=== PATIENT | male | born 1945 | race Caucasian/White ===

== ENCOUNTER 2017-08-21 11:23 | Inpatient (IN) | payer MEDICARE, OTHER ==
[~2017-08-21] VITALS: Ht 165.1 cm; Wt 61.4 kg
[~2017-08-21 11:23] MED LIST: DOPamine-D5W 1.6 MG/ML 250 ML ONE; ETOMIDATE 20 MG INJ ONE; NITROGLYCERIN 50 MG/D5W 250 ML BTL ONE; ROCURONIUM 50 MG INJ ONE
[2017-08-21] MEDS ORDERED: ASPIRIN 325 MG TAB PO STA (14:37)
[2017-08-21] MEDS ORDERED: SOD CHLORIDE 0.9% 1,000 ML IV STA (14:37)
--- NOTE | 2017-08-21 15:08 | RADRPT ---
PROCEDURE: XR Chest. CLINICAL INDICATION: Shortness of breath TECHNIQUE: Single portable view of the chest was obtained COMPARISON: No priors for comparison FINDINGS: The trachea is midline. The cardiac silhouette and pulmonary vascularity are within normal limits. T here are bilateral chronic lung changes. The lungs are clear. The costophrenic angles are sharp. IMPRESSION: 1. Bilateral chronic lung changes. No evidence of acute cardiopulmonary disease. RPTAT: AAPP Physician Remy Date Time Electronically viewed and signed by Physician Remy on 08/21/2017 15:08 JL/
[2017-08-21] MEDS ORDERED: SIMV20TA PO (15:29)
[2017-08-21] MEDS ORDERED: ATOR20TA38 PO (15:29)
[2017-08-21] MEDS ORDERED: LITH300T5 PO (15:30)
[2017-08-21] MEDS ORDERED: ALEN70TA30 PO (15:30)
[2017-08-21 15:38] LABS: BASOPHILS % 0.2 % (0.0-2.0); HEMATOCRIT 41.1 % (42.0-52.0); HEMOGLOBIN 14.3 g/dl (14.0-18.0); MEAN CORPUSCULAR HEMOGLOBIN 29.2 pg (29.0-33.0); MEAN CORPUSCULAR HGB CONC 34.8 g/dl (32.0-37.0); MEAN PLATELET VOLUME 9.7 fl (7.4-10.4); MONOCYTE # 1.4 10^3/ul (0.3-0.9); NEUTROPHIL # 9.9 10^3/ul (1.6-7.5); NEUTROPHILS % 68.5 % (39.0-77.0); PLATELET COUNT 319 10^3/UL (140-415); RED BLOOD COUNT 4.89 10^6/ul (4.70-6.10); RED CELL DISTRIBUTION WIDTH 12.5 % (11.5-14.5); WHITE BLOOD COUNT 14.5 10^3/ul (4.8-10.8)
[2017-08-21] MEDS ORDERED: SODIUM CHLORIDE 0.9% 1L BAG IV* STA (15:43)
[2017-08-21 15:57] LABS: CALCIUM 10.1 mg/dl (8.4-10.2); CREATININE 0.87 mg/dl (0.61-1.24); POTASSIUM 4.8 mmol/L (3.5-5.1)
[2017-08-21 16:11] LABS: TROPONIN-I 15.4 ng/ml (0.00-0.12)
[2017-08-21] MEDS ORDERED: HEPARIN 25000 UNITS/250 ML 250 ML IV STA (16:24)
[2017-08-21] MEDS ORDERED: HEPARIN 1000 UNITS/ML 10 ML INJ IV STA (16:24)
[2017-08-21] MEDS ORDERED: SOD CHLORIDE 0.45% 1,000 ML IV SCH (17:10)
[2017-08-21] MEDS ORDERED: DOCUSATE SODIUM 100 MG CAP PO PRN (17:30)
[2017-08-21] MEDS ORDERED: NACL 0.9% 3 ML SYG IV SCH (17:30)
[2017-08-21] MEDS ORDERED: ACETAMINOPHEN 325 MG TAB PO PRN ×2 (17:30)
[2017-08-21] MEDS ORDERED: MAGNESIUM HYDROXIDE 30ML CUP PO PRN (17:30)
[2017-08-21] MEDS ORDERED: HEPARIN 25000 UNITS/250 ML 250 ML IV SCH (17:30)
[2017-08-21] MEDS ORDERED: HYDROCODONE/APAP (5/325) TAB PO PRN (17:30)
[2017-08-21] MEDS ORDERED: ONDANSETRON 4 MG INJ IV PRN ×2 (17:30)
[2017-08-21] MEDS ORDERED: hydrALAzine 20 MG INJ IV PRN (17:30)
[2017-08-21] MEDS ORDERED: morphine 2 MG INJ IV PRN (17:30)
[2017-08-21] MEDS ORDERED: HEPARIN 1000 UNITS/ML 10 ML INJ IV PRN (17:30)
[2017-08-21] MEDS ORDERED: ALENDRONATE 70 MG TAB PO SCH (17:30)
[2017-08-21] MEDS ORDERED: ALBUTEROL/IPRATROPIUM (NEB) 3 ML AMP HHN PRN (17:30)
[2017-08-21] MEDS ORDERED: NITROGLYCERIN (SL) 0.4 MG TAB SL PRN (17:30)
[2017-08-21] MEDS ORDERED: HEPARIN 1000 UNITS/ML 10 ML INJ IV ONE (17:30)
[2017-08-21] MEDS ORDERED: NA PHOSPHATE/BIPHOS 133 ML ENEMA PR PRN (17:30)
--- NOTE | 2017-08-21 17:37 | ERD ---
ER Documentation Chief Complaint Chief Complaint Sent from MD for eval chest pain abnormal EKG HPI This 72-year-old male presents with left-sided chest pain that began last night pain is worse at this time. He still has some left-sided chest pain but is much better than before. It does not radiate. Also has some chills. Denies cough, denies burning on urination, denies abdominal pain. He was sent by his primary doctor who says that he had EKG changes. Patient has a life insurance underwriter named . Looked at the website of the life insurance underwriter he does not seem to have any partners listed. Takes a daily aspirin 30 taken his aspirin today. ROS All systems reviewed and are negative except as per history of present illness. Medications Home Meds Reported Medications Alendronate Sodium* (Fosamax*) 70 Mg Tablet, 70 MG PO Q7D, #4 TAB 08/21/17 [place] Carbonate* ([place] Carbonate*) 300 Mg Tablet, 300 MG PO QHS, TAB 08/21/17 Simvastatin* (Zocor*) 20 Mg Tablet, 20 MG PO QHS, #30 TAB 08/21/17 Atorvastatin Calcium* (Atorvastatin Calcium*) 20 Mg Tablet, 20 MG PO QHS, #30 TAB 08/21/17 Allergies Allergies: Coded Allergies: No Known Allergy (Unverified , 08/21/17) PMhx/Soc Medical and Surgical Hx: pt denies Surgical Hx History of Surgery: No Hx 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 Disorder: No Hx Respiratory Disorders: No Hx Cardiac Disorders: Yes (HYPERLIPIDEMIA) Hx Psychiatric Problems: Yes (ANXIETY) Hx Miscellaneous Medical Probl: Yes (HYPOTHYROIDISM) Hx Alcohol Use: No Hx Substance Use: No Hx Tobacco Use: Yes Smoking Status: Former smoker Physical Exam Vitals Vital Signs Date Time Temp Pulse Resp B/P Pulse Ox O2 Delivery O2 Flow Rate FiO2 08/21/17 16:54 98.3 83 17 103/39 98 Nasal Cannula 2.0 08/21/17 14:45 100.8 115 19 115/78 96 Room Air 08/21/17 11:35 98.3 118 20 105/69 95 Physical Exam Const: [] No distress Head: Atraumatic Eyes: Normal Conjunctiva ENT: Normal External Ears, Nose and Mouth. Neck: Full range of motion..~ No meningismus. Resp: Mild decreased bibasilar breath sounds with generally good air movement bilaterally. Cardio: Regular tachycardia, no murmurs Abd: Soft, non tender, non distended. Normal bowel sounds Skin: No petechiae or rashes Back: No midline or flank tenderness Ext: No cyanosis, or edema Neur: Awake and alert 3, no focal deficits Psych: Normal Mood and Affect Result Diagram: 08/21/17 1511 08/21/17 1511 Results 24 hrs Laboratory Tests Test 08/21/17 15:11 08/21/17 16:40 08/21/17 16:50 White Blood Count 14.510^3/ul Red Blood Count 4.8910^6/ul Hemoglobin 14.3g/dl Hematocrit 41.1% Mean Corpuscular Volume 84.0fl Mean Corpuscular Hemoglobin 29.2pg Mean Corpuscular Hemoglobin Concent 34.8g/dl Red Cell Distribution Width 12.5% Platelet Count 81906^3/UL Mean Platelet Volume 9.7fl Neutrophils % 68.5% Lymphocytes % 21.0% Monocytes % 10.0% Eosinophils % 0.0% Basophils % 0.2% Nucleated Red Blood Cells % 0.0/100WBC Neutrophils # 9.910^3/ul Lymphocytes # 3.010^3/ul Monocytes # 1.410^3/ul Eosinophils # 0.010^3/ul Basophils # 0.010^3/ul Nucleated Red Blood Cells # 0.010^3/ul Sodium Level 140mmol/L Potassium Level 4.8mmol/L Chloride Level 101mmol/L Carbon Dioxide Level 24mmol/L Anion Gap 20 Blood Urea Nitrogen 7mg/dl Creatinine 0.87mg/dl Glucose Level 118mg/dl Calcium Level 10.1mg/dl Troponin I 15.400ng/ml Pending B-Type Natriuretic Peptide 98128XK/ML Creatine Kinase 1216IU/L Creatine Kinase Index Pending Creatinine Kinase MB (Mass) Pending Prothrombin Time 13.1Sec Prothrombin Time Ratio 1.0 INR International Normalized Ratio 0.98 Activated Partial Thromboplast Time 34.2Sec Lactic Acid Level 3.7mmol/L Current Medications Medications (Trade) Dose Ordered Sig/Gerardo Route PRN Reason Start Time Stop Time Status Last Admin Dose Admin Sodium Chloride (NS) 1,000 ml @ 1,000 mls/hr Q1H STAT IV 12/8/17 14:37 08/21/17 15:36 DC 08/21/17 15:30 Aspirin (Aspirin) 325 mg ONCE STAT PO 08/21/17 14:37 08/21/17 14:39 DC 08/21/17 15:42 Sodium Chloride (NS) 1,860 ml BOLUS OVER 2 HOURS STAT IV* 08/21/17 15:43 08/21/17 15:44 DC 08/21/17 17:12 Heparin Sodium (Porcine) 4000 unit 4,000 unit ONCE STAT IV 08/21/17 16:24 08/21/17 16:25 DC 08/21/17 17:19 Heparin Sodium (Porcine) (Heparin 60491 Units/250 ml) 250 ml @ 0 mls/hr ONCE STAT IV 08/21/17 16:24 08/21/17 16:25 DC IV Flush (NS 3 ml) 3 ml PER PROTOCOL IV 08/21/17 17:30 Ondansetron HCl (Zofran Inj) 4 mg Q6H PRN IV NAUSEA AND/OR VOMITING 08/21/17 17:30 Acetaminophen (Tylenol Tab) 650 mg Q6H PRN PO PAIN LEVEL 1-3 OR FEVER 08/21/17 17:30 Acetaminophen/ Hydrocodone Bitart ([place] (5/325)) 1 tab Q6H PRN PO MODERATE PAIN LEVEL 4-6 08/21/17 17:30 Morphine Sulfate (morphine) 2 mg Q4H PRN IV SEVERE PAIN LEVEL 7-10 08/21/17 17:30 Docusate Sodium (Colace) 100 mg Q12H PRN PO CONSTIPATION 08/21/17 17:30 Magnesium Hydroxide (Milk Of Mag) 30 ml DAILY PRN PO CONSTIPATION 08/21/17 17:30 Sodium Biphosphate/ Sodium Phosphate (Fleet Enema) 133 ml DAILY PRN [place] CONSTIPATION 08/21/17 17:30 Famotidine 20 mg 20 mg Q12 PO 08/21/17 21:00 UNV Sodium Chloride (1/2 NS) 1,000 ml @ 75 mls/hr [id number] IV 08/21/17 17:10 Lorazepam (Ativan) 0.5 mg Q6H PRN IV ANXIETY 08/21/17 17:30 UNV Albuterol/ Ipratropium 3 ml 3 ml Q4H RESP THERAPY PRN HHN SHORTNESS OF BREATH 08/21/17 17:30 Levofloxacin/ Dextrose (Levaquin 750 Mg/ D5W 150 ml (Pmx)) 150 ml @ 100 mls/hr DAILY IVPB 08/21/17 17:30 UNV Hydralazine HCl (Apresoline) 10 mg Q6H PRN IV ELEVATED BLOOD PRESSURE 08/21/17 17:30 Nitroglycerin (Nitroglycerin (Sl Tab) 0.4 Mg) 1 tab Q5M PRN SL ANGINA 08/21/17 17:30 Aspirin (Ecotrin) 325 mg DAILY PO 08/22/17 09:00 Miscellaneous Information (* Miscellaneous Pharmacy Order) DC previous hepa... ONCE ONCE XX 12 17:30 12 17:31 DC Heparin Sodium (Porcine) (Heparin (1000 Units/ml)) 3,600 unit ONCE ONCE IV 12 17:30 12 17:31 DC Heparin Sodium (Porcine) 3600 unit 3,600 unit PER PROTOCOL PRN IV aPTT<47 08/21/17 17:30 Heparin Sodium (Porcine) (Heparin 00267 Units/250 ml) 250 ml @ 7.2 mls/hr PER PROTOCOL IV 12 17:30 Alendronate Sodium (Fosamax) 70 mg Q7D PO 08/21/17 17:30 UNV Ondansetron HCl (Zofran Inj) 4 mg ER BRIDGE PRN IV NAUSEA AND/OR VOMITING 08/21/17 17:30 12 17:29 Acetaminophen (Tylenol Tab) 650 mg ER BRIDGE PRN PO MILD PAIN/FEVER 08/21/17 17:30 12 17:29 Aspirin (Aspirin) 324 mg ONCE ONCE PO 08/21/17 18:30 12 18:31 Procedures/MDM Chest pain with myocardial infarction progress to STEMI EKG in the emergency room. Initial EKG was not a STEMI. Patient had minimal pain and was surprised that he was having a heart attack. Patient's son is also at bedside. Patient was heparinized and given additional 324 mg even though he says it took a full aspirin today. Sepsis workup was also performed as the patient was febrile and tachycardic in the emergency room after triage with a low-grade fever. She was also given 30 cc/kg of IV fluid and given cefepime. The source of the fever is not clear. Patient also has elevated lactic acid and meets criteria for severe sepsis. Spoke with Dr. Lopez after the repeat EKG showed STEMI criteria. She stated that she will take the patient to [facility]. EKG interpretation #1: Sinus tachycardia rate of 110, normal axis, T-wave inversions in lateral leads suspicious for ischemia, QT of 479. Abnormal EKG EKG #2: Sinus tachycardia rate of 122, normal axis, [address] elevations greater than 1 mm in leads V1 and V2 with ST depressions in leads I and II. STEMI. Abnormal EKG school lunch monitor interpretation: Sinus tachycardia without arrhythmia. Chest x-ray interpretation: I see no acute process, see no wide mediastinum, pneumothorax, no pulmonary edema, no fractures Critical care time greater than 35 minutes: This includes treatment of sepsis in a patient with a myocardial infarction and STEMI, discussion with aircraft hydraulic equipment mechanic and admitting doctor as well as patient and family, multiple space bedside to reassess status, careful fluid administration the face of congestive heart failure, review of chart, this does not include any billable procedures. Departure Diagnosis: Primary Impression: STEMI (ST elevation myocardial infarction) Additional Impression: Severe sepsis GWENDOLYN MOROCHO DO Aug 21, 2017 17:37
[2017-08-21 17:40] LABS: INR 0.98; PROTIME 13.1 Sec (11.9-14.9)
[2017-08-21 17:41] LABS: PARTIAL THROMBOPLASTIN TIME 34.2 Sec (25.0-35.0)
[2017-08-21 17:44] LABS: TROPONIN-I 16.1 ng/ml (0.00-0.12)
[2017-08-21] MEDS ORDERED: IOHEXOL 350MG/ML 50 ML BTL ONE (18:12)
[2017-08-21] MEDS ORDERED: IODIXANOL LOCM 100 ML BTL ONE (18:12)
[2017-08-21] MEDS ORDERED: LIDOCAINE 1% (MDV) 20 ML INJ ONE (18:12)
[2017-08-21 18:16] LABS: BASOPHILS % 0.2 % (0.0-2.0); EOSINOPHILS % 0.1 % (0.0-7.0); HEMATOCRIT 39.3 % (42.0-52.0); HEMOGLOBIN 13.2 g/dl (14.0-18.0); LYMPHOCYTES # 2.8 10^3/ul (0.8-2.9); LYMPHOCYTES % 20.2 % (15.0-51.0); MEAN CORPUSCULAR HEMOGLOBIN 28.7 pg (29.0-33.0); MEAN CORPUSCULAR HGB CONC 33.6 g/dl (32.0-37.0); MEAN CORPUSCULAR VOLUME 85.4 fl (82.0-101.0); MEAN PLATELET VOLUME 9.4 fl (7.4-10.4); MONOCYTE # 1.4 10^3/ul (0.3-0.9); MONOCYTES % 10.1 % (0.0-11.0); NEUTROPHIL # 9.4 10^3/ul (1.6-7.5); NEUTROPHILS % 68.9 % (39.0-77.0); PLATELET COUNT 308 10^3/UL (140-415); RED CELL DISTRIBUTION WIDTH 12.8 % (11.5-14.5); WHITE BLOOD COUNT 13.7 10^3/ul (4.8-10.8)
[2017-08-21] MEDS ORDERED: ASPIRIN 81 MG TAB PO ONE (18:30)
--- NOTE | 2017-08-21 18:41 | CONS ---
Date/Time of Note Date/Time of Note DATE: 08/21/17 TIME: 18:34 Assessment/Plan Assessment/Plan Chief Complaint/Hosp Course 72 yo with hypercholesterolemia with chest pain. Problems: Additional Assessment/Plan STEMI anterior wall Chest pain Plan: Cath with possible PCI. Risks and benefits reviewed with pt son, agree to proceed. Consultation Date/Type/Reason Admit Date/Time Aug 21, 2017 Date of Consultation: Aug 21, 2017 Type of Consultation: cardiology Reason for Consultation STEMI Referring Provider: GWENDOLYN MOROCHO DO Hx of Present Illness 72 yo with hyperlipidemia had onset of chest pressure yesterday and epigastric pain, thought it was gerd from drinking too much soda. Patient saw his pcp today who sent him directly to the ER. Patient still has pain, it is a bit better though. EKG shows NSR, Q's V1 and V2 with 1-[address] elevation and reciprocal depression in lateral leads. Son translated. Constitutional: improved, no complaints Eyes: no complaints ENT: no complaints Respiratory: no complaints Cardiovascular: chest pain Gastrointestinal: no complaints Genitourinary: no complaints Musculoskeletal: no complaints Skin: no complaints Neurologic: no complaints Psychological: no complaints, other (uncomfortable, moving around) Past Medical History Medical History: high cholesterol Past Surgical History Past Surgical Hx: other (cataract) Family History Significant Family History: no pertinent family hx Social History Alcohol Use: none Smoking Status: Former smoker Exam/Review of Systems Vital Signs Vitals Vital Signs Date Time Temp Pulse Resp B/P Pulse Ox O2 Delivery O2 Flow Rate FiO2 08/21/17 18:21 24 100/71 96 Room Air Nasal Cannula 08/21/17 16:54 98.3 83 2.0 Exam Constitutional: alert, oriented, other (moving around, uncomfortable), well developed Psych: nl mood/affect, no complaints Head: atraumatic, normocephalic Eyes: EOMI, PERRL, nl conjunctiva, nl lids, nl sclera ENMT: nl external ears & nose, nl lips & teeth, nl nasal mucosa & septum Neck: supple, No bruits, No jvd Respiratory: clear to auscultation, normal air movement Cardiovascular: nl pulses, regular rate and rhythm, No murmurs/extra sounds Gastrointestinal: nl liver, spleen, non-tender, soft Musculoskeletal: nl extremities to inspection Extremities: normal pulses Skin: nl turgor, No rash or lesions Results Result Diagram: 08/21/17 1810 08/21/17 1511 Results 24 hrs Laboratory Tests Test 08/21/17 15:11 08/21/17 16:40 08/21/17 16:50 08/21/17 18:10 White Blood Count 14.5 H 13.7 H Red Blood Count 4.89 4.60 L Hemoglobin 14.3 13.2 L Hematocrit 41.1 L 39.3 L Mean Corpuscular Volume 84.0 85.4 Mean Corpuscular Hemoglobin 29.2 28.7 L Mean Corpuscular Hemoglobin Concent 34.8 33.6 Red Cell Distribution Width 12.5 12.8 Platelet Count 319 308 Mean Platelet Volume 9.7 9.4 Neutrophils % 68.5 68.9 Lymphocytes % 21.0 20.2 Monocytes % 10.0 10.1 Eosinophils % 0.0 0.1 Basophils % 0.2 0.2 Nucleated Red Blood Cells % 0.0 0.0 Neutrophils # 9.9 H 9.4 H Lymphocytes # 3.0 H 2.8 Monocytes # 1.4 H 1.4 H Eosinophils # 0.0 0.0 Basophils # 0.0 0.0 Nucleated Red Blood Cells # 0.0 0.0 Sodium Level 140 Potassium Level 4.8 Chloride Level 101 Carbon Dioxide Level 24 Anion Gap 20 H Blood Urea Nitrogen 7 Creatinine 0.87 Glucose Level 118 Calcium Level 10.1 Troponin I 15.400 *H Pending B-Type Natriuretic Peptide 11818 H Creatine Kinase 1216 H Creatine Kinase Index Pending Creatinine Kinase MB (Mass) Pending Prothrombin Time 13.1 Prothrombin Time Ratio 1.0 INR International Normalized Ratio 0.98 Activated Partial Thromboplast Time 34.2 Lactic Acid Level 3.7 *H Medications Medications Current Medications Ondansetron HCl (Zofran Inj) 4 mg Q6H PRN IV NAUSEA AND/OR VOMITING; Start 08/21/17 at 17:30 Acetaminophen (Tylenol Tab) 650 mg Q6H PRN PO PAIN LEVEL 1-3 OR FEVER; Start 08/21/17 at 17:30 Acetaminophen/ Hydrocodone Bitart ([place] (5/325)) 1 tab Q6H PRN PO MODERATE PAIN LEVEL 4-6; Start 08/21/17 at 17:30 Morphine Sulfate (morphine) 2 mg Q4H PRN IV SEVERE PAIN LEVEL 7-10; Start 08/21 at 17:30 Docusate Sodium (Colace) 100 mg Q12H PRN PO CONSTIPATION; Start 08/21/17 at 17: 30 Magnesium Hydroxide (Milk Of Mag) 30 ml DAILY PRN PO CONSTIPATION; Start at 17:30 Sodium Biphosphate/ Sodium Phosphate (Fleet Enema) 133 ml DAILY PRN [place] CONSTIPATION; Start 08/21/17 at 17:30 Famotidine 20 mg 20 mg Q12 PO ; Start 08/21/17 at 21:00; Status UNV Sodium Chloride (1/2 NS) 1,000 ml @ 75 mls/hr [id number] IV ; Start 08/21/17 at 17 :10 Lorazepam 0.5 mg 0.5 mg Q6H PRN IV ANXIETY; Start 08/21/17 at 17:30; Status UNV Levofloxacin/ Dextrose (Levaquin 750 Mg/ D5W 150 ml (Pmx)) 150 ml @ 100 mls/hr DAILY IVPB ; Start 08/21/17 at 17:30; Status UNV Hydralazine HCl (Apresoline) 10 mg Q6H PRN IV ELEVATED BLOOD PRESSURE; Start 08/21/17 at 17:30 Nitroglycerin (Nitroglycerin (Sl Tab) 0.4 Mg) 1 tab Q5M PRN SL ANGINA; Start 08/21/17 at 17:30 Aspirin (Ecotrin) 325 mg DAILY PO ; Start 08/22/17 at 09:00 Alendronate Sodium (Fosamax) 70 mg Q7D PO ; Start 08/21/17 at 17:30; Status UNV JENNIFER MOORE Aug 21, 2017 18:41
[2017-08-21] MEDS ORDERED: MIDAZOLAM 1 MG/ML 2 ML INJ ONE (18:47)
[2017-08-21] MEDS ORDERED: FENTAnyl 50 MCG/ML VIAL ONE (18:47)
[2017-08-21] MEDS ORDERED: NITROGLYCERIN (IC) 100 MCG/ML INJ ONE (18:47)
[2017-08-21] MEDS ORDERED: HEPARIN 1000 UNITS/ML 10 ML INJ ONE ×7 (18:52→23:32)
[2017-08-21] MEDS ORDERED: VERAPAMIL 5 MG INJ ONE (18:52)
[2017-08-21 18:54] LABS: TROPONIN-I 14.6 ng/ml (0.00-0.12)
[2017-08-21] MEDS ORDERED: HEPARIN (10000 UNITS/ML) 10,000 UNIT, MILRINONE LACTATE 10 MG in SOD CHLORIDE 0.9% 1,00... SC ONE (20:30)
[2017-08-21] MEDS ORDERED: MILRINONE LACTATE 2 MG in SOD CHLORIDE 0.9% 50 ML IV ONE (20:30)
[2017-08-21] MEDS ORDERED: NORepinephrine 8MG/250 ML (PMX 250 ML IV ONE (20:30)
[2017-08-21] MEDS ORDERED: EPINEPHrine 4 MG in DEXTROSE 5% 246 ML IV ONE (20:30)
[2017-08-21] MEDS ORDERED: INSULIN HUMAN REGULAR 100 UNIT in SOD CHLORIDE 0.9% 99 ML IVPB ONE (20:30)
[2017-08-21] MEDS ORDERED: ASPIRIN 600 MG SUPP PR ONE (20:30)
[2017-08-21] MEDS ORDERED: PHENYLephrine 20MG IN 250 ML 250 ML IV ONE (20:30)
--- NOTE | 2017-08-21 20:31 | OPR ---
Date/Time of Note Date/Time of Note DATE: 08/21/17 TIME: 20:22 Operative Report Procedure Date: Aug 21, 2017 Preoperative Diagnosis STEMI anterior wall Postoperative Diagnosis STEMI anterior wall Three vessel coronary disease Operation/Procedure Performed Coronary angiography Attempt at PCI of LAD, unsuccessful Balloon pump placement Surgeon see signature line Emergency Medical Dispatcher Kel JARAMILLO Anesthesia Type: moderate sedation Estimated Blood Loss: 100 - 150 ml's Transfusion none Specimen none Grafts/Implants none Tubes/Drains none Complications none Pt Condition Post Procedure: critical Disposition: other (OR) Indications STEMI anterior wall, 1 day of chest pain Procedure Description Informed consent obtained from patient son. Access obtained in right radial artery. Diagnostic catheters advanced, Ziyad right did not engage the RCA but a nonselective shot provided adequate visualization of the vessel. The FL3.0 guide engaged the left main, and images obtained. Heparin given, ACT checked, two wires tried to cross the LAD lesion, were not successful. Patient was moving throughout the procedure which made imaging difficult. Because of severe disease and patient instability, I elected to intubate him prior to placement of an IABP in the right penal officer. Using modified seldinger technique, sheath placed in the right common femoral artery, and IABP tip advanced to the mike. Balloon inflated appropriately. During attempt to cross the aortic valve with wire, patient went into VT, required shock, returned to sinus tachycardia. Case d/w Dr. Maria C Fenton (CT surgeon) and Dr. Ino Solis (pt outpatient ic design engineer) [facility]. Findings: LM 30% distal LAD 99% prox with HOSSEIN 1 flow, with good mid vessel target LCX 50% ostial, 80% mild followed by poststenotic dilatation, then 95% distal lesion at takeoff of large OM2 RCA tortuous 80% mid lesion LV unable to be assessed JENNIFER MOORE Aug 21, 2017 20:31
--- NOTE | 2017-08-21 20:42 | PN ---
Date/Time of Note Date/Time of Note DATE: 08/21/17 TIME: 20:34 Assessment/Plan Lines/Catheters IV [facility] (from [facility]): Peripheral IV Assessment/Plan Assessment/Plan 72 year old on chart but according to son he is really 82, admitted with STEMI and taken to sleep lab technologist and found to have subtotaled LAD,over 90% circ and 90% mid RCA. Pt had cardiac arrest in sleep lab technologist requiring cardioversion and insertion of IABP. After unsuccessful PCI I was asked to take emergently for a CABG. I had a long discussion with the patients son and his grandson regarding need for emergency cabg. I explained the benefits, risks and alternatives. The risks are but not limited to bleeding, infection, stroke, OR, renal and respiratory failure and . They talked to several relatives over the phone and were unsure for almost 30 minutes. I explained that if we did nothing he would most likely and that with cabg his mortality is about 20% with even higher morbidity. Again I explained several times in from of Dr. Barr and there regular contract clerk automobile Dr. Solis that he was critical and needed some intervention now and not transferable to other hospitals. They thought about transferring to [facility] or another hospital but he was no condition to transfer. After several discussions and delays they consented and agreed to their father' s surgery. Exam/Review of Systems Vital Signs Vitals Vital Signs Date Time Temp Pulse Resp B/P Pulse Ox O2 Delivery O2 Flow Rate FiO2 08/21/17 18:21 24 100/71 96 Room Air Nasal Cannula 08/21/17 16:54 98.3 83 2.0 Results Result Diagram: 08/21/17 1810 08/21/17 1511 ERNIE LOPEZ MD Aug 21, 2017 20:42
[2017-08-21] MEDS ORDERED: PAPAVERINE 60 MG INJ ONE (20:44)
[2017-08-21] MEDS ORDERED: GELATIN SIZE 100 SPONGE ONE (20:45)
[2017-08-21] MEDS ORDERED: THROMBIN 5000 UNIT VIAL ONE (20:45)
[2017-08-21] MEDS ORDERED: VANCOMYCIN 1 GM INJ ONE (20:45)
[2017-08-21] MEDS ORDERED: MANNITOL 20% 250 ML IV ONE ×2 (20:49→22:29)
[2017-08-21] MEDS ORDERED: AMINOCAPROIC ACID 5 GM INJ ONE ×2 (20:49→21:57)
[2017-08-21] MEDS ORDERED: LIDOCAINE 100 MG SYRINGE ONE (20:49)
[2017-08-21] MEDS ORDERED: POTASSIUM CHLORIDE 40 MEQ INJ ONE ×2 (20:50→20:52)
[2017-08-21] MEDS ORDERED: MAGNESIUM SULFATE (MG) 50% 10 ML INJ ONE (20:50)
--- NOTE | 2017-08-21 20:50 | CONS ---
Date/Time of Note Date/Time of Note DATE: 08/21/17 TIME: 20:45 Assessment/Plan Assessment/Plan Additional Assessment/Plan [age] year old male in cardiogenic shock who needs emergent CABG. I explained in great detail to son and several family members over the phone that he needs emergency CABG and that if he didnt his mortality is over 50% and with surgery its around 20%. After several long discussions and explanation of risks the son signed the consent. Consultation Date/Type/Reason Admit Date/Time Aug 21, 2017 Date of Consultation: Aug 21, 2017 Reason for Consultation emergency cabg Referring Provider: JENNIFER MOORE Hx of Present Illness 72 by chart but 82 according to son admitted with STEMI and found to have subtotaled LAD, critical Cx and RCA stenosis and failed PCI and cardiac arrest requiring cardioversion. I am asked to see regarding emergency CABG. Subjective hx not possible: pt non-verbal Past Medical History Medical History: high cholesterol, hypertension Past Surgical History Past Surgical Hx: other (cataract) Family History Significant Family History: no pertinent family hx Social History Alcohol Use: none Smoking Status: Former smoker Drug Use: none Exam/Review of Systems Vital Signs Vitals Vital Signs Date Time Temp Pulse Resp B/P Pulse Ox O2 Delivery O2 Flow Rate FiO2 08/21/17 18:21 24 100/71 96 Room Air Nasal Cannula 08/21/17 16:54 98.3 83 2.0 Exam Constitutional: non-verbal Head: No atraumatic, No hematomas, No lacerations, No normocephalic, No other Eyes: No EOMI, No PERRL, No fundi, disc, No icteric, No nl conjunctiva, No nl lids, No nl sclera, No other ENMT: No intubated, No mucosa pink and moist, No nl external ears & nose, No nl lips & teeth, No nl nasal mucosa & septum, No other, No tympanic membranes Neck: No bruits, No jvd, No masses, No non-tender, No nuchal rigidity, No other , No supple, No thyromegaly Respiratory: No clear to auscultation, No congested cough, No crackles/rales, No diminished breath sounds, No intercostal retraction, No labored breathing, No normal air movement, No other, No respirations, No tactile fremitus, No wheezing Cardiovascular: No S3, No S4, No bruits, No diastolic murmur, No edema, No gallop, No irregular rhythm, No jugular venous distention (JVD), No murmurs/ extra sounds, No nl pulses, No other, No regular rate and rhythm, No rub, No systolic murmur Gastrointestinal: No ascites, No bowel sounds, No distended, No firm, No hepatomegaly, No mass, No nl liver, spleen, No non-tender, No other, No rebound or guarding, No soft, No splenomegaly, No surgical scars, No tender Musculoskeletal: No joint tenderness, No muscle tone, No muscle weakness, No nl extremities to inspection, No nl gait and stance, No other, No range of motion, No spine non-tender, No swelling Extremities: other (cool to touch, IABP in place) 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: unresponsive Skin: No diaphoresis, No ecchymosis, No laceration, No nl turgor, No other, No puncture, No rash or lesions Lymph: No enlarged, No nl lymph nodes, No nontender, No other Results Result Diagram: 08/21/17 1810 08/21/17 1511 Results 24 hrs Laboratory Tests Test 08/21/17 15:11 08/21/17 16:40 08/21/17 16:50 08/21/17 18:10 White Blood Count 14.5 H 13.7 H Red Blood Count 4.89 4.60 L Hemoglobin 14.3 13.2 L Hematocrit 41.1 L 39.3 L Mean Corpuscular Volume 84.0 85.4 Mean Corpuscular Hemoglobin 29.2 28.7 L Mean Corpuscular Hemoglobin Concent 34.8 33.6 Red Cell Distribution Width 12.5 12.8 Platelet Count 319 308 Mean Platelet Volume 9.7 9.4 Neutrophils % 68.5 68.9 Lymphocytes % 21.0 20.2 Monocytes % 10.0 10.1 Eosinophils % 0.0 0.1 Basophils % 0.2 0.2 Nucleated Red Blood Cells % 0.0 0.0 Neutrophils # 9.9 H 9.4 H Lymphocytes # 3.0 H 2.8 Monocytes # 1.4 H 1.4 H Eosinophils # 0.0 0.0 Basophils # 0.0 0.0 Nucleated Red Blood Cells # 0.0 0.0 Sodium Level 140 Potassium Level 4.8 Chloride Level 101 Carbon Dioxide Level 24 Anion Gap 20 H Blood Urea Nitrogen 7 Creatinine 0.87 Glucose Level 118 Calcium Level 10.1 Troponin I 15.400 *H Pending 14.600 *H B-Type Natriuretic Peptide 56222 H Creatine Kinase 1216 H 1096 H Creatine Kinase Index Pending 10.4 Creatinine Kinase MB (Mass) Pending 114.00 H Prothrombin Time 13.1 Prothrombin Time Ratio 1.0 INR International Normalized Ratio 0.98 Activated Partial Thromboplast Time 34.2 Lactic Acid Level 3.7 *H 2.8 *H Medications Medications Current Medications Ondansetron HCl (Zofran Inj) 4 mg Q6H PRN IV NAUSEA AND/OR VOMITING; Start 08/21/17 at 17:30 Acetaminophen (Tylenol Tab) 650 mg Q6H PRN PO PAIN LEVEL 1-3 OR FEVER; Start 08/21/17 at 17:30 Acetaminophen/ Hydrocodone Bitart ([place] (5/325)) 1 tab Q6H PRN PO MODERATE PAIN LEVEL 4-6; Start 08/21/17 at 17:30 Morphine Sulfate (morphine) 2 mg Q4H PRN IV SEVERE PAIN LEVEL 7-10; Start 08/21 at 17:30 Docusate Sodium (Colace) 100 mg Q12H PRN PO CONSTIPATION; Start 08/21/17 at 17: 30 Magnesium Hydroxide (Milk Of Mag) 30 ml DAILY PRN PO CONSTIPATION; Start at 17:30 Sodium Biphosphate/ Sodium Phosphate (Fleet Enema) 133 ml DAILY PRN [place] CONSTIPATION; Start 08/21/17 at 17:30 Famotidine 20 mg 20 mg Q12 PO ; Start 08/21/17 at 21:00 Sodium Chloride (1/2 NS) 1,000 ml @ 75 mls/hr [id number] IV ; Start 08/21/17 at 17 :10 Lorazepam 0.5 mg 0.5 mg Q6H PRN IV ANXIETY; Start 08/21/17 at 17:30 Levofloxacin/ Dextrose (Levaquin 750 Mg/ D5W 150 ml (Pmx)) 150 ml @ 100 mls/hr Q24H IVPB ; Start 08/21/17 at 19:00 Hydralazine HCl (Apresoline) 10 mg Q6H PRN IV ELEVATED BLOOD PRESSURE; Start 08/21/17 at 17:30 Nitroglycerin (Nitroglycerin (Sl Tab) 0.4 Mg) 1 tab Q5M PRN SL ANGINA; Start 08/21/17 at 17:30 Aspirin (Ecotrin) 325 mg DAILY PO ; Start 08/22/17 at 09:00 Alendronate Sodium (Fosamax) 70 mg Q7D PO ; Start 08/21/17 at 17:30; Status UNV Miscellaneous Information (*Order Clarification Bulletin) ALENDRONATE 70MG: WHICH DAY OF THE WEEK IS T... Q8H XX ; Start 08/21/17 at 19:30 ERNIE LOPEZ MD Aug 21, 2017 20:50
[2017-08-21] MEDS ORDERED: MIDAZOLAM 5 ML ONE ×3 (20:55→23:49)
--- NOTE | 2017-08-21 20:55 | QN ---
Documentation Comment Called to the Production Control Expert for ET intubation requested by Dr. Lopez as the patient having significant acute cardiac disease and required a balloon pump. ET intubation note: Patient was creatinine with bag mask ventilation and RSI was used with 20 mill grams of etomidate 100 mg rocuronium. Size 8 ET tube was easily introduced through visualized cords using a glide scope. Patient did initially saturate well after the procedure then desaturated as the electrical system specialist was placing a balloon pump concurrently. The saturation did return to high 90s. Patient was visualized sensation to the vocal cord as well as entitled CO2 monitor showing good color change. Under fluoroscopy was able to see the tube was in good position. GWENDOLYN MOROCHO DO Aug 21, 2017 20:55
[2017-08-21] MEDS ORDERED: PHENYLephrine (100 MCG/ML) 5ML SYG ONE ×2 (21:18→22:06)
[2017-08-21] MEDS ORDERED: ALBUMIN HUMAN 25% 300 ML ONE (21:25)
[2017-08-21] MEDS ORDERED: PHENYLephrine 10 MG INJ ONE ×5 (21:25→23:44)
[2017-08-21] MEDS ORDERED: SOD CHLORIDE 0.9% 250 ML IV* ONE ×2 (21:44→21:53)
[2017-08-21] MEDS ORDERED: NA BICARBONATE 8.4% 50 ML SYG ONE ×2 (21:48→23:53)
[2017-08-21] MEDS ORDERED: CEFAZOLIN 1 GM INJ ONE (21:57)
[2017-08-21] MEDS ORDERED: FUROSEMIDE 20 MG INJ ONE (22:03)
[2017-08-21] MEDS ORDERED: CA CHLORIDE 10% 10 ML SYRINGE ONE (23:44)
[2017-08-22] VITALS (79 sets, daily range): BP systolic 87–138; BP diastolic 37–89; PULSE 86–139; RESP 17–30; TEMP 96.2–101.8; Ht 165.1 cm; Wt 61.4 kg
[2017-08-22] MEDS ORDERED: AMINOCAPROIC ACID 5 GM INJ ONE ×2
[2017-08-22] MEDS ORDERED: CEFAZOLIN 1 GM INJ ONE
[2017-08-22] MEDS ORDERED: PROTAMINE 250 MG INJ ONE
[2017-08-22] MEDS ORDERED: PHENYLephrine 20MG IN 250 ML 250 ML IV SCH ×2 (00:30→02:00)
[2017-08-22] MEDS ORDERED: NORepinephrine 8MG/250 ML (PMX 250 ML IV SCH ×2 (00:30→02:00)
--- NOTE | 2017-08-22 00:47 | SIPON ---
Date/Time of Note Date/Time of Note DATE: 08/22/17 TIME: 00:45 Operative Report Preoperative Diagnosis STEMI, CARDIAC ARREST, 3V CAD Postoperative Diagnosis SAME Operation/Procedure Performed CABGX3, WESTFALL TO LAD, SVG TO DISTAL RCA, SVG TO OM2 Surgeon see signature line kitchen assistant CLIVE JESUS MD Second assist: BRIEN AGGARWAL Anesthesia: general Estimated blood loss: other Transfusion Required 2 UNITS PRBC, 2UNITS FFP, 2 PLATELETS Specimen NONE Grafts/Implants none Complications none ERNIE LOPEZ MD Aug 22, 2017 00:47
[2017-08-22] MEDS ORDERED: MAGNESIUM SULFATE 1 GM/D5W 100 ML IVPB PRN (01:00)
[2017-08-22] MEDS ORDERED: ONDANSETRON 4 MG INJ IV PRN (01:00)
[2017-08-22] MEDS ORDERED: POTASSIUM CHLORIDE 40 MEQ, CALCIUM CHLORIDE 10% 1 GM in DEXTROSE 5%-0.225% NACL 1,000 ML IV SCH (01:00)
[2017-08-22] MEDS ORDERED: EPINEPHrine 4 MG in DEXTROSE 5% 246 ML IV SCH (01:00)
[2017-08-22] MEDS ORDERED: ACETAMINOPHEN 325 MG TAB PO PRN (01:00)
[2017-08-22] MEDS ORDERED: DOPamine 800 MG in DEXTROSE 5% 230 ML IV SCH (01:00)
[2017-08-22] MEDS ORDERED: DEXTROSE 50% 50 ML SYRINGE IV PRN ×2 (01:00)
[2017-08-22] MEDS ORDERED: OXYCODONE/ACETAMINOPHEN (5/325) TAB PO PRN (01:00)
[2017-08-22] MEDS: FAMOTIDINE 20 MG TAB PO SCH ×3 (01:15→21:06)
[2017-08-22] MEDS: VASOPRESSIN 60 UNIT in DEXTROSE 5% 60 ML IV SCH ×2 (01:15→14:55)
[2017-08-22] MEDS: ALENDRONATE 70 MG XX SCH ×2 (01:15→03:30)
[2017-08-22] MEDS: EPINEPHrine 4 MG in DEXTROSE 5% 246 ML IV SCH ×3 (01:15→18:20)
[2017-08-22] MEDS: [UNRECOGNIZED DRUG - OTHER] XX SCH ×2 (01:15→03:30)
[2017-08-22] MEDS: LEVOFLOXACIN 750MG/D5W (PMX) 150 ML IVPB SCH ×2 (01:15→19:23)
--- NOTE | 2017-08-22 01:27 | RADRPT ---
PROCEDURE: Chest. CLINICAL INDICATION: Chest pain. TECHNIQUE: Single frontal view of the chest was obtained. COMPARISON: 08/21/2017. FINDINGS: Mediasternotomy wires are present. There is an endotracheal tube 2 cm above the mike. There is a l eft-sided [place] catheter extending to the main pulmonary artery. There are inferior septal lines present. The cardiac silhouette is enlarged. The aortic arch is calcified. There is pulmonary lorraine ous congestion with interstitial edema. There is no pleural effusion. There is no pneumothorax. IMPRESSION: Moderate cardiomegaly with pulmonary venous congestion and interstitial edema, new compared with the prior study. Aortic atherosclerosis. Tube and lines as described. .Saurabh Quezada MD, Date Time Electronically viewed and signed by .Saurabh Quezada MD, MD on 08/22/2017 01:26 .T/
[2017-08-22] MEDS: ACCU-CHEK XX SCH ×9 (01:30→10:00)
[2017-08-22] MEDS ORDERED: NA BICARBONATE 8.4% 50 ML SYG ONE ×2 (01:51→01:52)
[2017-08-22] MEDS ORDERED: NITROGLYCERIN 50 MG/D5W (PMX) 250 ML IV SCH (02:00)
[2017-08-22] MEDS ORDERED: DOPamine-D5W 1.6 MG/ML 250 ML IV SCH (02:00)
[2017-08-22] MEDS ORDERED: VASOPRESSIN 60 UNIT in DEXTROSE 5% 57 ML IV SCH (02:00)
[2017-08-22 02:12] LABS: INR 1.51; PROTIME 18.5 Sec (11.9-14.9); PT RATIO 1.4
[2017-08-22 02:13] LABS: PARTIAL THROMBOPLASTIN TIME 34.5 Sec (25.0-35.0)
[2017-08-22 02:39] LABS: TROPONIN-I 70.8 ng/ml (0.00-0.12)
[2017-08-22] MEDS: CEFAZOLIN 1 GM/50 ML (PMX) 50 ML IVPB SCH ×3 (03:13→17:26)
[2017-08-22 03:45] LABS: BASOPHILS % 0.2 % (0.0-2.0); EOSINOPHILS # 0.1 10^3/ul (0.0-0.5); EOSINOPHILS % 0.3 % (0.0-7.0); HEMATOCRIT 27.7 % (42.0-52.0); HEMOGLOBIN 9.3 g/dl (14.0-18.0); LYMPHOCYTES # 4.2 10^3/ul (0.8-2.9); LYMPHOCYTES % 23.7 % (15.0-51.0); MEAN CORPUSCULAR HEMOGLOBIN 29.4 pg (29.0-33.0); MEAN CORPUSCULAR HGB CONC 33.6 g/dl (32.0-37.0); MEAN CORPUSCULAR VOLUME 87.7 fl (82.0-101.0); MEAN PLATELET VOLUME 9.8 fl (7.4-10.4); MONOCYTE # 0.6 10^3/ul (0.3-0.9); MONOCYTES % 3.4 % (0.0-11.0); NEUTROPHIL # 12.9 10^3/ul (1.6-7.5); NEUTROPHILS % 71.8 % (39.0-77.0); PLATELET COUNT 243 10^3/UL (140-415); POSITIVE DIFF @See below; RED BLOOD COUNT 3.16 10^6/ul (4.70-6.10); RED CELL DISTRIBUTION WIDTH 13.2 % (11.5-14.5); WHITE BLOOD COUNT 17.9 10^3/ul (4.8-10.8)
[2017-08-22 03:52] LABS: CALCIUM 7.4 mg/dl (8.4-10.2); CREATININE 0.85 mg/dl (0.61-1.24); MAGNESIUM 2.8 mg/dl (1.7-2.5); POTASSIUM 3.1 mmol/L (3.5-5.1)
[2017-08-22] MEDS: INSULIN HUMAN REGULAR 100 UNIT in SOD CHLORIDE 0.9% 99 ML IV SCH ×2 (04:05→19:19)
--- NOTE | 2017-08-22 04:17 | OPR ---
DATE OF OPERATION: 08/22/2017 PREOPERATIVE DIAGNOSES: 1. ST-elevation myocardial infarction. 2. Cardiac arrest. 3. Three-vessel coronary artery disease, left main stenosis. POSTOPERATIVE DIAGNOSES: 1. ST-elevation myocardial infarction. 2. Cardiac arrest. 3. Three-vessel coronary artery disease, left main stenosis. PROCEDURE PERFORMED: CABG x3, WESTFALL to LAD, SVG to distal right coronary artery, SVG to obtuse flores nal artery, endoscopic vein harvesting. SURGEON: Ernie Fenton M.D. NIB INSPECTOR: Larry Jesus M.D. SECOND INSURANCE PRODUCER: OKSANA García ANESTHESIOLOGIST: Eder Kumar M.D. ANESTHESIA: General endotracheal. COMPLICATIONS: None. FINDINGS: LV function was about 25% to 30% preoperatively. After revascularization, it was more li ke 40%. All the camp were moving, but the heart was dilated. His flow in the OM vein graft was 79 mL per minute, the flow in the RCA was 55 mL per minute. The flow in the WESTFALL was 10 mL per minute . The LAD was a heavily calcified, diffusely diseased vessel. INDICATION: The patient is a 72-year-old male by medical records, but according to his family, he i s 82 years old, who came in with a chest pain and ruled in for a STEMI. He was taken to the cath la b and was found to have a subtotally occluded LAD and high-grade stenosis of his RCA and circumflex. He had attempted PCI of his LAD. He had a cardiac arrest requiring cardioversion x2. I was earl d emergently for emergency CABG. I explained in great detail to the son and the grandson, the benef its, the risks, alternatives of surgery. This was all documented in the notes. They understood and agreed. DESCRIPTION OF PROCEDURE: Patient was brought to the operating room. He was placed in supine posit ion. He was already intubated. He had a swan placed and a radial A-line placed. Antibiotics were given. He was prepped and draped in usual sterile fashion. A median sternotomy was made simultaneo us endoscopic vein harvesting from the right lower extremity. Heparin was given. WESTFALL was taken do wn using clips and cautery. Pericardial well established. Pursestring was placed in the ascending aorta followed by the right atrium. The ascending aorta was cannulated followed by 2-stage venous c annula in the right atrium. The retrograde catheter was placed via the right atrium and also ascend ing aortic vent. Once all lines were in place and ACT was adequate, we commenced cardiopulmonary by pass. We placed a crossclamp and arrested the heart using retrograde cardioplegia. Once the heart was arrested, we identified the distal RCA, which was a 1.5 mm vessel. We anastomosed our vein alfred t using 7-0 Prolene in a running fashion in end-to-side manner. The vein grafts cut to length. We then identified the OM2. I made an arteriotomy, which was a 2 mm vessel. We anastomosed our vein g raft using 7-0 Prolene in a running fashion in end-to-side manner. Once this was done, we identifie d proximal to mid LAD with the heavily calcified and diseased vessel. We made an arteriotomy and ex tended with Nicholas scissors. We anastomosed our WESTFALL using 7-0 Prolene in a running fashion in end-t o-side manner. At this time, we began rewarming the patient. We placed a ventricular pacing wire, gave warm blood, and then removed the crossclamp and cardioverted to normal sinus rhythm. We then p laced a partial clamp on the ascending aorta. We made 2 aortotomies, anastomosed our right vein gra ft to the distal aortotomy, using 5-0 Prolene in a running fashion in end-to-side manner. The same was done for the other vein graft. Partial clamp was removed. Vein grafts were deaired. Distally hemostasis was achieved. We began ventilating the patient. We turned the balloon pump back on and weaned him off cardiopulmonary bypass on epinephrine, Primacor and dopamine. He was able to maintai n blood pressures in the 90s. We gave protamine. We then delined the patient. We placed anterior mediastinal tube. We closed the chest using interrupted cables, followed by closure of the fascia u sing 0 Vicryl, followed by closure of skin using 4-0 Monocryl in subcuticular fashion. Lower extrem ity incisions were closed using 3-0 Vicryl for the deep layer and 4-0 Monocryl for the skin. Dressi ngs were applied. Patient was taken to the ICU in critical condition. Dictated By: ERNIE SPEAR/BURTON Conf#: [id number] DID#: [id number] CC: BRIEN GANDHI; LARRY JESUS MD; EDER KUMAR MD;*[facility]*
[2017-08-22] MEDS: POTASSIUM CHLORIDE 50 ML IVPB PRN ×6 (04:20→11:33)
--- NOTE | 2017-08-22 05:19 | HP ---
Date/Time of Note Date/Time of Note DATE: 08/22/17 TIME: 04:59 Assessment/Plan VTE Prophylaxis VTE Prophylaxis Intervention: SCD's Lines/Catheters IV Catheter Type (from Nrsg): Peripheral IV Assessment/Plan Assessment/Plan 72 yo male with hx of DL, anxiety, ?hypothyroidism who presented with chest pain and found to have STEMI with emergent cardiac cath revealing three- disease. s/p unsuccessful PCI of LAD, s/p cardiac arrest in botany laboratory assistant s/p cardioversion x 2 and placement of balloon pump and now s/p CABG. 1. Three-vessel CAD, s/p CABG ICU monitoring cont vent support, pulmonary to follow f/u cardiology and CT surg recs 2D-echo 2. s/p cardiopulmonary arrest: s/p cardioversion x 2, intubation -see #1 3. SIRS: secondary to above -will be on IV abx -f/u culture results 4. Lactic acidosis: from ischemic event -will trend -see above 5. Hypernatremia -re-check in few hours. If persists, then D5W 6. Anemia: likely 2/2 blood loss and dilutional effect -monitor and transfuse as needed 7. ?Hx of hypothyroidism -check TSH in am 8. Hx of Dyslipidemia -check FLP in am -will be on statin HPI/ROS Admit Date/Time Admit Date/Time Aug 21, 2017 Hx of Present Illness This is a 72 yo male with hx of DL, anxiety, ?hypothyroidism who presented with chest pain and found to have STEMI with elevated troponin. emergent cardiac cath revealed multivessel disease. Attempt at PCI of LAD, unsuccessful. He also went into cardiac arrest in botany laboratory assistant s/p cardioversion x 2. Balloon pump was placed. Patien was emergently taken to OR and underwent CABG. . ROS Eyes: no complaints ENT: no complaints Respiratory: no complaints Cardiovascular: chest pain Gastrointestinal: no complaints Genitourinary: no complaints Musculoskeletal: no complaints Skin: no complaints Neurologic: no complaints Psychological: nl mood/affect, no complaints PMH/Family/Social Past Medical History Medical History: high cholesterol, hypertension Past Surgical History Past Surgical Hx: other (cataract) Social History Alcohol Use: none Smoking Status: Former smoker Drug Use: none Exam/Review of Systems Vital Signs Vitals Vital Signs Date Time Temp Pulse Resp B/P Pulse Ox O2 Delivery O2 Flow Rate FiO2 08/22/17 02:03 122 18 95 100 08/22/17 01:45 98.2 08/21/17 18:21 100/71 Room Air Nasal Cannula 08/21/17 16:54 2.0 Intake and Output 08/21/17 08/21/17 08/22/17 15:00 23:00 07:00 Output Total 90 ml Balance -90 ml Labs Result Diagram: 08/22/17 0130 08/22/17 0130 Medications Medications Current Medications Ondansetron HCl (Zofran Inj) 4 mg Q6H PRN IV NAUSEA AND/OR VOMITING; Start 08/21/17 at 17:30 Acetaminophen (Tylenol Tab) 650 mg Q6H PRN PO PAIN LEVEL 1-3 OR FEVER; Start 08/21/17 at 17:30 Acetaminophen/ Hydrocodone Bitart ([place] (5/325)) 1 tab Q6H PRN PO MODERATE PAIN LEVEL 4-6; Start 08/21/17 at 17:30 Morphine Sulfate (morphine) 2 mg Q4H PRN IV SEVERE PAIN LEVEL 7-10; Start 08/21 at 17:30 Docusate Sodium (Colace) 100 mg Q12H PRN PO CONSTIPATION; Start 08/21/17 at 17: 30 Magnesium Hydroxide (Milk Of Mag) 30 ml DAILY PRN PO CONSTIPATION; Start at 17:30 Sodium Biphosphate/ Sodium Phosphate (Fleet Enema) 133 ml DAILY PRN [place] CONSTIPATION; Start 08/21/17 at 17:30 Famotidine 20 mg 20 mg Q12 PO ; Start 08/21/17 at 21:00 Sodium Chloride (1/2 NS) 1,000 ml @ 75 mls/hr [id number] IV ; Start 08/21/17 at 17 :10 Lorazepam 0.5 mg 0.5 mg Q6H PRN IV ANXIETY; Start 08/21/17 at 17:30 Levofloxacin/ Dextrose (Levaquin 750 Mg/ D5W 150 ml (Pmx)) 150 ml @ 100 mls/hr Q24H IVPB ; Start 08/21/17 at 19:00 Hydralazine HCl (Apresoline) 10 mg Q6H PRN IV ELEVATED BLOOD PRESSURE; Start 08/21/17 at 17:30 Nitroglycerin (Nitroglycerin (Sl Tab) 0.4 Mg) 1 tab Q5M PRN SL ANGINA; Start 08/21/17 at 17:30 Alendronate Sodium (Fosamax) 70 mg Q7D PO ; Start 08/21/17 at 17:30; Status UNV Miscellaneous Information ALENDRONATE 70MG: WHICH DAY OF THE WEEK IS T... Q8H XX ; Start 08/21/17 at 19:30 Vasopressin 60 unit/Dextrose 60 ml @ 1.2 mls/hr Q12H IV ; Start 08/22/17 at 00: 30 Norepinephrine 250 ml @ 1.875 mls/ hr TITRATE IV Last administered on 01:15; Admin Dose 11.25 MLS/HR; Start 08/22/17 at 00:30 Phenylephrine HCl 250 ml @ 75 mls/hr TITRATE IV ; Start 08/22/17 at 00:30 Potassium Chloride 40 meq/ Calcium Chloride 1 gm/Dextrose/ Sodium Chloride 1, 030 ml @ 60 mls/hr [id number] IV Last administered on 08/22/17 03:05; Admin Dose 60 MLS/HR; Start 08/22/17 at 01:00 Cefazolin Sodium (Ancef 1 Gm/50 ml (Pmx)) 50 ml @ 100 mls/hr Q8H IVPB Last administered on 08/22/17 03:13; Admin Dose 100 MLS/HR; Start 08/22/17 at 01:00 ; Stop 08/22/17 at 17:29 Hydromorphone HCl (Dilaudid) 0.2 mg Q15M PRN IV PAIN LEVEL 1-5; Start 08/22/17 at 01:00 Hydromorphone HCl (Dilaudid) 0.4 mg Q15M PRN IV PAIN LEVEL 6-10; Start at 01:00 Oxycodone/ Acetaminophen (Percocet (5/ 325)) 1 tab Q3H PRN PO PAIN LEVEL 1-5; Start 08/22/17 at 01:00 Ondansetron HCl (Zofran Inj) 4 mg Q6H PRN IV NAUSEA AND/OR VOMITING; Start 08/22/17 at 01:00 Famotidine (Pepcid Iv) 20 mg BID@08,20 IV ; Start 08/22/17 at 08:00 Famotidine (Pepcid) 20 mg BID PO ; Start 08/22/17 at 09:00; Status UNV Acetaminophen 650 mg 650 mg Q3H PRN PO ELEVATED TEMPERATURE; Start 08/22/17 at 01:00 Magnesium Sulfate/ Dextrose (Magnesium Sulfate 1 Gm/D5W) 100 ml @ 100 mls/hr PRN PRN IVPB PENDING LAB VALUE; Start 08/22/17 at 01:00 Diagnostic Test (Pha) (Accu-Chek) 1 ea Q1H XX Last administered on 08/22/17t 04 :23; Admin Dose 1 EA; Start 08/22/17 at 01:00 Dextrose (D50w Syringe) 25 ml Q15M PRN IV Till BS 80 mg/dL or above x2; Start 08/22/17 at 01:00 Dextrose (D50w Syringe) 50 ml Q15M PRN IV Till BS 80 mg/dL or above x2; Start 08/22/17 at 01:00 HANNAH MCCLENDON MD Aug 22, 2017 05:19
[2017-08-22 05:22] LABS: AADO2 Arterial 599.8 mmHg (7.0-24.0); Arterial Base Excess -8.6 mmol/L (-3.0-3); Arterial COHb 0.2 % (0.0-3.0); Arterial Fraction of Oxyhgb 90.7 % (93.0-99.0); Arterial HCO3 18.3 mmol/L (22.0-26.0); Arterial MetHb 0.2 % (0.0-1.5); Arterial Total Hemglobin 10.6 g/dl (12.0-18.0); MODE VENT - AC
[2017-08-22 05:22] LABS: Blood Gas High PEEP Setting 7.5 cmH2O; MODE VENT - AC; MetHgb Mixed Venous 0.3 %; Mixed Venous COHb 0.1 %; Mixed Venous Fraction OxyHgb 74.9 %; Mixed Venous Oxygen Sat 75.2 mmHG (65.0-75.0); Mixed Venous Total Hemglobin 13.5 g/dl; Sample Type BLMV
[2017-08-22 05:22] LABS: AADO2 Arterial 577.4 mmHg (7.0-24.0); Arterial COHb 0.3 % (0.0-3.0); Arterial Fraction of Oxyhgb 93.6 % (93.0-99.0); Arterial HCO3 24.5 mmol/L (22.0-26.0); Arterial MetHb 0 % (0.0-1.5); Arterial Total Hemglobin 12.8 g/dl (12.0-18.0); Blood Gas High PEEP Setting 7.5 cmH2O; MODE VENT - AC
--- NOTE | 2017-08-22 08:03 | CONS ---
Date/Time of Note Date/Time of Note DATE: 08/22/17 TIME: 08:01 Assessment/Plan Assessment/Plan Chief Complaint/Hosp Course 1) CAD 2) STEMI 3) Emergency CABG 4) LV dysfunction 5) SIRS 6) Hypotension 7) VDRF 8) CI gradually increasing to 2.1 Problems: Additional Assessment/Plan 1) wean pressors, wean levo 2) ventilator care 3) ASA, statin 4) beta neda, BOB once normotensive 5) echo in next few days Consultation Date/Type/Reason Admit Date/Time Aug 21, 2017 at 17:28 Initial Consult Date 08/21/17 Type of Consultation: cardiology Referring Provider: HANNAH MCCLENDON MD 24 HR Interval Summary Subjective hx not possible: pt critical status Exam/Review of Systems Vital Signs Vitals Vital Signs Date Time Temp Pulse Resp B/P Pulse Ox O2 Delivery O2 Flow Rate FiO2 08/22/17 06:30 135 22 116/75 100 08/22/17 06:00 100.0 Mechanical Ventilator 08/22/17 05:23 100 08/21/17 16:54 2.0 Intake and Output 08/21/17 08/21/17 08/22/17 15:00 23:00 07:00 Intake Total 653.40 ml Output Total 2315 ml Balance -1661.60 ml Exam Constitutional: non-verbal Head: atraumatic, normocephalic ENMT: intubated Neck: jvd Respiratory: clear to auscultation Cardiovascular: regular rate and rhythm Gastrointestinal: soft Musculoskeletal: nl extremities to inspection Extremities: normal pulses Results Result Diagram: 08/22/17 0130 08/22/17 0130 Results 24 hrs Laboratory Tests Test 08/21/17 15:11 08/21/17 16:40 08/21/17 16:50 08/21/17 18:10 White Blood Count 14.5 H 13.7 H Red Blood Count 4.89 4.60 L Hemoglobin 14.3 13.2 L Hematocrit 41.1 L 39.3 L Mean Corpuscular Volume 84.0 85.4 Mean Corpuscular Hemoglobin 29.2 28.7 L Mean Corpuscular Hemoglobin Concent 34.8 33.6 Red Cell Distribution Width 12.5 12.8 Platelet Count 319 308 Mean Platelet Volume 9.7 9.4 Neutrophils % 68.5 68.9 Lymphocytes % 21.0 20.2 Monocytes % 10.0 10.1 Eosinophils % 0.0 0.1 Basophils % 0.2 0.2 Nucleated Red Blood Cells % 0.0 0.0 Neutrophils # 9.9 H 9.4 H Lymphocytes # 3.0 H 2.8 Monocytes # 1.4 H 1.4 H Eosinophils # 0.0 0.0 Basophils # 0.0 0.0 Nucleated Red Blood Cells # 0.0 0.0 Sodium Level 140 Potassium Level 4.8 Chloride Level 101 Carbon Dioxide Level 24 Anion Gap 20 H Blood Urea Nitrogen 7 Creatinine 0.87 Glucose Level 118 Calcium Level 10.1 Troponin I 15.400 *H 16.100 *H 14.600 *H B-Type Natriuretic Peptide 00032 H Creatine Kinase 1216 H 1096 H Creatine Kinase Index 11.3 10.4 Creatinine Kinase MB (Mass) 138.00 H 114.00 H Prothrombin Time 13.1 Prothrombin Time Ratio 1.0 INR International Normalized Ratio 0.98 Activated Partial Thromboplast Time 34.2 Lactic Acid Level 3.7 *H 2.8 *H Free Thyroxine 1.06 Test 08/22/17 00:47 08/22/17 01:30 08/22/17 02:46 08/22/17 03:00 Blood Gas Specimen Source Blood arterial Blood arterial Arterial Blood Date Drawn 08/22/2017 1:42:38 AM 08/22/2017 3:00:07 AM Arterial Blood pH (Temp corrected) 7.243 *L 7.270 *L Arterial Blood pCO2 (Temp correct) 43.4 54.6 H Arterial Blood pO2 (Temp corrected) 69.8 L 81.0 Arterial Blood HCO3 18.3 L 24.5 Arterial Blood Base Excess -8.6 L -3.0 Arterial Blood Oxygen Saturation 91.1 L 93.9 L Hardeep Test N/A N/A Arterial Blood Gas Puncture Site A-Line A-Line Arterial Blood Carboxyhemoglobin 0.2 0.3 Arterial Blood Methemoglobin 0.2 0 Blood Gas A-a O2 Differential 599.8 H 577.4 H Oxyhemoglobin Percent 90.7 L 93.6 Total Hemoglobin 10.6 L 12.8 Blood Gas Temperature 37.0 37.0 Blood Gas Respiration Rate 12.0 18.0 Blood Gas Actual Respiration Rate 12 18 Blood Gas Modality VENT - AC VENT - AC FiO2 100.0 100.0 Blood Gas Notified Whom TK TK Blood Gas Notified Time 08/22/2017 1:49:43 AM 08/22/2017 3:10:52 AM White Blood Count 17.9 #H Red Blood Count 3.16 #L Hemoglobin 9.3 #L Hematocrit 27.7 #L Mean Corpuscular Volume 87.7 Mean Corpuscular Hemoglobin 29.4 Mean Corpuscular Hemoglobin Concent 33.6 Red Cell Distribution Width 13.2 Platelet Count 243 # Mean Platelet Volume 9.8 Neutrophils % 71.8 Lymphocytes % 23.7 Monocytes % 3.4 Eosinophils % 0.3 Basophils % 0.2 Nucleated Red Blood Cells % 0.0 Neutrophils # 12.9 H Lymphocytes # 4.2 H Monocytes # 0.6 Eosinophils # 0.1 Basophils # 0.0 Nucleated Red Blood Cells # 0.0 Prothrombin Time 18.5 #H Prothrombin Time Ratio 1.4 INR International Normalized Ratio 1.51 Activated Partial Thromboplast Time 34.5 Sodium Level 154 H Potassium Level 3.1 L Chloride Level 113 H Carbon Dioxide Level 21 Anion Gap 23 H Blood Urea Nitrogen 8 Creatinine 0.85 Glucose Level 240 #H Hemoglobin A1c 5.6 Lactic Acid Level 11.4 *H Calcium Level 7.4 L Magnesium Level 2.8 H Creatine Kinase 1365 H Creatine Kinase Index 9.7 Creatinine Kinase MB (Mass) 132.00 H Troponin I 70.800 *H Bedside Glucose 219 Blood Gas Tidal Volume 400.0 Blood Gas High PEEP Setting 7.5 Test 08/22/17 03:05 08/22/17 03:59 08/22/17 04:58 08/22/17 05:26 Blood Gas Specimen Source BLMV Arterial Blood Date Drawn 08/22/2017 3:05:08 AM Arterial Blood Gas Puncture Site VENOUS LINE Hardeep Test N/A Mixed Venous Blood PO2 43.6 H Mixed Venous Blood O2 Saturation 75.2 H Mixed Venous Blood Total Hemoglobin 13.5 Mixed Venous Blood Oxyhemoglobin 74.9 Mixed Venous Bld Carboxyhemoglobin 0.1 Mixed Venous Blood Methemoglobin 0.3 Blood Gas Temperature 37.0 Blood Gas Respiration Rate 18.0 Blood Gas Actual Respiration Rate 18 Blood Gas Modality VENT - AC FiO2 100.0 Blood Gas High PEEP Setting 7.5 Blood Gas Notified Whom TK Blood Gas Notified Time 08/22/2017 3:16:13 AM Bedside Glucose 238 H 236 H Lab Scanned Report BLOOD TRANSFUSION Test 08/22/17 06:05 12/9/17 07:34 Bedside Glucose 188 186 Medications Medications Current Medications Ondansetron HCl (Zofran Inj) 4 mg Q6H PRN IV NAUSEA AND/OR VOMITING; Start 08/21/17 at 17:30 Acetaminophen (Tylenol Tab) 650 mg Q6H PRN PO PAIN LEVEL 1-3 OR FEVER; Start 08/21/17 at 17:30 Acetaminophen/ Hydrocodone Bitart ([place] (5/325)) 1 tab Q6H PRN PO MODERATE PAIN LEVEL 4-6; Start 08/21/17 at 17:30 Morphine Sulfate (morphine) 2 mg Q4H PRN IV SEVERE PAIN LEVEL 7-10; Start 08/21 at 17:30 Docusate Sodium (Colace) 100 mg Q12H PRN PO CONSTIPATION; Start 08/21/17 at 17: 30 Magnesium Hydroxide (Milk Of Mag) 30 ml DAILY PRN PO CONSTIPATION; Start at 17:30 Sodium Biphosphate/ Sodium Phosphate (Fleet Enema) 133 ml DAILY PRN [place] CONSTIPATION; Start 08/21/17 at 17:30 Famotidine 20 mg 20 mg Q12 PO ; Start 08/21/17 at 21:00 Sodium Chloride (1/2 NS) 1,000 ml @ 75 mls/hr [id number] IV ; Start 08/21/17 at 17 :10 Lorazepam 0.5 mg 0.5 mg Q6H PRN IV ANXIETY; Start 08/21/17 at 17:30 Levofloxacin/ Dextrose (Levaquin 750 Mg/ D5W 150 ml (Pmx)) 150 ml @ 100 mls/hr Q24H IVPB ; Start 08/21/17 at 19:00 Hydralazine HCl (Apresoline) 10 mg Q6H PRN IV ELEVATED BLOOD PRESSURE; Start 08/21/17 at 17:30 Nitroglycerin (Nitroglycerin (Sl Tab) 0.4 Mg) 1 tab Q5M PRN SL ANGINA; Start 08/21/17 at 17:30 Alendronate Sodium (Fosamax) 70 mg Q7D PO ; Start 08/21/17 at 17:30; Status UNV Miscellaneous Information ALENDRONATE 70MG: WHICH DAY OF THE WEEK IS T... Q8H XX ; Start 08/21/17 at 19:30 Vasopressin 60 unit/Dextrose 60 ml @ 1.2 mls/hr Q12H IV ; Start 08/22/17 at 00: 30 Norepinephrine 250 ml @ 1.875 mls/ hr TITRATE IV Last administered on 01:15; Admin Dose 11.25 MLS/HR; Start 08/22/17 at 00:30 Phenylephrine HCl 250 ml @ 75 mls/hr TITRATE IV ; Start 08/22/17 at 00:30 Potassium Chloride 40 meq/ Calcium Chloride 1 gm/Dextrose/ Sodium Chloride 1, 030 ml @ 60 mls/hr [id number] IV Last administered on 08/22/17 03:05; Admin Dose 60 MLS/HR; Start 08/22/17 at 01:00 Cefazolin Sodium (Ancef 1 Gm/50 ml (Pmx)) 50 ml @ 100 mls/hr Q8H IVPB Last administered on 08/22/17 03:13; Admin Dose 100 MLS/HR; Start 08/22/17 at 01:00 ; Stop 08/22/17 at 17:29 Hydromorphone HCl (Dilaudid) 0.2 mg Q15M PRN IV PAIN LEVEL 1-5; Start 08/22/17 at 01:00 Hydromorphone HCl (Dilaudid) 0.4 mg Q15M PRN IV PAIN LEVEL 6-10; Start at 01:00 Oxycodone/ Acetaminophen (Percocet (5/ 325)) 1 tab Q3H PRN PO PAIN LEVEL 1-5; Start 08/22/17 at 01:00 Ondansetron HCl (Zofran Inj) 4 mg Q6H PRN IV NAUSEA AND/OR VOMITING; Start 08/22/17 at 01:00 Famotidine (Pepcid Iv) 20 mg BID@08,20 IV ; Start 08/22/17 at 08:00 Famotidine (Pepcid) 20 mg BID PO ; Start 08/22/17 at 09:00; Status UNV Acetaminophen 650 mg 650 mg Q3H PRN PO ELEVATED TEMPERATURE; Start 08/22/17 at 01:00 Magnesium Sulfate/ Dextrose (Magnesium Sulfate 1 Gm/D5W) 100 ml @ 100 mls/hr PRN PRN IVPB PENDING LAB VALUE; Start 08/22/17 at 01:00 Diagnostic Test (Pha) (Accu-Chek) 1 ea Q1H XX Last administered on 08/22/17t 06 :07; Admin Dose 1 EA; Start 08/22/17 at 01:00 Dextrose (D50w Syringe) 25 ml Q15M PRN IV Till BS 80 mg/dL or above x2; Start 08/22/17 at 01:00 Dextrose (D50w Syringe) 50 ml Q15M PRN IV Till BS 80 mg/dL or above x2; Start 08/22/17 at 01:00 Atorvastatin Calcium (Lipitor) 80 mg HS PO ; Start 08/22/17 at 21:00 Aspirin (Halfprin) 81 mg DAILY PO ; Start 08/22/17 at 09:00 WALI BARRAGAN MD Aug 22, 2017 08:03
--- NOTE | 2017-08-22 08:22 | PN ---
Date/Time of Note Date/Time of Note DATE: 08/22/17 TIME: 08:20 Assessment/Plan Lines/Catheters IV Catheter Type (from Nrs): Peripheral IV Champion in Place (from Nrs): Yes Assessment/Plan Chief Complaint/Hosp Course CI 2.1 on less levo, same epi and vaso making good urine not awake yet ABG pending fevers on abx and cultured Problems: Exam/Review of Systems Vital Signs Vitals Vital Signs Date Time Temp Pulse Resp B/P Pulse Ox O2 Delivery O2 Flow Rate FiO2 08/22/17 06:30 135 22 116/75 100 08/22/17 06:00 100.0 Mechanical Ventilator 08/22/17 05:23 100 08/21/17 16:54 2.0 Intake and Output 08/21/17 08/21/17 08/22/17 15:00 23:00 07:00 Intake Total 653.40 ml Output Total 2315 ml Balance -1661.60 ml Results Result Diagram: 08/22/17 0130 08/22/17 0130 ERNIE LOPEZ MD Aug 22, 2017 08:22
[2017-08-22] MEDS: FAMOTIDINE 20 MG INJ IV SCH ×2 (08:28→19:54)
[2017-08-22] MEDS: ASPIRIN (EC) 81 MG TAB PO SCH (08:29)
[2017-08-22 08:47] LABS: BASOPHILS % 0.1 % (0.0-2.0); HEMATOCRIT 34.1 % (42.0-52.0); HEMOGLOBIN 11.6 g/dl (14.0-18.0); LYMPHOCYTES # 1.6 10^3/ul (0.8-2.9); LYMPHOCYTES % 11.7 % (15.0-51.0); MEAN CORPUSCULAR HEMOGLOBIN 29.2 pg (29.0-33.0); MEAN CORPUSCULAR VOLUME 85.9 fl (82.0-101.0); MEAN PLATELET VOLUME 9.9 fl (7.4-10.4); MONOCYTE # 1.2 10^3/ul (0.3-0.9); MONOCYTES % 8.6 % (0.0-11.0); NEUTROPHIL # 10.6 10^3/ul (1.6-7.5); NEUTROPHILS % 79.1 % (39.0-77.0); PLATELET COUNT 238 10^3/UL (140-415); RED BLOOD COUNT 3.97 10^6/ul (4.70-6.10); RED CELL DISTRIBUTION WIDTH 13.2 % (11.5-14.5); WHITE BLOOD COUNT 13.4 10^3/ul (4.8-10.8)
[2017-08-22 08:53] LABS: AADO2 Arterial 408.6 mmHg (7.0-24.0); Arterial Base Excess 0.5 mmol/L (-3.0-3); Arterial COHb 0.3 % (0.0-3.0); Arterial Fraction of Oxyhgb 98.6 % (93.0-99.0); Arterial HCO3 24.2 mmol/L (22.0-26.0); Arterial MetHb 0.2 % (0.0-1.5); Arterial Total Hemglobin 15.7 g/dl (12.0-18.0); Blood Gas Low PEEP Setting 7.5 cmH2O; MODE VENT - AC
[2017-08-22] MEDS ORDERED: FAMOTIDINE 20 MG TAB PO SCH (09:00)
[2017-08-22] MEDS ORDERED: ASPIRIN (EC) 325 MG TAB PO SCH (09:00)
[2017-08-22 09:06] LABS: CHOL/HDL RATIO 2.6 RATIO
[2017-08-22 09:07] LABS: CALCIUM 7.9 mg/dl (8.4-10.2); CREATININE 1.15 mg/dl (0.61-1.24); MAGNESIUM 2.4 mg/dl (1.7-2.5); PHOSPHORUS 0.5 mg/dl (2.5-4.9)
[2017-08-22 09:11] LABS: POTASSIUM 2.7 mmol/L (3.5-5.1)
--- NOTE | 2017-08-22 09:37 | PN ---
Date/Time of Note Date/Time of Note DATE: 08/22/17 TIME: 09:29 Assessment/Plan VTE Prophylaxis VTE Prophylaxis Intervention: SCD's Lines/Catheters IV Catheter Type (from Nrsg): Peripheral IV Urinary Cath still in place: Yes Reason Cath still needed: urinary retention Assessment/Plan Chief Complaint/Hosp Course S: Patient still intubated, on 2 pressor support, chest tube in place. Seen by cardiothoracic surgery team this morning. Heart rate 120-130s. Positive fever as well. O: VS (see below) PE: Constitutional: non-verbal, lying in bed, intubated Head: atraumatic, normocephalic ENMT: intubated Neck: jvd Respiratory: clear to auscultation Cardiovascular: regular rate and rhythm, tachycardic Gastrointestinal: soft Musculoskeletal: nl extremities to inspection Extremities: normal pulses Assessment/Plan: 72 yo male with hx of DL, anxiety, ?hypothyroidism who presented with chest pain and found to have STEMI with emergent cardiac cath revealing three-disease. s/p unsuccessful PCI of LAD, s/p cardiac arrest in rn labor delivery s/p cardioversion x 2 and placement of balloon pump and now s/p CABG. 1. Three-vessel CAD, s/p CABG -three-vessel -Continue ICU monitoring, pressors per cardiothoracic surgery and cardiology recommendations - cont vent support, pulmonary to follow - f/u cardiology and CT surg recs -Continue aspirin, statin, insulin drip, follow-up 2D-echo -Monitor drainage from chest tube 2. s/p cardiopulmonary arrest: s/p cardioversion x 2, intubation -see #1 -Replete low electrolytes including low potassium and low phosphorus 3. SIRS: secondary to above -positive fevers, white blood cell count 17.9. -will be on IV abx-and follow-up UA urine culture, and other culture results. 4. Lactic acidosis: from ischemic event -will trend, continue IV fluids and antibiotics -see above 5. Hypernatremia -sodium 137 presently -re-check in few hours. -We will add to 50 cc free water every 6 hours - if persists, may need to change the fluids from D5 quarter normal saline to D5W 6. Anemia: likely 2/2 blood loss and dilutional effect -monitor and transfuse as needed 7. ?Hx of hypothyroidism -Follow-up TSH in am 8. Hx of Dyslipidemia -check FLP in am -will be on statin Critical care time spent on patient care today equals 50 minutes. Problems: Exam/Review of Systems Vital Signs Vitals Vital Signs Date Time Temp Pulse Resp B/P Pulse Ox O2 Delivery O2 Flow Rate FiO2 08/22/17 09:00 70 08/22/17 08:45 126 22 94/42 100 08/22/17 07:15 101.5 08/22/17 06:00 Mechanical Ventilator 08/21/17 16:54 2.0 Intake and Output 08/21/17 08/21/17 08/22/17 15:00 23:00 07:00 Intake Total 1010.20 ml Output Total 2315 ml Balance -1304.80 ml Results Result Diagram: 08/22/17 0130 08/22/17 0809 Results 24 hrs Laboratory Tests Test 08/21/17 15:11 08/21/17 16:40 08/21/17 16:50 08/21/17 18:10 White Blood Count 14.5 H 13.7 H Red Blood Count 4.89 4.60 L Hemoglobin 14.3 13.2 L Hematocrit 41.1 L 39.3 L Mean Corpuscular Volume 84.0 85.4 Mean Corpuscular Hemoglobin 29.2 28.7 L Mean Corpuscular Hemoglobin Concent 34.8 33.6 Red Cell Distribution Width 12.5 12.8 Platelet Count 319 308 Mean Platelet Volume 9.7 9.4 Neutrophils % 68.5 68.9 Lymphocytes % 21.0 20.2 Monocytes % 10.0 10.1 Eosinophils % 0.0 0.1 Basophils % 0.2 0.2 Nucleated Red Blood Cells % 0.0 0.0 Neutrophils # 9.9 H 9.4 H Lymphocytes # 3.0 H 2.8 Monocytes # 1.4 H 1.4 H Eosinophils # 0.0 0.0 Basophils # 0.0 0.0 Nucleated Red Blood Cells # 0.0 0.0 Sodium Level 140 Potassium Level 4.8 Chloride Level 101 Carbon Dioxide Level 24 Anion Gap 20 H Blood Urea Nitrogen 7 Creatinine 0.87 Glucose Level 118 Calcium Level 10.1 Troponin I 15.400 *H 16.100 *H 14.600 *H B-Type Natriuretic Peptide 13379 H Creatine Kinase 1216 H 1096 H Creatine Kinase Index 11.3 10.4 Creatinine Kinase MB (Mass) 138.00 H 114.00 H Prothrombin Time 13.1 Prothrombin Time Ratio 1.0 INR International Normalized Ratio 0.98 Activated Partial Thromboplast Time 34.2 Lactic Acid Level 3.7 *H 2.8 *H Free Thyroxine 1.06 Test 08/22/17 00:47 08/22/17 01:30 08/22/17 02:46 08/22/17 03:00 Blood Gas Specimen Source Blood arterial Blood arterial Arterial Blood Date Drawn 08/22/2017 1:42:38 AM 08/22/2017 3:00:07 AM Arterial Blood pH (Temp corrected) 7.243 *L 7.270 *L Arterial Blood pCO2 (Temp correct) 43.4 54.6 H Arterial Blood pO2 (Temp corrected) 69.8 L 81.0 Arterial Blood HCO3 18.3 L 24.5 Arterial Blood Base Excess -8.6 L -3.0 Arterial Blood Oxygen Saturation 91.1 L 93.9 L Hardeep Test N/A N/A Arterial Blood Gas Puncture Site A-Line A-Line Arterial Blood Carboxyhemoglobin 0.2 0.3 Arterial Blood Methemoglobin 0.2 0 Blood Gas A-a O2 Differential 599.8 H 577.4 H Oxyhemoglobin Percent 90.7 L 93.6 Total Hemoglobin 10.6 L 12.8 Blood Gas Temperature 37.0 37.0 Blood Gas Respiration Rate 12.0 18.0 Blood Gas Actual Respiration Rate 12 18 Blood Gas Modality VENT - AC VENT - AC FiO2 100.0 100.0 Blood Gas Notified Whom TK TK Blood Gas Notified Time 08/22/2017 1:49:43 AM 08/22/2017 3:10:52 AM White Blood Count 17.9 #H Red Blood Count 3.16 #L Hemoglobin 9.3 #L Hematocrit 27.7 #L Mean Corpuscular Volume 87.7 Mean Corpuscular Hemoglobin 29.4 Mean Corpuscular Hemoglobin Concent 33.6 Red Cell Distribution Width 13.2 Platelet Count 243 # Mean Platelet Volume 9.8 Neutrophils % 71.8 Lymphocytes % 23.7 Monocytes % 3.4 Eosinophils % 0.3 Basophils % 0.2 Nucleated Red Blood Cells % 0.0 Neutrophils # 12.9 H Lymphocytes # 4.2 H Monocytes # 0.6 Eosinophils # 0.1 Basophils # 0.0 Nucleated Red Blood Cells # 0.0 Prothrombin Time 18.5 #H Prothrombin Time Ratio 1.4 INR International Normalized Ratio 1.51 Activated Partial Thromboplast Time 34.5 Sodium Level 154 H Potassium Level 3.1 L Chloride Level 113 H Carbon Dioxide Level 21 Anion Gap 23 H Blood Urea Nitrogen 8 Creatinine 0.85 Glucose Level 240 #H Hemoglobin A1c 5.6 Lactic Acid Level 11.4 *H Calcium Level 7.4 L Magnesium Level 2.8 H Creatine Kinase 1365 H Creatine Kinase Index 9.7 Creatinine Kinase MB (Mass) 132.00 H Troponin I 70.800 *H Bedside Glucose 219 Blood Gas Tidal Volume 400.0 Blood Gas High PEEP Setting 7.5 Test 08/22/17 03:05 08/22/17 03:59 08/22/17 04:58 08/22/17 05:26 Blood Gas Specimen Source BLMV Arterial Blood Date Drawn 08/22/2017 3:05:08 AM Arterial Blood Gas Puncture Site VENOUS LINE Hardeep Test N/A Mixed Venous Blood PO2 43.6 H Mixed Venous Blood O2 Saturation 75.2 H Mixed Venous Blood Total Hemoglobin 13.5 Mixed Venous Blood Oxyhemoglobin 74.9 Mixed Venous Bld Carboxyhemoglobin 0.1 Mixed Venous Blood Methemoglobin 0.3 Blood Gas Temperature 37.0 Blood Gas Respiration Rate 18.0 Blood Gas Actual Respiration Rate 18 Blood Gas Modality VENT - AC FiO2 100.0 Blood Gas High PEEP Setting 7.5 Blood Gas Notified Whom TK Blood Gas Notified Time 08/22/2017 3:16:13 AM Bedside Glucose 238 H 236 H Lab Scanned Report BLOOD TRANSFUSION Test 08/22/17 06:05 08/22/17 07:34 08/22/17 08:08 08/22/17 08:09 Bedside Glucose 188 186 Lactic Acid Level 6.8 *H Sodium Level 157 H Potassium Level 2.7 *L Chloride Level 118 H Carbon Dioxide Level 29 Anion Gap 13 # Blood Urea Nitrogen 10 Creatinine 1.15 Glucose Level 181 Calcium Level 7.9 L Phosphorus Level 0.5 L Magnesium Level 2.4 Test 08/22/17 08:10 08/22/17 08:13 08/22/17 08:38 White Blood Count Pending Red Blood Count Pending Hemoglobin Pending Hematocrit Pending Mean Corpuscular Volume Pending Mean Corpuscular Hemoglobin Pending Mean Corpuscular Hemoglobin Concent Pending Red Cell Distribution Width Pending Platelet Count Pending Mean Platelet Volume Pending Triglycerides Level 95 Cholesterol Level 91 L LDL Cholesterol, Calculated 37 HDL Cholesterol 35 Cholesterol/HDL Ratio 2.6 Thyroid Stimulating Hormone (TSH) Pending Blood Gas Specimen Source Blood arterial Arterial Blood Date Drawn 08/22/2017 8:15:05 AM Arterial Blood pH (Temp corrected) 7.440 Arterial Blood pCO2 (Temp correct) 36.5 Arterial Blood pO2 (Temp corrected) 267.9 H Arterial Blood HCO3 24.2 Arterial Blood Base Excess 0.5 Arterial Blood Oxygen Saturation 99.1 Hardeep Test N/A Arterial Blood Gas Puncture Site A-Line Arterial Blood Carboxyhemoglobin 0.3 Arterial Blood Methemoglobin 0.2 Blood Gas A-a O2 Differential 408.6 H Oxyhemoglobin Percent 98.6 Total Hemoglobin 15.7 Blood Gas Temperature 37.0 Blood Gas Respiration Rate 22.0 Blood Gas Actual Respiration Rate 22 Blood Gas Modality VENT - AC FiO2 100.0 Blood Gas Tidal Volume 450.0 Blood Gas Low PEEP Setting 7.5 Blood Gas Notified Whom AT Blood Gas Notified Time 08/22/2017 8:53:04 AM Bedside Glucose 180 Medications Medications Current Medications Ondansetron HCl (Zofran Inj) 4 mg Q6H PRN IV NAUSEA AND/OR VOMITING; Start 08/21/17 at 17:30 Acetaminophen (Tylenol Tab) 650 mg Q6H PRN PO PAIN LEVEL 1-3 OR FEVER; Start 08/21/17 at 17:30 Acetaminophen/ Hydrocodone Bitart ([place] (5/325)) 1 tab Q6H PRN PO MODERATE PAIN LEVEL 4-6; Start 08/21/17 at 17:30 Morphine Sulfate (morphine) 2 mg Q4H PRN IV SEVERE PAIN LEVEL 7-10; Start 08/21 at 17:30 Docusate Sodium (Colace) 100 mg Q12H PRN PO CONSTIPATION; Start 08/21/17 at 17: 30 Magnesium Hydroxide (Milk Of Mag) 30 ml DAILY PRN PO CONSTIPATION; Start at 17:30 Sodium Biphosphate/ Sodium Phosphate (Fleet Enema) 133 ml DAILY PRN [place] CONSTIPATION; Start 08/21/17 at 17:30 Famotidine 20 mg 20 mg Q12 PO ; Start 08/21/17 at 21:00 Sodium Chloride (1/2 NS) 1,000 ml @ 75 mls/hr [id number] IV ; Start 08/21/17 at 17 :10 Lorazepam 0.5 mg 0.5 mg Q6H PRN IV ANXIETY; Start 08/21/17 at 17:30 Levofloxacin/ Dextrose (Levaquin 750 Mg/ D5W 150 ml (Pmx)) 150 ml @ 100 mls/hr Q24H IVPB ; Start 08/21/17 at 19:00 Hydralazine HCl (Apresoline) 10 mg Q6H PRN IV ELEVATED BLOOD PRESSURE; Start 08/21/17 at 17:30 Nitroglycerin (Nitroglycerin (Sl Tab) 0.4 Mg) 1 tab Q5M PRN SL ANGINA; Start 08/21/17 at 17:30 Alendronate Sodium (Fosamax) 70 mg Q7D PO ; Start 08/21/17 at 17:30; Status UNV Miscellaneous Information ALENDRONATE 70MG: WHICH DAY OF THE WEEK IS T... Q8H XX ; Start 08/21/17 at 19:30 Vasopressin 60 unit/Dextrose 60 ml @ 1.2 mls/hr Q12H IV ; Start 08/22/17 at 00: 30 Norepinephrine 250 ml @ 1.875 mls/ hr TITRATE IV Last administered on 01:15; Admin Dose 11.25 MLS/HR; Start 08/22/17 at 00:30 Phenylephrine HCl 250 ml @ 75 mls/hr TITRATE IV ; Start 08/22/17 at 00:30 Potassium Chloride 40 meq/ Calcium Chloride 1 gm/Dextrose/ Sodium Chloride 1, 030 ml @ 60 mls/hr [id number] IV Last administered on 08/22/17 03:05; Admin Dose 60 MLS/HR; Start 08/22/17 at 01:00 Cefazolin Sodium (Ancef 1 Gm/50 ml (Pmx)) 50 ml @ 100 mls/hr Q8H IVPB Last administered on 08/22/17 08:28; Admin Dose 100 MLS/HR; Start 08/22/17 at 01:00 ; Stop 08/22/17 at 17:29 Hydromorphone HCl (Dilaudid) 0.2 mg Q15M PRN IV PAIN LEVEL 1-5; Start 08/22/17 at 01:00 Hydromorphone HCl (Dilaudid) 0.4 mg Q15M PRN IV PAIN LEVEL 6-10; Start at 01:00 Oxycodone/ Acetaminophen (Percocet (5/ 325)) 1 tab Q3H PRN PO PAIN LEVEL 1-5; Start 08/22/17 at 01:00 Ondansetron HCl (Zofran Inj) 4 mg Q6H PRN IV NAUSEA AND/OR VOMITING; Start 08/22/17 at 01:00 Famotidine (Pepcid Iv) 20 mg BID@08,20 IV Last administered on 08/22/17 08:28 ; Admin Dose 20 MG; Start 08/22/17 at 08:00 Famotidine (Pepcid) 20 mg BID PO ; Start 08/22/17 at 09:00; Status UNV Acetaminophen 650 mg 650 mg Q3H PRN PO ELEVATED TEMPERATURE Last administered on 08/22/17 08:29; Admin Dose 650 MG; Start 08/22/17 at 01:00 Magnesium Sulfate/ Dextrose (Magnesium Sulfate 1 Gm/D5W) 100 ml @ 100 mls/hr PRN PRN IVPB PENDING LAB VALUE; Start 08/22/17 at 01:00 Diagnostic Test (Pha) (Accu-Chek) 1 ea Q1H XX Last administered on 08/22/17 06 :07; Admin Dose 1 EA; Start 08/22/17 at 01:00 Dextrose (D50w Syringe) 25 ml Q15M PRN IV Till BS 80 mg/dL or above x2; Start 08/22/17 at 01:00 Dextrose (D50w Syringe) 50 ml Q15M PRN IV Till BS 80 mg/dL or above x2; Start 08/22/17 at 01:00 Atorvastatin Calcium (Lipitor) 80 mg HS PO ; Start 08/22/17 at 21:00 Aspirin 81 mg 81 mg DAILY PO Last administered on 08/22/17 08:29; Admin Dose 81 MG; Start 08/22/17 at 09:00 Potassium Phosphate 40 meq/ Sodium Chloride 259.0909 ml @ 64.773 m... ONCE ONCE IVPB ; Start 08/22/17 at 09:30; Stop 08/22/17 at 13:29; Status UNV Potassium Chloride (KCl 40 MEQ/250 ML NS) 250 ml @ 62.5 mls/hr ONCE ONCE IVPB ; Start 08/22/17 at 09:30; Stop 08/22/17 at 13:29; Status DON KOCH Aug 22, 2017 09:36
[2017-08-22 09:55] LABS: THYROID STIMULATING HORMONE 1.84 MIU/L (0.465-4.680)
[2017-08-22] MEDS ORDERED: POTASSIUM CHLORIDE 250 ML IVPB ONE (10:30)
[2017-08-22] MEDS ORDERED: POTASSIUM PHOSPHATE IVPB ONE ×2 (11:00→15:30)
[2017-08-22] MEDS ORDERED: SOD CHLORIDE 0.9% IVPB ONE (11:00)
[2017-08-22] MEDS: HYDROmorphONE 0.5 MG/0.5 ML SYG IV PRN ×2 (12:16→13:35)
[2017-08-22] MEDS ORDERED: D5W-0.45 NACL + KCL 40 MEQ 1,000 ML IV SCH (12:30)
[2017-08-22] MEDS: LORAZEPAM 2 MG INJ IV PRN ×2 (14:08→20:34)
[2017-08-22] MEDS ORDERED: PROPOFOL 100 ML ONE (15:10)
[2017-08-22] MEDS ORDERED: DEXTROSE 5% IVPB ONE (15:30)
--- NOTE | 2017-08-22 15:33 | CONS ---
Date/Time of Note Date/Time of Note DATE: 08/22/17 TIME: 15:27 Assessment/Plan Assessment/Plan Additional Assessment/Plan IMP: 1. s/p STEMI followed by C and CABG 2. Cardiogenic shock 3. Lactic acidosis 2/2 #2 4. HyperNa+ 5. HypoK+ RECS: 1. Optimize sedation 2. Vent: reduce PEEP 5: FiO2 50 3. Cont IABP 1:1 and pressor/inotropes 4. Follow cardiac indeces 5. Follow lactate clearance 6. Replete K+ and Mg; D51/2 NS; follow Na+ Consultation Date/Type/Reason Admit Date/Time Aug 21, 2017 at 17:28 Type of Consultation: Pulm/CCM Hx of Present Illness Briefly, this is a 71-year-old man HL, anxiety, presenting with STEMI s/p emergent cardiac cath revealing three-disease. 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 Subjective hx not possible: pt non-verbal Past Medical History Medical History: high cholesterol, hypertension Past Surgical History Past Surgical Hx: other (cataract) Family History Significant Family History: no pertinent family hx Social History Alcohol Use: none Smoking Status: Former smoker Drug Use: none Exam/Review of Systems Vital Signs Vitals Vital Signs Date Time Temp Pulse Resp B/P Pulse Ox O2 Delivery O2 Flow Rate FiO2 08/22/17 12:00 118 08/22/17 11:15 22 100 60 08/22/17 11:05 100.7 90/43 08/22/17 06:00 Mechanical Ventilator 08/21/17 16:54 2.0 Intake and Output 08/21/17 08/21/17 08/22/17 14:59 22:59 06:59 Intake Total 893.40 ml Output Total 2189 ml Balance -1295.60 ml Exam Constitutional: non-verbal Head: atraumatic, normocephalic Eyes: nl conjunctiva, nl lids, nl sclera ENMT: intubated, nl external ears & nose, nl lips & teeth Neck: jvd, non-tender, supple Respiratory: diminished breath sounds Cardiovascular: S3, regular rate and rhythm, systolic murmur Gastrointestinal: nl liver, spleen, non-tender, soft Extremities: normal pulses 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: 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, DTR's symmetric Results Result Diagram: 08/22/17 0810 08/22/17 0809 Results 24 hrs Laboratory Tests Test 08/21/17 16:40 08/21/17 16:50 08/21/17 18:10 08/22/17 00:47 Creatine Kinase 1216 H 1096 H Creatine Kinase Index 11.3 10.4 Creatinine Kinase MB (Mass) 138.00 H 114.00 H Troponin I 16.100 *H 14.600 *H Prothrombin Time 13.1 Prothrombin Time Ratio 1.0 INR International Normalized Ratio 0.98 Activated Partial Thromboplast Time 34.2 Lactic Acid Level 3.7 *H 2.8 *H Free Thyroxine 1.06 White Blood Count 13.7 H Red Blood Count 4.60 L Hemoglobin 13.2 L Hematocrit 39.3 L Mean Corpuscular Volume 85.4 Mean Corpuscular Hemoglobin 28.7 L Mean Corpuscular Hemoglobin Concent 33.6 Red Cell Distribution Width 12.8 Platelet Count 308 Mean Platelet Volume 9.4 Neutrophils % 68.9 Lymphocytes % 20.2 Monocytes % 10.1 Eosinophils % 0.1 Basophils % 0.2 Nucleated Red Blood Cells % 0.0 Neutrophils # 9.4 H Lymphocytes # 2.8 Monocytes # 1.4 H Eosinophils # 0.0 Basophils # 0.0 Nucleated Red Blood Cells # 0.0 Blood Gas Specimen Source Blood arterial Arterial Blood Date Drawn 08/22/2017 1:42:38 AM Arterial Blood pH (Temp corrected) 7.243 *L Arterial Blood pCO2 (Temp correct) 43.4 Arterial Blood pO2 (Temp corrected) 69.8 L Arterial Blood HCO3 18.3 L Arterial Blood Base Excess -8.6 L Arterial Blood Oxygen Saturation 91.1 L Hardeep Test N/A Arterial Blood Gas Puncture Site A-Line Arterial Blood Carboxyhemoglobin 0.2 Arterial Blood Methemoglobin 0.2 Blood Gas A-a O2 Differential 599.8 H Oxyhemoglobin Percent 90.7 L Total Hemoglobin 10.6 L Blood Gas Temperature 37.0 Blood Gas Respiration Rate 12.0 Blood Gas Actual Respiration Rate 12 Blood Gas Modality VENT - AC FiO2 100.0 Blood Gas Notified Whom TK Blood Gas Notified Time 08/22/2017 1:49:43 AM Test 08/22/17 01:30 08/22/17 02:46 08/22/17 03:00 08/22/17 03:05 White Blood Count 17.9 #H Red Blood Count 3.16 #L Hemoglobin 9.3 #L Hematocrit 27.7 #L Mean Corpuscular Volume 87.7 Mean Corpuscular Hemoglobin 29.4 Mean Corpuscular Hemoglobin Concent 33.6 Red Cell Distribution Width 13.2 Platelet Count 243 # Mean Platelet Volume 9.8 Neutrophils % 71.8 Lymphocytes % 23.7 Monocytes % 3.4 Eosinophils % 0.3 Basophils % 0.2 Nucleated Red Blood Cells % 0.0 Neutrophils # 12.9 H Lymphocytes # 4.2 H Monocytes # 0.6 Eosinophils # 0.1 Basophils # 0.0 Nucleated Red Blood Cells # 0.0 Prothrombin Time 18.5 #H Prothrombin Time Ratio 1.4 INR International Normalized Ratio 1.51 Activated Partial Thromboplast Time 34.5 Sodium Level 154 H Potassium Level 3.1 L Chloride Level 113 H Carbon Dioxide Level 21 Anion Gap 23 H Blood Urea Nitrogen 8 Creatinine 0.85 Glucose Level 240 #H Hemoglobin A1c 5.6 Lactic Acid Level 11.4 *H Calcium Level 7.4 L Magnesium Level 2.8 H Creatine Kinase 1365 H Creatine Kinase Index 9.7 Creatinine Kinase MB (Mass) 132.00 H Troponin I 70.800 *H Bedside Glucose 219 Blood Gas Specimen Source Blood arterial BLMV Arterial Blood Date Drawn 08/22/2017 3:00:07 AM 08/22/2017 3:05:08 AM Arterial Blood pH (Temp corrected) 7.270 *L Arterial Blood pCO2 (Temp correct) 54.6 H Arterial Blood pO2 (Temp corrected) 81.0 Arterial Blood HCO3 24.5 Arterial Blood Base Excess -3.0 Arterial Blood Oxygen Saturation 93.9 L Hardeep Test N/A N/A Arterial Blood Gas Puncture Site A-Line VENOUS LINE Arterial Blood Carboxyhemoglobin 0.3 Arterial Blood Methemoglobin 0 Blood Gas A-a O2 Differential 577.4 H Oxyhemoglobin Percent 93.6 Total Hemoglobin 12.8 Blood Gas Temperature 37.0 37.0 Blood Gas Respiration Rate 18.0 18.0 Blood Gas Actual Respiration Rate 18 18 Blood Gas Modality VENT - AC VENT - AC FiO2 100.0 100.0 Blood Gas Tidal Volume 400.0 Blood Gas High PEEP Setting 7.5 7.5 Blood Gas Notified Whom TK TK Blood Gas Notified Time 08/22/2017 3:10:52 AM 08/22/2017 3:16:13 AM Mixed Venous Blood PO2 43.6 H Mixed Venous Blood O2 Saturation 75.2 H Mixed Venous Blood Total Hemoglobin 13.5 Mixed Venous Blood Oxyhemoglobin 74.9 Mixed Venous Bld Carboxyhemoglobin 0.1 Mixed Venous Blood Methemoglobin 0.3 Test 08/22/17 03:59 08/22/17 04:58 08/22/17 05:26 08/22/17 06:05 Bedside Glucose 238 H 236 H 188 Lab Scanned Report BLOOD TRANSFUSION Test 08/22/17 07:34 08/22/17 08:08 08/22/17 08:09 08/22/17 08:10 Bedside Glucose 186 Lactic Acid Level 6.8 *H Sodium Level 157 H Potassium Level 2.7 *L Chloride Level 118 H Carbon Dioxide Level 29 Anion Gap 13 # Blood Urea Nitrogen 10 Creatinine 1.15 Glucose Level 181 Calcium Level 7.9 L Phosphorus Level 0.5 L Magnesium Level 2.4 White Blood Count 13.4 #H Red Blood Count 3.97 #L Hemoglobin 11.6 #L Hematocrit 34.1 #L Mean Corpuscular Volume 85.9 Mean Corpuscular Hemoglobin 29.2 Mean Corpuscular Hemoglobin Concent 34.0 Red Cell Distribution Width 13.2 Platelet Count 238 Mean Platelet Volume 9.9 Neutrophils % 79.1 H Lymphocytes % 11.7 L Monocytes % 8.6 Eosinophils % 0.0 Basophils % 0.1 Nucleated Red Blood Cells % 0.0 Neutrophils # 10.6 H Lymphocytes # 1.6 Monocytes # 1.2 H Eosinophils # 0.0 Basophils # 0.0 Nucleated Red Blood Cells # 0.0 Triglycerides Level 95 Cholesterol Level 91 L LDL Cholesterol, Calculated 37 HDL Cholesterol 35 Cholesterol/HDL Ratio 2.6 Thyroid Stimulating Hormone (TSH) 1.840 Test 08/22/17 08:13 08/22/17 08:38 08/22/17 10:50 08/22/17 12:11 Blood Gas Specimen Source Blood arterial Arterial Blood Date Drawn 08/22/2017 8:15:05 AM Arterial Blood pH (Temp corrected) 7.440 Arterial Blood pCO2 (Temp correct) 36.5 Arterial Blood pO2 (Temp corrected) 267.9 H Arterial Blood HCO3 24.2 Arterial Blood Base Excess 0.5 Arterial Blood Oxygen Saturation 99.1 Hardeep Test N/A Arterial Blood Gas Puncture Site A-Line Arterial Blood Carboxyhemoglobin 0.3 Arterial Blood Methemoglobin 0.2 Blood Gas A-a O2 Differential 408.6 H Oxyhemoglobin Percent 98.6 Total Hemoglobin 15.7 Blood Gas Temperature 37.0 Blood Gas Respiration Rate 22.0 Blood Gas Actual Respiration Rate 22 Blood Gas Modality VENT - AC FiO2 100.0 Blood Gas Tidal Volume 450.0 Blood Gas Low PEEP Setting 7.5 Blood Gas Notified Whom AT Blood Gas Notified Time 08/22/2017 8:53:04 AM Bedside Glucose 180 125 117 Test 08/22/17 13:23 08/22/17 14:30 Bedside Glucose 125 104 Medications Medications Current Medications Ondansetron HCl (Zofran Inj) 4 mg Q6H PRN IV NAUSEA AND/OR VOMITING; Start 08/21/17 at 17:30 Acetaminophen (Tylenol Tab) 650 mg Q6H PRN PO PAIN LEVEL 1-3 OR FEVER; Start 08/21/17 at 17:30 Acetaminophen/ Hydrocodone Bitart ([place] (5/325)) 1 tab Q6H PRN PO MODERATE PAIN LEVEL 4-6; Start 08/21/17 at 17:30 Morphine Sulfate (morphine) 2 mg Q4H PRN IV SEVERE PAIN LEVEL 7-10; Start 08/21 at 17:30 Docusate Sodium (Colace) 100 mg Q12H PRN PO CONSTIPATION; Start 08/21/17 at 17: 30 Magnesium Hydroxide (Milk Of Mag) 30 ml DAILY PRN PO CONSTIPATION; Start at 17:30 Sodium Biphosphate/ Sodium Phosphate (Fleet Enema) 133 ml DAILY PRN [place] CONSTIPATION; Start 08/21/17 at 17:30 Famotidine (Pepcid) 20 mg Q12 PO ; Start 08/21/17 at 21:00 Lorazepam 0.5 mg 0.5 mg Q6H PRN IV ANXIETY Last administered on 08/22/17t 14:08 ; Admin Dose 0.5 MG; Start 08/21/17 at 17:30 Levofloxacin/ Dextrose (Levaquin 750 Mg/ D5W 150 ml (Pmx)) 150 ml @ 100 mls/hr Q24H IVPB ; Start 08/21/17 at 19:00 Hydralazine HCl (Apresoline) 10 mg Q6H PRN IV ELEVATED BLOOD PRESSURE; Start 08/21/17 at 17:30 Nitroglycerin (Nitroglycerin (Sl Tab) 0.4 Mg) 1 tab Q5M PRN SL ANGINA; Start 08/21/17 at 17:30 Alendronate Sodium (Fosamax) 70 mg Q7D PO ; Start 08/21/17 at 17:30; Status UNV Miscellaneous Information ALENDRONATE 70MG: WHICH DAY OF THE WEEK IS T... Q8H XX ; Start 08/21/17 at 19:30 Vasopressin 60 unit/Dextrose 60 ml @ 1.2 mls/hr Q12H IV Last administered on 08/22/17 14:55; Admin Dose 2.4 MLS/HR; Start 08/22/17 at 00:30 Norepinephrine 250 ml @ 1.875 mls/ hr TITRATE IV Last administered on 01:15; Admin Dose 11.25 MLS/HR; Start 08/22/17 at 00:30 Phenylephrine HCl 250 ml @ 75 mls/hr TITRATE IV ; Start 08/22/17 at 00:30 Cefazolin Sodium (Ancef 1 Gm/50 ml (Pmx)) 50 ml @ 100 mls/hr Q8H IVPB Last administered on 08/22/17 08:28; Admin Dose 100 MLS/HR; Start 08/22/17 at 01:00 ; Stop 08/22/17 at 17:29 Hydromorphone HCl (Dilaudid) 0.2 mg Q15M PRN IV PAIN LEVEL 1-5 Last administered on 08/22/17 12:16; Admin Dose 0.2 MG; Start 08/22/17 at 01:00 Hydromorphone HCl (Dilaudid) 0.4 mg Q15M PRN IV PAIN LEVEL 6-10 Last administered on 08/22/17 13:35; Admin Dose 0.4 MG; Start 08/22/17 at 01:00 Oxycodone/ Acetaminophen (Percocet (5/ 325)) 1 tab Q3H PRN PO PAIN LEVEL 1-5; Start 08/22/17 at 01:00 Ondansetron HCl (Zofran Inj) 4 mg Q6H PRN IV NAUSEA AND/OR VOMITING; Start 08/22/17 at 01:00 Famotidine (Pepcid Iv) 20 mg BID@08,20 IV Last administered on 08/22/17 08:28 ; Admin Dose 20 MG; Start 08/22/17 at 08:00 Famotidine (Pepcid) 20 mg BID PO ; Start 08/22/17 at 09:00; Status UNV Acetaminophen 650 mg 650 mg Q3H PRN PO ELEVATED TEMPERATURE Last administered on 08/22/17 08:29; Admin Dose 650 MG; Start 08/22/17 at 01:00 Magnesium Sulfate/ Dextrose (Magnesium Sulfate 1 Gm/D5W) 100 ml @ 100 mls/hr PRN PRN IVPB PENDING LAB VALUE; Start 08/22/17 at 01:00 Diagnostic Test (Pha) (Accu-Chek) 1 ea Q1H XX Last administered on 08/22/17 06 :07; Admin Dose 1 EA; Start 08/22/17 at 01:00 Dextrose (D50w Syringe) 25 ml Q15M PRN IV Till BS 80 mg/dL or above x2; Start 08/22/17 at 01:00 Dextrose (D50w Syringe) 50 ml Q15M PRN IV Till BS 80 mg/dL or above x2; Start 08/22/17 at 01:00 Atorvastatin Calcium (Lipitor) 80 mg HS PO ; Start 08/22/17 at 21:00 Aspirin 81 mg 81 mg DAILY PO Last administered on 08/22/17 08:29; Admin Dose 81 MG; Start 08/22/17 at 09:00 Potassium Phosphate/Dextrose (K Phos (Meq)/ D5W) 250 ml @ 62.5 mls/hr ONCE ONCE IVPB Last administered on 08/22/17 14:55; Admin Dose 62.5 MLS/HR; Start 08/22/17 at 15:30; Stop 08/22/17 at 19:29 REGINA COWAN MD Aug 22, 2017 15:33
[2017-08-22] MEDS: PROPOFOL 100 ML IV SCH (16:11)
[2017-08-22] MEDS ORDERED: ALBUMIN HUMAN 5% 250 ML ONE (16:24)
[2017-08-22] MEDS ORDERED: ALBUMIN HUMAN 5% 250 ML IV ONE (16:30)
[2017-08-22 17:43] LABS: ADD UMIC YES; UR ASCORBIC ACID NEGATIVE (NEGATIVE); UR BILIRUBIN (Dip) NEGATIVE (NEGATIVE); UR BLOOD (Dip) 1+ mg/dL (NEGATIVE); UR CLARITY CLEAR (CLEAR); UR COLOR YELLOW (YELLOW); UR GLUCOSE (Dip) NEGATIVE (NEGATIVE); UR KETONES (Dip) NEGATIVE (NEGATIVE); UR LEUKOCYTE ESTERASE (Dip) TRACE Leu/ul (NEGATIVE); UR MUCUS FEW /HPF (NONE SEEN); UR NITRITE (Dip) NEGATIVE (NEGATIVE); UR RBC 2 /HPF (0-5); UR SPECIFIC GRAVITY (Dip) 1.029 (1.003-1.030); UR TOTAL PROTEIN (Dip) 1+ mg/dl (NEGATIVE); UR UROBILINOGEN (Dip) NEGATIVE (NEGATIVE)
[2017-08-22] MEDS: CALCIUM CHLORIDE IV SCH (18:56)
[2017-08-22] MEDS: NACL IV SCH (18:56)
[2017-08-22] MEDS: POTASSIUM CHLORIDE IV SCH (18:56)
[2017-08-22] MEDS: DEXTROSE IV SCH (18:56)
[2017-08-22] MEDS: ATORVASTATIN 80 MG TAB PO SCH (21:06)
[2017-08-23] VITALS (97 sets, daily range): BP systolic 89–135; BP diastolic 34–90; PULSE 80–119; RESP 17–26; TEMP 99.7–101.5
[2017-08-23] MEDS: PROPOFOL 100 ML IV SCH ×3 (00:25→20:06)
[2017-08-23] MEDS: VASOPRESSIN 60 UNIT in DEXTROSE 5% 60 ML IV SCH ×2 (00:30→17:56)
[2017-08-23] MEDS: ACCU-CHEK XX SCH ×22 (01:00→23:00)
[2017-08-23 02:32] LABS: CREATININE 1.03 mg/dl (0.61-1.24); POTASSIUM 4.7 mmol/L (3.5-5.1)
[2017-08-23 05:27] LABS: BASOPHILS % 0.3 % (0.0-2.0); HEMATOCRIT 32.7 % (42.0-52.0); LYMPHOCYTES # 2.2 10^3/ul (0.8-2.9); LYMPHOCYTES % 17.5 % (15.0-51.0); MEAN CORPUSCULAR HEMOGLOBIN 29.1 pg (29.0-33.0); MEAN CORPUSCULAR HGB CONC 33.6 g/dl (32.0-37.0); MEAN CORPUSCULAR VOLUME 86.5 fl (82.0-101.0); MEAN PLATELET VOLUME 11.1 fl (7.4-10.4); MONOCYTE # 1.2 10^3/ul (0.3-0.9); MONOCYTES % 9.6 % (0.0-11.0); NEUTROPHILS % 72.1 % (39.0-77.0); PLATELET COUNT 161 10^3/UL (140-415); RED BLOOD COUNT 3.78 10^6/ul (4.70-6.10); RED CELL DISTRIBUTION WIDTH 14.2 % (11.5-14.5); WHITE BLOOD COUNT 12.4 10^3/ul (4.8-10.8)
[2017-08-23 05:47] LABS: INR 1.61; PROTIME 19.5 Sec (11.9-14.9); PT RATIO 1.5
[2017-08-23 05:48] LABS: PARTIAL THROMBOPLASTIN TIME 37.2 Sec (25.0-35.0)
[2017-08-23 06:15] LABS: AADO2 Arterial 236.6 mmHg (7.0-24.0); Arterial Base Excess -1.5 mmol/L (-3.0-3); Arterial COHb 0.3 % (0.0-3.0); Arterial Fraction of Oxyhgb 96.4 % (93.0-99.0); Arterial HCO3 20.6 mmol/L (22.0-26.0); Arterial MetHb 0.3 % (0.0-1.5); Arterial Total Hemglobin 11.9 g/dl (12.0-18.0); MODE VENT - AC
[2017-08-23 06:40] LABS: ALBUMIN 2.6 g/dl (3.3-4.9); ALBUMIN/GLOBULIN RATIO 1.08; BILIRUBIN,DIRECT 0.8 mg/dl (0.00-0.20); BILIRUBIN,INDIRECT 2.3 mg/dl (0-1.1); BILIRUBIN,TOTAL 3.1 mg/dl (0.2-1.3); CALCIUM 8.2 mg/dl (8.4-10.2); POTASSIUM 5.6 mmol/L (3.5-5.1)
--- NOTE | 2017-08-23 08:06 | PN ---
Date/Time of Note Date/Time of Note DATE: 08/23/17 TIME: 08:04 Assessment/Plan Lines/Catheters IV Catheter Type (from Nrs): [place] Yola Champion in Place (from Nrs): Yes Assessment/Plan Chief Complaint/Hosp Course more awake on propofol off levo, still on vaso and epi HD more stable wean vaso, fevers, cultures negative, on abx labs ok place IABP on 1:2 possibly remove tomorrow Problems: Exam/Review of Systems Vital Signs Vitals Vital Signs Date Time Temp Pulse Resp B/P Pulse Ox O2 Delivery O2 Flow Rate FiO2 08/23/17 07:00 86 22 112/50 94 08/23/17 05:42 50 08/22/17 23:00 101.8 08/22/17 06:00 Mechanical Ventilator 08/21/17 16:54 2.0 Intake and Output 08/22/17 08/22/17 08/23/17 15:00 23:00 07:00 Intake Total 1135.53 ml 1955.94 ml 816.49 ml Output Total 295 ml 348 ml 345 ml Balance 840.53 ml 1607.94 ml 471.49 ml Results Result Diagram: 08/23/17 0444 08/23/17 0400 ERNIE LOPEZ MD Aug 23, 2017 08:06
[2017-08-23] MEDS: ASPIRIN (EC) 81 MG TAB PO SCH (08:32)
[2017-08-23] MEDS: FAMOTIDINE 20 MG INJ IV SCH ×2 (08:32→20:05)
[2017-08-23] MEDS: FAMOTIDINE 20 MG TAB PO SCH ×2 (09:00→20:07)
--- NOTE | 2017-08-23 10:18 | RADRPT ---
PROCEDURE: XR Chest. CLINICAL INDICATION: Postoperative . TECHNIQUE: Single frontal chest x-ray. COMPARISON: DR ALMAZAN CHEST 08/22/2017; CHEST 08/21/2017 FINDINGS: Endotracheal tube, mediastinal drainage catheters, Kies[place]-Yola catheter is in place unchanged. . Jacobsen otomy wires are present.. There has been interval placement nasogastric tube with tip coiled in the stomach. Low lung volumes with hilar vascular congestion and mild perihilar edema is unchanged. No s ignificant pleural effusions or pneumothorax is identified. Postsurgical clips are seen in the left upper quadrant of the abdomen. Calcific atherosclerosis of the aorta is present.. The osseous struct ures are intact. IMPRESSION: Interval placement nasogastric tube with tip coiled in the stomach. Other tubes and lines are unchanged. Low volumes with cardiomegaly, hilar congestion mild edema is stable.. RPTAT: QQ .Tucker Gusman MD, MD Date Time Electronically viewed and signed by .Tucker Gusman MD, on 08/23/2017 10:17 .L/
[2017-08-23] MEDS: HYDROmorphONE 0.5 MG/0.5 ML SYG IV PRN ×3 (10:33→18:35)
--- NOTE | 2017-08-23 10:34 | PN ---
Date/Time of Note Date/Time of Note DATE: 08/23/17 TIME: :27 Assessment/Plan VTE Prophylaxis VTE Prophylaxis Intervention: SCD's Lines/Catheters IV Catheter Type (from Nrsg): [place] Urinary Cath still in place: Yes Reason Cath still needed: urinary retention Assessment/Plan Chief Complaint/Hosp Course S: Patient still intubated, on 2 pressor support with epinephrine and vasopressin., chest tube in place. On insulin drip. Seen by cardiothoracic surgery team this morning. O: VS (see below) PE: Constitutional: non-verbal, lying in bed, intubated Head: atraumatic, normocephalic ENMT: intubated Neck: jvd Respiratory: clear to auscultation Cardiovascular: regular rate and rhythm, tachycardic Gastrointestinal: soft Musculoskeletal: nl extremities to inspection Extremities: normal pulses Assessment/Plan: 72 yo male with hx of DL, anxiety, ?hypothyroidism who presented with chest pain and found to have STEMI with emergent cardiac cath revealing three-disease. 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 1. STEMI - Three-vessel CAD, s/p CABG -three-vessel -still on intra-aortic balloon pump, pressors, insulin drip. Chest tube in place. -Continue ICU monitoring, pressors per cardiothoracic surgery and cardiology recommendations - cont vent support, pulmonary to follow - f/u cardiology and CT surg recs -Continue aspirin, statin, insulin drip, follow-up 2D-echo -Monitor drainage from chest tube 2. s/p cardiopulmonary arrest: s/p cardioversion x 2, intubation -see #1 -Continue to replete any low electrolytes 3. SIRS: secondary to above -positive fevers, white blood cell count 17.9 -> 12.4 -IV abx-and follow-up final culture results 4. Lactic acidosis: from ischemic event/cardiogenic shock, trending down now -Continue to trend, continue IV fluids and antibiotics 5. Hypernatremia -sodium 156 ->149 presently -Monitor, continue D5 half-normal saline IV fluids per cardiothoracic surgery recommendations -2 new free water every 6 hours 6. Anemia: likely 2/2 blood loss and dilutional effect -monitor and transfuse as needed 7. ?Hx of hypothyroidism -Follow-up TSH in am 8. Hx of Dyslipidemia -status post CABG for ST elevation LA -Follow-up FLP - statin Critical care time spent on patient care today equals 45 minutes. Problems: Exam/Review of Systems Vital Signs Vitals Vital Signs Date Time Temp Pulse Resp B/P Pulse Ox O2 Delivery O2 Flow Rate FiO2 08/23/17 09:30 99.8 97 22 110/52 99 08/23/17 08:00 50 08/22/17 06:00 Mechanical Ventilator 08/21/17 16:54 2.0 Intake and Output 08/22/17 08/22/17 08/23/17 14:59 22:59 06:59 Intake Total 1251.71 ml 1901.99 ml 908.56 ml Output Total 421 ml 305 ml 388 ml Balance 830.71 ml 1596.99 ml 520.56 ml Results Result Diagram: 08/23/17 0444 08/23/17 0400 Results 24 hrs Laboratory Tests Test 08/22/17 10:50 08/22/17 12:11 08/22/17 13:23 08/22/17 14:30 Bedside Glucose 125 117 125 104 Test 08/22/17 16:10 08/22/17 17:21 08/22/17 19:07 08/22/17 19:48 Bedside Glucose 134 116 110 115 Test 08/22/17 20:56 08/22/17 21:48 08/22/17 23:00 08/22/17 23:57 Bedside Glucose 151 112 95 76 Test 08/23/17 00:39 08/23/17 01:32 08/23/17 01:42 08/23/17 01:58 Hematocrit 31.8 L Bedside Glucose 105 82 Sodium Level 151 H Potassium Level 4.7 # Chloride Level 119 H Carbon Dioxide Level 26 Anion Gap 11 Blood Urea Nitrogen 14 Creatinine 1.03 Glucose Level 125 # Calcium Level 8.0 L Test 08/23/17 02:50 08/23/17 04:00 08/23/17 04:26 08/23/17 04:34 Bedside Glucose 99 148 Prothrombin Time 19.5 H Prothrombin Time Ratio 1.5 INR International Normalized Ratio 1.61 Activated Partial Thromboplast Time 37.2 H Sodium Level 149 H Potassium Level 5.6 H Chloride Level 118 H Carbon Dioxide Level 23 Anion Gap 14 Blood Urea Nitrogen 15 Creatinine 1.00 Glucose Level 153 Calcium Level 8.2 L Phosphorus Level 3.1 # Total Bilirubin 3.1 H Direct Bilirubin 0.80 H Indirect Bilirubin 2.3 H Aspartate Amino Transf (AST/SGOT) 190 H Alanine Aminotransferase (ALT/SGPT) 65 Alkaline Phosphatase 52 Total Protein 5.0 L Albumin 2.6 L Globulin 2.40 Albumin/Globulin Ratio 1.08 Lactic Acid Level 2.8 *H Test 08/23/17 04:44 08/23/17 04:59 08/23/17 05:31 08/23/17 05:38 White Blood Count 12.4 H Red Blood Count 3.78 L Hemoglobin 11.0 L Hematocrit 32.7 L Mean Corpuscular Volume 86.5 Mean Corpuscular Hemoglobin 29.1 Mean Corpuscular Hemoglobin Concent 33.6 Red Cell Distribution Width 14.2 Platelet Count 161 # Mean Platelet Volume 11.1 H Neutrophils % 72.1 Lymphocytes % 17.5 Monocytes % 9.6 Eosinophils % 0.0 Basophils % 0.3 Nucleated Red Blood Cells % 0.0 Neutrophils # 9.0 H Lymphocytes # 2.2 Monocytes # 1.2 H Eosinophils # 0.0 Basophils # 0.0 Nucleated Red Blood Cells # 0.0 Magnesium Level 1.9 Lab Scanned Report BLOOD TRANSFUSION Bedside Glucose 184 Test 08/23/17 06:15 08/23/17 06:42 08/23/17 07:20 08/23/17 09:14 Blood Gas Specimen Source Blood arterial Arterial Blood Date Drawn 08/23/2017 4:49:00 AM Arterial Blood pH (Temp corrected) 7.495 H Arterial Blood pCO2 (Temp correct) 27.4 L Arterial Blood pO2 (Temp corrected) 89.1 Arterial Blood HCO3 20.6 L Arterial Blood Base Excess -1.5 Arterial Blood Oxygen Saturation 97.0 Hardeep Test N/A Arterial Blood Gas Puncture Site A-Line Arterial Blood Carboxyhemoglobin 0.3 Arterial Blood Methemoglobin 0.3 Blood Gas A-a O2 Differential 236.6 H Oxyhemoglobin Percent 96.4 Total Hemoglobin 11.9 L Blood Gas Temperature 37.0 Blood Gas Respiration Rate 22.0 Blood Gas Actual Respiration Rate 22 Blood Gas Modality VENT - AC FiO2 50.0 Blood Gas Tidal Volume 450.0 Blood Gas Low PEEP Setting 5.0 Blood Gas Inspiratory Pressure 23.0 Blood Gas Notified Whom RTR Blood Gas Notified Time 08/23/2017 5:13:00 AM Bedside Glucose 175 179 146 Medications Medications Current Medications Ondansetron HCl (Zofran Inj) 4 mg Q6H PRN IV NAUSEA AND/OR VOMITING; Start 08/21/17 at 17:30 Acetaminophen (Tylenol Tab) 650 mg Q6H PRN PO PAIN LEVEL 1-3 OR FEVER Last administered on 08/22/17 21:44; Admin Dose 650 MG; Start 08/21/17 at 17:30 Acetaminophen/ Hydrocodone Bitart ([place] (5/325)) 1 tab Q6H PRN PO MODERATE PAIN LEVEL 4-6; Start 08/21/17 at 17:30 Morphine Sulfate (morphine) 2 mg Q4H PRN IV SEVERE PAIN LEVEL 7-10; Start 08/21 at 17:30 Docusate Sodium (Colace) 100 mg Q12H PRN PO CONSTIPATION; Start 08/21/17 at 17: 30 Magnesium Hydroxide (Milk Of Mag) 30 ml DAILY PRN PO CONSTIPATION; Start at 17:30 Sodium Biphosphate/ Sodium Phosphate (Fleet Enema) [address] CONSTIPATION; Start 08/21/17 at 17:30 Famotidine (Pepcid) 20 mg Q12 PO Last administered on 08/22/17 21:06; Admin Dose 20 MG; Start 08/21/17 at 21:00 Lorazepam 0.5 mg 0.5 mg Q6H PRN IV ANXIETY Last administered on 08/22/17 20:34 ; Admin Dose 0.5 MG; Start 08/21/17 at 17:30 Levofloxacin/ Dextrose (Levaquin 750 Mg/ D5W 150 ml (Pmx)) 150 ml @ 100 mls/hr Q24H IVPB Last administered on 08/22/17 19:23; Admin Dose 100 MLS/HR; Start 08/21/17 at 19:00 Hydralazine HCl (Apresoline) 10 mg Q6H PRN IV ELEVATED BLOOD PRESSURE; Start 08/21/17 at 17:30 Nitroglycerin (Nitroglycerin (Sl Tab) 0.4 Mg) 1 tab Q5M PRN SL ANGINA; Start 08/21/17 at 17:30 Alendronate Sodium (Fosamax) 70 mg Q7D PO ; Start 08/21/17 at 17:30; Status UNV Miscellaneous Information ALENDRONATE 70MG: WHICH DAY OF THE WEEK IS T... Q8H XX ; Start 08/21/17 at 19:30 Vasopressin 60 unit/Dextrose 60 ml @ 1.2 mls/hr Q12H IV Last administered on 08/22/17 14:55; Admin Dose 2.4 MLS/HR; Start 08/22/17 at 00:30 Norepinephrine (Levophed) 250 ml @ 1.875 mls/ hr TITRATE IV Last administered on 08/22/17 01:15; Admin Dose 11.25 MLS/HR; Start 08/22/17 at 00:30 Hydromorphone HCl (Dilaudid) 0.2 mg Q15M PRN IV PAIN LEVEL 1-5 Last administered on 08/22/17 12:16; Admin Dose 0.2 MG; Start 08/22/17 at 01:00 Hydromorphone HCl (Dilaudid) 0.4 mg Q15M PRN IV PAIN LEVEL 6-10 Last administered on 08/22/17 13:35; Admin Dose 0.4 MG; Start 08/22/17 at 01:00 Oxycodone/ Acetaminophen (Percocet (5/ 325)) 1 tab Q3H PRN PO PAIN LEVEL 1-5; Start 08/22/17 at 01:00 Famotidine (Pepcid Iv) 20 mg BID@08,20 IV Last administered on 08/23/17 08:32 ; Admin Dose 20 MG; Start 08/22/17 at 08:00 Famotidine (Pepcid) 20 mg BID PO ; Start 08/22/17 at 09:00; Status UNV Acetaminophen 650 mg 650 mg Q3H PRN PO ELEVATED TEMPERATURE Last administered on 08/22/17 08:29; Admin Dose 650 MG; Start 08/22/17 at 01:00 Magnesium Sulfate/ Dextrose (Magnesium Sulfate 1 Gm/D5W) 100 ml @ 100 mls/hr PRN PRN IVPB PENDING LAB VALUE Last administered on 08/23/17 08:54; Admin Dose 100 MLS/HR; Start 08/22/17 at 01:00 Diagnostic Test (Pha) (Accu-Chek) 1 ea Q1H XX Last administered on 08/23/17 08:00; Admin Dose 1 EA; Start 08/22/17 at 01:00 Dextrose (D50w Syringe) 25 ml Q15M PRN IV Till BS 80 mg/dL or above x2; Start 08/22/17 at 01:00 Dextrose (D50w Syringe) 50 ml Q15M PRN IV Till BS 80 mg/dL or above x2; Start 08/22/17 at 01:00 Atorvastatin Calcium (Lipitor) 80 mg HS PO Last administered on 08/22/17 21:06 ; Admin Dose 80 MG; Start 08/22/17 at 21:00 Aspirin 81 mg 81 mg DAILY PO Last administered on 08/23/17 08:32; Admin Dose 81 MG; Start 08/22/17 at 09:00 Potassium Chloride 40 meq/ Calcium Chloride 1 gm/Dextrose/ Sodium Chloride 1, 030 ml @ 60 mls/hr [id number] IV Last administered on 08/22/17 18:56; Admin Dose 60 MLS/HR; Start 08/22/17 at 16:30 Propofol (Diprivan) 100 ml @ 1.842 mls/ hr Q12H IV Last administered on 00:25; Admin Dose 9.947 MLS/HR; Start 08/22/17 at 16:00 DON HYATT Aug 23, 2017 10:34
[2017-08-23] MEDS: CALCIUM CHLORIDE IV SCH (11:33)
[2017-08-23] MEDS: NACL IV SCH (11:33)
[2017-08-23] MEDS: POTASSIUM CHLORIDE IV SCH (11:33)
[2017-08-23] MEDS: DEXTROSE IV SCH (11:33)
[2017-08-23 13:47] LABS: CALCIUM 8.3 mg/dl (8.4-10.2); CREATININE 0.97 mg/dl (0.61-1.24); MAGNESIUM 2.3 mg/dl (1.7-2.5); POTASSIUM 4.6 mmol/L (3.5-5.1)
[2017-08-23] MEDS ORDERED: ACETAMINOPHEN 650MG/20.3ML CUP ONE (14:18)
--- NOTE | 2017-08-23 15:23 | CONS ---
Date/Time of Note Date/Time of Note DATE: 08/23/17 TIME: 15:20 Consult Date/Type/Reason Admit Date/Time Aug 21, 2017 at 17:28 Initial Consult Date 08/21/17 Type of Consultation: Pulm/CCM Ordering Provider: HANNAH MCCLENDON MD Subjective IABP now 1:2. Maintaining reasonable BP on epi and vasopressin gtt. Objective Vital Signs Date Time Temp Pulse Resp B/P Pulse Ox O2 Delivery O2 Flow Rate FiO2 08/23/17 14:00 100.9 98 22 124/58 100 08/23/17 08:00 50 08/22/17 06:00 Mechanical Ventilator 08/21/17 16:54 2.0 Intake and Output 08/22/17 08/22/17 08/23/17 15:00 23:00 07:00 Intake Total 1135.53 ml 1955.94 ml 899.09 ml Output Total 295 ml 348 ml 371 ml Balance 840.53 ml 1607.94 ml 528.09 ml Exam HEENT: Neck supple; no JVD; no LAD; + ET tube CVS: RRR, S1 and S2 CHEST: Clear ABD: Soft, NT, + BS EXT: No c/c/e Results/Medications Result Diagram: 08/23/17 0444 08/23/17 1310 Results 24 hrs Laboratory Tests Test 08/22/17 16:10 08/22/17 17:21 08/22/17 19:07 08/22/17 19:48 Bedside Glucose 134 116 110 115 Test 08/22/17 20:56 08/22/17 21:48 08/22/17 23:00 08/22/17 23:57 Bedside Glucose 151 112 95 76 Test 08/23/17 00:39 08/23/17 01:32 08/23/17 01:42 08/23/17 01:58 Hematocrit 31.8 L Bedside Glucose 105 82 Sodium Level 151 H Potassium Level 4.7 # Chloride Level 119 H Carbon Dioxide Level 26 Anion Gap 11 Blood Urea Nitrogen 14 Creatinine 1.03 Glucose Level 125 # Calcium Level 8.0 L Test 08/23/17 02:50 08/23/17 04:00 08/23/17 04:26 08/23/17 04:34 Bedside Glucose 99 148 Prothrombin Time 19.5 H Prothrombin Time Ratio 1.5 INR International Normalized Ratio 1.61 Activated Partial Thromboplast Time 37.2 H Sodium Level 149 H Potassium Level 5.6 H Chloride Level 118 H Carbon Dioxide Level 23 Anion Gap 14 Blood Urea Nitrogen 15 Creatinine 1.00 Glucose Level 153 Calcium Level 8.2 L Phosphorus Level 3.1 # Total Bilirubin 3.1 H Direct Bilirubin 0.80 H Indirect Bilirubin 2.3 H Aspartate Amino Transf (AST/SGOT) 190 H Alanine Aminotransferase (ALT/SGPT) 65 Alkaline Phosphatase 52 Total Protein 5.0 L Albumin 2.6 L Globulin 2.40 Albumin/Globulin Ratio 1.08 Lactic Acid Level 2.8 *H Test 08/23/17 04:44 08/23/17 04:59 08/23/17 05:31 08/23/17 05:38 White Blood Count 12.4 H Red Blood Count 3.78 L Hemoglobin 11.0 L Hematocrit 32.7 L Mean Corpuscular Volume 86.5 Mean Corpuscular Hemoglobin 29.1 Mean Corpuscular Hemoglobin Concent 33.6 Red Cell Distribution Width 14.2 Platelet Count 161 # Mean Platelet Volume 11.1 H Neutrophils % 72.1 Lymphocytes % 17.5 Monocytes % 9.6 Eosinophils % 0.0 Basophils % 0.3 Nucleated Red Blood Cells % 0.0 Neutrophils # 9.0 H Lymphocytes # 2.2 Monocytes # 1.2 H Eosinophils # 0.0 Basophils # 0.0 Nucleated Red Blood Cells # 0.0 Magnesium Level 1.9 Lab Scanned Report BLOOD TRANSFUSION Bedside Glucose 184 Test 08/23/17 06:15 08/23/17 06:42 08/23/17 07:20 08/23/17 09:14 Blood Gas Specimen Source Blood arterial Arterial Blood Date Drawn 08/23/2017 4:49:00 AM Arterial Blood pH (Temp corrected) 7.495 H Arterial Blood pCO2 (Temp correct) 27.4 L Arterial Blood pO2 (Temp corrected) 89.1 Arterial Blood HCO3 20.6 L Arterial Blood Base Excess -1.5 Arterial Blood Oxygen Saturation 97.0 Hardeep Test N/A Arterial Blood Gas Puncture Site A-Line Arterial Blood Carboxyhemoglobin 0.3 Arterial Blood Methemoglobin 0.3 Blood Gas A-a O2 Differential 236.6 H Oxyhemoglobin Percent 96.4 Total Hemoglobin 11.9 L Blood Gas Temperature 37.0 Blood Gas Respiration Rate 22.0 Blood Gas Actual Respiration Rate 22 Blood Gas Modality VENT - AC FiO2 50.0 Blood Gas Tidal Volume 450.0 Blood Gas Low PEEP Setting 5.0 Blood Gas Inspiratory Pressure 23.0 Blood Gas Notified Whom RTR Blood Gas Notified Time 08/23/2017 5:13:00 AM Bedside Glucose 175 179 146 Test 08/23/17 10:39 08/23/17 12:41 08/23/17 13:10 08/23/17 14:33 Bedside Glucose 116 102 97 Sodium Level 145 H Potassium Level 4.6 Chloride Level 116 H Carbon Dioxide Level 26 Anion Gap 8 Blood Urea Nitrogen 17 Creatinine 0.97 Glucose Level 117 Calcium Level 8.3 L Magnesium Level 2.3 Medications Current Medications Ondansetron HCl (Zofran Inj) 4 mg Q6H PRN IV NAUSEA AND/OR VOMITING; Start 08/21/17 at 17:30 Acetaminophen (Tylenol Tab) 650 mg Q6H PRN PO PAIN LEVEL 1-3 OR FEVER Last administered on 08/22/17 21:44; Admin Dose 650 MG; Start 08/21/17 at 17:30 Acetaminophen/ Hydrocodone Bitart ([place] (5/325)) 1 tab Q6H PRN PO MODERATE PAIN LEVEL 4-6; Start 08/21/17 at 17:30 Morphine Sulfate (morphine) 2 mg Q4H PRN IV SEVERE PAIN LEVEL 7-10; Start 08/21 at 17:30 Docusate Sodium (Colace) 100 mg Q12H PRN PO CONSTIPATION; Start 08/21/17 at 17: 30 Magnesium Hydroxide (Milk Of Mag) 30 ml DAILY PRN PO CONSTIPATION; Start at 17:30 Sodium Biphosphate/ Sodium Phosphate (Fleet Enema) 133 ml DAILY PRN [place] CONSTIPATION; Start 08/21/17 at 17:30 Famotidine (Pepcid) 20 mg Q12 PO Last administered on 08/22/17 21:06; Admin Dose 20 MG; Start 08/21/17 at 21:00 Lorazepam 0.5 mg 0.5 mg Q6H PRN IV ANXIETY Last administered on 08/22/17 20:34 ; Admin Dose 0.5 MG; Start 08/21/17 at 17:30 Levofloxacin/ Dextrose (Levaquin 750 Mg/ D5W 150 ml (Pmx)) 150 ml @ 100 mls/hr Q24H IVPB Last administered on 08/22/17 19:23; Admin Dose 100 MLS/HR; Start 08/21/17 at 19:00 Hydralazine HCl (Apresoline) 10 mg Q6H PRN IV ELEVATED BLOOD PRESSURE; Start 08/21/17 at 17:30 Nitroglycerin (Nitroglycerin (Sl Tab) 0.4 Mg) 1 tab Q5M PRN SL ANGINA; Start 08/21/17 at 17:30 Alendronate Sodium (Fosamax) 70 mg Q7D PO ; Start 08/21/17 at 17:30; Status UNV Miscellaneous Information ALENDRONATE 70MG: WHICH DAY OF THE WEEK IS T... Q8H XX ; Start 08/21/17 at 19:30 Vasopressin 60 unit/Dextrose 60 ml @ 1.2 mls/hr Q12H IV Last administered on 08/22/17 14:55; Admin Dose 2.4 MLS/HR; Start 08/22/17 at 00:30 Norepinephrine (Levophed) 250 ml @ 1.875 mls/ hr TITRATE IV Last administered on 08/22/17 01:15; Admin Dose 11.25 MLS/HR; Start 08/22/17 at 00:30 Hydromorphone HCl (Dilaudid) 0.2 mg Q15M PRN IV PAIN LEVEL 1-5 Last administered on 08/23/17 15:00; Admin Dose 0.2 MG; Start 08/22/17 at 01:00 Hydromorphone HCl (Dilaudid) 0.4 mg Q15M PRN IV PAIN LEVEL 6-10 Last administered on 08/22/17 13:35; Admin Dose 0.4 MG; Start 08/22/17 at 01:00 Oxycodone/ Acetaminophen (Percocet (5/ 325)) 1 tab Q3H PRN PO PAIN LEVEL 1-5; Start 08/22/17 at 01:00 Famotidine (Pepcid Iv) 20 mg BID@08,20 IV Last administered on 08/23/17 08:32 ; Admin Dose 20 MG; Start 08/22/17 at 08:00 Famotidine (Pepcid) 20 mg BID PO ; Start 08/22/17 at 09:00; Status UNV Acetaminophen 650 mg 650 mg Q3H PRN PO ELEVATED TEMPERATURE Last administered on 08/22/17 08:29; Admin Dose 650 MG; Start 08/22/17 at 01:00 Magnesium Sulfate/ Dextrose (Magnesium Sulfate 1 Gm/D5W) 100 ml @ 100 mls/hr PRN PRN IVPB PENDING LAB VALUE Last administered on 08/23/17 08:54; Admin Dose 100 MLS/HR; Start 08/22/17 at 01:00 Diagnostic Test (Pha) (Accu-Chek) 1 ea Q1H XX Last administered on 08/23/17 14:00; Admin Dose 1 EA; Start 08/22/17 at 01:00 Dextrose (D50w Syringe) 25 ml Q15M PRN IV Till BS 80 mg/dL or above x2; Start 08/22/17 at 01:00 Dextrose (D50w Syringe) 50 ml Q15M PRN IV Till BS 80 mg/dL or above x2; Start 08/22/17 at 01:00 Atorvastatin Calcium (Lipitor) 80 mg HS PO Last administered on 08/22/17 21:06 ; Admin Dose 80 MG; Start 08/22/17 at 21:00 Aspirin 81 mg 81 mg DAILY PO Last administered on 08/23/17 08:32; Admin Dose 81 MG; Start 08/22/17 at 09:00 Potassium Chloride 40 meq/ Calcium Chloride 1 gm/Dextrose/ Sodium Chloride 1, 030 ml @ 60 mls/hr [id number] IV Last administered on 08/23/17 11:33; Admin Dose 60 MLS/HR; Start 08/22/17 at 16:30 Propofol (Diprivan) 100 ml @ 1.842 mls/ hr Q12H IV Last administered on 11:32; Admin Dose 9.21 MLS/HR; Start 08/22/17 at 16:00 Acetaminophen (Tylenol Liquid) 650 mg Q4H PRN PO PAIN AND OR ELEVATED TEMP; Start 08/23/17 at 14:30; Status UNV Assessment/Plan Chief Complaint/Hosp Course Briefly, this is a 71-year-old man HL, anxiety, presenting with STEMI s/p emergent cardiac cath revealing three-disease. 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 Problems: Additional Assessment/Plan IMP: 1. s/p STEMI followed by LHC and CABG 2. Cardiogenic shock 3. Lactic acidosis 2/2 #2 4. HyperNa+ 5. HypoK+ RECS: 1. Vent support 2. To weaning soon after IABP removed 3. Titrate off vasopressin gtt 4. Follow cardiac indeces 5. Follow lactate clearance 6. Am labs/CXR/ABG 35 min cc time REGINA COWAN MD Aug 23, 2017 15:23
[2017-08-23] MEDS: EPINEPHrine 4 MG in DEXTROSE 5% 246 ML IV SCH (17:45)
--- NOTE | 2017-08-23 18:04 | CONS ---
Date/Time of Note Date/Time of Note DATE: 08/23/17 TIME: 18:00 Assessment/Plan Assessment/Plan Additional Assessment/Plan Myocardial infarction status post coronary artery bypass grafting Three-vessel CAD Cardiogenic shock on IV pressor Vent dependent respiratory failure -Patient currently on 2 IV pressors of epinephrine and vasopressin. Continue to titrate down to maintain SBP greater than 90 and her map above 60. Patient on intra-aortic balloon pump and adjustments have been made to 2-1. No diuretics at the current time given blood pressure. Maintain potassium above 4.0 and magnesium above 2.0. Continue aspirin and statin therapy. No beta- neda or BOB inhibitor given hypotension and requirement of IV pressor. Vent management as per our pulmonary colleagues. -Greater than 32 minutes of critical care time taken in the care of this patient. -Dr. Lopez to resume care 08/24/2017 Consultation Date/Type/Reason Admit Date/Time Aug 21, 2017 at 17:28 Initial Consult Date 08/21/17 Type of Consultation: cv Referring Provider: HANNAH MCCLENDON MD 24 HR Interval Summary Free Text/Dictation Patient seen and examined. Discussion with nursing staff, IV levo fed has been titrated off. Exam/Review of Systems Vital Signs Vitals Vital Signs Date Time Temp Pulse Resp B/P Pulse Ox O2 Delivery O2 Flow Rate FiO2 08/23/17 17:10 98 22 97 50 08/23/17 17:00 100.7 105/72 08/22/17 06:00 Mechanical Ventilator 08/21/17 16:54 2.0 Intake and Output 08/22/17 08/22/17 08/23/17 15:00 23:00 07:00 Intake Total 1135.53 ml 1955.94 ml 899.09 ml Output Total 295 ml 348 ml 371 ml Balance 840.53 ml 1607.94 ml 528.09 ml Exam Sedated and intubated, no apparent distress Head: normocephalic ENMT: intubated Respiratory: other (Coarse breath sounds bilaterally, no wheezing) Cardiovascular: other (S1-S2 heard), regular rate and rhythm Gastrointestinal: bowel sounds, non-tender, soft Extremities: edema (Trace) Results Result Diagram: 08/23/17 0444 08/23/17 1310 Results 24 hrs Laboratory Tests Test 08/22/17 19:07 08/22/17 19:48 08/22/17 20:56 08/22/17 21:48 Bedside Glucose 110 115 151 112 Test 08/22/17 23:00 08/22/17 23:57 08/23/17 00:39 08/23/17 01:32 Bedside Glucose 95 76 105 Hematocrit 31.8 L Test 08/23/17 01:42 08/23/17 01:58 08/23/17 02:50 08/23/17 04:00 Sodium Level 151 H 149 H Potassium Level 4.7 # 5.6 H Chloride Level 119 H 118 H Carbon Dioxide Level 26 23 Anion Gap 11 14 Blood Urea Nitrogen 14 15 Creatinine 1.03 1.00 Glucose Level 125 # 153 Calcium Level 8.0 L 8.2 L Bedside Glucose 82 99 Prothrombin Time 19.5 H Prothrombin Time Ratio 1.5 INR International Normalized Ratio 1.61 Activated Partial Thromboplast Time 37.2 H Phosphorus Level 3.1 # Total Bilirubin 3.1 H Direct Bilirubin 0.80 H Indirect Bilirubin 2.3 H Aspartate Amino Transf (AST/SGOT) 190 H Alanine Aminotransferase (ALT/SGPT) 65 Alkaline Phosphatase 52 Total Protein 5.0 L Albumin 2.6 L Globulin 2.40 Albumin/Globulin Ratio 1.08 Test 08/23/17 04:26 08/23/17 04:34 08/23/17 04:44 08/23/17 04:59 Lactic Acid Level 2.8 *H Bedside Glucose 148 White Blood Count 12.4 H Red Blood Count 3.78 L Hemoglobin 11.0 L Hematocrit 32.7 L Mean Corpuscular Volume 86.5 Mean Corpuscular Hemoglobin 29.1 Mean Corpuscular Hemoglobin Concent 33.6 Red Cell Distribution Width 14.2 Platelet Count 161 # Mean Platelet Volume 11.1 H Neutrophils % 72.1 Lymphocytes % 17.5 Monocytes % 9.6 Eosinophils % 0.0 Basophils % 0.3 Nucleated Red Blood Cells % 0.0 Neutrophils # 9.0 H Lymphocytes # 2.2 Monocytes # 1.2 H Eosinophils # 0.0 Basophils # 0.0 Nucleated Red Blood Cells # 0.0 Magnesium Level 1.9 Test 08/23/17 05:31 08/23/17 05:38 08/23/17 06:15 08/23/17 06:42 Lab Scanned Report BLOOD TRANSFUSION Bedside Glucose 184 175 Blood Gas Specimen Source Blood arterial Arterial Blood Date Drawn 08/23/2017 4:49:00 AM Arterial Blood pH (Temp corrected) 7.495 H Arterial Blood pCO2 (Temp correct) 27.4 L Arterial Blood pO2 (Temp corrected) 89.1 Arterial Blood HCO3 20.6 L Arterial Blood Base Excess -1.5 Arterial Blood Oxygen Saturation 97.0 Hardeep Test N/A Arterial Blood Gas Puncture Site A-Line Arterial Blood Carboxyhemoglobin 0.3 Arterial Blood Methemoglobin 0.3 Blood Gas A-a O2 Differential 236.6 H Oxyhemoglobin Percent 96.4 Total Hemoglobin 11.9 L Blood Gas Temperature 37.0 Blood Gas Respiration Rate 22.0 Blood Gas Actual Respiration Rate 22 Blood Gas Modality VENT - AC FiO2 50.0 Blood Gas Tidal Volume 450.0 Blood Gas Low PEEP Setting 5.0 Blood Gas Inspiratory Pressure 23.0 Blood Gas Notified Whom RTR Blood Gas Notified Time 08/23/2017 5:13:00 AM Test 08/23/17 07:20 08/23/17 09:14 08/23/17 10:39 08/23/17 12:41 Bedside Glucose 179 146 116 102 Test 08/23/17 13:10 08/23/17 14:33 08/23/17 16:42 Sodium Level 145 H Potassium Level 4.6 Chloride Level 116 H Carbon Dioxide Level 26 Anion Gap 8 Blood Urea Nitrogen 17 Creatinine 0.97 Glucose Level 117 Calcium Level 8.3 L Magnesium Level 2.3 Bedside Glucose 97 144 Medications Medications Current Medications Ondansetron HCl (Zofran Inj) 4 mg Q6H PRN IV NAUSEA AND/OR VOMITING; Start 08/21/17 at 17:30 Acetaminophen/ Hydrocodone Bitart ([place] (5/325)) 1 tab Q6H PRN PO MODERATE PAIN LEVEL 4-6; Start 08/21/17 at 17:30 Morphine Sulfate (morphine) 2 mg Q4H PRN IV SEVERE PAIN LEVEL 7-10; Start 08/21 at 17:30 Docusate Sodium (Colace) 100 mg Q12H PRN PO CONSTIPATION; Start 08/21/17 at 17: 30 Magnesium Hydroxide (Milk Of Mag) 30 ml DAILY PRN PO CONSTIPATION; Start at 17:30 Sodium Biphosphate/ Sodium Phosphate (Fleet Enema) 133 ml DAILY PRN [place] CONSTIPATION; Start 08/21/17 at 17:30 Famotidine (Pepcid) 20 mg Q12 PO Last administered on 08/22/17 21:06; Admin Dose 20 MG; Start 08/21/17 at 21:00 Lorazepam 0.5 mg 0.5 mg Q6H PRN IV ANXIETY Last administered on 08/22/17 20:34 ; Admin Dose 0.5 MG; Start 08/21/17 at 17:30 Levofloxacin/ Dextrose (Levaquin 750 Mg/ D5W 150 ml (Pmx)) 150 ml @ 100 mls/hr Q24H IVPB Last administered on 08/22/17 19:23; Admin Dose 100 MLS/HR; Start 08/21/17 at 19:00 Hydralazine HCl (Apresoline) 10 mg Q6H PRN IV ELEVATED BLOOD PRESSURE; Start 08/21/17 at 17:30 Nitroglycerin (Nitroglycerin (Sl Tab) 0.4 Mg) 1 tab Q5M PRN SL ANGINA; Start 08/21/17 at 17:30 Alendronate Sodium (Fosamax) 70 mg Q7D PO ; Start 08/21/17 at 17:30; Status UNV Miscellaneous Information ALENDRONATE 70MG: WHICH DAY OF THE WEEK IS T... Q8H XX ; Start 08/21/17 at 19:30 Vasopressin 60 unit/Dextrose 60 ml @ 1.2 mls/hr Q12H IV Last administered on 08/23/17 17:56; Admin Dose 1.2 MLS/HR; Start 08/22/17 at 00:30 Norepinephrine (Levophed) 250 ml @ 1.875 mls/ hr TITRATE IV Last administered on 08/22/17 01:15; Admin Dose 11.25 MLS/HR; Start 08/22/17 at 00:30 Hydromorphone HCl (Dilaudid) 0.2 mg Q15M PRN IV PAIN LEVEL 1-5 Last administered on 08/23/17 15:00; Admin Dose 0.2 MG; Start 08/22/17 at 01:00 Hydromorphone HCl (Dilaudid) 0.4 mg Q15M PRN IV PAIN LEVEL 6-10 Last administered on 08/22/17 13:35; Admin Dose 0.4 MG; Start 08/22/17 at 01:00 Oxycodone/ Acetaminophen (Percocet (5/ 325)) 1 tab Q3H PRN PO PAIN LEVEL 1-5; Start 08/22/17 at 01:00 Famotidine 20 mg 20 mg BID@08,20 IV Last administered on 08/23/17 08:32; Admin Dose 20 MG; Start 08/22/17 at 08:00 Magnesium Sulfate/ Dextrose (Magnesium Sulfate 1 Gm/D5W) 100 ml @ 100 mls/hr PRN PRN IVPB PENDING LAB VALUE Last administered on 08/23/17 08:54; Admin Dose 100 MLS/HR; Start 08/22/17 at 01:00 Diagnostic Test (Pha) (Accu-Chek) 1 ea Q1H XX Last administered on 08/23/17 17:00; Admin Dose 1 EA; Start 08/22/17 at 01:00 Dextrose (D50w Syringe) 25 ml Q15M PRN IV Till BS 80 mg/dL or above x2; Start 08/22/17 at 01:00 Dextrose (D50w Syringe) 50 ml Q15M PRN IV Till BS 80 mg/dL or above x2; Start 08/22/17 at 01:00 Atorvastatin Calcium (Lipitor) 80 mg HS PO Last administered on 08/22/17 21:06 ; Admin Dose 80 MG; Start 08/22/17 at 21:00 Aspirin 81 mg 81 mg DAILY PO Last administered on 08/23/17 08:32; Admin Dose 81 MG; Start 08/22/17 at 09:00 Potassium Chloride 40 meq/ Calcium Chloride 1 gm/Dextrose/ Sodium Chloride 1, 030 ml @ 60 mls/hr [id number] IV Last administered on 08/23/17 11:33; Admin Dose 60 MLS/HR; Start 08/22/17 at 16:30 Propofol (Diprivan) 100 ml @ 1.842 mls/ hr Q12H IV Last administered on 11:32; Admin Dose 9.21 MLS/HR; Start 08/22/17 at 16:00 Acetaminophen (Tylenol Liquid) 650 mg Q4H PRN PO PAIN AND OR ELEVATED TEMP; Start 08/23/17 at 14:30 Larry Guerrero DO Aug 23, 2017 18:04
[2017-08-23] MEDS: LEVOFLOXACIN 750MG/D5W (PMX) 150 ML IVPB SCH (18:07)
[2017-08-23] MEDS: INSULIN HUMAN REGULAR 100 UNIT in SOD CHLORIDE 0.9% 99 ML IV SCH ×5 (20:04→23:55)
[2017-08-23] MEDS: ATORVASTATIN 80 MG TAB PO SCH (20:05)
[2017-08-24] VITALS (103 sets, daily range): BP systolic 100–171; BP diastolic 49–104; PULSE 85–138; RESP 5–34; TEMP 100.1–100.7
[2017-08-24] MEDS: VASOPRESSIN 60 UNIT in DEXTROSE 5% 60 ML IV SCH ×2 (00:30→12:30)
[2017-08-24] MEDS: HYDROmorphONE 0.5 MG/0.5 ML SYG IV PRN ×7 (01:39→20:07)
[2017-08-24] MEDS: ACCU-CHEK XX SCH ×14 (02:00→18:00)
[2017-08-24] MEDS: INSULIN HUMAN REGULAR 100 UNIT in SOD CHLORIDE 0.9% 99 ML IV SCH ×4 (02:56→23:43)
[2017-08-24] MEDS: NACL IV SCH ×2 (02:58→19:53)
[2017-08-24] MEDS: POTASSIUM CHLORIDE IV SCH ×2 (02:58→19:53)
[2017-08-24] MEDS: CALCIUM CHLORIDE IV SCH ×2 (02:58→19:53)
[2017-08-24] MEDS: DEXTROSE IV SCH ×2 (02:58→19:53)
[2017-08-24] MEDS: ALENDRONATE 70 MG XX SCH (03:30)
[2017-08-24] MEDS: [UNRECOGNIZED DRUG - OTHER] XX SCH (03:30)
[2017-08-24 05:10] LABS: MODE VENT - AC; MetHgb Mixed Venous 0.1 %; Mixed Venous Base Excess -2.1 mmol/L; Mixed Venous COHb 0.3 %; Mixed Venous Fraction OxyHgb 64.7 %; Mixed Venous Total Hemglobin 12.2 g/dl; Sample Type Blood venous
[2017-08-24 05:12] LABS: AADO2 Arterial 207.5 mmHg (7.0-24.0); Arterial Base Excess -1.7 mmol/L (-3.0-3); Arterial COHb 0.3 % (0.0-3.0); Arterial Fraction of Oxyhgb 95.1 % (93.0-99.0); Arterial HCO3 21.4 mmol/L (22.0-26.0); Arterial MetHb 0.3 % (0.0-1.5); Arterial Total Hemglobin 10.5 g/dl (12.0-18.0); MODE VENT - AC
[2017-08-24 05:15] LABS: BASOPHILS % 0.2 % (0.0-2.0); EOSINOPHILS % 0.2 % (0.0-7.0); HEMATOCRIT 32.9 % (42.0-52.0); HEMOGLOBIN 10.6 g/dl (14.0-18.0); LYMPHOCYTES # 1.9 10^3/ul (0.8-2.9); LYMPHOCYTES % 15.8 % (15.0-51.0); MEAN CORPUSCULAR HEMOGLOBIN 28.4 pg (29.0-33.0); MEAN CORPUSCULAR HGB CONC 32.2 g/dl (32.0-37.0); MEAN CORPUSCULAR VOLUME 88.2 fl (82.0-101.0); MONOCYTE # 0.7 10^3/ul (0.3-0.9); MONOCYTES % 5.9 % (0.0-11.0); NEUTROPHIL # 9.4 10^3/ul (1.6-7.5); NEUTROPHILS % 77.2 % (39.0-77.0); NUCLEATED RED BLOOD CELLS # 0.1 10^3/ul (0.0-0.0); NUCLEATED RED BLOOD CELLS% 0.4 /100WBC (0.0-0.0); PLATELET COUNT 134 10^3/UL (140-415); POSITIVE DIFF @See below; RED BLOOD COUNT 3.73 10^6/ul (4.70-6.10); RED CELL DISTRIBUTION WIDTH 14.8 % (11.5-14.5); WHITE BLOOD COUNT 12.2 10^3/ul (4.8-10.8)
[2017-08-24 05:49] LABS: CALCIUM 8.2 mg/dl (8.4-10.2); CREATININE 0.92 mg/dl (0.61-1.24); POTASSIUM 4.4 mmol/L (3.5-5.1)
[2017-08-24] MEDS: EPINEPHrine 4 MG in DEXTROSE 5% 246 ML IV SCH (05:52)
[2017-08-24] MEDS: PROPOFOL 100 ML IV SCH ×3 (06:50→22:51)
--- NOTE | 2017-08-24 07:59 | PN ---
Date/Time of Note Date/Time of Note DATE: 08/24/17 TIME: 07:55 Assessment/Plan VTE Prophylaxis VTE Prophylaxis Intervention: LMWH Lines/Catheters IV Catheter Type (from Nrs): [place] [facility] Urinary Cath still in place: Yes Reason Cath still needed: other (indicate) (intubated) Assessment/Plan Chief Complaint/Hosp Course 72 yo presented with STEMI anterior wall, with severe 3V CAD and instability, s/ p emergent CABG, clinically progressing. Problems: Assessment/Plan STEMI anterior wall Severe 3 vessel CAD post cabg ischemic cardiomyopathy Cardiogenic shock, still on pressors ASA, clopidogrel post CO Statin therapy Will start BB, BOB/ARB, and spironolactone once off pressors IABP out today D/W Dr. Fenton Subjective 24 Hr Interval Summary Free Text/Dictation No events overnight. IABP in place, patient still on vent. Subjective hx not possible: pt non-verbal Exam/Review of Systems Vital Signs Vitals Vital Signs Date Time Temp Pulse Resp B/P Pulse Ox O2 Delivery O2 Flow Rate FiO2 08/24/17 06:58 100.1 101 22 139/61 98 08/24/17 05:44 50 08/22/17 06:00 Mechanical Ventilator 08/21/17 16:54 2.0 Intake and Output 08/23/17 08/23/17 08/24/17 15:00 23:00 07:00 Intake Total 1004.0 ml 1139.7 ml 1013.72 ml Output Total 358 ml 311 ml 1850 ml Balance 646.0 ml 828.7 ml -836.28 ml Exam Constitutional: non-verbal Head: atraumatic, normocephalic ENMT: intubated Neck: No bruits, No jvd Respiratory: clear to auscultation, normal air movement Cardiovascular: regular rate and rhythm Gastrointestinal: non-tender, soft Musculoskeletal: nl extremities to inspection Extremities: No edema Skin: nl turgor Results Result Diagram: 08/24/1740408/24/17404 Results 24 hrs Laboratory Tests Test 08/23/17 09:14 08/23/17 10:39 08/23/17 12:41 08/23/17 13:10 Bedside Glucose 146 116 102 Sodium Level 145 H Potassium Level 4.6 Chloride Level 116 H Carbon Dioxide Level 26 Anion Gap 8 Blood Urea Nitrogen 17 Creatinine 0.97 Glucose Level 117 Calcium Level 8.3 L Magnesium Level 2.3 Test 08/23/17 14:33 08/23/17 16:42 08/23/17 18:06 08/23/17 19:56 Bedside Glucose 97 144 156 152 Test 08/23/17 20:54 08/23/17 21:56 08/23/17 22:58 08/23/17 23:51 Bedside Glucose 123 118 113 117 Test 08/24/17 02:51 08/24/17 04:05 08/24/17 05:00 08/24/17 05:33 Bedside Glucose 101 107 White Blood Count 12.2 H Red Blood Count 3.73 L Hemoglobin 10.6 L Hematocrit 32.9 L Mean Corpuscular Volume 88.2 Mean Corpuscular Hemoglobin 28.4 L Mean Corpuscular Hemoglobin Concent 32.2 Red Cell Distribution Width 14.8 H Platelet Count 134 L Mean Platelet Volume 11.0 H Neutrophils % 77.2 H Lymphocytes % 15.8 Monocytes % 5.9 Eosinophils % 0.2 Basophils % 0.2 Nucleated Red Blood Cells % 0.4 H Neutrophils # 9.4 H Lymphocytes # 1.9 Monocytes # 0.7 Eosinophils # 0.0 Basophils # 0.0 Nucleated Red Blood Cells # 0.1 H Sodium Level 144 Potassium Level 4.4 Chloride Level 115 H Carbon Dioxide Level 24 Anion Gap 9 Blood Urea Nitrogen 16 Creatinine 0.92 Glucose Level 139 Lactic Acid Level 1.3 Calcium Level 8.2 L Magnesium Level 2.0 Blood Gas Specimen Source Blood venous Arterial Blood Date Drawn 08/24/2017 4:23:51 AM Arterial Blood pH (Temp corrected) 7.466 H Arterial Blood pCO2 (Temp correct) 30.3 L Arterial Blood pO2 (Temp corrected) 78.9 L Arterial Blood HCO3 21.4 L Arterial Blood Base Excess -1.7 Arterial Blood Oxygen Saturation 95.7 Hardeep Test N/A Arterial Blood Gas Puncture Site A-Line Arterial Blood Carboxyhemoglobin 0.3 Arterial Blood Methemoglobin 0.3 Mixed Venous Blood pH 7.427 H Mixed Venous Blood PCO2 33.5 L Mixed Venous Blood PO2 31.8 Mixed Venous Blood HCO3 21.6 L Mixed Venous Blood Base Excess -2.1 Mixed Venous Blood O2 Saturation 65.0 Mixed Venous Blood Total Hemoglobin 12.2 Mixed Venous Blood Oxyhemoglobin 64.7 Mixed Venous Bld Carboxyhemoglobin 0.3 Mixed Venous Blood Methemoglobin 0.1 Blood Gas A-a O2 Differential 207.5 H Oxyhemoglobin Percent 95.1 Total Hemoglobin 10.5 L Blood Gas Temperature 37.0 Blood Gas Respiration Rate 22.0 Blood Gas Actual Respiration Rate 22 Blood Gas Modality VENT - AC FiO2 45.0 Blood Gas Tidal Volume 450.0 Blood Gas Low PEEP Setting 5.0 Blood Gas Inspiratory Pressure 44.0 Blood Gas Notified Whom RTR Blood Gas Notified Time 08/24/2017 5:10:05 AM Medications Medications Current Medications Ondansetron HCl (Zofran Inj) 4 mg Q6H PRN IV NAUSEA AND/OR VOMITING; Start 08/21/17 at 17:30 Acetaminophen/ Hydrocodone Bitart ([place] (5/325)) 1 tab Q6H PRN PO MODERATE PAIN LEVEL 4-6; Start 08/21/17 at 17:30 Morphine Sulfate (morphine) 2 mg Q4H PRN IV SEVERE PAIN LEVEL 7-10; Start 08/21 at 17:30 Docusate Sodium (Colace) 100 mg Q12H PRN PO CONSTIPATION; Start 08/21/17 at 17: 30 Magnesium Hydroxide (Milk Of Mag) 30 ml DAILY PRN PO CONSTIPATION; Start at 17:30 Sodium Biphosphate/ Sodium Phosphate (Fleet Enema) 133 ml DAILY PRN [place] CONSTIPATION; Start 08/21/17 at 17:30 Famotidine (Pepcid) 20 mg Q12 PO Last administered on 08/22/17 21:06; Admin Dose 20 MG; Start 08/21/17 at 21:00 Lorazepam 0.5 mg 0.5 mg Q6H PRN IV ANXIETY Last administered on 08/22/17 20:34 ; Admin Dose 0.5 MG; Start 08/21/17 at 17:30 Levofloxacin/ Dextrose (Levaquin 750 Mg/ D5W 150 ml (Pmx)) 150 ml @ 100 mls/hr Q24H IVPB Last administered on 08/23/17 18:07; Admin Dose 100 MLS/HR; Start 08/21/17 at 19:00 Hydralazine HCl (Apresoline) 10 mg Q6H PRN IV ELEVATED BLOOD PRESSURE; Start 08/21/17 at 17:30 Nitroglycerin (Nitroglycerin (Sl Tab) 0.4 Mg) 1 tab Q5M PRN SL ANGINA; Start 08/21/17 at 17:30 Alendronate Sodium (Fosamax) 70 mg Q7D PO ; Start 08/21/17 at 17:30; Status UNV Miscellaneous Information ALENDRONATE 70MG: WHICH DAY OF THE WEEK IS T... Q8H XX ; Start 08/21/17 at 19:30 Vasopressin 60 unit/Dextrose 60 ml @ 1.2 mls/hr Q12H IV Last administered on 08/23/17 17:56; Admin Dose 1.2 MLS/HR; Start 08/22/17 at 00:30 Norepinephrine (Levophed) 250 ml @ 1.875 mls/ hr TITRATE IV Last administered on 08/22/17 01:15; Admin Dose 11.25 MLS/HR; Start 08/22/17 at 00:30 Hydromorphone HCl (Dilaudid) 0.2 mg Q15M PRN IV PAIN LEVEL 1-5 Last administered on 08/23/17 18:35; Admin Dose 0.2 MG; Start 08/22/17 at 01:00 Hydromorphone HCl (Dilaudid) 0.4 mg Q15M PRN IV PAIN LEVEL 6-10 Last administered on 08/24/17 05:11; Admin Dose 0.4 MG; Start 08/22/17 at 01:00 Oxycodone/ Acetaminophen (Percocet (5/ 325)) 1 tab Q3H PRN PO PAIN LEVEL 1-5; Start 08/22/17 at 01:00 Famotidine 20 mg 20 mg BID@08,20 IV Last administered on 08/23/17 20:05; Admin Dose 20 MG; Start 08/22/17 at 08:00 Magnesium Sulfate/ Dextrose (Magnesium Sulfate 1 Gm/D5W) 100 ml @ 100 mls/hr PRN PRN IVPB PENDING LAB VALUE Last administered on 08/23/17 08:54; Admin Dose 100 MLS/HR; Start 08/22/17 at 01:00 Diagnostic Test (Pha) (Accu-Chek) 1 ea Q1H XX Last administered on 08/23/17 07:00; Admin Dose 1 EA; Start 08/22/17 at 01:00 Dextrose (D50w Syringe) 25 ml Q15M PRN IV Till BS 80 mg/dL or above x2; Start 08/22/17 at 01:00 Dextrose (D50w Syringe) 50 ml Q15M PRN IV Till BS 80 mg/dL or above x2; Start 08/22/17 at 01:00 Atorvastatin Calcium (Lipitor) 80 mg HS PO Last administered on 08/23/17 20: 05; Admin Dose 80 MG; Start 08/22/17 at 21:00 Aspirin 81 mg 81 mg DAILY PO Last administered on 08/23/17 08:32; Admin Dose 81 MG; Start 08/22/17 at 09:00 Potassium Chloride 40 meq/ Calcium Chloride 1 gm/Dextrose/ Sodium Chloride 1, 030 ml @ 60 mls/hr [id number] IV Last administered on 08/24/17 02:58; Admin Dose 60 MLS/HR; Start 08/22/17 at 16:30 Propofol (Diprivan) 100 ml @ 1.842 mls/ hr Q12H IV Last administered on 06:50; Admin Dose 9.2 MLS/HR; Start 08/22/17 at 16:00 Acetaminophen (Tylenol Liquid) 650 mg Q4H PRN PO PAIN AND OR ELEVATED TEMP; Start 08/23/17 at 14:30 Enoxaparin Sodium (Lovenox) 40 mg DAILY SC ; Start 08/24/17 at 09:00 JENNIFER MOORE Aug 24, 2017 07:59
[2017-08-24] MEDS ORDERED: LIDOCAINE 1% (MPF) 5 ML VIAL SC ONE (08:00)
--- NOTE | 2017-08-24 08:00 | PN ---
Date/Time of Note Date/Time of Note DATE: 08/24/17 TIME: 07:59 Assessment/Plan Lines/Catheters IV Catheter Type (from [facility]): [place] [facility] Champion in Place (from Nrs): Yes Assessment/Plan Chief Complaint/Hosp Course HD stable on epi 2mcg labs ok remove IABP and chest tube start ASA, plavix and lovenox start weaning Problems: Exam/Review of Systems Vital Signs Vitals Vital Signs Date Time Temp Pulse Resp B/P Pulse Ox O2 Delivery O2 Flow Rate FiO2 08/24/17 06:58 100.1 101 22 139/61 98 08/24/17 05:44 50 08/22/17 06:00 Mechanical Ventilator 08/21/17 16:54 2.0 Intake and Output 08/23/17 08/23/17 08/24/17 15:00 23:00 07:00 Intake Total 1004.0 ml 1139.7 ml 1013.72 ml Output Total 358 ml 311 ml 1850 ml Balance 646.0 ml 828.7 ml -836.28 ml Results Result Diagram: 08/24/17 0405 08/24/17 0405 ERNIE LOPEZ MD Aug 24, 2017 08:00
--- NOTE | 2017-08-24 08:14 | OPR ---
Date/Time of Note Date/Time of Note DATE: 08/24/17 TIME: 08:12 Operative Report Free Text/Dictation IABP removal Procedure Date: Aug 24, 2017 Preoperative Diagnosis ischemic cardiomyopathy post CABG Postoperative Diagnosis same Operation/Procedure Performed IABP removal Surgeon see signature line Conference Manager na Anesthesia Type: general Estimated Blood Loss: 0 - 10 ml's Transfusion none Specimen none Grafts/Implants none Complications none Pt Condition Post Procedure: stable Indications Post VT/CABG, hemodynamically improved Procedure Description Sutures cut, and then manual pressure applied while IABP removed. Manual pressure held for 5 minutes, then a Femstop placed, and inflated to 130 mmHg. Patient tolerated well, no hematoma noted. JENNIFER MOORE Aug 24, 2017 08:14
--- NOTE | 2017-08-24 08:29 | RADRPT ---
PROCEDURE: Chest radiograph CLINICAL INDICATION: Respiratory failure. COMPARISON: Radiograph 08/23/2017. TECHNIQUE: Single frontal chest radiograph. FINDINGS: The endotracheal tube terminates 2.0 cm above the mike. The enteric tube terminates well below the gastroesophageal junction. Left internal jugular [place]Yola catheter terminates in the pulmonary outflow tract. Intra-aortic balloon terminates at the level of the diaphragm. Inferior approach inferior vena cava catheter terminates at the inferior cavoatrial junction. Alveolar opacity within the left mid lung, right lung apex, and periphery of the right mid lung, con sistent with pneumonia. Bibasilar atelectasis. Median sternotomy with surgical clip projecting over the heart. The heart is not enlarged. Aortic atherosclerosis. No suspicious bone lesion. IMPRESSION: 1. Bilateral alveolar opacities consistent with pneumonia. 2. All support lines and tubes in appropriate position. RPTAT: PP Physician Monse Date Time Electronically viewed and signed by Physician Monse on 08/24/2017 08:29 LG/
[2017-08-24] MEDS: FAMOTIDINE 20 MG TAB PO SCH (09:00)
[2017-08-24] MEDS: ASPIRIN (EC) 81 MG TAB PO SCH (09:24)
[2017-08-24] MEDS: FAMOTIDINE 20 MG INJ IV SCH ×2 (09:24→19:52)
[2017-08-24] MEDS: CLOPIDOGREL 75 MG TAB NGT SCH (09:24)
[2017-08-24] MEDS: ENOXAPARIN 40 MG/0.4 ML SYG SC SCH (09:25)
--- NOTE | 2017-08-24 09:47 | RADRPT ---
Echocardiogram Report Patient Name: BRI ALMENDAREZ Gender: Male Date: 1945 Study Date: 21-Aug-2017 Department Editor: KE Location: [facility] Height(Cm): 165 Weight(Kg): 60 BSA: 1.66 Ref. Physician: DON HYATT Quality: Adequate Procedures: Transthoracic echocardiogram examination. Indications: STEMI, R/O EF. 2D/M Mode Doppler Measurement Value Normal Range Measurement Value Normal Range LA Dimen 2D 3.0 2.3 - 4.0 cm Findings Left Ventricle: Normal left ventricular cavity size. Severe global left ventricular systolic dysfunction. Normal left ventricular wall thickness. The left ventricular ejection fraction is visually estimated at 25 %. These segments of the LV are hypokinetic: septum base segment, mid septum segment, basal anterior segment, inferior base segment and inferior mid segment. These segments of the LV are akinetic: inferior apex segment, lateral apex segment, anterior apex segment, posterior base segment, posterior mid segment, anteroseptum mid segment, lateral mid segment and lateral base segment. Right Ventricle: Normal right ventricular size. Left Atrium: The left atrium is normal in size and appearance. Right Atrium: The right atrium is normal in size and appearance. Atrial Septum: The atrial septum is not well visualized. Mitral Valve: Anterior mitral valve leaflet appear mildly thickened. Posterior mitral valve leaflet appear mildly thickened. Mild to moderate mitral regurgitation. Aortic Valve: The aortic valve is not well visualized. Trace aortic regurgitation. Tricuspid Valve: The tricuspid valve is not well visualized. No evidence of tricuspid regurgitation. Pulmonic Valve: The pulmonic valve is not well visualized. Pericardium: Normal pericardium with no significant pericardial effusion. Aorta: The aorta is not well visualized. IVC: The inferior vena cava is not well visualized. Pulmonary Artery: Pulmonary artery is not well visualized. Conclusions Limited study. Severely reduced left ventricular systolic function with global hypokinesis and akinesis of the apex, mid-distal anterior and septal camp. Mild-moderate mitral regurgitation. Electronically Signed By: Divina Lopez 23-Aug-2017 18:04:58 -0800 Patient Name: BRI ALMENDAREZ Study Date: 21-Aug-[id number]
--- NOTE | 2017-08-24 10:28 | CONS ---
Date/Time of Note Date/Time of Note DATE: 08/24/17 TIME: 10:25 Consult Date/Type/Reason Admit Date/Time Aug 21, 2017 at 17:28 Initial Consult Date 08/21/17 Type of Consultation: Pulmonary Ordering Provider: HANNAH MCCLENDON MD Subjective Intra-aortic balloon pump removed this morning., Pending removal of triple lumen catheter. Rutland-Yola catheter. Patient will remain in supine position for several hours. Objective Vital Signs Date Time Temp Pulse Resp B/P Pulse Ox O2 Delivery O2 Flow Rate FiO2 08/24/17 10:18 130 08/24/17 08:30 22 138/77 96 08/24/17 08:00 100.2 08/24/17 05:44 50 08/22/17 06:00 Mechanical Ventilator 08/21/17 16:54 2.0 Intake and Output 08/23/17 08/23/17 08/24/17 15:00 23:00 07:00 Intake Total 1004.0 ml 1139.7 ml 1073.72 ml Output Total 358 ml 311 ml 1850 ml Balance 646.0 ml 828.7 ml -776.28 ml Exam GENERAL: Chronically ill-appearing gentleman orally intubated on mechanical ventilation. Eyes open not following commands. VITAL SIGNS: per chart NECK: Supple. No JVD or lymphadenopathy. CARDIAC EXAM: S1, S2. No added sounds or murmurs. CHEST: diminished air entry bilaterally ABDOMEN: Soft, nontender. No guarding or rebound. EXTREMITIES: No cyanosis, clubbing or edema. NEUROLOGIC: Generalized weakness. No focal deficits. Results/Medications Result Diagram: 08/24/17 0405 08/24/17 0405 Results 24 hrs Laboratory Tests Test 08/23/17 10:39 08/23/17 12:41 08/23/17 13:10 08/23/17 14:33 Bedside Glucose 116 102 97 Sodium Level 145 H Potassium Level 4.6 Chloride Level 116 H Carbon Dioxide Level 26 Anion Gap 8 Blood Urea Nitrogen 17 Creatinine 0.97 Glucose Level 117 Calcium Level 8.3 L Magnesium Level 2.3 Test 08/23/17 16:42 08/23/17 18:06 08/23/17 19:56 08/23/17 20:54 Bedside Glucose 144 156 152 123 Test 08/23/17 21:56 08/23/17 22:58 08/23/17 23:51 08/24/17 02:51 Bedside Glucose 118 113 117 101 Test 08/24/17 04:05 08/24/17 05:00 08/24/17 05:33 08/24/17 08:28 White Blood Count 12.2 H Red Blood Count 3.73 L Hemoglobin 10.6 L Hematocrit 32.9 L Mean Corpuscular Volume 88.2 Mean Corpuscular Hemoglobin 28.4 L Mean Corpuscular Hemoglobin Concent 32.2 Red Cell Distribution Width 14.8 H Platelet Count 134 L Mean Platelet Volume 11.0 H Neutrophils % 77.2 H Lymphocytes % 15.8 Monocytes % 5.9 Eosinophils % 0.2 Basophils % 0.2 Nucleated Red Blood Cells % 0.4 H Neutrophils # 9.4 H Lymphocytes # 1.9 Monocytes # 0.7 Eosinophils # 0.0 Basophils # 0.0 Nucleated Red Blood Cells # 0.1 H Sodium Level 144 Potassium Level 4.4 Chloride Level 115 H Carbon Dioxide Level 24 Anion Gap 9 Blood Urea Nitrogen 16 Creatinine 0.92 Glucose Level 139 Lactic Acid Level 1.3 Calcium Level 8.2 L Magnesium Level 2.0 Blood Gas Specimen Source Blood venous Arterial Blood Date Drawn 08/24/2017 4:23:51 AM Arterial Blood pH (Temp corrected) 7.466 H Arterial Blood pCO2 (Temp correct) 30.3 L Arterial Blood pO2 (Temp corrected) 78.9 L Arterial Blood HCO3 21.4 L Arterial Blood Base Excess -1.7 Arterial Blood Oxygen Saturation 95.7 Hardeep Test N/A Arterial Blood Gas Puncture Site A-Line Arterial Blood Carboxyhemoglobin 0.3 Arterial Blood Methemoglobin 0.3 Mixed Venous Blood pH 7.427 H Mixed Venous Blood PCO2 33.5 L Mixed Venous Blood PO2 31.8 Mixed Venous Blood HCO3 21.6 L Mixed Venous Blood Base Excess -2.1 Mixed Venous Blood O2 Saturation 65.0 Mixed Venous Blood Total Hemoglobin 12.2 Mixed Venous Blood Oxyhemoglobin 64.7 Mixed Venous Bld Carboxyhemoglobin 0.3 Mixed Venous Blood Methemoglobin 0.1 Blood Gas A-a O2 Differential 207.5 H Oxyhemoglobin Percent 95.1 Total Hemoglobin 10.5 L Blood Gas Temperature 37.0 Blood Gas Respiration Rate 22.0 Blood Gas Actual Respiration Rate 22 Blood Gas Modality VENT - AC FiO2 45.0 Blood Gas Tidal Volume 450.0 Blood Gas Low PEEP Setting 5.0 Blood Gas Inspiratory Pressure 44.0 Blood Gas Notified Whom RTR Blood Gas Notified Time 08/24/2017 5:10:05 AM Bedside Glucose 107 143 Test 08/24/17 10:09 Bedside Glucose 125 Medications Current Medications Ondansetron HCl (Zofran Inj) 4 mg Q6H PRN IV NAUSEA AND/OR VOMITING; Start 08/21/17 at 17:30 Acetaminophen/ Hydrocodone Bitart ([place] (5/325)) 1 tab Q6H PRN PO MODERATE PAIN LEVEL 4-6; Start 08/21/17 at 17:30 Morphine Sulfate (morphine) 2 mg Q4H PRN IV SEVERE PAIN LEVEL 7-10; Start 08/21 at 17:30 Docusate Sodium (Colace) 100 mg Q12H PRN PO CONSTIPATION; Start 08/21/17 at 17: 30 Magnesium Hydroxide (Milk Of Mag) 30 ml DAILY PRN PO CONSTIPATION; Start at 17:30 Sodium Biphosphate/ Sodium Phosphate (Fleet Enema) 133 ml DAILY PRN [place] CONSTIPATION; Start 08/21/17 at 17:30 Famotidine (Pepcid) 20 mg Q12 PO Last administered on 08/22/17 21:06; Admin Dose 20 MG; Start 08/21/17 at 21:00 Lorazepam 0.5 mg 0.5 mg Q6H PRN IV ANXIETY Last administered on 08/22/17 20:34 ; Admin Dose 0.5 MG; Start 08/21/17 at 17:30 Levofloxacin/ Dextrose (Levaquin 750 Mg/ D5W 150 ml (Pmx)) 150 ml @ 100 mls/hr Q24H IVPB Last administered on 08/23/17 18:07; Admin Dose 100 MLS/HR; Start 08/21/17 at 19:00 Hydralazine HCl (Apresoline) 10 mg Q6H PRN IV ELEVATED BLOOD PRESSURE; Start 08/21/17 at 17:30 Nitroglycerin (Nitroglycerin (Sl Tab) 0.4 Mg) 1 tab Q5M PRN SL ANGINA; Start 08/21/17 at 17:30 Alendronate Sodium (Fosamax) 70 mg Q7D PO ; Start 08/21/17 at 17:30; Status UNV Miscellaneous Information ALENDRONATE 70MG: WHICH DAY OF THE WEEK IS T... Q8H XX ; Start 08/21/17 at 19:30 Vasopressin 60 unit/Dextrose 60 ml @ 1.2 mls/hr Q12H IV Last administered on 08/23/17 17:56; Admin Dose 1.2 MLS/HR; Start 08/22/17 at 00:30 Norepinephrine (Levophed) 250 ml @ 1.875 mls/ hr TITRATE IV Last administered on 08/22/17 01:15; Admin Dose 11.25 MLS/HR; Start 08/22/17 at 00:30 Hydromorphone HCl (Dilaudid) 0.2 mg Q15M PRN IV PAIN LEVEL 1-5 Last administered on 08/23/17 18:35; Admin Dose 0.2 MG; Start 08/22/17 at 01:00 Hydromorphone HCl (Dilaudid) 0.4 mg Q15M PRN IV PAIN LEVEL 6-10 Last administered on 08/24/17 09:27; Admin Dose 0.4 MG; Start 08/22/17 at 01:00 Oxycodone/ Acetaminophen (Percocet (5/ 325)) 1 tab Q3H PRN PO PAIN LEVEL 1-5; Start 08/22/17 at 01:00 Famotidine 20 mg 20 mg BID@08,20 IV Last administered on 08/24/17 09:24; Admin Dose 20 MG; Start 08/22/17 at 08:00 Magnesium Sulfate/ Dextrose (Magnesium Sulfate 1 Gm/D5W) 100 ml @ 100 mls/hr PRN PRN IVPB PENDING LAB VALUE Last administered on 08/23/17 08:54; Admin Dose 100 MLS/HR; Start 08/22/17 at 01:00 Diagnostic Test (Pha) (Accu-Chek) 1 ea Q1H XX Last administered on 08/24/17 10:00; Admin Dose 1 EA; Start 08/22/17 at 01:00 Dextrose (D50w Syringe) 25 ml Q15M PRN IV Till BS 80 mg/dL or above x2; Start 08/22/17 at 01:00 Dextrose (D50w Syringe) 50 ml Q15M PRN IV Till BS 80 mg/dL or above x2; Start 08/22/17 at 01:00 Atorvastatin Calcium (Lipitor) 80 mg HS PO Last administered on 08/23/17 20: 05; Admin Dose 80 MG; Start 08/22/17 at 21:00 Aspirin 81 mg 81 mg DAILY PO Last administered on 08/24/17 09:24; Admin Dose 81 MG; Start 08/22/17 at 09:00 Potassium Chloride 40 meq/ Calcium Chloride 1 gm/Dextrose/ Sodium Chloride 1, 030 ml @ 60 mls/hr [id number] IV Last administered on 08/24/17 02:58; Admin Dose 60 MLS/HR; Start 08/22/17 at 16:30 Propofol (Diprivan) 100 ml @ 1.842 mls/ hr Q12H IV Last administered on 06:50; Admin Dose 9.2 MLS/HR; Start 08/22/17 at 16:00 Acetaminophen (Tylenol Liquid) 650 mg Q4H PRN PO PAIN AND OR ELEVATED TEMP; Start 08/23/17 at 14:30 Enoxaparin Sodium (Lovenox) 40 mg DAILY SC Last administered on 08/24/17 09: 25; Admin Dose 40 MG; Start 08/24/17 at 09:00 Clopidogrel Bisulfate (plaVIX) 75 mg DAILY NGT Last administered on 08/24/17 09:24; Admin Dose 75 MG; Start 08/24/17 at 09:00 Assessment/Plan Chief Complaint/Hosp Course IMP: 1. s/p STEMI followed by LHC and CABG 2. Cardiogenic shock improved hemodynamics. 3. Lactic acidosis 2/2 #2 resolving. 4. HyperNa+ improved 5. HypoK+ RECS: 1. Vent support, continue CPAP trial. 2. DC Rutland-Yola catheter 3. Titrate vasopressors as needed 4. Follow cardiac indeces 5. Follow lactate clearance 6. Am labs/CXR/ABG 7. Speech therapy evaluation postextubation 35 min cc time Problems: CRISTI REY MD, [facility] Aug 24, 2017 10:28
--- NOTE | 2017-08-24 12:07 | RADRPT ---
PROCEDURE: XR portable chest CLINICAL INDICATION: PICC line placement TECHNIQUE: Portable supine chest radiograph at 1135 hours COMPARISON: Portable semiupright chest radiograph 08/24/2017 at 0638 hours FINDINGS: Interval placement of right PICC catheter with the tip projected near the superior caval atrial junc tion. Interval removal of the inferior vena cava catheter. Intra-aortic balloon pump is not seen on this study. The tip of the PA catheter projects in the right ventricular outflow tract versus main pulmonary art montse. The tip of the endotracheal tube is approximately 2.5 cm of the mike. The tip of the nasogast vijaya tube is not included on this radiograph; the port of the nasogastric to projects in the stomach. No significant change in bilateral lung parenchymal opacities which may be from edema and/or pneumon ia. No significant change in bilateral lower lung zone probable atelectasis. Apparent right lung ape x opacity may be secondary to overlapping structures as opposed to nonspecific abnormality. No other significant interval changes seen, given the differences in the imaging techniques. IMPRESSION: 1. Interval placement of right PICC catheter with the tip projected near the superior caval atrial junction. 2. The tip of the PA catheter projects in the right ventricular outflow tract versus main pulmonary artery. 3. No significant change in bilateral lung parenchymal opacities which may be from edema and/or pne umonia. Apparent right lung apex opacity may be secondary to overlapping structures as opposed to n onspecific abnormality. RPTAT: TT Physician Andre Date Time Electronically viewed and signed by Physician Andre on 08/24/2017 12:06 ALYSSA/
--- NOTE | 2017-08-24 12:39 | RADRPT ---
PROCEDURE: US guidance for PICC line CLINICAL INDICATION: PICC line placement TECHNIQUE: Multiple real-time images were acquired of the patient's arm utilizing a high resolutio n transducer. This was performed by the PICC line nurse for venous access. COMPARISON: None FINDINGS: See impression. IMPRESSION: Ultrasound guidance for PICC line placement. There is a patent and compressible right upper extremity vein. RPTAT: AA Physician Verito Date Time Electronically viewed and signed by Mark Mejia Physician on 08/24/2017 12:38 RA/
[2017-08-24 13:30] LABS: BASOPHILS % 0.2 % (0.0-2.0); EOSINOPHILS % 0.3 % (0.0-7.0); HEMATOCRIT 35.8 % (42.0-52.0); LYMPHOCYTES # 1.4 10^3/ul (0.8-2.9); LYMPHOCYTES % 12.5 % (15.0-51.0); MEAN CORPUSCULAR HEMOGLOBIN 29.8 pg (29.0-33.0); MEAN CORPUSCULAR HGB CONC 33.5 g/dl (32.0-37.0); MEAN CORPUSCULAR VOLUME 88.8 fl (82.0-101.0); MEAN PLATELET VOLUME 11.4 fl (7.4-10.4); MONOCYTE # 0.6 10^3/ul (0.3-0.9); MONOCYTES % 4.9 % (0.0-11.0); NEUTROPHIL # 9.1 10^3/ul (1.6-7.5); NEUTROPHILS % 81.6 % (39.0-77.0); NUCLEATED RED BLOOD CELLS% 0.3 /100WBC (0.0-0.0); PLATELET COUNT 119 10^3/UL (140-415); POSITIVE DIFF @See below; RED BLOOD COUNT 4.03 10^6/ul (4.70-6.10); RED CELL DISTRIBUTION WIDTH 14.7 % (11.5-14.5); WHITE BLOOD COUNT 11.2 10^3/ul (4.8-10.8)
[2017-08-24 13:44] LABS: ALBUMIN 2.6 g/dl (3.3-4.9); ALBUMIN/GLOBULIN RATIO 0.83; BILIRUBIN,DIRECT 2.1 mg/dl (0.00-0.20); BILIRUBIN,INDIRECT 1.8 mg/dl (0-1.1); BILIRUBIN,TOTAL 3.9 mg/dl (0.2-1.3); CREATININE 0.86 mg/dl (0.61-1.24); POTASSIUM 4.6 mmol/L (3.5-5.1); TOTAL PROTEIN 5.7 g/dl (6.1-8.1)
--- NOTE | 2017-08-24 14:42 | CONS ---
Date/Time of Note Date/Time of Note DATE: 08/24/17 TIME: 14:41 Consultation Date/Type/Reason Admit Date/Time Aug 21, 2017 at 17:28 Type of Consultation: Palliative care Hx of Present Illness I reviewed patient's medical records examined him. However I will not set up family conference as this is still early in his hospital course. I will remain available in the event that his prognosis appears to be grim. Past Medical History Medical History: high cholesterol, hypertension Past Surgical History Past Surgical Hx: other (cataract) Social History Alcohol Use: none Smoking Status: Former smoker Drug Use: none Exam/Review of Systems Vital Signs Vitals Vital Signs Date Time Temp Pulse Resp B/P Pulse Ox O2 Delivery O2 Flow Rate FiO2 08/24/17 12:15 116 22 134/75 96 08/24/17 12:00 100.1 08/24/17 08:00 30 08/22/17 06:00 Mechanical Ventilator 08/21/17 16:54 2.0 Intake and Output 08/23/17 08/23/17 08/24/17 15:00 23:00 07:00 Intake Total 1004.0 ml 1139.7 ml 1073.72 ml Output Total 358 ml 311 ml 1850 ml Balance 646.0 ml 828.7 ml -776.28 ml Results Result Diagram: 08/24/17 1246 08/24/17 1246 Results 24 hrs Laboratory Tests Test 08/23/17 16:42 08/23/17 18:06 08/23/17 19:56 08/23/17 20:54 Bedside Glucose 144 156 152 123 Test 08/23/17 21:56 08/23/17 22:58 08/23/17 23:51 08/24/17 02:51 Bedside Glucose 118 113 117 101 Test 08/24/17 04:05 08/24/17 05:00 08/24/17 05:33 08/24/17 08:28 White Blood Count 12.2 H Red Blood Count 3.73 L Hemoglobin 10.6 L Hematocrit 32.9 L Mean Corpuscular Volume 88.2 Mean Corpuscular Hemoglobin 28.4 L Mean Corpuscular Hemoglobin Concent 32.2 Red Cell Distribution Width 14.8 H Platelet Count 134 L Mean Platelet Volume 11.0 H Neutrophils % 77.2 H Lymphocytes % 15.8 Monocytes % 5.9 Eosinophils % 0.2 Basophils % 0.2 Nucleated Red Blood Cells % 0.4 H Neutrophils # 9.4 H Lymphocytes # 1.9 Monocytes # 0.7 Eosinophils # 0.0 Basophils # 0.0 Nucleated Red Blood Cells # 0.1 H Sodium Level 144 Potassium Level 4.4 Chloride Level 115 H Carbon Dioxide Level 24 Anion Gap 9 Blood Urea Nitrogen 16 Creatinine 0.92 Glucose Level 139 Lactic Acid Level 1.3 Calcium Level 8.2 L Magnesium Level 2.0 Blood Gas Specimen Source Blood venous Arterial Blood Date Drawn 08/24/2017 4:23:51 AM Arterial Blood pH (Temp corrected) 7.466 H Arterial Blood pCO2 (Temp correct) 30.3 L Arterial Blood pO2 (Temp corrected) 78.9 L Arterial Blood HCO3 21.4 L Arterial Blood Base Excess -1.7 Arterial Blood Oxygen Saturation 95.7 Hardeep Test N/A Arterial Blood Gas Puncture Site A-Line Arterial Blood Carboxyhemoglobin 0.3 Arterial Blood Methemoglobin 0.3 Mixed Venous Blood pH 7.427 H Mixed Venous Blood PCO2 33.5 L Mixed Venous Blood PO2 31.8 Mixed Venous Blood HCO3 21.6 L Mixed Venous Blood Base Excess -2.1 Mixed Venous Blood O2 Saturation 65.0 Mixed Venous Blood Total Hemoglobin 12.2 Mixed Venous Blood Oxyhemoglobin 64.7 Mixed Venous Bld Carboxyhemoglobin 0.3 Mixed Venous Blood Methemoglobin 0.1 Blood Gas A-a O2 Differential 207.5 H Oxyhemoglobin Percent 95.1 Total Hemoglobin 10.5 L Blood Gas Temperature 37.0 Blood Gas Respiration Rate 22.0 Blood Gas Actual Respiration Rate 22 Blood Gas Modality VENT - AC FiO2 45.0 Blood Gas Tidal Volume 450.0 Blood Gas Low PEEP Setting 5.0 Blood Gas Inspiratory Pressure 44.0 Blood Gas Notified Whom RTR Blood Gas Notified Time 08/24/2017 5:10:05 AM Bedside Glucose 107 143 Test 08/24/17 10:09 08/24/17 12:12 08/24/17 12:46 Bedside Glucose 125 103 White Blood Count 11.2 H Red Blood Count 4.03 L Hemoglobin 12.0 L Hematocrit 35.8 L Mean Corpuscular Volume 88.8 Mean Corpuscular Hemoglobin 29.8 Mean Corpuscular Hemoglobin Concent 33.5 Red Cell Distribution Width 14.7 H Platelet Count 119 L Mean Platelet Volume 11.4 H Neutrophils % 81.6 H Lymphocytes % 12.5 L Monocytes % 4.9 Eosinophils % 0.3 Basophils % 0.2 Nucleated Red Blood Cells % 0.3 H Neutrophils # 9.1 H Lymphocytes # 1.4 Monocytes # 0.6 Eosinophils # 0.0 Basophils # 0.0 Nucleated Red Blood Cells # 0.0 Sodium Level 147 H Potassium Level 4.6 Chloride Level 118 H Carbon Dioxide Level 24 Anion Gap 10 Blood Urea Nitrogen 14 Creatinine 0.86 Glucose Level 117 Calcium Level 9.0 Magnesium Level 2.0 Total Bilirubin 3.9 H Direct Bilirubin 2.10 #H Indirect Bilirubin 1.8 H Aspartate Amino Transf (AST/SGOT) 102 H Alanine Aminotransferase (ALT/SGPT) 64 Alkaline Phosphatase 74 Total Protein 5.7 L Albumin 2.6 L Globulin 3.10 Albumin/Globulin Ratio 0.83 Medications Medications Current Medications Ondansetron HCl (Zofran Inj) 4 mg Q6H PRN IV NAUSEA AND/OR VOMITING; Start 08/21/17 at 17:30 Acetaminophen/ Hydrocodone Bitart ([place] (5/325)) 1 tab Q6H PRN PO MODERATE PAIN LEVEL 4-6; Start 08/21/17 at 17:30 Morphine Sulfate (morphine) 2 mg Q4H PRN IV SEVERE PAIN LEVEL 7-10; Start 08/21 at 17:30 Docusate Sodium (Colace) 100 mg Q12H PRN PO CONSTIPATION; Start 08/21/17 at 17: 30 Magnesium Hydroxide (Milk Of Mag) 30 ml DAILY PRN PO CONSTIPATION; Start at 17:30 Sodium Biphosphate/ Sodium Phosphate (Fleet Enema) 133 ml DAILY PRN [place] CONSTIPATION; Start 08/21/17 at 17:30 Famotidine (Pepcid) 20 mg Q12 PO Last administered on 08/22/17 21:06; Admin Dose 20 MG; Start 08/21/17 at 21:00 Lorazepam 0.5 mg 0.5 mg Q6H PRN IV ANXIETY Last administered on 08/22/17 20:34 ; Admin Dose 0.5 MG; Start 08/21/17 at 17:30 Levofloxacin/ Dextrose (Levaquin 750 Mg/ D5W 150 ml (Pmx)) 150 ml @ 100 mls/hr Q24H IVPB Last administered on 08/23/17 18:07; Admin Dose 100 MLS/HR; Start 08/21/17 at 19:00 Hydralazine HCl (Apresoline) 10 mg Q6H PRN IV ELEVATED BLOOD PRESSURE; Start 08/21/17 at 17:30 Nitroglycerin (Nitroglycerin (Sl Tab) 0.4 Mg) 1 tab Q5M PRN SL ANGINA; Start 08/21/17 at 17:30 Alendronate Sodium (Fosamax) 70 mg Q7D PO ; Start 08/21/17 at 17:30; Status UNV Miscellaneous Information ALENDRONATE 70MG: WHICH DAY OF THE WEEK IS T... Q8H XX ; Start 08/21/17 at 19:30 Vasopressin 60 unit/Dextrose 60 ml @ 1.2 mls/hr Q12H IV Last administered on 08/23/17 17:56; Admin Dose 1.2 MLS/HR; Start 08/22/17 at 00:30 Norepinephrine (Levophed) 250 ml @ 1.875 mls/ hr TITRATE IV Last administered on 08/22/17 01:15; Admin Dose 11.25 MLS/HR; Start 08/22/17 at 00:30 Hydromorphone HCl (Dilaudid) 0.2 mg Q15M PRN IV PAIN LEVEL 1-5 Last administered on 08/23/17 18:35; Admin Dose 0.2 MG; Start 08/22/17 at 01:00 Hydromorphone HCl (Dilaudid) 0.4 mg Q15M PRN IV PAIN LEVEL 6-10 Last administered on 08/24/17 13:33; Admin Dose 0.4 MG; Start 08/22/17 at 01:00 Oxycodone/ Acetaminophen (Percocet (5/ 325)) 1 tab Q3H PRN PO PAIN LEVEL 1-5; Start 08/22/17 at 01:00 Famotidine 20 mg 20 mg BID@08,20 IV Last administered on 08/24/17 09:24; Admin Dose 20 MG; Start 08/22/17 at 08:00 Magnesium Sulfate/ Dextrose (Magnesium Sulfate 1 Gm/D5W) 100 ml @ 100 mls/hr PRN PRN IVPB PENDING LAB VALUE Last administered on 08/23/17 08:54; Admin Dose 100 MLS/HR; Start 08/22/17 at 01:00 Diagnostic Test (Pha) (Accu-Chek) 1 ea Q1H XX Last administered on 08/24/17 13:00; Admin Dose 1 EA; Start 08/22/17 at 01:00 Dextrose (D50w Syringe) 25 ml Q15M PRN IV Till BS 80 mg/dL or above x2; Start 08/22/17 at 01:00 Dextrose (D50w Syringe) 50 ml Q15M PRN IV Till BS 80 mg/dL or above x2; Start 08/22/17 at 01:00 Atorvastatin Calcium (Lipitor) 80 mg HS PO Last administered on 08/23/17 20: 05; Admin Dose 80 MG; Start 08/22/17 at 21:00 Aspirin 81 mg 81 mg DAILY PO Last administered on 08/24/17 09:24; Admin Dose 81 MG; Start 08/22/17 at 09:00 Potassium Chloride 40 meq/ Calcium Chloride 1 gm/Dextrose/ Sodium Chloride 1, 030 ml @ 60 mls/hr [id number] IV Last administered on 08/24/17 02:58; Admin Dose 60 MLS/HR; Start 08/22/17 at 16:30 Propofol (Diprivan) 100 ml @ 1.842 mls/ hr Q12H IV Last administered on 10:37; Admin Dose 4.605 MLS/HR; Start 08/22/17 at 16:00 Acetaminophen (Tylenol Liquid) 650 mg Q4H PRN PO PAIN AND OR ELEVATED TEMP; Start 08/23/17 at 14:30 Enoxaparin Sodium (Lovenox) 40 mg DAILY SC Last administered on 08/24/17 09: 25; Admin Dose 40 MG; Start 08/24/17 at 09:00 Clopidogrel Bisulfate (plaVIX) 75 mg DAILY NGT Last administered on 08/24/17 09:24; Admin Dose 75 MG; Start 08/24/17 at 09:00 IV Flush (NS 10 ml) 10 ml PRN PRN IV IV PROTOCOL; Start 08/24/17 at 12:00 PRICILA FAJARDO Aug 24, 2017 14:42
--- NOTE | 2017-08-24 15:27 | PN ---
Date/Time of Note Date/Time of Note DATE: 08/24/17 TIME: 15:22 Assessment/Plan VTE Prophylaxis VTE Prophylaxis Intervention: SCD's Lines/Catheters IV Catheter Type (from Nrsg): PICC Line Central line still needed: Yes Urinary Cath still in place: Yes Reason Cath still needed: other (indicate) (critically ill) Assessment/Plan Assessment/Plan 72 yo M presented with chest pain found to have STEMI. 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 Hospitalization notable for ?cardiac arrest in the [facility] [employer] [facility]? (mentioned in hospitalist and pulm notes but not cards notes) cardiogenic shock warranting IABP which has now been removed. PLAN #STEMI: wean pressors as tolerated -cont BP/antiplatelet/lipid lowering regimen #?SIRS? Pt started on levoflox by previous hospitalist for low grade fever and leukocytosis. Urine with very low CFU count, sputum with NRF. fevers unchanged despite abx stop abx at this time and will reculture if spikes temp >38C #Hypernatremia: improving -cont hypotonic fluids #hx hypothyroid: TFTs wnl #anemia: hgb stable, outpatient follow up Subjective 24 Hr Interval Summary Free Text/Dictation Pt remains intubated Exam/Review of Systems Vital Signs Vitals Vital Signs Date Time Temp Pulse Resp B/P Pulse Ox O2 Delivery O2 Flow Rate FiO2 08/24/17 12:15 116 22 134/75 96 08/24/17 12:00 100.1 08/24/17 08:00 30 08/22/17 06:00 Mechanical Ventilator 08/21/17 16:54 2.0 Intake and Output 08/23/17 08/23/17 08/24/17 15:00 23:00 07:00 Intake Total 1004.0 ml 1139.7 ml 1073.72 ml Output Total 358 ml 311 ml 1850 ml Balance 646.0 ml 828.7 ml -776.28 ml Exam intubated no mrg lungs clear abd soft no rashes Results Result Diagram: 08/24/17 1246 08/24/17 1246 Results 24 hrs Laboratory Tests Test 08/23/17 16:42 08/23/17 18:06 08/23/17 19:56 08/23/17 20:54 Bedside Glucose 144 156 152 123 Test 08/23/17 21:56 08/23/17 22:58 08/23/17 23:51 08/24/17 02:51 Bedside Glucose 118 113 117 101 Test 08/24/17 04:05 08/24/17 05:00 08/24/17 05:33 08/24/17 08:28 White Blood Count 12.2 H Red Blood Count 3.73 L Hemoglobin 10.6 L Hematocrit 32.9 L Mean Corpuscular Volume 88.2 Mean Corpuscular Hemoglobin 28.4 L Mean Corpuscular Hemoglobin Concent 32.2 Red Cell Distribution Width 14.8 H Platelet Count 134 L Mean Platelet Volume 11.0 H Neutrophils % 77.2 H Lymphocytes % 15.8 Monocytes % 5.9 Eosinophils % 0.2 Basophils % 0.2 Nucleated Red Blood Cells % 0.4 H Neutrophils # 9.4 H Lymphocytes # 1.9 Monocytes # 0.7 Eosinophils # 0.0 Basophils # 0.0 Nucleated Red Blood Cells # 0.1 H Sodium Level 144 Potassium Level 4.4 Chloride Level 115 H Carbon Dioxide Level 24 Anion Gap 9 Blood Urea Nitrogen 16 Creatinine 0.92 Glucose Level 139 Lactic Acid Level 1.3 Calcium Level 8.2 L Magnesium Level 2.0 Blood Gas Specimen Source Blood venous Arterial Blood Date Drawn 08/24/2017 4:23:51 AM Arterial Blood pH (Temp corrected) 7.466 H Arterial Blood pCO2 (Temp correct) 30.3 L Arterial Blood pO2 (Temp corrected) 78.9 L Arterial Blood HCO3 21.4 L Arterial Blood Base Excess -1.7 Arterial Blood Oxygen Saturation 95.7 Hardeep Test N/A Arterial Blood Gas Puncture Site A-Line Arterial Blood Carboxyhemoglobin 0.3 Arterial Blood Methemoglobin 0.3 Mixed Venous Blood pH 7.427 H Mixed Venous Blood PCO2 33.5 L Mixed Venous Blood PO2 31.8 Mixed Venous Blood HCO3 21.6 L Mixed Venous Blood Base Excess -2.1 Mixed Venous Blood O2 Saturation 65.0 Mixed Venous Blood Total Hemoglobin 12.2 Mixed Venous Blood Oxyhemoglobin 64.7 Mixed Venous Bld Carboxyhemoglobin 0.3 Mixed Venous Blood Methemoglobin 0.1 Blood Gas A-a O2 Differential 207.5 H Oxyhemoglobin Percent 95.1 Total Hemoglobin 10.5 L Blood Gas Temperature 37.0 Blood Gas Respiration Rate 22.0 Blood Gas Actual Respiration Rate 22 Blood Gas Modality VENT - AC FiO2 45.0 Blood Gas Tidal Volume 450.0 Blood Gas Low PEEP Setting 5.0 Blood Gas Inspiratory Pressure 44.0 Blood Gas Notified Whom RTR Blood Gas Notified Time 08/24/2017 5:10:05 AM Bedside Glucose 107 143 Test 08/24/17 10:09 08/24/17 12:12 08/24/17 12:46 08/24/17 14:35 Bedside Glucose 125 103 97 White Blood Count 11.2 H Red Blood Count 4.03 L Hemoglobin 12.0 L Hematocrit 35.8 L Mean Corpuscular Volume 88.8 Mean Corpuscular Hemoglobin 29.8 Mean Corpuscular Hemoglobin Concent 33.5 Red Cell Distribution Width 14.7 H Platelet Count 119 L Mean Platelet Volume 11.4 H Neutrophils % 81.6 H Lymphocytes % 12.5 L Monocytes % 4.9 Eosinophils % 0.3 Basophils % 0.2 Nucleated Red Blood Cells % 0.3 H Neutrophils # 9.1 H Lymphocytes # 1.4 Monocytes # 0.6 Eosinophils # 0.0 Basophils # 0.0 Nucleated Red Blood Cells # 0.0 Sodium Level 147 H Potassium Level 4.6 Chloride Level 118 H Carbon Dioxide Level 24 Anion Gap 10 Blood Urea Nitrogen 14 Creatinine 0.86 Glucose Level 117 Calcium Level 9.0 Magnesium Level 2.0 Total Bilirubin 3.9 H Direct Bilirubin 2.10 #H Indirect Bilirubin 1.8 H Aspartate Amino Transf (AST/SGOT) 102 H Alanine Aminotransferase (ALT/SGPT) 64 Alkaline Phosphatase 74 Total Protein 5.7 L Albumin 2.6 L Globulin 3.10 Albumin/Globulin Ratio 0.83 Medications Medications Current Medications Ondansetron HCl (Zofran Inj) 4 mg Q6H PRN IV NAUSEA AND/OR VOMITING; Start 08/21/17 at 17:30 Acetaminophen/ Hydrocodone Bitart ([place] (5/325)) 1 tab Q6H PRN PO MODERATE PAIN LEVEL 4-6; Start 08/21/17 at 17:30 Morphine Sulfate (morphine) 2 mg Q4H PRN IV SEVERE PAIN LEVEL 7-10; Start 08/21 at 17:30 Docusate Sodium (Colace) 100 mg Q12H PRN PO CONSTIPATION; Start 08/21/17 at 17: 30 Magnesium Hydroxide (Milk Of Mag) 30 ml DAILY PRN PO CONSTIPATION; Start at 17:30 Sodium Biphosphate/ Sodium Phosphate (Fleet Enema) 133 ml DAILY PRN [place] CONSTIPATION; Start 08/21/17 at 17:30 Famotidine (Pepcid) 20 mg Q12 PO Last administered on 08/22/17 21:06; Admin Dose 20 MG; Start 08/21/17 at 21:00 Lorazepam 0.5 mg 0.5 mg Q6H PRN IV ANXIETY Last administered on 08/22/17 20:34 ; Admin Dose 0.5 MG; Start 08/21/17 at 17:30 Levofloxacin/ Dextrose (Levaquin 750 Mg/ D5W 150 ml (Pmx)) 150 ml @ 100 mls/hr Q24H IVPB Last administered on 08/23/17 18:07; Admin Dose 100 MLS/HR; Start 08/21/17 at 19:00 Hydralazine HCl (Apresoline) 10 mg Q6H PRN IV ELEVATED BLOOD PRESSURE; Start 08/21/17 at 17:30 Nitroglycerin (Nitroglycerin (Sl Tab) 0.4 Mg) 1 tab Q5M PRN SL ANGINA; Start 08/21/17 at 17:30 Alendronate Sodium (Fosamax) 70 mg Q7D PO ; Start 08/21/17 at 17:30; Status UNV Miscellaneous Information ALENDRONATE 70MG: WHICH DAY OF THE WEEK IS T... Q8H XX ; Start 08/21/17 at 19:30 Vasopressin 60 unit/Dextrose 60 ml @ 1.2 mls/hr Q12H IV Last administered on 08/23/17 17:56; Admin Dose 1.2 MLS/HR; Start 08/22/17 at 00:30 Norepinephrine (Levophed) 250 ml @ 1.875 mls/ hr TITRATE IV Last administered on 08/22/17 01:15; Admin Dose 11.25 MLS/HR; Start 08/22/17 at 00:30 Hydromorphone HCl (Dilaudid) 0.2 mg Q15M PRN IV PAIN LEVEL 1-5 Last administered on 08/23/17 18:35; Admin Dose 0.2 MG; Start 08/22/17 at 01:00 Hydromorphone HCl (Dilaudid) 0.4 mg Q15M PRN IV PAIN LEVEL 6-10 Last administered on 08/24/17 13:33; Admin Dose 0.4 MG; Start 08/22/17 at 01:00 Oxycodone/ Acetaminophen (Percocet (5/ 325)) 1 tab Q3H PRN PO PAIN LEVEL 1-5; Start 08/22/17 at 01:00 Famotidine 20 mg 20 mg BID@08,20 IV Last administered on 08/24/17 09:24; Admin Dose 20 MG; Start 08/22/17 at 08:00 Magnesium Sulfate/ Dextrose (Magnesium Sulfate 1 Gm/D5W) 100 ml @ 100 mls/hr PRN PRN IVPB PENDING LAB VALUE Last administered on 08/23/17 08:54; Admin Dose 100 MLS/HR; Start 08/22/17 at 01:00 Diagnostic Test (Pha) (Accu-Chek) 1 ea Q1H XX Last administered on 08/24/17 15:00; Admin Dose 1 EA; Start 08/22/17 at 01:00 Dextrose (D50w Syringe) 25 ml Q15M PRN IV Till BS 80 mg/dL or above x2; Start 08/22/17 at 01:00 Dextrose (D50w Syringe) 50 ml Q15M PRN IV Till BS 80 mg/dL or above x2; Start 08/22/17 at 01:00 Atorvastatin Calcium (Lipitor) 80 mg HS PO Last administered on 08/23/17 20: 05; Admin Dose 80 MG; Start 08/22/17 at 21:00 Aspirin 81 mg 81 mg DAILY PO Last administered on 08/24/17 09:24; Admin Dose 81 MG; Start 08/22/17 at 09:00 Potassium Chloride 40 meq/ Calcium Chloride 1 gm/Dextrose/ Sodium Chloride 1, 030 ml @ 60 mls/hr [id number] IV Last administered on 08/24/17 02:58; Admin Dose 60 MLS/HR; Start 08/22/17 at 16:30 Propofol (Diprivan) 100 ml @ 1.842 mls/ hr Q12H IV Last administered on 10:37; Admin Dose 4.605 MLS/HR; Start 08/22/17 at 16:00 Acetaminophen (Tylenol Liquid) 650 mg Q4H PRN PO PAIN AND OR ELEVATED TEMP; Start 08/23/17 at 14:30 Enoxaparin Sodium (Lovenox) 40 mg DAILY SC Last administered on 08/24/17 09: 25; Admin Dose 40 MG; Start 08/24/17 at 09:00 Clopidogrel Bisulfate (plaVIX) 75 mg DAILY NGT Last administered on 08/24/17 09:24; Admin Dose 75 MG; Start 08/24/17 at 09:00 IV Flush (NS 10 ml) 10 ml PRN PRN IV IV PROTOCOL; Start 08/24/17 at 12:00 ZACHARY SHANNON MD Aug 24, 2017 15:27 Dextrose (D50w Syringe) 25 ml Q15M PRN IV Till BS 80 mg/dL or above x2; Start 08/22/17 at 01:00 Dextrose (D50w Syringe) 50 ml Q15M PRN IV Till BS 80 mg/dL or above x2; Start 08/22/17 at 01:00 Atorvastatin Calcium (Lipitor) 80 mg HS PO Last administered on 08/23/17 20: 05; Admin Dose 80 MG; Start 08/22/17 at 21:00 Aspirin 81 mg 81 mg DAILY PO Last administered on 08/24/17 09:24; Admin Dose 81 MG; Start 08/22/17 at 09:00 Potassium Chloride 40 meq/ Calcium Chloride 1 gm/Dextrose/ Sodium Chloride 1, 030 ml @ 60 mls/hr [id number] IV Last administered on 08/24/17 02:58; Admin Dose 60 MLS/HR; Start 08/22/17 at 16:30 Propofol (Diprivan) 100 ml @ 1.842 mls/ hr Q12H IV Last administered on 10:37; Admin Dose 4.605 MLS/HR; Start 08/22/17 at 16:00 Acetaminophen (Tylenol Liquid) 650 mg Q4H PRN PO PAIN AND OR ELEVATED TEMP; Start 08/23/17 at 14:30 Enoxaparin Sodium (Lovenox) 40 mg DAILY SC Last administered on 08/24/17 09: 25; Admin Dose 40 MG; Start 08/24/17 at 09:00 Clopidogrel Bisulfate (plaVIX) 75 mg DAILY NGT Last administered on 08/24/17 09:24; Admin Dose 75 MG; Start 08/24/17 at 09:00 IV Flush (NS 10 ml) 10 ml PRN PRN IV IV PROTOCOL; Start 08/24/17 at 12:00 ZACHARY SHANNON MD Aug 24, 2017 15:27
[2017-08-24] MEDS: POTASSIUM CHLORIDE 50 ML IVPB PRN (15:40)
[2017-08-24] MEDS ORDERED: SOD CHLORIDE 0.9% 100 ML ONE (18:58)
--- NOTE | 2017-08-24 20:32 | RADRPT ---
Vent Rate: 108 bpm RR Interval: 0 msec ND Interval: 142 msec QRS Duration: 74 msec QT Interval: 344 msec QTC Interval: 460 msec P-R-T [place]: 42 - 16 - 74 degrees Sinus tachycardia with premature supraventricular complexes Anteroseptal infarct , age undetermined Abnormal ECG Electronically Signed By: Jesus Jacome [id number]
[2017-08-24] MEDS: ATORVASTATIN 80 MG TAB PO SCH (21:01)
[2017-08-24] MEDS: METOPROLOL 25 MG TAB NGT SCH (22:55)
[2017-08-25] VITALS (46 sets, daily range): BP systolic 79–137; BP diastolic 55–92; PULSE 92–116; RESP 21–32
[2017-08-25] MEDS: VASOPRESSIN 60 UNIT in DEXTROSE 5% 60 ML IV SCH ×2 (00:30→12:30)
[2017-08-25] MEDS: ACCU-CHEK XX SCH ×11 (02:00→07:58)
[2017-08-25] MEDS: ACETAMINOPHEN 650MG/20.3ML CUP PO PRN ×2 (02:15→18:26)
--- NOTE | 2017-08-25 05:27 | PN ---
Date/Time of Note Date/Time of Note DATE: 08/25/17 TIME: 05:24 Assessment/Plan VTE Prophylaxis VTE Prophylaxis Intervention: SCD's Lines/Catheters IV Catheter Type (from Nrsg): PICC Line Central line still needed: Yes Urinary Cath still in place: Yes Reason Cath still needed: urinary retention Assessment/Plan Chief Complaint/Hosp Course 72 yo presented with STEMI anterior wall, with severe 3V CAD and instability with VF/VT arrest in pathology laboratory aide requiring shock, s/p emergent CABG, clinically progressing. Problems: Assessment/Plan STEMI anterior wall s/p CABG for severe 3V cad and cardiomyopathy Ischemic cardiomyopathy vent-dependent respiratory failure encephalopathy, improving Recommendations: Metoprolol for post-NV, heart rate control, ischemic cardiomyopathy Cannot yet start other cardiomyopathy meds due to borderline blood pressure ASA, clopidogrel, atorvastatin post-NV Post surgical management per Dr. Fenton Subjective 24 Hr Interval Summary Free Text/Dictation Patient less tachycardic. With sedation off patient not fully following commands. No events overnight. Subjective hx not possible: pt non-verbal Exam/Review of Systems Vital Signs Vitals Vital Signs Date Time Temp Pulse Resp B/P Pulse Ox O2 Delivery O2 Flow Rate FiO2 08/25/17 03:45 98 22 97 45 08/25/17 02:00 94/64 Mechanical Ventilator 08/25/17 02:00 99.5 08/21/17 16:54 2.0 Intake and Output 08/24/17 08/24/17 08/25/17 15:00 23:00 07:00 Intake Total 840.360 ml 591.620 ml 271.736 ml Output Total 2011 ml 1159 ml 231 ml Balance -1170.640 ml -567.380 ml 40.736 ml Exam Constitutional: non-verbal Head: atraumatic, normocephalic ENMT: intubated Neck: No bruits, No jvd Respiratory: clear to auscultation, normal air movement Cardiovascular: regular rate and rhythm Gastrointestinal: nl liver, spleen, non-tender, soft Musculoskeletal: nl extremities to inspection Extremities: No edema Skin: nl turgor Results Result Diagram: 08/24/17 1246 08/24/17 1246 Results 24 hrs Laboratory Tests Test 08/24/17 05:33 08/24/17 08:28 08/24/17 10:09 08/24/17 12:12 Bedside Glucose 107 143 125 103 Test 08/24/17 12:46 08/24/17 14:35 08/24/17 16:22 08/24/17 18:16 White Blood Count 11.2 H Red Blood Count 4.03 L Hemoglobin 12.0 L Hematocrit 35.8 L Mean Corpuscular Volume 88.8 Mean Corpuscular Hemoglobin 29.8 Mean Corpuscular Hemoglobin Concent 33.5 Red Cell Distribution Width 14.7 H Platelet Count 119 L Mean Platelet Volume 11.4 H Neutrophils % 81.6 H Lymphocytes % 12.5 L Monocytes % 4.9 Eosinophils % 0.3 Basophils % 0.2 Nucleated Red Blood Cells % 0.3 H Neutrophils # 9.1 H Lymphocytes # 1.4 Monocytes # 0.6 Eosinophils # 0.0 Basophils # 0.0 Nucleated Red Blood Cells # 0.0 Sodium Level 147 H Potassium Level 4.6 Chloride Level 118 H Carbon Dioxide Level 24 Anion Gap 10 Blood Urea Nitrogen 14 Creatinine 0.86 Glucose Level 117 Calcium Level 9.0 Magnesium Level 2.0 Total Bilirubin 3.9 H Direct Bilirubin 2.10 #H Indirect Bilirubin 1.8 H Aspartate Amino Transf (AST/SGOT) 102 H Alanine Aminotransferase (ALT/SGPT) 64 Alkaline Phosphatase 74 Total Protein 5.7 L Albumin 2.6 L Globulin 3.10 Albumin/Globulin Ratio 0.83 Bedside Glucose 97 76 101 Test 08/24/17 19:58 08/24/17 23:39 08/25/17 02:01 08/25/17 04:09 Bedside Glucose 90 92 74 106 Medications Medications Current Medications Ondansetron HCl (Zofran Inj) 4 mg Q6H PRN IV NAUSEA AND/OR VOMITING; Start 08/21/17 at 17:30 Acetaminophen/ Hydrocodone Bitart ([place] (5/325)) 1 tab Q6H PRN PO MODERATE PAIN LEVEL 4-6; Start 08/21/17 at 17:30 Morphine Sulfate (morphine) 2 mg Q4H PRN IV SEVERE PAIN LEVEL 7-10; Start 08/21 at 17:30 Docusate Sodium (Colace) 100 mg Q12H PRN PO CONSTIPATION; Start 08/21/17 at 17: 30 Magnesium Hydroxide (Milk Of Mag) 30 ml DAILY PRN PO CONSTIPATION; Start at 17:30 Sodium Biphosphate/ Sodium Phosphate (Fleet Enema) 133 ml DAILY PRN [place] CONSTIPATION; Start 08/21/17 at 17:30 Lorazepam (Ativan) 0.5 mg Q6H PRN IV ANXIETY Last administered on 08/22/17 20: 34; Admin Dose 0.5 MG; Start 08/21/17 at 17:30 Hydralazine HCl (Apresoline) 10 mg Q6H PRN IV ELEVATED BLOOD PRESSURE; Start 08/21/17 at 17:30 Nitroglycerin (Nitroglycerin (Sl Tab) 0.4 Mg) 1 tab Q5M PRN SL ANGINA; Start 08/21/17 at 17:30 Alendronate Sodium (Fosamax) 70 mg Q7D PO ; Start 08/21/17 at 17:30; Status UNV Miscellaneous Information ALENDRONATE 70MG: WHICH DAY OF THE WEEK IS T... Q8H XX ; Start 08/21/17 at 19:30 Vasopressin 60 unit/Dextrose 60 ml @ 1.2 mls/hr Q12H IV Last administered on 08/23/17 17:56; Admin Dose 1.2 MLS/HR; Start 08/22/17 at 00:30 Norepinephrine (Levophed) 250 ml @ 1.875 mls/ hr TITRATE IV Last administered on 08/22/17 01:15; Admin Dose 11.25 MLS/HR; Start 08/22/17 at 00:30 Hydromorphone HCl (Dilaudid) 0.2 mg Q15M PRN IV PAIN LEVEL 1-5 Last administered on 08/23/17 18:35; Admin Dose 0.2 MG; Start 08/22/17 at 01:00 Hydromorphone HCl (Dilaudid) 0.4 mg Q15M PRN IV PAIN LEVEL 6-10 Last administered on 08/24/17 20:07; Admin Dose 0.4 MG; Start 08/22/17 at 01:00 Oxycodone/ Acetaminophen (Percocet (5/ 325)) 1 tab Q3H PRN PO PAIN LEVEL 1-5; Start 08/22/17 at 01:00 Famotidine 20 mg 20 mg BID@08,20 IV Last administered on 08/24/17 19:52; Admin Dose 20 MG; Start 08/22/17 at 08:00 Magnesium Sulfate/ Dextrose (Magnesium Sulfate 1 Gm/D5W) 100 ml @ 100 mls/hr PRN PRN IVPB PENDING LAB VALUE Last administered on 08/23/17 08:54; Admin Dose 100 MLS/HR; Start 08/22/17 at 01:00 Diagnostic Test (Pha) (Accu-Chek) 1 ea Q1H XX Last administered on 08/25/17 04:00; Admin Dose 1 EA; Start 08/22/17 at 01:00 Dextrose (D50w Syringe) 25 ml Q15M PRN IV Till BS 80 mg/dL or above x2; Start 08/22/17 at 01:00 Dextrose (D50w Syringe) 50 ml Q15M PRN IV Till BS 80 mg/dL or above x2; Start 08/22/17 at 01:00 Atorvastatin Calcium (Lipitor) 80 mg HS PO Last administered on 08/24/17 21: 01; Admin Dose 80 MG; Start 08/22/17 at 21:00 Aspirin 81 mg 81 mg DAILY PO Last administered on 08/24/17 09:24; Admin Dose 81 MG; Start 08/22/17 at 09:00 Potassium Chloride 40 meq/ Calcium Chloride 1 gm/Dextrose/ Sodium Chloride 1, 030 ml @ 60 mls/hr [id number] IV Last administered on 08/24/17 19:53; Admin Dose 60 MLS/HR; Start 08/22/17 at 16:30 Propofol (Diprivan) 100 ml @ 1.842 mls/ hr Q12H IV Last administered on 22:51; Admin Dose 9.4 MLS/HR; Start 08/22/17 at 16:00 Acetaminophen (Tylenol Liquid) 650 mg Q4H PRN PO PAIN AND OR ELEVATED TEMP Last administered on 08/25/17 02:15; Admin Dose 650 MG; Start 08/23/17 at 14: 30 Enoxaparin Sodium (Lovenox) 40 mg DAILY SC Last administered on 08/24/17 09: 25; Admin Dose 40 MG; Start 08/24/17 at 09:00 Clopidogrel Bisulfate (plaVIX) 75 mg DAILY NGT Last administered on 08/24/17 09:24; Admin Dose 75 MG; Start 08/24/17 at 09:00 IV Flush (NS 10 ml) 10 ml PRN PRN IV IV PROTOCOL; Start 08/24/17 at 12:00 Metoprolol Tartrate (Lopressor) 25 mg BID NGT Last administered on 08/24/17t 22:55; Admin Dose 25 MG; Start 08/24/17 at 21:30 JENNIFER MOORE Aug 25, 2017 05:27
[2017-08-25 06:03] LABS: BASOPHILS % 0.2 % (0.0-2.0); EOSINOPHILS # 0.1 10^3/ul (0.0-0.5); HEMATOCRIT 37.2 % (42.0-52.0); HEMOGLOBIN 12.1 g/dl (14.0-18.0); LYMPHOCYTES # 1.5 10^3/ul (0.8-2.9); LYMPHOCYTES % 14.5 % (15.0-51.0); MEAN CORPUSCULAR HEMOGLOBIN 29.4 pg (29.0-33.0); MEAN CORPUSCULAR HGB CONC 32.5 g/dl (32.0-37.0); MEAN CORPUSCULAR VOLUME 90.5 fl (82.0-101.0); MEAN PLATELET VOLUME 11.1 fl (7.4-10.4); MONOCYTE # 0.7 10^3/ul (0.3-0.9); MONOCYTES % 6.9 % (0.0-11.0); NEUTROPHIL # 7.6 10^3/ul (1.6-7.5); NEUTROPHILS % 76.7 % (39.0-77.0); NUCLEATED RED BLOOD CELLS% 0.4 /100WBC (0.0-0.0); PLATELET COUNT 136 10^3/UL (140-415); POSITIVE DIFF @See below; RED BLOOD COUNT 4.11 10^6/ul (4.70-6.10); RED CELL DISTRIBUTION WIDTH 15.1 % (11.5-14.5)
[2017-08-25 06:16] LABS: CALCIUM 9.1 mg/dl (8.4-10.2); CREATININE 0.89 mg/dl (0.61-1.24); POTASSIUM 4.1 mmol/L (3.5-5.1)
[2017-08-25] MEDS: [UNRECOGNIZED DRUG - OTHER] XX SCH ×3 (07:51→07:57)
[2017-08-25] MEDS: ALENDRONATE 70 MG XX SCH ×3 (07:51→07:57)
[2017-08-25] MEDS ORDERED: ASPIRIN 81 MG TAB GTB SCH (08:01)
--- NOTE | 2017-08-25 08:29 | RADRPT ---
PROCEDURE: XR Chest. CLINICAL INDICATION: Respiratory failure TECHNIQUE: An AP view of the chest was obtained. COMPARISON: DR ALMAZAN CHEST 08/24/2017; CHEST 08/24/2017; CHEST 08/23/2017; DR ALMAZAN CHEST 08/22 FINDINGS: The endotracheal tube tip is approximately 1.3 cm above the mike. The tip of the enteric tube ex tends below the left diaphragm. There is a right upper extremity PICC line with tip in the mid SVC. There are coarse bilateral interstitial opacities. No pleural effusion or pneumothorax is seen. T he cardiomediastinal silhouette is non enlarged. Calcifications are seen within the aortic arch. Th ere are post cardiac surgery changes with sternotomy wires. The osseous structures demonstrate senes cent changes. IMPRESSION: 1. Coarse bilateral interstitial opacities may reflect edema or pneumonia. No significant interval change. 2. Mild cardiomegaly and aortic atherosclerosis. 3. Tubes and lines, as described above. RPTAT: HH .Hannah Bean MD, MD Date Time Electronically viewed and signed by .Hannah Bean MD, on 08/25/2017 08:29 .G/
[2017-08-25 08:36] LABS: AADO2 Arterial 182.6 mmHg (7.0-24.0); Allen Test ACCEPTAB; Arterial Base Excess -2.2 mmol/L (-3.0-3); Arterial COHb 0.1 % (0.0-3.0); Arterial Fraction of Oxyhgb 95.1 % (93.0-99.0); Arterial HCO3 19.8 mmol/L (22.0-26.0); Arterial MetHb 0.1 % (0.0-1.5); Arterial Total Hemglobin 13.2 g/dl (12.0-18.0); MODE VENT - AC
[2017-08-25] MEDS ORDERED: GLUCOSE GEL 15 GRAM TUBE PO PRN ×2 (09:00)
[2017-08-25] MEDS: INSULIN ASPART [NOVOLOG] 3 ML PEN SC SCH ×4 (09:00→20:42)
[2017-08-25] MEDS ORDERED: DEXTROSE 50% 50 ML SYRINGE IV PRN ×2 (09:00)
[2017-08-25] MEDS ORDERED: GLUCAGON 1 MG INJ IM PRN (09:00)
[2017-08-25] MEDS ORDERED: GLUCOSE GEL 15 GRAM TUBE BUCCAL PRN (09:00)
--- NOTE | 2017-08-25 10:14 | CONS ---
Date/Time of Note Date/Time of Note DATE: 08/25/17 TIME: 10:12 Consult Date/Type/Reason Admit Date/Time Aug 21, 2017 at 17:28 Initial Consult Date 08/21/17 Type of Consultation: Pulm Ordering Provider: HANNAH MCCLENDON MD Subjective Intubated, sedated, comfortable at rest. Objective Vital Signs Date Time Temp Pulse Resp B/P Pulse Ox O2 Delivery O2 Flow Rate FiO2 08/25/17 10:00 116 24 124/87 Mechanical Ventilator 08/25/17 09:00 97 08/25/17 08:00 99.8 08/25/17 05:22 40 08/21/17 16:54 2.0 Intake and Output 08/24/17 08/24/17 08/25/17 14:59 22:59 06:59 Intake Total 835.555 ml 647.225 ml 412.388 ml Output Total 1861 ml 1209 ml 750 ml Balance -1025.445 ml -561.775 ml -337.612 ml Exam GENERAL: Chronically ill-appearing gentleman orally intubated on mechanical ventilation. Eyes open not following commands. VITAL SIGNS: per chart NECK: Supple. No JVD or lymphadenopathy. CARDIAC EXAM: S1, S2. No added sounds or murmurs. CHEST: diminished air entry bilaterally ABDOMEN: Soft, nontender. No guarding or rebound. EXTREMITIES: No cyanosis, clubbing or edema. NEUROLOGIC: Generalized weakness. No focal deficits. Results/Medications Result Diagram: 08/25/17 0445 08/25/17 0445 Results 24 hrs Laboratory Tests Test 08/24/17 12:12 08/24/17 12:46 08/24/17 14:35 08/24/17 16:22 Bedside Glucose 103 97 76 White Blood Count 11.2 H Red Blood Count 4.03 L Hemoglobin 12.0 L Hematocrit 35.8 L Mean Corpuscular Volume 88.8 Mean Corpuscular Hemoglobin 29.8 Mean Corpuscular Hemoglobin Concent 33.5 Red Cell Distribution Width 14.7 H Platelet Count 119 L Mean Platelet Volume 11.4 H Neutrophils % 81.6 H Lymphocytes % 12.5 L Monocytes % 4.9 Eosinophils % 0.3 Basophils % 0.2 Nucleated Red Blood Cells % 0.3 H Neutrophils # 9.1 H Lymphocytes # 1.4 Monocytes # 0.6 Eosinophils # 0.0 Basophils # 0.0 Nucleated Red Blood Cells # 0.0 Sodium Level 147 H Potassium Level 4.6 Chloride Level 118 H Carbon Dioxide Level 24 Anion Gap 10 Blood Urea Nitrogen 14 Creatinine 0.86 Glucose Level 117 Calcium Level 9.0 Magnesium Level 2.0 Total Bilirubin 3.9 H Direct Bilirubin 2.10 #H Indirect Bilirubin 1.8 H Aspartate Amino Transf (AST/SGOT) 102 H Alanine Aminotransferase (ALT/SGPT) 64 Alkaline Phosphatase 74 Total Protein 5.7 L Albumin 2.6 L Globulin 3.10 Albumin/Globulin Ratio 0.83 Test 08/24/17 18:16 08/24/17 19:58 08/24/17 23:39 08/25/17 02:01 Bedside Glucose 101 90 92 74 Test 08/25/17 04:09 08/25/17 04:45 08/25/17 05:15 08/25/17 07:00 Bedside Glucose 106 103 White Blood Count 10.0 Red Blood Count 4.11 L Hemoglobin 12.1 L Hematocrit 37.2 L Mean Corpuscular Volume 90.5 Mean Corpuscular Hemoglobin 29.4 Mean Corpuscular Hemoglobin Concent 32.5 Red Cell Distribution Width 15.1 H Platelet Count 136 L Mean Platelet Volume 11.1 H Neutrophils % 76.7 Lymphocytes % 14.5 L Monocytes % 6.9 Eosinophils % 1.0 Basophils % 0.2 Nucleated Red Blood Cells % 0.4 H Neutrophils # 7.6 H Lymphocytes # 1.5 Monocytes # 0.7 Eosinophils # 0.1 Basophils # 0.0 Nucleated Red Blood Cells # 0.0 Sodium Level 148 H Potassium Level 4.1 Chloride Level 117 H Carbon Dioxide Level 25 Anion Gap 10 Blood Urea Nitrogen 15 Creatinine 0.89 Glucose Level 117 Calcium Level 9.1 Magnesium Level 2.0 Blood Gas Specimen Source Blood arterial Arterial Blood Date Drawn 08/25/2017 8:20:00 AM Arterial Blood pH (Temp corrected) 7.488 H Arterial Blood pCO2 (Temp correct) 26.7 L Arterial Blood pO2 (Temp corrected) 71.9 L Arterial Blood HCO3 19.8 L Arterial Blood Base Excess -2.2 Arterial Blood Oxygen Saturation 95.3 Hardeep Test ACCEPTAB Arterial Blood Gas Puncture Site Right Radial Arterial Blood Carboxyhemoglobin 0.1 Arterial Blood Methemoglobin 0.1 Blood Gas A-a O2 Differential 182.6 H Oxyhemoglobin Percent 95.1 Total Hemoglobin 13.2 Blood Gas Temperature 37.0 Blood Gas Respiration Rate 22.0 Blood Gas Actual Respiration Rate 27 Blood Gas Modality VENT - AC FiO2 40.0 Blood Gas Tidal Volume 450.0 Blood Gas Low PEEP Setting 5.0 Blood Gas Notified Whom JLD Blood Gas Notified Time 08/25/2017 8:36:37 AM Test 08/25/17 07:11 Bedside Glucose 103 Medications Current Medications Ondansetron HCl (Zofran Inj) 4 mg Q6H PRN IV NAUSEA AND/OR VOMITING; Start 08/21/17 at 17:30 Acetaminophen/ Hydrocodone Bitart ([place] (5/325)) 1 tab Q6H PRN PO MODERATE PAIN LEVEL 4-6; Start 08/21/17 at 17:30 Morphine Sulfate (morphine) 2 mg Q4H PRN IV SEVERE PAIN LEVEL 7-10; Start 08/21 at 17:30 Docusate Sodium (Colace) 100 mg Q12H PRN PO CONSTIPATION; Start 08/21/17 at 17: 30 Magnesium Hydroxide (Milk Of Mag) 30 ml DAILY PRN PO CONSTIPATION; Start at 17:30 Sodium Biphosphate/ Sodium Phosphate (Fleet Enema) 133 ml DAILY PRN PA CONSTIPATION; Start 08/21/17 at 17:30 Lorazepam (Ativan) 0.5 mg Q6H PRN IV ANXIETY Last administered on 08/22/17 20: 34; Admin Dose 0.5 MG; Start 08/21/17 at 17:30 Hydralazine HCl (Apresoline) 10 mg Q6H PRN IV ELEVATED BLOOD PRESSURE; Start 08/21/17 at 17:30 Nitroglycerin 1 tab 1 tab Q5M PRN SL ANGINA; Start 08/21/17 at 17:30 Vasopressin 60 unit/Dextrose 60 ml @ 1.2 mls/hr Q12H IV Last administered on 08/23/17 17:56; Admin Dose 1.2 MLS/HR; Start 08/22/17 at 00:30 Norepinephrine (Levophed) 250 ml @ 1.875 mls/ hr TITRATE IV Last administered on 08/22/17 01:15; Admin Dose 11.25 MLS/HR; Start 08/22/17 at 00:30 Hydromorphone HCl (Dilaudid) 0.2 mg Q15M PRN IV PAIN LEVEL 1-5 Last administered on 08/23/17 18:35; Admin Dose 0.2 MG; Start 08/22/17 at 01:00 Hydromorphone HCl (Dilaudid) 0.4 mg Q15M PRN IV PAIN LEVEL 6-10 Last administered on 08/24/17 20:07; Admin Dose 0.4 MG; Start 08/22/17 at 01:00 Oxycodone/ Acetaminophen (Percocet (5/ 325)) 1 tab Q3H PRN PO PAIN LEVEL 1-5; Start 08/22/17 at 01:00 Famotidine 20 mg 20 mg BID@08,20 IV Last administered on 08/24/17 19:52; Admin Dose 20 MG; Start 08/22/17 at 08:00 Magnesium Sulfate/ Dextrose (Magnesium Sulfate 1 Gm/D5W) 100 ml @ 100 mls/hr PRN PRN IVPB PENDING LAB VALUE Last administered on 08/23/17 08:54; Admin Dose 100 MLS/HR; Start 08/22/17 at 01:00 Atorvastatin Calcium 80 mg 80 mg HS PO Last administered on 08/24/17 21:01; Admin Dose 80 MG; Start 08/22/17 at 21:00 Potassium Chloride 40 meq/ Calcium Chloride 1 gm/Dextrose/ Sodium Chloride 1, 030 ml @ 60 mls/hr [id number] IV Last administered on 08/24/17 19:53; Admin Dose 60 MLS/HR; Start 08/22/17 at 16:30 Propofol (Diprivan) 100 ml @ 1.842 mls/ hr Q12H IV Last administered on 22:51; Admin Dose 9.4 MLS/HR; Start 08/22/17 at 16:00 Acetaminophen (Tylenol Liquid) 650 mg Q4H PRN PO PAIN AND OR ELEVATED TEMP Last administered on 08/25/17 02:15; Admin Dose 650 MG; Start 08/23/17 at 14: 30 Enoxaparin Sodium (Lovenox) 40 mg DAILY SC Last administered on 08/24/17 09: 25; Admin Dose 40 MG; Start 08/24/17 at 09:00 Clopidogrel Bisulfate (plaVIX) 75 mg DAILY NGT Last administered on 08/24/17 09:24; Admin Dose 75 MG; Start 08/24/17 at 09:00 IV Flush (NS 10 ml) 10 ml PRN PRN IV IV PROTOCOL; Start 08/24/17 at 12:00 Metoprolol Tartrate (Lopressor) 25 mg BID NGT Last administered on 08/24/17 22:55; Admin Dose 25 MG; Start 08/24/17 at 21:30 Aspirin (Aspirin) 81 mg DAILY PO ; Start 08/25/17 at 09:00 Insulin Aspart (Novolog Insulin Pen) NOVOLOG *MILD* ALGORI... Q4 SC ; Start 08/30 at 09:00 Miscellaneous Information 1 ea NOTE XX ; Start 08/25/17 at 09:00 Glucose (Glutose) 15 gm Q15M PRN PO DECREASED GLUCOSE; Start 08/25/17 at 09:00 Glucose (Glutose) 22.5 gm Q15M PRN PO DECREASED GLUCOSE; Start 08/25/17 at 09: 00 Dextrose (D50w Syringe) 25 ml Q15M PRN IV DECREASED GLUCOSE; Start 08/25/17 at 09:00 Dextrose (D50w Syringe) 50 ml Q15M PRN IV DECREASED GLUCOSE; Start 08/25/17 at 09:00 Glucagon (Glucagen) 1 mg Q15M PRN IM DECREASED GLUCOSE; Start 08/25/17 at 09: 00 Glucose (Glutose) 15 gm Q15M PRN BUCCAL DECREASED GLUCOSE; Start 08/25/17 at 09:00 Assessment/Plan Chief Complaint/Hosp Course IMP: 1. s/p STEMI followed by LHC and CABG 2. Cardiogenic shock improved hemodynamics. 3. Lactic acidosis 2/2 #2 resolving. 4. HyperNa+ improved RECS: 1. Vent support, cpap trial today, hopefully extubate. 2. Post extubation IS / ST eval. 3. Titrate vasopressors as needed 4. PT eval post extubation. dw CT surgery. 35 min cc time Problems: [facility] REY [facility] Aug 25, 2017 10:14
--- NOTE | 2017-08-25 10:18 | PN ---
Date/Time of Note Date/Time of Note DATE: 08/25/17 TIME: :17 Assessment/Plan Lines/Catheters IV Catheter Type (from Nrs): PICC Line Champion in Place (from Nrs): Yes Assessment/Plan Chief Complaint/Hosp Course weaning vent low grade temp cxr shows some congestion creat stable with good urine output hold off on lasix discussed with son discussed with Dr. Elder Problems: Exam/Review of Systems Vital Signs Vitals Vital Signs Date Time Temp Pulse Resp B/P Pulse Ox O2 Delivery O2 Flow Rate FiO2 08/25/17 10:00 116 24 124/87 Mechanical Ventilator 08/25/17 09:00 97 08/25/17 08:00 99.8 08/25/17 05:22 40 08/21/17 16:54 2.0 Intake and Output 08/24/17 08/24/17 08/25/17 15:00 23:00 07:00 Intake Total 840.360 ml 591.620 ml 468.914 ml Output Total 2011 ml 1159 ml 640 ml Balance -1170.640 ml -567.380 ml -171.086 ml Results Result Diagram: 08/25/17 0445 08/25/17 0445 ERNIE LOPEZ MD Aug 25, 2017 10:18
[2017-08-25] MEDS: ASPIRIN 81 MG TAB PO SCH (10:29)
[2017-08-25] MEDS: METOPROLOL 25 MG TAB NGT SCH ×2 (10:29→20:42)
[2017-08-25] MEDS: FAMOTIDINE 20 MG INJ IV SCH ×2 (10:29→20:41)
[2017-08-25] MEDS: CLOPIDOGREL 75 MG TAB NGT SCH (10:29)
[2017-08-25] MEDS: ENOXAPARIN 40 MG/0.4 ML SYG SC SCH (10:32)
--- NOTE | 2017-08-25 12:58 | PN ---
Date/Time of Note Date/Time of Note DATE: 08/25/17 TIME: 12:48 Assessment/Plan VTE Prophylaxis VTE Prophylaxis Intervention: SCD's Lines/Catheters IV Catheter Type (from Nrsg): PICC Line Central line still needed: No Urinary Cath still in place: Yes Reason Cath still needed: other (indicate) (critically ill) Assessment/Plan Assessment/Plan 72 yo M presented with chest pain found to have STEMI. Was taken to [facility] but found to have 3v disease now sp CABG. Hospitalization notable for ?cardiac arrest in the [facility]? (mentioned in hospitalist and pulm notes but not cards notes) cardiogenic shock warranting IABP which has now been removed. PLAN #STEMI: wean pressors as tolerated -cont BP/antiplatelet/lipid lowering regimen #?SIRS?. leukocytosis resolved. Temperatures downtrending cont to hold abx. will reculture if temp >38C #Hypernatremia: change d5 1/2NS to d5w #hx hypothyroid: TFTs wnl #anemia: hgb stable, outpatient follow up #hyperglycemia: stop insulin drip, change to SSI. a1c 5.6 critical care time :30 minutes Subjective 24 Hr Interval Summary Free Text/Dictation pressors off Exam/Review of Systems Vital Signs Vitals Vital Signs Date Time Temp Pulse Resp B/P Pulse Ox O2 Delivery O2 Flow Rate FiO2 08/25/17 11:08 108 29 98 40 08/25/17 10:00 124/87 Mechanical Ventilator 08/25/17 08:00 99.8 08/21/17 16:54 2.0 Intake and Output 08/24/17 08/24/17 08/25/17 15:00 23:00 07:00 Intake Total 840.360 ml 591.620 ml 468.914 ml Output Total 2011 ml 1159 ml 640 ml Balance -1170.640 ml -567.380 ml -171.086 ml Exam nad, intubated no mrg lungs clear abd soft no edema Results Result Diagram: 08/25/175 08/25/175 Results 24 hrs Laboratory Tests Test 08/24/17 14:35 08/24/17 16:22 08/24/17 18:16 08/24/17 19:58 Bedside Glucose 97 76 101 90 Test 08/24/17 23:39 08/25/17 02:01 08/25/17 04:09 08/25/17 04:45 Bedside Glucose 92 74 106 White Blood Count 10.0 Red Blood Count 4.11 L Hemoglobin 12.1 L Hematocrit 37.2 L Mean Corpuscular Volume 90.5 Mean Corpuscular Hemoglobin 29.4 Mean Corpuscular Hemoglobin Concent 32.5 Red Cell Distribution Width 15.1 H Platelet Count 136 L Mean Platelet Volume 11.1 H Neutrophils % 76.7 Lymphocytes % 14.5 L Monocytes % 6.9 Eosinophils % 1.0 Basophils % 0.2 Nucleated Red Blood Cells % 0.4 H Neutrophils # 7.6 H Lymphocytes # 1.5 Monocytes # 0.7 Eosinophils # 0.1 Basophils # 0.0 Nucleated Red Blood Cells # 0.0 Sodium Level 148 H Potassium Level 4.1 Chloride Level 117 H Carbon Dioxide Level 25 Anion Gap 10 Blood Urea Nitrogen 15 Creatinine 0.89 Glucose Level 117 Calcium Level 9.1 Magnesium Level 2.0 Test 08/25/17 05:15 08/25/17 07:00 08/25/17 07:11 08/25/17 10:31 Bedside Glucose 103 103 109 Blood Gas Specimen Source Blood arterial Arterial Blood Date Drawn 08/25/2017 8:20:00 AM Arterial Blood pH (Temp corrected) 7.488 H Arterial Blood pCO2 (Temp correct) 26.7 L Arterial Blood pO2 (Temp corrected) 71.9 L Arterial Blood HCO3 19.8 L Arterial Blood Base Excess -2.2 Arterial Blood Oxygen Saturation 95.3 Hardeep Test ACCEPTAB Arterial Blood Gas Puncture Site Right Radial Arterial Blood Carboxyhemoglobin 0.1 Arterial Blood Methemoglobin 0.1 Blood Gas A-a O2 Differential 182.6 H Oxyhemoglobin Percent 95.1 Total Hemoglobin 13.2 Blood Gas Temperature 37.0 Blood Gas Respiration Rate 22.0 Blood Gas Actual Respiration Rate 27 Blood Gas Modality VENT - AC FiO2 40.0 Blood Gas Tidal Volume 450.0 Blood Gas Low PEEP Setting 5.0 Blood Gas Notified Whom AMINAD Blood Gas Notified Time 08/25/2017 8:36:37 AM Medications Medications Current Medications Ondansetron HCl (Zofran Inj) 4 mg Q6H PRN IV NAUSEA AND/OR VOMITING; Start 08/21/17 at 17:30 Acetaminophen/ Hydrocodone Bitart ([place] (5/325)) 1 tab Q6H PRN PO MODERATE PAIN LEVEL 4-6; Start 08/21/17 at 17:30 Morphine Sulfate (morphine) 2 mg Q4H PRN IV SEVERE PAIN LEVEL 7-10; Start 08/21 at 17:30 Docusate Sodium (Colace) 100 mg Q12H PRN PO CONSTIPATION; Start 08/21/17 at 17: 30 Magnesium Hydroxide (Milk Of Mag) 30 ml DAILY PRN PO CONSTIPATION; Start at 17:30 Sodium Biphosphate/ Sodium Phosphate (Fleet Enema) 133 ml DAILY PRN PA CONSTIPATION; Start 08/21/17 at 17:30 Lorazepam (Ativan) 0.5 mg Q6H PRN IV ANXIETY Last administered on 08/22/17 20: 34; Admin Dose 0.5 MG; Start 08/21/17 at 17:30 Hydralazine HCl (Apresoline) 10 mg Q6H PRN IV ELEVATED BLOOD PRESSURE; Start 08/21/17 at 17:30 Nitroglycerin 1 tab 1 tab Q5M PRN SL ANGINA; Start 08/21/17 at 17:30 Vasopressin 60 unit/Dextrose 60 ml @ 1.2 mls/hr Q12H IV Last administered on 08/23/17 17:56; Admin Dose 1.2 MLS/HR; Start 08/22/17 at 00:30 Norepinephrine (Levophed) 250 ml @ 1.875 mls/ hr TITRATE IV Last administered on 08/22/17 01:15; Admin Dose 11.25 MLS/HR; Start 08/22/17 at 00:30 Hydromorphone HCl (Dilaudid) 0.2 mg Q15M PRN IV PAIN LEVEL 1-5 Last administered on 08/23/17 18:35; Admin Dose 0.2 MG; Start 08/22/17 at 01:00 Hydromorphone HCl (Dilaudid) 0.4 mg Q15M PRN IV PAIN LEVEL 6-10 Last administered on 08/24/17 20:07; Admin Dose 0.4 MG; Start 08/22/17 at 01:00 Oxycodone/ Acetaminophen (Percocet (5/ 325)) 1 tab Q3H PRN PO PAIN LEVEL 1-5; Start 08/22/17 at 01:00 Famotidine 20 mg 20 mg BID@08,20 IV Last administered on 08/25/17 10:29; Admin Dose 20 MG; Start 08/22/17 at 08:00 Magnesium Sulfate/ Dextrose (Magnesium Sulfate 1 Gm/D5W) 100 ml @ 100 mls/hr PRN PRN IVPB PENDING LAB VALUE Last administered on 08/23/17 08:54; Admin Dose 100 MLS/HR; Start 08/22/17 at 01:00 Atorvastatin Calcium 80 mg 80 mg HS PO Last administered on 08/24/17 21:01; Admin Dose 80 MG; Start 08/22/17 at 21:00 Potassium Chloride 40 meq/ Calcium Chloride 1 gm/Dextrose/ Sodium Chloride 1, 030 ml @ 60 mls/hr [id number] IV Last administered on 08/24/17 19:53; Admin Dose 60 MLS/HR; Start 08/22/17 at 16:30 Propofol (Diprivan) 100 ml @ 1.842 mls/ hr Q12H IV Last administered on 22:51; Admin Dose 9.4 MLS/HR; Start 08/22/17 at 16:00 Acetaminophen (Tylenol Liquid) 650 mg Q4H PRN PO PAIN AND OR ELEVATED TEMP Last administered on 08/25/17 02:15; Admin Dose 650 MG; Start 08/23/17 at 14: 30 Enoxaparin Sodium (Lovenox) 40 mg DAILY SC Last administered on 08/25/17 10: 32; Admin Dose 40 MG; Start 08/24/17 at 09:00 Clopidogrel Bisulfate (plaVIX) 75 mg DAILY NGT Last administered on 08/25/17 10:29; Admin Dose 75 MG; Start 08/24/17 at 09:00 IV Flush (NS 10 ml) 10 ml PRN PRN IV IV PROTOCOL; Start 08/24/17 at 12:00 Metoprolol Tartrate (Lopressor) 25 mg BID NGT Last administered on 08/25/17 10:29; Admin Dose 25 MG; Start 08/24/17 at 21:30 Aspirin (Aspirin) 81 mg DAILY PO Last administered on 08/25/17 10:29; Admin Dose 81 MG; Start 08/25/17 at 09:00 Insulin Aspart (Novolog Insulin Pen) NOVOLOG *MILD* ALGORI... Q4 SC ; Start 08/30 at 09:00 Miscellaneous Information 1 ea NOTE XX ; Start 08/25/17 at 09:00 Glucose (Glutose) 15 gm Q15M PRN PO DECREASED GLUCOSE; Start 08/25/17 at 09:00 Glucose (Glutose) 22.5 gm Q15M PRN PO DECREASED GLUCOSE; Start 08/25/17 at 09: 00 Dextrose (D50w Syringe) 25 ml Q15M PRN IV DECREASED GLUCOSE; Start 08/25/17 at 09:00 Dextrose (D50w Syringe) 50 ml Q15M PRN IV DECREASED GLUCOSE; Start 08/25/17 at 09:00 Glucagon (Glucagen) 1 mg Q15M PRN IM DECREASED GLUCOSE; Start 08/25/17 at 09: 00 Glucose (Glutose) 15 gm Q15M PRN BUCCAL DECREASED GLUCOSE; Start 08/25/17 at 09:00 ZACHARY SHANNON MD Aug 25, 2017 12:58
[2017-08-25 13:30] LABS: AADO2 Arterial 160.7 mmHg (7.0-24.0); Allen Test ACCEPTAB; Arterial Base Excess -1.3 mmol/L (-3.0-3); Arterial COHb 0.3 % (0.0-3.0); Arterial Fraction of Oxyhgb 96.6 % (93.0-99.0); Arterial MetHb 0.1 % (0.0-1.5); Arterial Total Hemglobin 13.7 g/dl (12.0-18.0); Blood Gas PS 10; MODE VENT - CPAP
--- NOTE | 2017-08-25 14:24 | RADRPT ---
Vent Rate: 133 bpm RR Interval: 0 msec AR Interval: 196 msec QRS Duration: 76 msec QT Interval: 234 msec QTC Interval: 348 msec P-R-T [place]: 59 - 47 - 142 degrees Sinus tachycardia Nonspecific ST and T wave abnormality Abnormal ECG Electronically Signed By: Chetan Brennan [id number]
--- NOTE | 2017-08-25 14:25 | RADRPT ---
Vent Rate: 112 bpm RR Interval: 0 msec MA Interval: 152 msec QRS Duration: 90 msec QT Interval: 304 msec QTC Interval: 414 msec P-R-T [place]: 48 - 43 - 72 degrees Sinus tachycardia with premature atrial complexes with aberrant conduction Low voltage QRS Septal infarct , age undetermined Abnormal ECG Electronically Signed By: Chetan Brennan [id number]
--- NOTE | 2017-08-25 14:27 | RADRPT ---
Vent Rate: 91 bpm RR Interval: 0 msec MA Interval: 144 msec QRS Duration: 76 msec QT Interval: 364 msec QTC Interval: 447 msec P-R-T [place]: 47 - 12 - 45 degrees Normal sinus rhythm Cannot rule out Inferior infarct , age undetermined Abnormal ECG Electronically Signed By: Chetan Brennan [id number]
[2017-08-25] MEDS: CALCIUM CHLORIDE IV SCH (14:47)
[2017-08-25] MEDS: POTASSIUM CHLORIDE IV SCH (14:47)
[2017-08-25] MEDS: DEXTROSE 5% IV SCH (14:47)
[2017-08-25] MEDS: PROPOFOL 100 ML IV SCH (18:26)
[2017-08-25] MEDS: ATORVASTATIN 80 MG TAB PO SCH (20:42)
[2017-08-25] MEDS: HEPARIN 5,000 UNIT/0.5 ML VIAL SC SCH (22:16)
[2017-08-26] VITALS (36 sets, daily range): BP systolic 103–143; BP diastolic 61–92; PULSE 91–119; RESP 20–37
[2017-08-26] MEDS: INSULIN ASPART [NOVOLOG] 3 ML PEN SC SCH ×2 (00:05→05:00)
[2017-08-26 05:11] LABS: BASOPHILS % 0.2 % (0.0-2.0); EOSINOPHILS # 0.1 10^3/ul (0.0-0.5); EOSINOPHILS % 0.8 % (0.0-7.0); HEMATOCRIT 35.4 % (42.0-52.0); HEMOGLOBIN 11.9 g/dl (14.0-18.0); LYMPHOCYTES # 1.5 10^3/ul (0.8-2.9); LYMPHOCYTES % 13.8 % (15.0-51.0); MEAN CORPUSCULAR HEMOGLOBIN 29.5 pg (29.0-33.0); MEAN CORPUSCULAR HGB CONC 33.6 g/dl (32.0-37.0); MEAN CORPUSCULAR VOLUME 87.8 fl (82.0-101.0); MEAN PLATELET VOLUME 11.5 fl (7.4-10.4); MONOCYTE # 1.1 10^3/ul (0.3-0.9); MONOCYTES % 10.2 % (0.0-11.0); NEUTROPHIL # 7.8 10^3/ul (1.6-7.5); NUCLEATED RED BLOOD CELLS # 0.1 10^3/ul (0.0-0.0); NUCLEATED RED BLOOD CELLS% 0.5 /100WBC (0.0-0.0); PLATELET COUNT 149 10^3/UL (140-415); RED BLOOD COUNT 4.03 10^6/ul (4.70-6.10); RED CELL DISTRIBUTION WIDTH 14.7 % (11.5-14.5); WHITE BLOOD COUNT 10.7 10^3/ul (4.8-10.8)
[2017-08-26 05:27] LABS: CALCIUM 8.8 mg/dl (8.4-10.2); CREATININE 0.8 mg/dl (0.61-1.24); POTASSIUM 3.7 mmol/L (3.5-5.1)
[2017-08-26] MEDS: PROPOFOL 100 ML IV SCH ×2 (06:08→20:12)
[2017-08-26] MEDS: POTASSIUM CHLORIDE 50 ML IVPB PRN ×3 (06:12→11:10)
[2017-08-26] MEDS: HEPARIN 5,000 UNIT/0.5 ML VIAL SC SCH ×3 (06:21→22:03)
--- NOTE | 2017-08-26 06:25 | PN ---
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 Did better on yesterday's weaning trial but became tachypneic. Heparin increased due to decreased pulse in left foot, which has since resolved. Subjective hx not possible: pt non-verbal, pt critical status Exam/Review of Systems Vital Signs Vitals Vital Signs Date Time Temp Pulse Resp B/P Pulse Ox O2 Delivery O2 Flow Rate FiO2 08/26/17 05:10 107 26 95 40 08/26/17 04:00 100.8 115/69 Mechanical Ventilator Intake and Output 08/25/17 08/25/17 08/26/17 15:00 23:00 07:00 Intake Total 821.588 ml 766.452 ml 827.630 ml Output Total 1225 ml 729 ml 998 ml Balance -403.412 ml 37.452 ml -170.370 ml Exam Constitutional: non-verbal Head: normocephalic ENMT: intubated Neck: No bruits, No jvd Respiratory: clear to auscultation Cardiovascular: regular rate and rhythm, No murmurs/extra sounds Gastrointestinal: bowel sounds, nl liver, spleen, non-tender, soft Extremities: normal pulses (1+ DP bilaterally) Skin: nl turgor Results Result Diagram: 08/26/17 0430 08/26/17 0430 Results 24 hrs Laboratory Tests Test 08/25/17 07:00 08/25/17 07:11 08/25/17 10:31 08/25/17 13:00 Blood Gas Specimen Source Blood arterial Blood arterial Arterial Blood Date Drawn 08/25/2017 8:20:00 AM 08/25/2017 1:10:51 PM Arterial Blood pH (Temp corrected) 7.488 H 7.478 H Arterial Blood pCO2 (Temp correct) 26.7 L 29.0 L Arterial Blood pO2 (Temp corrected) 71.9 L 91.2 H Arterial Blood HCO3 19.8 L 21.0 L Arterial Blood Base Excess -2.2 -1.3 Arterial Blood Oxygen Saturation 95.3 97.0 Hardeep Test ACCEPTAB ACCEPTAB Arterial Blood Gas Puncture Site Right Radial Right Radial Arterial Blood Carboxyhemoglobin 0.1 0.3 Arterial Blood Methemoglobin 0.1 0.1 Blood Gas A-a O2 Differential 182.6 H 160.7 H Oxyhemoglobin Percent 95.1 96.6 Total Hemoglobin 13.2 13.7 Blood Gas Temperature 37.0 37.0 Blood Gas Respiration Rate 22.0 Blood Gas Actual Respiration Rate 27 29 Blood Gas Modality VENT - AC VENT - CPAP FiO2 40.0 40.0 Blood Gas Tidal Volume 450.0 Blood Gas Low PEEP Setting 5.0 5.0 Blood Gas Notified Whom JLD JLD Blood Gas Notified Time 08/25/2017 8:36:37 AM 08/25/2017 1:30:32 PM Bedside Glucose 103 109 Blood Gas Pressure Support 10 Test 08/25/17 13:29 08/25/17 18:12 08/25/17 20:40 08/26/17 00:02 Bedside Glucose 119 101 114 100 Test 08/26/17 04:30 08/26/17 04:43 White Blood Count 10.7 Red Blood Count 4.03 L Hemoglobin 11.9 L Hematocrit 35.4 L Mean Corpuscular Volume 87.8 Mean Corpuscular Hemoglobin 29.5 Mean Corpuscular Hemoglobin Concent 33.6 Red Cell Distribution Width 14.7 H Platelet Count 149 Mean Platelet Volume 11.5 H Neutrophils % 73.0 Lymphocytes % 13.8 L Monocytes % 10.2 Eosinophils % 0.8 Basophils % 0.2 Nucleated Red Blood Cells % 0.5 H Neutrophils # 7.8 H Lymphocytes # 1.5 Monocytes # 1.1 H Eosinophils # 0.1 Basophils # 0.0 Nucleated Red Blood Cells # 0.1 H Sodium Level 148 H Potassium Level 3.7 Chloride Level 115 H Carbon Dioxide Level 24 Anion Gap 13 Blood Urea Nitrogen 14 Creatinine 0.80 Glucose Level 112 Calcium Level 8.8 Magnesium Level 1.8 Bedside Glucose 101 Medications Medications Current Medications Ondansetron HCl (Zofran Inj) 4 mg Q6H PRN IV NAUSEA AND/OR VOMITING; Start 08/21/17 at 17:30 Acetaminophen/ Hydrocodone Bitart ([place] (5/325)) 1 tab Q6H PRN PO MODERATE PAIN LEVEL 4-6; Start 08/21/17 at 17:30 Morphine Sulfate (morphine) 2 mg Q4H PRN IV SEVERE PAIN LEVEL 7-10; Start 08/21 at 17:30 Docusate Sodium (Colace) 100 mg Q12H PRN PO CONSTIPATION; Start 08/21/17 at 17: 30 Magnesium Hydroxide (Milk Of Mag) 30 ml DAILY PRN PO CONSTIPATION; Start at 17:30 Sodium Biphosphate/ Sodium Phosphate (Fleet Enema) 133 ml DAILY PRN [place] CONSTIPATION; Start 08/21/17 at 17:30 Lorazepam (Ativan) 0.5 mg Q6H PRN IV ANXIETY Last administered on 08/22/17 20: 34; Admin Dose 0.5 MG; Start 08/21/17 at 17:30 Hydralazine HCl (Apresoline) 10 mg Q6H PRN IV ELEVATED BLOOD PRESSURE; Start 08/21/17 at 17:30 Nitroglycerin (Nitroglycerin (Sl Tab) 0.4 Mg) 1 tab Q5M PRN SL ANGINA; Start 08/21/17 at 17:30 Hydromorphone HCl (Dilaudid) 0.2 mg Q15M PRN IV PAIN LEVEL 1-5 Last administered on 08/23/17 18:35; Admin Dose 0.2 MG; Start 08/22/17 at 01:00 Hydromorphone HCl (Dilaudid) 0.4 mg Q15M PRN IV PAIN LEVEL 6-10 Last administered on 08/24/17 20:07; Admin Dose 0.4 MG; Start 08/22/17 at 01:00 Oxycodone/ Acetaminophen (Percocet (5/ 325)) 1 tab Q3H PRN PO PAIN LEVEL 1-5; Start 08/22/17 at 01:00 Famotidine 20 mg 20 mg BID@08,20 IV Last administered on 12/12/17at 20:41; Admin Dose 20 MG; Start 08/22/17 at 08:00 Magnesium Sulfate/ Dextrose (Magnesium Sulfate 1 Gm/D5W) 100 ml @ 100 mls/hr PRN PRN IVPB PENDING LAB VALUE Last administered on 08/23/17 08:54; Admin Dose 100 MLS/HR; Start 08/22/17 at 01:00 Atorvastatin Calcium 80 mg 80 mg HS PO Last administered on 08/25/17 20:42; Admin Dose 80 MG; Start 08/22/17 at 21:00 Propofol (Diprivan) 100 ml @ 1.842 mls/ hr Q12H IV Last administered on 18:26; Admin Dose 5.526 MLS/HR; Start 08/22/17 at 16:00 Acetaminophen (Tylenol Liquid) 650 mg Q4H PRN PO PAIN AND OR ELEVATED TEMP Last administered on 08/25/17 18:26; Admin Dose 650 MG; Start 08/23/17 at 14: 30 Clopidogrel Bisulfate (plaVIX) 75 mg DAILY NGT Last administered on 08/25/17 10:29; Admin Dose 75 MG; Start 08/24/17 at 09:00 IV Flush (NS 10 ml) 10 ml PRN PRN IV IV PROTOCOL; Start 08/24/17 at 12:00 Metoprolol Tartrate (Lopressor) 25 mg BID NGT Last administered on 08/25/17 20:42; Admin Dose 25 MG; Start 08/24/17 at 21:30 Aspirin (Aspirin) 81 mg DAILY PO Last administered on 08/25/17 10:29; Admin Dose 81 MG; Start 08/25/17 at 09:00 Insulin Aspart (Novolog Insulin Pen) NOVOLOG *MILD* ALGORI... Q4 SC ; Start 08/30 at 09:00 Miscellaneous Information 1 ea NOTE XX ; Start 08/25/17 at 09:00 Glucose (Glutose) 15 gm Q15M PRN PO DECREASED GLUCOSE; Start 08/25/17 at 09:00 Glucose (Glutose) 22.5 gm Q15M PRN PO DECREASED GLUCOSE; Start 08/25/17 at 09: 00 Dextrose (D50w Syringe) 25 ml Q15M PRN IV DECREASED GLUCOSE; Start 08/25/17 at 09:00 Dextrose (D50w Syringe) 50 ml Q15M PRN IV DECREASED GLUCOSE; Start 08/25/17 at 09:00 Glucagon (Glucagen) 1 mg Q15M PRN IM DECREASED GLUCOSE; Start 08/25/17 at 09: 00 Glucose 15 gm 15 gm Q15M PRN BUCCAL DECREASED GLUCOSE; Start 08/25/17 at 09:00 Potassium Chloride/Calcium Chloride/Dextrose (KCl/Ca Chloride/ D5W) 1,030 ml @ 60 mls/hr [id number] IV Last administered on 08/25/17 14:47; Admin Dose 60 MLS/ HR; Start 08/25/17 at 13:30 Heparin Sodium (Porcine) (Heparin (5000 Units/0.5 ml)) 5,000 unit Q8 SC Last administered on 08/25/17 22:16; Admin Dose 5,000 UNIT; Start 08/25/17 at 22: 00 JENNIFER MOORE Aug 26, 2017 06:25
[2017-08-26] MEDS: CALCIUM CHLORIDE IV SCH ×2 (06:40→09:34)
[2017-08-26] MEDS: DEXTROSE 5% IV SCH ×2 (06:40→09:34)
[2017-08-26] MEDS: POTASSIUM CHLORIDE IV SCH ×2 (06:40→09:34)
[2017-08-26] MEDS: ALENDRONATE 10 MG TAB PO SCH ×2 (07:00→07:05)
--- NOTE | 2017-08-26 08:31 | RADRPT ---
PROCEDURE: XR Chest. CLINICAL INDICATION: Chest tube. TECHNIQUE: Single frontal view of the chest was obtained. COMPARISON: 08/25/2017. FINDINGS: Endotracheal tube, enteric tube, and right-sided PICC appear stable in position. The cardiomediastinal silhouette appears unchanged. There are aortic calcifications. Stable postsurg ical changes of a CABG. No significant change in diffuse bilateral interstitial/airspace opacities. No pleural effusion is seen. No definite pneumothorax. No acute osseous abnormality. IMPRESSION: 1. No significant change in diffuse bilateral interstitial/airspace opacities, representing edema ve rsus pneumonia. 2. Stable support lines and tubes. RPTAT: AAEE Brad Starr Physician Date Time Electronically viewed and signed by Brad Starr Physician on 08/26/2017 08:31 PH/
[2017-08-26 08:39] LABS: Allen Test ACCEPTAB; Arterial COHb 0.2 % (0.0-3.0); Arterial HCO3 26.8 mmol/L (22.0-26.0); Arterial MetHb 0.1 % (0.0-1.5); MODE VENT - AC
[2017-08-26] MEDS: FAMOTIDINE 20 MG INJ IV SCH ×2 (09:34→20:02)
[2017-08-26] MEDS: ASPIRIN 81 MG TAB PO SCH (09:35)
[2017-08-26] MEDS: CLOPIDOGREL 75 MG TAB NGT SCH (09:35)
[2017-08-26] MEDS: METOPROLOL 25 MG TAB NGT SCH ×2 (09:36→20:03)
--- NOTE | 2017-08-26 11:32 | CONS ---
Date/Time of Note Date/Time of Note DATE: 08/26/17 TIME: 11:31 Consult Date/Type/Reason Admit Date/Time Aug 21, 2017 at 17:28 Initial Consult Date 08/21/17 Type of Consultation: Pulm Ordering Provider: HANNAH MCCLENDON MD Subjective Placed on CPAP trial again this morning. Tolerating current vent settings however neurologically note back to baseline. Objective Vital Signs Date Time Temp Pulse Resp B/P Pulse Ox O2 Delivery O2 Flow Rate FiO2 08/26/17 08:00 110 08/26/17 08:00 99.5 20 124/92 95 Mechanical Ventilator 08/26/17 07:55 40 Intake and Output 08/25/17 08/25/17 08/26/17 14:59 22:59 06:59 Intake Total 868.630 ml 719.610 ml 1024.208 ml Output Total 1166 ml 729 ml 1130 ml Balance -297.370 ml -9.390 ml -105.792 ml Exam GENERAL: Chronically ill-appearing gentleman orally intubated on mechanical ventilation. Still mildly encephalopathic VITAL SIGNS: per chart NECK: Supple. No JVD or lymphadenopathy. CARDIAC EXAM: S1, S2. No added sounds or murmurs. CHEST: diminished air entry bilaterally ABDOMEN: Soft, nontender. No guarding or rebound. EXTREMITIES: No cyanosis, clubbing or edema. NEUROLOGIC: Generalized weakness. No focal deficits. Results/Medications Result Diagram: 08/26/17 0430 08/26/17 0430 Results 24 hrs Laboratory Tests Test 08/25/17 13:00 08/25/17 13:29 08/25/17 18:12 08/25/17 20:40 Blood Gas Specimen Source Blood arterial Arterial Blood Date Drawn 08/25/2017 1:10:51 PM Arterial Blood pH (Temp corrected) 7.478 H Arterial Blood pCO2 (Temp correct) 29.0 L Arterial Blood pO2 (Temp corrected) 91.2 H Arterial Blood HCO3 21.0 L Arterial Blood Base Excess -1.3 Arterial Blood Oxygen Saturation 97.0 Hardeep Test ACCEPTAB Arterial Blood Gas Puncture Site Right Radial Arterial Blood Carboxyhemoglobin 0.3 Arterial Blood Methemoglobin 0.1 Blood Gas A-a O2 Differential 160.7 H Oxyhemoglobin Percent 96.6 Total Hemoglobin 13.7 Blood Gas Temperature 37.0 Blood Gas Actual Respiration Rate 29 Blood Gas Modality VENT - CPAP FiO2 40.0 Blood Gas Low PEEP Setting 5.0 Blood Gas Pressure Support 10 Blood Gas Notified Whom JLD Blood Gas Notified Time 08/25/2017 1:30:32 PM Bedside Glucose 119 101 114 Test 08/26/17 00:02 08/26/17 04:30 08/26/17 04:43 08/26/17 07:00 Bedside Glucose 100 101 White Blood Count 10.7 Red Blood Count 4.03 L Hemoglobin 11.9 L Hematocrit 35.4 L Mean Corpuscular Volume 87.8 Mean Corpuscular Hemoglobin 29.5 Mean Corpuscular Hemoglobin Concent 33.6 Red Cell Distribution Width 14.7 H Platelet Count 149 Mean Platelet Volume 11.5 H Neutrophils % 73.0 Lymphocytes % 13.8 L Monocytes % 10.2 Eosinophils % 0.8 Basophils % 0.2 Nucleated Red Blood Cells % 0.5 H Neutrophils # 7.8 H Lymphocytes # 1.5 Monocytes # 1.1 H Eosinophils # 0.1 Basophils # 0.0 Nucleated Red Blood Cells # 0.1 H Sodium Level 148 H Potassium Level 3.7 Chloride Level 115 H Carbon Dioxide Level 24 Anion Gap 13 Blood Urea Nitrogen 14 Creatinine 0.80 Glucose Level 112 Calcium Level 8.8 Magnesium Level 1.8 Blood Gas Specimen Source Blood arterial Arterial Blood Date Drawn 08/26/2017 8:20:58 AM Arterial Blood pH (Temp corrected) 7.364 Arterial Blood pCO2 (Temp correct) 48.1 H Arterial Blood pO2 (Temp corrected) 141.9 H Arterial Blood HCO3 26.8 H Arterial Blood Base Excess 1.0 Arterial Blood Oxygen Saturation 98.3 Hardeep Test ACCEPTAB Arterial Blood Gas Puncture Site Right Radial Arterial Blood Carboxyhemoglobin 0.2 Arterial Blood Methemoglobin 0.1 Blood Gas A-a O2 Differential 88.0 H Oxyhemoglobin Percent 98.0 Total Hemoglobin 10.0 L Blood Gas Temperature 37.0 Blood Gas Respiration Rate 22.0 Blood Gas Actual Respiration Rate 27 Blood Gas Modality VENT - AC FiO2 40.0 Blood Gas Tidal Volume 450.0 Blood Gas Low PEEP Setting 5.0 Blood Gas Notified Whom JLD Blood Gas Notified Time 08/26/2017 8:39:17 AM Medications Current Medications Ondansetron HCl (Zofran Inj) 4 mg Q6H PRN IV NAUSEA AND/OR VOMITING; Start 08/21/17 at 17:30 Acetaminophen/ Hydrocodone Bitart ([place] (5/325)) 1 tab Q6H PRN PO MODERATE PAIN LEVEL 4-6; Start 08/21/17 at 17:30 Morphine Sulfate (morphine) 2 mg Q4H PRN IV SEVERE PAIN LEVEL 7-10; Start 08/21 at 17:30 Docusate Sodium (Colace) 100 mg Q12H PRN PO CONSTIPATION; Start 08/21/17 at 17: 30 Magnesium Hydroxide (Milk Of Mag) 30 ml DAILY PRN PO CONSTIPATION; Start at 17:30 Sodium Biphosphate/ Sodium Phosphate (Fleet Enema) 133 ml DAILY PRN [place] CONSTIPATION; Start 08/21/17 at 17:30 Lorazepam (Ativan) 0.5 mg Q6H PRN IV ANXIETY Last administered on 08/22/17 20: 34; Admin Dose 0.5 MG; Start 08/21/17 at 17:30 Hydralazine HCl (Apresoline) 10 mg Q6H PRN IV ELEVATED BLOOD PRESSURE; Start 08/21/17 at 17:30 Nitroglycerin (Nitroglycerin (Sl Tab) 0.4 Mg) 1 tab Q5M PRN SL ANGINA; Start 08/21/17 at 17:30 Hydromorphone HCl (Dilaudid) 0.2 mg Q15M PRN IV PAIN LEVEL 1-5 Last administered on 08/23/17 18:35; Admin Dose 0.2 MG; Start 08/22/17 at 01:00 Hydromorphone HCl (Dilaudid) 0.4 mg Q15M PRN IV PAIN LEVEL 6-10 Last administered on 08/24/17 20:07; Admin Dose 0.4 MG; Start 08/22/17 at 01:00 Oxycodone/ Acetaminophen (Percocet (5/ 325)) 1 tab Q3H PRN PO PAIN LEVEL 1-5; Start 08/22/17 at 01:00 Famotidine 20 mg 20 mg BID@08,20 IV Last administered on 08/26/17 09:34; Admin Dose 20 MG; Start 08/22/17 at 08:00 Magnesium Sulfate/ Dextrose (Magnesium Sulfate 1 Gm/D5W) 100 ml @ 100 mls/hr PRN PRN IVPB PENDING LAB VALUE Last administered on 08/23/17 08:54; Admin Dose 100 MLS/HR; Start 08/22/17 at 01:00 Atorvastatin Calcium 80 mg 80 mg HS PO Last administered on 08/25/17 20:42; Admin Dose 80 MG; Start 08/22/17 at 21:00 Propofol (Diprivan) 100 ml @ 1.842 mls/ hr Q12H IV Last administered on 06:08; Admin Dose 5.526 MLS/HR; Start 08/22/17 at 16:00 Acetaminophen (Tylenol Liquid) 650 mg Q4H PRN PO PAIN AND OR ELEVATED TEMP Last administered on 08/25/17 18:26; Admin Dose 650 MG; Start 08/23/17 at 14: 30 Clopidogrel Bisulfate (plaVIX) 75 mg DAILY NGT Last administered on 08/26/17 09:35; Admin Dose 75 MG; Start 08/24/17 at 09:00 IV Flush (NS 10 ml) 10 ml PRN PRN IV IV PROTOCOL; Start 08/24/17 at 12:00 Metoprolol Tartrate (Lopressor) 25 mg BID NGT Last administered on 08/26/17 09:36; Admin Dose 25 MG; Start 08/24/17 at 21:30 Aspirin (Aspirin) 81 mg DAILY PO Last administered on 08/26/17 09:35; Admin Dose 81 MG; Start 08/25/17 at 09:00 Miscellaneous Information 1 ea NOTE XX ; Start 08/25/17 at 09:00 Glucose (Glutose) 15 gm Q15M PRN PO DECREASED GLUCOSE; Start 08/25/17 at 09:00 Glucose (Glutose) 22.5 gm Q15M PRN PO DECREASED GLUCOSE; Start 08/25/17 at 09: 00 Dextrose (D50w Syringe) 25 ml Q15M PRN IV DECREASED GLUCOSE; Start 08/25/17 at 09:00 Dextrose (D50w Syringe) 50 ml Q15M PRN IV DECREASED GLUCOSE; Start 08/25/17 at 09:00 Glucagon (Glucagen) 1 mg Q15M PRN IM DECREASED GLUCOSE; Start 08/25/17 at 09: 00 Glucose 15 gm 15 gm Q15M PRN BUCCAL DECREASED GLUCOSE; Start 08/25/17 at 09:00 Potassium Chloride/Calcium Chloride/Dextrose (KCl/Ca Chloride/ D5W) 1,030 ml @ 60 mls/hr [id number] IV Last administered on 08/26/17 09:34; Admin Dose 60 MLS/ HR; Start 08/25/17 at 13:30 Heparin Sodium (Porcine) (Heparin (5000 Units/0.5 ml)) 5,000 unit Q8 SC Last administered on 08/26/17 06:21; Admin Dose 5,000 UNIT; Start 08/25/17 at 22: 00 Insulin Aspart (Novolog Insulin Pen) NOVOLOG *MILD* [place]GORI... Q6 SC ; Start at 12:00 Assessment/Plan Chief Complaint/Hosp Course IMP: 1. s/p STEMI followed by LHC and CABG 2. Cardiogenic shock improved hemodynamics. 3. Lactic acidosis 2/2 #2 resolving. 4. HyperNa+ improved 6. Postop encephalopathy possibly toxic metabolic if not improving may require CT head rule out stroke. RECS: 1. Vent support, cpap trial today, hopefully extubate. 2. Post extubation IS / ST eval. 3. Titrate vasopressors as needed 4. PT eval post extubation. Discussed with family at bedside at length. 35 min cc time Problems: CRIST[facility] REY MD, [facility] Aug 26, 2017 11:32
[2017-08-26] MEDS ORDERED: INSULIN ASPART [NOVOLOG] 3 ML PEN SC SCH (12:00)
[2017-08-26 12:13] LABS: AADO2 Arterial 157.2 mmHg (7.0-24.0); Allen Test ACCEPTAB; Arterial Base Excess -0.4 mmol/L (-3.0-3); Arterial COHb 0.3 % (0.0-3.0); Arterial Fraction of Oxyhgb 96.7 % (93.0-99.0); Arterial HCO3 21.8 mmol/L (22.0-26.0); Arterial MetHb 0.3 % (0.0-1.5); Arterial Total Hemglobin 13.3 g/dl (12.0-18.0); Blood Gas PS 10; MODE VENT - CPAP
--- NOTE | 2017-08-26 14:51 | PN ---
Date/Time of Note Date/Time of Note DATE: 08/26/17 TIME: 14:50 Assessment/Plan Lines/Catheters IV Catheter Type (from Nrs): PICC Line Champion in Place (from Nrs): Yes Assessment/Plan Chief Complaint/Hosp Course attempted weaning but neurologically does not follow commands although moving all extremities ct head today HD stable labs ok cxr shows congestion discussed with both sons Problems: Exam/Review of Systems Vital Signs Vitals Vital Signs Date Time Temp Pulse Resp B/P Pulse Ox O2 Delivery O2 Flow Rate FiO2 08/26/17 12:00 107 08/26/17 08:00 99.5 20 124/92 95 Mechanical Ventilator 08/26/17 07:55 40 Intake and Output 08/25/17 08/25/17 08/26/17 15:00 23:00 07:00 Intake Total 821.588 ml 766.452 ml 964.208 ml Output Total 1225 ml 729 ml 998 ml Balance -403.412 ml 37.452 ml -33.792 ml Results Result Diagram: 08/26/17 0430 08/26/17 0430 ERNIE LOPEZ MD Aug 26, 2017 14:51
--- NOTE | 2017-08-26 17:06 | RADRPT ---
PROCEDURE: CT Brain without contrast. CLINICAL INDICATION: Altered mental status. TECHNIQUE: A CT of the brain without contrast was performed utilizing axial sections from the skul l base through the vertex. One or more the following does reduction techniques were utilized: Automa rachel exposure control, adjustment of the mA/ or kV according to patient's size, or use of iterative r econstruction technique. Total exam CTDIvol is 45.01 MGy and DLP is 720.23 mGy-cm. DICOM images are available. COMPARISON: None available. FINDINGS: The ventricles and sulci are moderately prominent indicative of volume loss. There is no intracrani al hemorrhage, mass effect or midline shift. No abnormal intra-axial or extra-axial fluid collectio ns are seen. The holland/white matter differentiation is well preserved. There are mild foci of hypoattenuation in the white matter, which are nonspecific in etiology but li demetrius reflect chronic small vessel ischemic changes. There are mild intracranial vascular calcificati ons consistent with atherosclerosis. The visualized paranasal sinuses demonstrate partial opacifica tion of bilateral sphenoid sinuses with associated fluid levels. The mastoid air cells are essential ly clear. IMPRESSION: 1. No acute intracranial hemorrhage, transcortical infarction or mass effect. 2. Mild intracranial atherosclerosis and chronic small vessel ischemic changes. 3. Moderate generalized cerebral volume loss. 4. Partial opacification of bilateral sphenoid sinuses with associated fluid levels. Correlate clin ically for possible acute sinusitis. RPTAT: HH .Donny Nichols MD, Date Time Electronically viewed and signed by .Donny Nichols MD, MD on 08/26/2017 17:06 .N/
--- NOTE | 2017-08-26 18:10 | PN ---
Date/Time of Note Date/Time of Note DATE: 08/26/17 TIME: 18:06 Assessment/Plan VTE Prophylaxis VTE Prophylaxis Intervention: SCD's Lines/Catheters IV Catheter Type (from Nrsg): PICC Line Central line still needed: Yes Urinary Cath still in place: Yes Reason Cath still needed: skin wounds contaminated by urine Assessment/Plan Assessment/Plan 72 yo M presented with chest pain found to have STEMI. 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 (mentioned in hospitalist and pulm notes but not cards notes) cardiogenic shock warranting IABP which has now been removed. 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 Neuroimaging without ICH start goals of care discussion with family in AM #Hypernatremia: start TFs and FW. will stop IVFs when TFs start #hx hypothyroid: TFTs wnl #anemia: hgb stable, outpatient follow up #hyperglycemia: resolved. #?SIRS?. leukocytosis resolved. Temperatures downtrending cont to hold abx. will reculture if temp >38C critical care time :30 minutes Subjective 24 Hr Interval Summary Free Text/Dictation pt failed weaning trial 2/2 tachypnea. not following commands. appears to be asleep when I saw him this AM Exam/Review of Systems Vital Signs Vitals Vital Signs Date Time Temp Pulse Resp B/P Pulse Ox O2 Delivery O2 Flow Rate FiO2 08/26/17 16:00 109 08/26/17 08:00 99.5 20 124/92 95 Mechanical Ventilator 08/26/17 07:55 40 Intake and Output 08/25/17 08/25/17 08/26/17 14:59 22:59 06:59 Intake Total 868.630 ml 719.610 ml 1024.208 ml Output Total 1166 ml 729 ml 1130 ml Balance -297.370 ml -9.390 ml -105.792 ml Exam sleeping, on low dose sedation no mrg lungs clear abd soft no rashes labs noted Results Result Diagram: 08/26/17 0430 08/26/17 0430 Results 24 hrs Laboratory Tests Test 08/25/17 18:12 08/25/17 20:40 08/26/17 00:02 08/26/17 04:30 Bedside Glucose 101 114 100 White Blood Count 10.7 Red Blood Count 4.03 L Hemoglobin 11.9 L Hematocrit 35.4 L Mean Corpuscular Volume 87.8 Mean Corpuscular Hemoglobin 29.5 Mean Corpuscular Hemoglobin Concent 33.6 Red Cell Distribution Width 14.7 H Platelet Count 149 Mean Platelet Volume 11.5 H Neutrophils % 73.0 Lymphocytes % 13.8 L Monocytes % 10.2 Eosinophils % 0.8 Basophils % 0.2 Nucleated Red Blood Cells % 0.5 H Neutrophils # 7.8 H Lymphocytes # 1.5 Monocytes # 1.1 H Eosinophils # 0.1 Basophils # 0.0 Nucleated Red Blood Cells # 0.1 H Sodium Level 148 H Potassium Level 3.7 Chloride Level 115 H Carbon Dioxide Level 24 Anion Gap 13 Blood Urea Nitrogen 14 Creatinine 0.80 Glucose Level 112 Calcium Level 8.8 Magnesium Level 1.8 Test 08/26/17 04:43 08/26/17 07:00 08/26/17 12:00 08/26/17 12:58 Bedside Glucose 101 106 Blood Gas Specimen Source Blood arterial Blood arterial Arterial Blood Date Drawn 08/26/2017 8:20:58 AM 08/26/2017 12:00:46 PM Arterial Blood pH (Temp corrected) 7.364 7.493 H Arterial Blood pCO2 (Temp correct) 48.1 H 29.1 L Arterial Blood pO2 (Temp corrected) 141.9 H 94.5 H Arterial Blood HCO3 26.8 H 21.8 L Arterial Blood Base Excess 1.0 -0.4 Arterial Blood Oxygen Saturation 98.3 97.3 Hardeep Test ACCEPTAB ACCEPTAB Arterial Blood Gas Puncture Site Right Radial Right Radial Arterial Blood Carboxyhemoglobin 0.2 0.3 Arterial Blood Methemoglobin 0.1 0.3 Blood Gas A-a O2 Differential 88.0 H 157.2 H Oxyhemoglobin Percent 98.0 96.7 Total Hemoglobin 10.0 L 13.3 Blood Gas Temperature 37.0 37.0 Blood Gas Respiration Rate 22.0 Blood Gas Actual Respiration Rate 27 37 Blood Gas Modality VENT - AC VENT - CPAP FiO2 40.0 40.0 Blood Gas Tidal Volume 450.0 Blood Gas Low PEEP Setting 5.0 5.0 Blood Gas Notified Whom EMILY DIAZ Blood Gas Notified Time 08/26/2017 8:39:17 AM 08/26/2017 12:13:23 PM Blood Gas Pressure Support 10 Medications Medications Current Medications Ondansetron HCl (Zofran Inj) 4 mg Q6H PRN IV NAUSEA AND/OR VOMITING; Start 08/21/17 at 17:30 Acetaminophen/ Hydrocodone Bitart ([place] (5/325)) 1 tab Q6H PRN PO MODERATE PAIN LEVEL 4-6; Start 08/21/17 at 17:30 Morphine Sulfate (morphine) 2 mg Q4H PRN IV SEVERE PAIN LEVEL 7-10; Start 08/21 at 17:30 Docusate Sodium (Colace) 100 mg Q12H PRN PO CONSTIPATION; Start 08/21/17 at 17: 30 Magnesium Hydroxide (Milk Of Mag) 30 ml DAILY PRN PO CONSTIPATION; Start at 17:30 Sodium Biphosphate/ Sodium Phosphate (Fleet Enema) 133 ml DAILY PRN [place] CONSTIPATION; Start 08/21/17 at 17:30 Lorazepam (Ativan) 0.5 mg Q6H PRN IV ANXIETY Last administered on 08/22/17 20: 34; Admin Dose 0.5 MG; Start 08/21/17 at 17:30 Hydralazine HCl (Apresoline) 10 mg Q6H PRN IV ELEVATED BLOOD PRESSURE; Start 08/21/17 at 17:30 Nitroglycerin (Nitroglycerin (Sl Tab) 0.4 Mg) 1 tab Q5M PRN SL ANGINA; Start 08/21/17 at 17:30 Hydromorphone HCl (Dilaudid) 0.2 mg Q15M PRN IV PAIN LEVEL 1-5 Last administered on 08/23/17 18:35; Admin Dose 0.2 MG; Start 08/22/17 at 01:00 Hydromorphone HCl (Dilaudid) 0.4 mg Q15M PRN IV PAIN LEVEL 6-10 Last administered on 08/24/17 20:07; Admin Dose 0.4 MG; Start 08/22/17 at 01:00 Oxycodone/ Acetaminophen (Percocet (5/ 325)) 1 tab Q3H PRN PO PAIN LEVEL 1-5; Start 08/22/17 at 01:00 Famotidine 20 mg 20 mg BID@08,20 IV Last administered on 08/26/17 09:34; Admin Dose 20 MG; Start 08/22/17 at 08:00 Magnesium Sulfate/ Dextrose (Magnesium Sulfate 1 Gm/D5W) 100 ml @ 100 mls/hr PRN PRN IVPB PENDING LAB VALUE Last administered on 08/23/17 08:54; Admin Dose 100 MLS/HR; Start 08/22/17 at 01:00 Atorvastatin Calcium 80 mg 80 mg HS PO Last administered on 08/25/17 20:42; Admin Dose 80 MG; Start 08/22/17 at 21:00 Propofol (Diprivan) 100 ml @ 1.842 mls/ hr Q12H IV Last administered on 06:08; Admin Dose 5.526 MLS/HR; Start 08/22/17 at 16:00 Acetaminophen (Tylenol Liquid) 650 mg Q4H PRN PO PAIN AND OR ELEVATED TEMP Last administered on 08/25/17 18:26; Admin Dose 650 MG; Start 08/23/17 at 14: 30 Clopidogrel Bisulfate (plaVIX) 75 mg DAILY NGT Last administered on 08/26/17 09:35; Admin Dose 75 MG; Start 08/24/17 at 09:00 IV Flush (NS 10 ml) 10 ml PRN PRN IV IV PROTOCOL; Start 08/24/17 at 12:00 Metoprolol Tartrate (Lopressor) 25 mg BID NGT Last administered on 08/26/17 09:36; Admin Dose 25 MG; Start 08/24/17 at 21:30 Aspirin 81 mg 81 mg DAILY PO Last administered on 08/26/17 09:35; Admin Dose 81 MG; Start 08/25/17 at 09:00 Potassium Chloride/Calcium Chloride/Dextrose (KCl/Ca Chloride/ D5W) 1,030 ml @ 60 mls/hr [id number] IV Last administered on 08/26/17 09:34; Admin Dose 60 MLS/ HR; Start 08/25/17 at 13:30 Heparin Sodium (Porcine) (Heparin (5000 Units/0.5 ml)) 5,000 unit Q8 SC Last administered on 08/26/17 15:46; Admin Dose 5,000 UNIT; Start 08/25/17 at 22: 00 ZACHARY SHANNON MD Aug 26, 2017 18:10
[2017-08-26] MEDS: ACETAMINOPHEN 650MG/20.3ML CUP PO PRN (20:02)
[2017-08-26] MEDS: ATORVASTATIN 80 MG TAB PO SCH (20:03)
[2017-08-27] VITALS (36 sets, daily range): BP systolic 106–130; BP diastolic 58–107; PULSE 81–108; RESP 21–33
[2017-08-27] MEDS: CALCIUM CHLORIDE IV SCH (05:43)
[2017-08-27] MEDS: POTASSIUM CHLORIDE IV SCH (05:43)
[2017-08-27] MEDS: DEXTROSE 5% IV SCH (05:43)
[2017-08-27] MEDS: HEPARIN 5,000 UNIT/0.5 ML VIAL SC SCH ×3 (05:46→21:21)
[2017-08-27 05:51] LABS: ABNORMAL IP MESSAGE 1; HEMATOCRIT 35.9 % (42.0-52.0); HEMOGLOBIN 11.8 g/dl (14.0-18.0); MEAN CORPUSCULAR HEMOGLOBIN 29.4 pg (29.0-33.0); MEAN CORPUSCULAR HGB CONC 32.9 g/dl (32.0-37.0); MEAN CORPUSCULAR VOLUME 89.3 fl (82.0-101.0); MEAN PLATELET VOLUME 11.7 fl (7.4-10.4); NUCLEATED RED BLOOD CELLS% 0.3 /100WBC (0.0-0.0); PLATELET COUNT 192 10^3/UL (140-415); POSITIVE DIFF @See below; RED BLOOD COUNT 4.02 10^6/ul (4.70-6.10); RED CELL DISTRIBUTION WIDTH 14.7 % (11.5-14.5); WHITE BLOOD COUNT 10.4 10^3/ul (4.8-10.8)
[2017-08-27 06:18] LABS: CALCIUM 8.8 mg/dl (8.4-10.2); CREATININE 0.92 mg/dl (0.61-1.24); POTASSIUM 3.6 mmol/L (3.5-5.1)
[2017-08-27] MEDS: POTASSIUM CHLORIDE 50 ML IVPB PRN ×4 (06:32→23:26)
--- NOTE | 2017-08-27 06:47 | PN ---
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 with wire crossing into the left ventricle vent dependent resp failure Ischemic cardiomoypathy Recc: Increase metoprolol and add valsartan for cardiomyopathy Continue asa, clopidogrel, atorvastatin Vent mgmt, neuro status per primary and pulmonary Subjective 24 Hr Interval Summary Free Text/Dictation No events overnight, pt still with confusion, unable to wean from vent Subjective hx not possible: pt critical status Exam/Review of Systems Vital Signs Vitals Vital Signs Date Time Temp Pulse Resp B/P Pulse Ox O2 Delivery O2 Flow Rate FiO2 08/27/17 06:00 94 23 114/71 100 Mechanical Ventilator 08/27/17 05:49 40 08/27/17 04:00 99.9 Intake and Output 08/26/17 08/26/17 08/27/17 15:00 23:00 07:00 Intake Total 789.889 ml 765.756 ml 833.156 ml Output Total 678 ml 948 ml 799 ml Balance 111.889 ml -182.244 ml 34.156 ml Exam Constitutional: non-verbal Head: normocephalic ENMT: intubated Neck: No bruits, No jvd Respiratory: crackles/rales Cardiovascular: regular rate and rhythm, No jugular venous distention (JVD), No murmurs/extra sounds Gastrointestinal: non-tender, soft Extremities: edema (mild edema in all 4 extremities) Skin: nl turgor Results Result Diagram: 08/26/17 0430 08/27/17 0410 Results 24 hrs Laboratory Tests Test 08/26/17 07:00 08/26/17 12:00 08/26/17 12:58 08/27/17 04:10 Blood Gas Specimen Source Blood arterial Blood arterial Arterial Blood Date Drawn 08/26/2017 8:20:58 AM 08/26/2017 12:00:46 PM Arterial Blood pH (Temp corrected) 7.364 7.493 H Arterial Blood pCO2 (Temp correct) 48.1 H 29.1 L Arterial Blood pO2 (Temp corrected) 141.9 H 94.5 H Arterial Blood HCO3 26.8 H 21.8 L Arterial Blood Base Excess 1.0 -0.4 Arterial Blood Oxygen Saturation 98.3 97.3 Hardeep Test ACCEPTAB ACCEPTAB Arterial Blood Gas Puncture Site Right Radial Right Radial Arterial Blood Carboxyhemoglobin 0.2 0.3 Arterial Blood Methemoglobin 0.1 0.3 Blood Gas A-a O2 Differential 88.0 H 157.2 H Oxyhemoglobin Percent 98.0 96.7 Total Hemoglobin 10.0 L 13.3 Blood Gas Temperature 37.0 37.0 Blood Gas Respiration Rate 22.0 Blood Gas Actual Respiration Rate 27 37 Blood Gas Modality VENT - AC VENT - CPAP FiO2 40.0 40.0 Blood Gas Tidal Volume 450.0 Blood Gas Low PEEP Setting 5.0 5.0 Blood Gas Notified Whom EMILY DIAZ Blood Gas Notified Time 08/26/2017 8:39:17 AM 08/26/2017 12:13:23 PM Blood Gas Pressure Support 10 Bedside Glucose 106 White Blood Count Pending Red Blood Count Pending Hemoglobin Pending Hematocrit Pending Mean Corpuscular Volume Pending Mean Corpuscular Hemoglobin Pending Mean Corpuscular Hemoglobin Concent Pending Red Cell Distribution Width Pending Platelet Count Pending Mean Platelet Volume Pending Sodium Level 147 H Potassium Level 3.6 Chloride Level 115 H Carbon Dioxide Level 24 Anion Gap 12 Blood Urea Nitrogen 17 Creatinine 0.92 Glucose Level 115 Calcium Level 8.8 Magnesium Level 2.0 Medications Medications Current Medications Ondansetron HCl (Zofran Inj) 4 mg Q6H PRN IV NAUSEA AND/OR VOMITING; Start 08/21/17 at 17:30 Acetaminophen/ Hydrocodone Bitart ([place] (5/325)) 1 tab Q6H PRN PO MODERATE PAIN LEVEL 4-6; Start 08/21/17 at 17:30 Morphine Sulfate (morphine) 2 mg Q4H PRN IV SEVERE PAIN LEVEL 7-10; Start 08/21 at 17:30 Docusate Sodium (Colace) 100 mg Q12H PRN PO CONSTIPATION; Start 08/21/17 at 17: 30 Magnesium Hydroxide (Milk Of Mag) 30 ml DAILY PRN PO CONSTIPATION; Start at 17:30 Sodium Biphosphate/ Sodium Phosphate (Fleet Enema) 133 ml DAILY PRN [place] CONSTIPATION; Start 08/21/17 at 17:30 Hydralazine HCl (Apresoline) 10 mg Q6H PRN IV ELEVATED BLOOD PRESSURE; Start 08/21/17 at 17:30 Nitroglycerin (Nitroglycerin (Sl Tab) 0.4 Mg) 1 tab Q5M PRN SL ANGINA; Start 08/21/17 at 17:30 Hydromorphone HCl (Dilaudid) 0.2 mg Q15M PRN IV PAIN LEVEL 1-5 Last administered on 08/23/17 18:35; Admin Dose 0.2 MG; Start 08/22/17 at 01:00 Oxycodone/ Acetaminophen (Percocet (5/ 325)) 1 tab Q3H PRN PO PAIN LEVEL 1-5; Start 08/22/17 at 01:00 Famotidine 20 mg 20 mg BID@08,20 IV Last administered on 08/26/17 20:02; Admin Dose 20 MG; Start 08/22/17 at 08:00 Magnesium Sulfate/ Dextrose (Magnesium Sulfate 1 Gm/D5W) 100 ml @ 100 mls/hr PRN PRN IVPB PENDING LAB VALUE Last administered on 08/23/17 08:54; Admin Dose 100 MLS/HR; Start 08/22/17 at 01:00 Atorvastatin Calcium 80 mg 80 mg HS PO Last administered on 08/26/17 20:03; Admin Dose 80 MG; Start 08/22/17 at 21:00 Propofol (Diprivan) 100 ml @ 1.842 mls/ hr Q12H IV Last administered on 20:12; Admin Dose 5.526 MLS/HR; Start 08/22/17 at 16:00 Acetaminophen (Tylenol Liquid) 650 mg Q4H PRN PO PAIN AND OR ELEVATED TEMP Last administered on 08/26/17 20:02; Admin Dose 650 MG; Start 08/23/17 at 14: 30 Clopidogrel Bisulfate (plaVIX) 75 mg DAILY NGT Last administered on 08/26/17 09:35; Admin Dose 75 MG; Start 08/24/17 at 09:00 IV Flush (NS 10 ml) 10 ml PRN PRN IV IV PROTOCOL; Start 08/24/17 at 12:00 Metoprolol Tartrate (Lopressor) 25 mg BID NGT Last administered on 08/26/17 20:03; Admin Dose 25 MG; Start 08/24/17 at 21:30 Aspirin 81 mg 81 mg DAILY PO Last administered on 08/26/17 09:35; Admin Dose 81 MG; Start 08/25/17 at 09:00 Potassium Chloride/Calcium Chloride/Dextrose (KCl/Ca Chloride/ D5W) 1,030 ml @ 60 mls/hr [id number] IV Last administered on 08/27/17 05:43; Admin Dose 60 MLS/ HR; Start 08/25/17 at 13:30 Heparin Sodium (Porcine) (Heparin (5000 Units/0.5 ml)) 5,000 unit Q8 SC Last administered on 08/27/17 05:46; Admin Dose 5,000 UNIT; Start 08/25/17 at 22: 00 JENNIFER MOORE Aug 27, 2017 06:47
[2017-08-27] MEDS: FAMOTIDINE 20 MG INJ IV SCH (08:16)
[2017-08-27] MEDS: CLOPIDOGREL 75 MG TAB NGT SCH (08:47)
[2017-08-27] MEDS: METOPROLOL 25 MG TAB NGT SCH (08:48)
[2017-08-27] MEDS: ASPIRIN 81 MG TAB PO SCH (08:48)
[2017-08-27] MEDS: VALSARTAN 80 MG TAB PO SCH (08:49)
[2017-08-27 09:11] LABS: EOSINOPHILS % (M) 1 % (0-7); METAMYELOCYTES %M 1 % (0-0); MONOCYTES % (M) 12 % (0-11); MYELOCYTES % (M) 2 % (0-0); PLASMA CELLS #M 0.5 10^3/ul (0.0-0.0); PLASMAC%(M) 5 % (0); PLATELET ESTIMATE NORMAL; POLYCHROMASIA 1+ (0-0)
--- NOTE | 2017-08-27 11:09 | CONS ---
Date/Time of Note Date/Time of Note DATE: 08/27/17 TIME: 11:07 Consult Date/Type/Reason Admit Date/Time Aug 21, 2017 at 17:28 Initial Consult Date 08/21/17 Type of Consultation: Pulm Ordering Provider: HANNAH MCCLENDON MD Subjective Tolerated CPAP trial yesterday. Still encephalopathic. Not opening eyes or following commands. CT of the head was performed demonstrated no acute intracranial abnormalities. Objective Vital Signs Date Time Temp Pulse Resp B/P Pulse Ox O2 Delivery O2 Flow Rate FiO2 08/27/17 09:45 90 22 98 40 08/27/17 09:00 125/70 Mechanical Ventilator 08/27/17 07:00 99.3 Intake and Output 08/26/17 08/26/17 08/27/17 15:00 23:00 07:00 Intake Total 789.889 ml 765.756 ml 838.682 ml Output Total 678 ml 948 ml 944 ml Balance 111.889 ml -182.244 ml -105.318 ml Exam GENERAL: Chronically ill-appearing gentleman orally intubated on mechanical ventilation. Still mildly encephalopathic VITAL SIGNS: per chart NECK: Supple. No JVD or lymphadenopathy. CARDIAC EXAM: S1, S2. No added sounds or murmurs. CHEST: diminished air entry bilaterally ABDOMEN: Soft, nontender. No guarding or rebound. EXTREMITIES: No cyanosis, clubbing or edema. NEUROLOGIC: Generalized weakness. No focal deficits Results/Medications Result Diagram: 08/27/17 0410 08/27/17 0410 Results 24 hrs Laboratory Tests Test 08/26/17 12:00 08/26/17 12:58 08/27/17 04:10 Blood Gas Specimen Source Blood arterial Arterial Blood Date Drawn 08/26/2017 12:00:46 PM Arterial Blood pH (Temp corrected) 7.493 H Arterial Blood pCO2 (Temp correct) 29.1 L Arterial Blood pO2 (Temp corrected) 94.5 H Arterial Blood HCO3 21.8 L Arterial Blood Base Excess -0.4 Arterial Blood Oxygen Saturation 97.3 Hardeep Test ACCEPTAB Arterial Blood Gas Puncture Site Right Radial Arterial Blood Carboxyhemoglobin 0.3 Arterial Blood Methemoglobin 0.3 Blood Gas A-a O2 Differential 157.2 H Oxyhemoglobin Percent 96.7 Total Hemoglobin 13.3 Blood Gas Temperature 37.0 Blood Gas Actual Respiration Rate 37 Blood Gas Modality VENT - CPAP FiO2 40.0 Blood Gas Low PEEP Setting 5.0 Blood Gas Pressure Support 10 Blood Gas Notified Whom JLD Blood Gas Notified Time 08/26/2017 12:13:23 PM Bedside Glucose 106 White Blood Count 10.4 Red Blood Count 4.02 L Hemoglobin 11.8 L Hematocrit 35.9 L Mean Corpuscular Volume 89.3 Mean Corpuscular Hemoglobin 29.4 Mean Corpuscular Hemoglobin Concent 32.9 Red Cell Distribution Width 14.7 H Platelet Count 192 # Mean Platelet Volume 11.7 H Neutrophils % Segmented Neutrophils % (Manual) 69 Band Neutrophils % (Manual) 7 H Lymphocytes % Lymphocytes % (Manual) 4 L Monocytes % Monocytes % (Manual) 12 H Eosinophils % Eosinophils % (Manual) 1 Basophils % Metamyelocytes % (manual) 1 H Myelocytes % (Manual) 2 H Plasma Cells % (manual) 5 Nucleated Red Blood Cells % 0.3 H Neutrophils # Neutrophils # (Manual) 7.2 Band Neutrophils # 0.7 H Absolute Lymphocytes (Manual) 0.4 L Lymphocytes # Monocytes # Absolute Monocytes (Manual) 1.2 H Eosinophils # Basophils # Metamyelocytes # 0.1 H Myelocytes # 0.2 H Plasma Cells # (manual) 0.5 H Nucleated Red Blood Cells # Platelet Estimate NORMAL Polychromasia 1+ Sodium Level 147 H Potassium Level 3.6 Chloride Level 115 H Carbon Dioxide Level 24 Anion Gap 12 Blood Urea Nitrogen 17 Creatinine 0.92 Glucose Level 115 Calcium Level 8.8 Magnesium Level 2.0 Medications Current Medications Ondansetron HCl (Zofran Inj) 4 mg Q6H PRN IV NAUSEA AND/OR VOMITING; Start 08/21/17 at 17:30 Acetaminophen/ Hydrocodone Bitart ([place] (5/325)) 1 tab Q6H PRN PO MODERATE PAIN LEVEL 4-6; Start 08/21/17 at 17:30 Morphine Sulfate (morphine) 2 mg Q4H PRN IV SEVERE PAIN LEVEL 7-10; Start 08/21 at 17:30 Docusate Sodium (Colace) 100 mg Q12H PRN PO CONSTIPATION; Start 08/21/17 at 17: 30 Magnesium Hydroxide (Milk Of Mag) 30 ml DAILY PRN PO CONSTIPATION; Start at 17:30 Sodium Biphosphate/ Sodium Phosphate (Fleet Enema) 133 ml DAILY PRN [place] CONSTIPATION; Start 08/21/17 at 17:30 Hydralazine HCl (Apresoline) 10 mg Q6H PRN IV ELEVATED BLOOD PRESSURE; Start 08/21/17 at 17:30 Nitroglycerin (Nitroglycerin (Sl Tab) 0.4 Mg) 1 tab Q5M PRN SL ANGINA; Start 08/21/17 at 17:30 Hydromorphone HCl (Dilaudid) 0.2 mg Q15M PRN IV PAIN LEVEL 1-5 Last administered on 08/23/17 18:35; Admin Dose 0.2 MG; Start 08/22/17 at 01:00 Oxycodone/ Acetaminophen (Percocet (5/ 325)) 1 tab Q3H PRN PO PAIN LEVEL 1-5; Start 08/22/17 at 01:00 Famotidine 20 mg 20 mg BID@08,20 IV Last administered on 08/27/17 08:16; Admin Dose 20 MG; Start 08/22/17 at 08:00 Magnesium Sulfate/ Dextrose (Magnesium Sulfate 1 Gm/D5W) 100 ml @ 100 mls/hr PRN PRN IVPB PENDING LAB VALUE Last administered on 08/23/17 08:54; Admin Dose 100 MLS/HR; Start 08/22/17 at 01:00 Atorvastatin Calcium 80 mg 80 mg HS PO Last administered on 08/26/17 20:03; Admin Dose 80 MG; Start 08/22/17 at 21:00 Propofol (Diprivan) 100 ml @ 1.842 mls/ hr Q12H IV Last administered on 20:12; Admin Dose 5.526 MLS/HR; Start 08/22/17 at 16:00 Acetaminophen (Tylenol Liquid) 650 mg Q4H PRN PO PAIN AND OR ELEVATED TEMP Last administered on 08/26/17 20:02; Admin Dose 650 MG; Start 08/23/17 at 14: 30 Clopidogrel Bisulfate (plaVIX) 75 mg DAILY NGT Last administered on 08/27/17 08:47; Admin Dose 75 MG; Start 08/24/17 at 09:00 IV Flush (NS 10 ml) 10 ml PRN PRN IV IV PROTOCOL; Start 08/24/17 at 12:00 Aspirin 81 mg 81 mg DAILY PO Last administered on 08/27/17 08:48; Admin Dose 81 MG; Start 08/25/17 at 09:00 Potassium Chloride/Calcium Chloride/Dextrose (KCl/Ca Chloride/ D5W) 1,030 ml @ 60 mls/hr [id number] IV Last administered on 08/27/17 05:43; Admin Dose 60 MLS/ HR; Start 08/25/17 at 13:30 Heparin Sodium (Porcine) (Heparin (5000 Units/0.5 ml)) 5,000 unit Q8 SC Last administered on 08/27/17 05:46; Admin Dose 5,000 UNIT; Start 08/25/17 at 22: 00 Metoprolol Tartrate (Lopressor) 25 mg Q8 PO ; Start 08/27/17 at 14:00 Valsartan (Diovan) 40 mg DAILY PO Last administered on 08/27/17 08:49; Admin Dose 40 MG; Start 08/27/17 at 09:00 Assessment/Plan Chief Complaint/Hosp Course IMP: 1. s/p STEMI followed by LHC and CABG 2. Status post cardiogenic shock 3. Resolved lactic acidosis 4. Improving hyponatremia 6. Persistent encephalopathy likely toxic metabolic RECS: 1. Vent support, cpap trial today, hopefully extubate. 2. Post extubation IS / ST eval. 3. Hold sedation as tolerated 4. Start tube feeding if unable to be weaned from mechanical ventilation Discussed with family at bedside at length. 35 min cc time Problems: CRISTI REY MD, [facility] Aug 27, 2017 11:09
--- NOTE | 2017-08-27 11:52 | PN ---
Date/Time of Note Date/Time of Note DATE: 08/27/17 TIME: 11:38 Assessment/Plan VTE Prophylaxis VTE Prophylaxis Intervention: SCD's Lines/Catheters IV Catheter Type (from Nrsg): PICC Line Central line still needed: No Urinary Cath still in place: Yes Reason Cath still needed: other (indicate) (crtically ill) Assessment/Plan Assessment/Plan 72 yo M presented with chest pain found to have STEMI. 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 Hospitalization notable for VFib in the [facility], cardiogenic shock warranting IABP which has now been removed. 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 NCCT head without ICH MRI brain wwo #fever: re [place] culture #STEMI: wean pressors as tolerated cont BP/antiplatelet/lipid lowering regimen #Hypernatremia: start TFs and FW. will stop IVFs when TFs start #hx hypothyroid: TFTs wnl #anemia: hgb stable, outpatient follow up critical care time :30 minutes Subjective 24 Hr Interval Summary Free Text/Dictation still not opening eyes spontaneously or following commands Exam/Review of Systems Vital Signs Vitals Vital Signs Date Time Temp Pulse Resp B/P Pulse Ox O2 Delivery O2 Flow Rate FiO2 08/27/17 09:45 90 22 98 40 08/27/17 09:00 125/70 Mechanical Ventilator 08/27/17 07:00 99.3 Intake and Output 08/26/17 08/26/17 08/27/17 15:00 23:00 07:00 Intake Total 789.889 ml 765.756 ml 838.682 ml Output Total 678 ml 948 ml 944 ml Balance 111.889 ml -182.244 ml -105.318 ml Exam intubated, sedation being weaned pupils reactive to light bl no mrg lungs clear abd soft no rashes Results Result Diagram: 08/27/170 08/27/17409 Results 24 hrs Laboratory Tests Test 08/26/17 12:00 08/26/17 12:58 08/27/17 04:10 Blood Gas Specimen Source Blood arterial Arterial Blood Date Drawn 08/26/2017 12:00:46 PM Arterial Blood pH (Temp corrected) 7.493 H Arterial Blood pCO2 (Temp correct) 29.1 L Arterial Blood pO2 (Temp corrected) 94.5 H Arterial Blood HCO3 21.8 L Arterial Blood Base Excess -0.4 Arterial Blood Oxygen Saturation 97.3 Hardeep Test ACCEPTAB Arterial Blood Gas Puncture Site Right Radial Arterial Blood Carboxyhemoglobin 0.3 Arterial Blood Methemoglobin 0.3 Blood Gas A-a O2 Differential 157.2 H Oxyhemoglobin Percent 96.7 Total Hemoglobin 13.3 Blood Gas Temperature 37.0 Blood Gas Actual Respiration Rate 37 Blood Gas Modality VENT - CPAP FiO2 40.0 Blood Gas Low PEEP Setting 5.0 Blood Gas Pressure Support 10 Blood Gas Notified Whom JLD Blood Gas Notified Time 08/26/2017 12:13:23 PM Bedside Glucose 106 White Blood Count 10.4 Red Blood Count 4.02 L Hemoglobin 11.8 L Hematocrit 35.9 L Mean Corpuscular Volume 89.3 Mean Corpuscular Hemoglobin 29.4 Mean Corpuscular Hemoglobin Concent 32.9 Red Cell Distribution Width 14.7 H Platelet Count 192 # Mean Platelet Volume 11.7 H Neutrophils % Segmented Neutrophils % (Manual) 69 Band Neutrophils % (Manual) 7 H Lymphocytes % Lymphocytes % (Manual) 4 L Monocytes % Monocytes % (Manual) 12 H Eosinophils % Eosinophils % (Manual) 1 Basophils % Metamyelocytes % (manual) 1 H Myelocytes % (Manual) 2 H Plasma Cells % (manual) 5 Nucleated Red Blood Cells % 0.3 H Neutrophils # Neutrophils # (Manual) 7.2 Band Neutrophils # 0.7 H Absolute Lymphocytes (Manual) 0.4 L Lymphocytes # Monocytes # Absolute Monocytes (Manual) 1.2 H Eosinophils # Basophils # Metamyelocytes # 0.1 H Myelocytes # 0.2 H Plasma Cells # (manual) 0.5 H Nucleated Red Blood Cells # Platelet Estimate NORMAL Polychromasia 1+ Sodium Level 147 H Potassium Level 3.6 Chloride Level 115 H Carbon Dioxide Level 24 Anion Gap 12 Blood Urea Nitrogen 17 Creatinine 0.92 Glucose Level 115 Calcium Level 8.8 Magnesium Level 2.0 Medications Medications Current Medications Ondansetron HCl (Zofran Inj) 4 mg Q6H PRN IV NAUSEA AND/OR VOMITING; Start 08/21/17 at 17:30 Acetaminophen/ Hydrocodone Bitart ([place] (5/325)) 1 tab Q6H PRN PO MODERATE PAIN LEVEL 4-6; Start 08/21/17 at 17:30 Morphine Sulfate (morphine) 2 mg Q4H PRN IV SEVERE PAIN LEVEL 7-10; Start 08/21 at 17:30 Docusate Sodium (Colace) 100 mg Q12H PRN PO CONSTIPATION; Start 08/21/17 at 17: 30 Magnesium Hydroxide (Milk Of Mag) 30 ml DAILY PRN PO CONSTIPATION; Start at 17:30 Sodium Biphosphate/ Sodium Phosphate (Fleet Enema) 133 ml DAILY PRN [place] CONSTIPATION; Start 08/21/17 at 17:30 Hydralazine HCl (Apresoline) 10 mg Q6H PRN IV ELEVATED BLOOD PRESSURE; Start 08/21/17 at 17:30 Nitroglycerin (Nitroglycerin (Sl Tab) 0.4 Mg) 1 tab Q5M PRN SL ANGINA; Start 08/21/17 at 17:30 Hydromorphone HCl (Dilaudid) 0.2 mg Q15M PRN IV PAIN LEVEL 1-5 Last administered on 08/23/17 18:35; Admin Dose 0.2 MG; Start 08/22/17 at 01:00 Oxycodone/ Acetaminophen (Percocet (5/ 325)) 1 tab Q3H PRN PO PAIN LEVEL 1-5; Start 08/22/17 at 01:00 Famotidine 20 mg 20 mg BID@08,20 IV Last administered on 08/27/17 08:16; Admin Dose 20 MG; Start 08/22/17 at 08:00 Magnesium Sulfate/ Dextrose (Magnesium Sulfate 1 Gm/D5W) 100 ml @ 100 mls/hr PRN PRN IVPB PENDING LAB VALUE Last administered on 08/23/17 08:54; Admin Dose 100 MLS/HR; Start 08/22/17 at 01:00 Atorvastatin Calcium 80 mg 80 mg HS PO Last administered on 08/26/17 20:03; Admin Dose 80 MG; Start 08/22/17 at 21:00 Propofol (Diprivan) 100 ml @ 1.842 mls/ hr Q12H IV Last administered on 20:12; Admin Dose 5.526 MLS/HR; Start 08/22/17 at 16:00 Acetaminophen (Tylenol Liquid) 650 mg Q4H PRN PO PAIN AND OR ELEVATED TEMP Last administered on 08/26/17 20:02; Admin Dose 650 MG; Start 08/23/17 at 14: 30 Clopidogrel Bisulfate (plaVIX) 75 mg DAILY NGT Last administered on 08/27/17 08:47; Admin Dose 75 MG; Start 08/24/17 at 09:00 IV Flush (NS 10 ml) 10 ml PRN PRN IV IV PROTOCOL; Start 08/24/17 at 12:00 Aspirin 81 mg 81 mg DAILY PO Last administered on 08/27/17 08:48; Admin Dose 81 MG; Start 08/25/17 at 09:00 Potassium Chloride/Calcium Chloride/Dextrose (KCl/Ca Chloride/ D5W) 1,030 ml @ 60 mls/hr [id number] IV Last administered on 08/27/17 05:43; Admin Dose 60 MLS/ HR; Start 08/25/17 at 13:30 Heparin Sodium (Porcine) (Heparin (5000 Units/0.5 ml)) 5,000 unit Q8 SC Last administered on 08/27/17 05:46; Admin Dose 5,000 UNIT; Start 08/25/17 at 22: 00 Metoprolol Tartrate (Lopressor) 25 mg Q8 PO ; Start 08/27/17 at 14:00 Valsartan (Diovan) 40 mg DAILY PO Last administered on 08/27/17 08:49; Admin Dose 40 MG; Start 08/27/17 at 09:00 ZACHARY SHANNON MD Aug 27, 2017 11:49
[2017-08-27 12:14] LABS: AADO2 Arterial 170.1 mmHg (7.0-24.0); Allen Test ACCEPTAB; Arterial Base Excess 0.5 mmol/L (-3.0-3); Arterial COHb 0.3 % (0.0-3.0); Arterial Fraction of Oxyhgb 95.2 % (93.0-99.0); Arterial HCO3 23.1 mmol/L (22.0-26.0); Arterial MetHb 0.3 % (0.0-1.5); Arterial Total Hemglobin 13.6 g/dl (12.0-18.0); MODE VENT - AC
[2017-08-27 13:42] LABS: AADO2 Arterial 165.6 mmHg (7.0-24.0); Allen Test ACCEPTAB; Arterial Base Excess -2.2 mmol/L (-3.0-3); Arterial COHb 0.3 % (0.0-3.0); Arterial Fraction of Oxyhgb 95.5 % (93.0-99.0); Arterial MetHb 0.3 % (0.0-1.5); Arterial Total Hemglobin 12.6 g/dl (12.0-18.0); Blood Gas PS 10; MODE VENT - CPAP
[2017-08-27] MEDS: METOPROLOL 25 MG TAB PO SCH ×2 (14:26→21:24)
[2017-08-27] MEDS: PROPOFOL 100 ML IV SCH (16:00)
--- NOTE | 2017-08-27 16:51 | RADRPT ---
PROCEDURE: XR Chest 1 View. CLINICAL INDICATION: Shortness of breath. TECHNIQUE: Single view of the chest was obtained. COMPARISON: Yesterday. FINDINGS: The heart size is within normal limits. Calcified atherosclerosis is noted in the aorta. Endotrache al and nasogastric tubes are stable and appear in grossly appropriate location. Right-sided PICC art e is unchanged. Median sternotomy wires and surgical clips overlie the heart. Patchy infiltrates thr oughout both lungs are stable. Osseous structures are unchanged. IMPRESSION: Calcified atherosclerosis in the aorta. Stable patchy infiltrates throughout both lungs. RPTAT: AA .Martin Duggan MD, Date Time Electronically viewed and signed by .Martin Duggan MD, on 08/27/2017 08:46 .P/
--- NOTE | 2017-08-27 17:54 | PN ---
Date/Time of Note Date/Time of Note DATE: 08/27/17 TIME: 17:53 Assessment/Plan Lines/Catheters IV Catheter Type (from Nrsg): PICC Line Champion in Place (from Nrsg): Yes Assessment/Plan Chief Complaint/Hosp Course ct head negative, MRI pending remove pacing wires attempts to open eyes when saying his name off sedation discussed with brother and patients Problems: Exam/Review of Systems Vital Signs Vitals Vital Signs Date Time Temp Pulse Resp B/P Pulse Ox O2 Delivery O2 Flow Rate FiO2 08/27/17 16:00 89 08/27/17 16:00 100.5 24 123/88 97 Mechanical Ventilator 08/27/17 11:35 40 Intake and Output 08/26/17 08/26/17 08/27/17 15:00 23:00 07:00 Intake Total 789.889 ml 765.756 ml 898.682 ml Output Total 678 ml 948 ml 944 ml Balance 111.889 ml -182.244 ml -45.318 ml Results Result Diagram: 08/27/17 0410 08/27/17 0410 ERNIE LOPEZ MD Aug 27, 2017 17:54
[2017-08-27] MEDS: ATORVASTATIN 80 MG TAB PO SCH (21:22)
[2017-08-27] MEDS: FAMOTIDINE 20 MG TAB NGT SCH (21:22)
[2017-08-28] VITALS (36 sets, daily range): BP systolic 83–132; BP diastolic 57–87; PULSE 80–109; RESP 8–27
[2017-08-28] MEDS: POTASSIUM CHLORIDE 50 ML IVPB PRN ×5 (00:27→17:48)
[2017-08-28] MEDS: PROPOFOL 100 ML IV SCH ×2 (04:00→15:14)
[2017-08-28] MEDS: CALCIUM CHLORIDE IV SCH (04:14)
[2017-08-28] MEDS: DEXTROSE 5% IV SCH (04:14)
[2017-08-28] MEDS: POTASSIUM CHLORIDE IV SCH (04:14)
[2017-08-28 05:57] LABS: CALCIUM 10.3 mg/dl (8.4-10.2); CREATININE 0.82 mg/dl (0.61-1.24)
[2017-08-28] MEDS: METOPROLOL 25 MG TAB PO SCH ×3 (06:17→18:37)
[2017-08-28] MEDS: HEPARIN 5,000 UNIT/0.5 ML VIAL SC SCH ×3 (06:18→22:13)
[2017-08-28 06:30] LABS: ABNORMAL IP MESSAGE 1; BASOPHILS % 0.5 % (0.0-2.0); EOSINOPHILS # 0.2 10^3/ul (0.0-0.5); EOSINOPHILS % 1.7 % (0.0-7.0); HEMATOCRIT 33.4 % (42.0-52.0); HEMOGLOBIN 10.7 g/dl (14.0-18.0); LYMPHOCYTES # 1.6 10^3/ul (0.8-2.9); LYMPHOCYTES % 18.8 % (15.0-51.0); MEAN CORPUSCULAR HEMOGLOBIN 28.8 pg (29.0-33.0); MONOCYTE # 1.1 10^3/ul (0.3-0.9); MONOCYTES % 12.6 % (0.0-11.0); NEUTROPHIL # 5.2 10^3/ul (1.6-7.5); NEUTROPHILS % 59.9 % (39.0-77.0); NUCLEATED RED BLOOD CELLS% 0.3 /100WBC (0.0-0.0); PLATELET COUNT 261 10^3/UL (140-415); POSITIVE DIFF @See below; RED BLOOD COUNT 3.71 10^6/ul (4.70-6.10); RED CELL DISTRIBUTION WIDTH 14.9 % (11.5-14.5); WHITE BLOOD COUNT 8.7 10^3/ul (4.8-10.8)
[2017-08-28 06:36] LABS: POTASSIUM 6.5 mmol/L (3.5-5.1)
--- NOTE | 2017-08-28 06:40 | PN ---
Date/Time of Note Date/Time of Note DATE: 08/28/17 TIME: 06:39 Assessment/Plan Lines/Catheters IV Catheter Type (from Nrs): PICC Line Champion in Place (from Nrs): Yes Assessment/Plan Chief Complaint/Hosp Course ct head negative, MRI pending more awake opening eyes attempt weaning again repeat K Problems: Exam/Review of Systems Vital Signs Vitals Vital Signs Date Time Temp Pulse Resp B/P Pulse Ox O2 Delivery O2 Flow Rate FiO2 08/28/17 06:00 107 27 132/83 98 Mechanical Ventilator 08/28/17 05:43 40 08/28/17 04:00 99.0 Intake and Output 08/27/17 08/27/17 08/28/17 15:00 23:00 07:00 Intake Total 835.903 ml 690 ml 1290 ml Output Total 1247 ml 950 ml 680 ml Balance -411.097 ml -260 ml 610 ml Results Result Diagram: 08/27/17 0410 08/28/17 0420 ERNIE LOPEZ MD Aug 28, 2017 06:40
--- NOTE | 2017-08-28 07:10 | CONS ---
Date/Time of Note Date/Time of Note DATE: 08/28/17 TIME: 07:08 Assessment/Plan Assessment/Plan Chief Complaint/Hosp Course I reviewed patient's medical records examined him. However I will not set up family conference as this is still early in his hospital course. I will remain available in the event that his prognosis appears to be grim. Problems: Additional Assessment/Plan Family conference within the next 2 days Consultation Date/Type/Reason Admit Date/Time Aug 21, 2017 at 17:28 Initial Consult Date 08/21/17 Type of Consultation: Palliative care Referring Provider: HANNAH MCCLENDON MD 24 HR Interval Summary Free Text/Dictation Postdated note for ICU visit 08/27/2017 Clinically stable waiting to see whether not patient can be extubated. I will schedule family conference Exam/Review of Systems Vital Signs Vitals Vital Signs Date Time Temp Pulse Resp B/P Pulse Ox O2 Delivery O2 Flow Rate FiO2 08/28/17 06:00 107 27 132/83 98 Mechanical Ventilator 08/28/17 05:43 40 08/28/17 04:00 99.0 Intake and Output 08/27/17 08/27/17 08/28/17 14:59 22:59 06:59 Intake Total 841.429 ml 680 ml 1360 ml Output Total 1185 ml 1087 ml 750 ml Balance -343.571 ml -407 ml 610 ml Exam Respiratory: No clear to auscultation, No congested cough, No crackles/rales, No diminished breath sounds, No intercostal retraction, No labored breathing, No normal air movement, No other, No respirations, No tactile fremitus, No wheezing Cardiovascular: diastolic murmur, edema Gastrointestinal: nl liver, spleen, non-tender, soft Results Result Diagram: 08/28/17 0420 08/28/17 0420 Results 24 hrs Laboratory Tests Test 08/27/17 13:30 08/28/17 04:20 Blood Gas Specimen Source Blood arterial Arterial Blood Date Drawn 08/27/2017 1:35:45 PM Arterial Blood pH (Temp corrected) 7.445 Arterial Blood pCO2 (Temp correct) 31.3 L Arterial Blood pO2 (Temp corrected) 83.6 Arterial Blood HCO3 21.0 L Arterial Blood Base Excess -2.2 Arterial Blood Oxygen Saturation 96.1 Hardeep Test ACCEPTAB Arterial Blood Gas Puncture Site Right Radial Arterial Blood Carboxyhemoglobin 0.3 Arterial Blood Methemoglobin 0.3 Blood Gas A-a O2 Differential 165.6 H Oxyhemoglobin Percent 95.5 Total Hemoglobin 12.6 Blood Gas Temperature 37.0 Blood Gas Modality VENT - CPAP FiO2 40.0 Blood Gas Low PEEP Setting 5.0 Blood Gas Pressure Support 10 Blood Gas Critical Value Read Back ChelseyCHITRA Blood Gas Notified Whom TERRENCE Blood Gas Notified Time 08/27/2017 1:42:45 PM White Blood Count 8.7 Red Blood Count 3.71 L Hemoglobin 10.7 L Hematocrit 33.4 L Mean Corpuscular Volume 90.0 Mean Corpuscular Hemoglobin 28.8 L Mean Corpuscular Hemoglobin Concent 32.0 Red Cell Distribution Width 14.9 H Platelet Count 261 # Mean Platelet Volume 12.0 H Neutrophils % 59.9 Lymphocytes % 18.8 Monocytes % 12.6 H Eosinophils % 1.7 Basophils % 0.5 Nucleated Red Blood Cells % 0.3 H Neutrophils # 5.2 Lymphocytes # 1.6 Monocytes # 1.1 H Eosinophils # 0.2 Basophils # 0.0 Nucleated Red Blood Cells # 0.0 Sodium Level 139 Potassium Level 6.5 #*H Chloride Level 112 H Carbon Dioxide Level 22 Anion Gap 12 Blood Urea Nitrogen 17 Creatinine 0.82 Glucose Level 364 #H Calcium Level 10.3 H Medications Medications Current Medications Ondansetron HCl (Zofran Inj) 4 mg Q6H PRN IV NAUSEA AND/OR VOMITING; Start 08/21/17 at 17:30 Acetaminophen/ Hydrocodone Bitart ([place] (5/325)) 1 tab Q6H PRN PO MODERATE PAIN LEVEL 4-6; Start 08/21/17 at 17:30 Morphine Sulfate (morphine) 2 mg Q4H PRN IV SEVERE PAIN LEVEL 7-10; Start 08/21 at 17:30 Docusate Sodium (Colace) 100 mg Q12H PRN PO CONSTIPATION; Start 08/21/17 at 17: 30 Magnesium Hydroxide (Milk Of Mag) 30 ml DAILY PRN PO CONSTIPATION; Start at 17:30 Sodium Biphosphate/ Sodium Phosphate (Fleet Enema) 133 ml DAILY PRN [place] CONSTIPATION; Start 08/21/17 at 17:30 Hydralazine HCl (Apresoline) 10 mg Q6H PRN IV ELEVATED BLOOD PRESSURE; Start 08/21/17 at 17:30 Nitroglycerin (Nitroglycerin (Sl Tab) 0.4 Mg) 1 tab Q5M PRN SL ANGINA; Start 08/21/17 at 17:30 Hydromorphone HCl (Dilaudid) 0.2 mg Q15M PRN IV PAIN LEVEL 1-5 Last administered on 08/23/17 18:35; Admin Dose 0.2 MG; Start 08/22/17 at 01:00 Oxycodone/ Acetaminophen 1 tab 1 tab Q3H PRN PO PAIN LEVEL 1-5; Start 08/22/17 at 01:00 Magnesium Sulfate/ Dextrose (Magnesium Sulfate 1 Gm/D5W) 100 ml @ 100 mls/hr PRN PRN IVPB PENDING LAB VALUE Last administered on 08/23/17 08:54; Admin Dose 100 MLS/HR; Start 08/22/17 at 01:00 Atorvastatin Calcium 80 mg 80 mg HS PO Last administered on 08/27/17 21:22; Admin Dose 80 MG; Start 08/22/17 at 21:00 Propofol (Diprivan) 100 ml @ 1.842 mls/ hr Q12H IV Last administered on 20:12; Admin Dose 5.526 MLS/HR; Start 08/22/17 at 16:00 Acetaminophen (Tylenol Liquid) 650 mg Q4H PRN PO PAIN AND OR ELEVATED TEMP Last administered on 08/26/17 20:02; Admin Dose 650 MG; Start 08/23/17 at 14: 30 Clopidogrel Bisulfate (plaVIX) 75 mg DAILY NGT Last administered on 08/27/17 08:47; Admin Dose 75 MG; Start 08/24/17 at 09:00 IV Flush (NS 10 ml) 10 ml PRN PRN IV IV PROTOCOL; Start 08/24/17 at 12:00 Aspirin 81 mg 81 mg DAILY PO Last administered on 08/27/17 08:48; Admin Dose 81 MG; Start 08/25/17 at 09:00 Potassium Chloride/Calcium Chloride/Dextrose (KCl/Ca Chloride/ D5W) 1,030 ml @ 60 mls/hr [id number] IV Last administered on 08/28/17 04:14; Admin Dose 60 MLS/ HR; Start 08/25/17 at 13:30 Heparin Sodium (Porcine) (Heparin (5000 Units/0.5 ml)) 5,000 unit Q8 SC Last administered on 08/28/17 06:18; Admin Dose 5,000 UNIT; Start 08/25/17 at 22: 00 Metoprolol Tartrate (Lopressor) 25 mg Q8 PO Last administered on 08/28/17 06: 17; Admin Dose 25 MG; Start 08/27/17 at 14:00 Valsartan (Diovan) 40 mg DAILY PO Last administered on 08/27/17 08:49; Admin Dose 40 MG; Start 08/27/17 at 09:00 Famotidine (Pepcid) 20 mg HS NGT Last administered on 08/27/17 21:22; Admin Dose 20 MG; Start 08/27/17 at 21:00 PRICILA FAJARDO Aug 28, 2017 07:10
--- NOTE | 2017-08-28 08:12 | RADRPT ---
PROCEDURE: XR Chest. CLINICAL INDICATION: Pneumonia, CHF. TECHNIQUE: Single frontal view of the chest was obtained. COMPARISON: 08/27/2017. FINDINGS: Endotracheal tube, enteric tube, and right-sided PICC appear stable in position. The cardiomediastinal silhouette appears unchanged. There are aortic calcifications. Stable sternoto my wires. No significant change in diffuse bilateral air space opacities. No pleural effusion is seen. No definite pneumothorax. No acute osseous abnormality. IMPRESSION: 1. No significant change in diffuse bilateral air space opacities. 2. Stable support lines and tubes. RPTAT: AAEE Brad Starr Physician Date Time Electronically viewed and signed by Brad Starr Physician on 08/28/2017 08:12 PH/
[2017-08-28 08:39] LABS: AADO2 Arterial 151.9 mmHg (7.0-24.0); Allen Test ACCEPTAB; Arterial COHb 0.3 % (0.0-3.0); Arterial Fraction of Oxyhgb 96.7 % (93.0-99.0); Arterial HCO3 21.7 mmol/L (22.0-26.0); Arterial MetHb 0.3 % (0.0-1.5); Arterial Total Hemglobin 12.7 g/dl (12.0-18.0); MODE VENT - AC
[2017-08-28] MEDS: VALSARTAN 80 MG TAB PO SCH (08:40)
[2017-08-28] MEDS: ASPIRIN 81 MG TAB PO SCH (08:40)
[2017-08-28] MEDS: CLOPIDOGREL 75 MG TAB NGT SCH (08:40)
[2017-08-28 09:13] LABS: CREATININE 0.83 mg/dl (0.61-1.24); MAGNESIUM 2.1 mg/dl (1.7-2.5)
--- NOTE | 2017-08-28 10:38 | CONS ---
Date/Time of Note Date/Time of Note DATE: 08/28/17 TIME: 10:35 Assessment/Plan Assessment/Plan Additional Assessment/Plan Chest x-ray was reviewed from today which is showing mild pulmonary edema. Endotracheal tube is at an adequate level. Patient is currently on assist control of 22, tidal volume 450, PEEP of 5, 40% FiO2. Assessment and recommendations; 1. Patient admitted with STEMI status post angiography as well as CABG surgery , status post CPR. 2. 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 3. Mild persistent pulmonary edema. 4. History of hypertension. Continue current treatment. Patient scheduled for MRI of the brain today. Prognosis is guarded and depends entirely upon adequate mental status recovery. Consultation Date/Type/Reason Admit Date/Time Aug 21, 2017 at 17:28 Initial Consult Date 08/21/17 Type of Consultation: Pulmonary/critical care Referring Provider: HANNAH MCCLENDON MD 24 HR Interval Summary Free Text/Dictation Patient's condition remains critical. Remains awake but unresponsive to any commands. Patient has been off sedation for more than 48 hours. Patient however has remained hemodynamically stable. General exam; elderly male, orally intubated, awake but unresponsive, currently in no distress. Exam/Review of Systems Vital Signs Vitals Vital Signs Date Time Temp Pulse Resp B/P Pulse Ox O2 Delivery O2 Flow Rate FiO2 08/28/17 10:00 91 22 108/63 97 Mechanical Ventilator 08/28/17 09:07 40 08/28/17 07:00 98.0 Intake and Output 08/27/17 08/27/17 08/28/17 15:00 23:00 07:00 Intake Total 835.903 ml 690 ml 1380 ml Output Total 1247 ml 950 ml 799 ml Balance -411.097 ml -260 ml 581 ml Exam HEENT exam; supple neck, positive JVD. No lymphadenopathy. Midline trachea. No thyromegaly. Patient has fair dentition. Pupils are midsize and reactive to light. Chest exam; diminished but clear breath sounds. S1-S2 audible, no murmurs. There is a well-healing sternal scar. Abdomen exam; soft, nondistended. No organomegaly. Bowel sounds audible. Extremity exam; no edema. CYLINDER DYER exam; patient is awake but does not follow any commands. Results Result Diagram: 08/28/17 0420 08/28/17 0708 Results 24 hrs Laboratory Tests Test 08/27/17 13:30 08/28/17 04:20 08/28/17 07:00 08/28/17 07:08 Blood Gas Specimen Source Blood arterial Blood arterial Arterial Blood Date Drawn 08/27/2017 1:35:45 PM 08/28/2017 8:10:46 AM Arterial Blood pH (Temp corrected) 7.445 7.471 H Arterial Blood pCO2 (Temp correct) 31.3 L 30.5 L Arterial Blood pO2 (Temp corrected) 83.6 98.2 H Arterial Blood HCO3 21.0 L 21.7 L Arterial Blood Base Excess -2.2 -1.0 Arterial Blood Oxygen Saturation 96.1 97.3 Hardeep Test ACCEPTAB ACCEPTAB Arterial Blood Gas Puncture Site Right Radial Right Radial Arterial Blood Carboxyhemoglobin 0.3 0.3 Arterial Blood Methemoglobin 0.3 0.3 Blood Gas A-a O2 Differential 165.6 H 151.9 H Oxyhemoglobin Percent 95.5 96.7 Total Hemoglobin 12.6 12.7 Blood Gas Temperature 37.0 37.0 Blood Gas Modality VENT - CPAP VENT - AC FiO2 40.0 40.0 Blood Gas Low PEEP Setting 5.0 5.0 Blood Gas Pressure Support 10 Blood Gas Critical Value Read Back H.CHITRA Blood Gas Notified Whom TERRENCE DIAZ Blood Gas Notified Time 08/27/2017 1:42:45 PM 08/28/2017 8:39:31 AM White Blood Count 8.7 Red Blood Count 3.71 L Hemoglobin 10.7 L Hematocrit 33.4 L Mean Corpuscular Volume 90.0 Mean Corpuscular Hemoglobin 28.8 L Mean Corpuscular Hemoglobin Concent 32.0 Red Cell Distribution Width 14.9 H Platelet Count 261 # Mean Platelet Volume 12.0 H Neutrophils % 59.9 Lymphocytes % 18.8 Monocytes % 12.6 H Eosinophils % 1.7 Basophils % 0.5 Nucleated Red Blood Cells % 0.3 H Neutrophils # 5.2 Lymphocytes # 1.6 Monocytes # 1.1 H Eosinophils # 0.2 Basophils # 0.0 Nucleated Red Blood Cells # 0.0 Sodium Level 139 148 H Potassium Level 6.5 #*H 4.0 Chloride Level 112 H 118 H Carbon Dioxide Level 22 22 Anion Gap 12 12 Blood Urea Nitrogen 17 18 Creatinine 0.82 0.83 Glucose Level 364 #H 141 # Calcium Level 10.3 H 9.0 Blood Gas Respiration Rate 22.0 Blood Gas Actual Respiration Rate 28 Blood Gas Tidal Volume 450.0 Magnesium Level 2.1 Medications Medications Current Medications Ondansetron HCl (Zofran Inj) 4 mg Q6H PRN IV NAUSEA AND/OR VOMITING; Start 08/21/17 at 17:30 Acetaminophen/ Hydrocodone Bitart ([place] (5/325)) 1 tab Q6H PRN PO MODERATE PAIN LEVEL 4-6; Start 08/21/17 at 17:30 Morphine Sulfate (morphine) 2 mg Q4H PRN IV SEVERE PAIN LEVEL 7-10; Start 08/21 at 17:30 Docusate Sodium (Colace) 100 mg Q12H PRN PO CONSTIPATION; Start 08/21/17 at 17: 30 Magnesium Hydroxide (Milk Of Mag) 30 ml DAILY PRN PO CONSTIPATION; Start at 17:30 Sodium Biphosphate/ Sodium Phosphate (Fleet Enema) 133 ml DAILY PRN [place] CONSTIPATION; Start 08/21/17 at 17:30 Hydralazine HCl (Apresoline) 10 mg Q6H PRN IV ELEVATED BLOOD PRESSURE; Start 08/21/17 at 17:30 Nitroglycerin (Nitroglycerin (Sl Tab) 0.4 Mg) 1 tab Q5M PRN SL ANGINA; Start 08/21/17 at 17:30 Hydromorphone HCl (Dilaudid) 0.2 mg Q15M PRN IV PAIN LEVEL 1-5 Last administered on 08/23/17 18:35; Admin Dose 0.2 MG; Start 08/22/17 at 01:00 Oxycodone/ Acetaminophen 1 tab 1 tab Q3H PRN PO PAIN LEVEL 1-5; Start 08/22/17 at 01:00 Magnesium Sulfate/ Dextrose (Magnesium Sulfate 1 Gm/D5W) 100 ml @ 100 mls/hr PRN PRN IVPB PENDING LAB VALUE Last administered on 08/23/17 08:54; Admin Dose 100 MLS/HR; Start 08/22/17 at 01:00 Atorvastatin Calcium 80 mg 80 mg HS PO Last administered on 08/27/17 21:22; Admin Dose 80 MG; Start 08/22/17 at 21:00 Propofol (Diprivan) 100 ml @ 1.842 mls/ hr Q12H IV Last administered on 20:12; Admin Dose 5.526 MLS/HR; Start 08/22/17 at 16:00 Acetaminophen (Tylenol Liquid) 650 mg Q4H PRN PO PAIN AND OR ELEVATED TEMP Last administered on 08/26/17 20:02; Admin Dose 650 MG; Start 08/23/17 at 14: 30 Clopidogrel Bisulfate (plaVIX) 75 mg DAILY NGT Last administered on 08/28/17 08:40; Admin Dose 75 MG; Start 08/24/17 at 09:00 IV Flush (NS 10 ml) 10 ml PRN PRN IV IV PROTOCOL; Start 08/24/17 at 12:00 Aspirin 81 mg 81 mg DAILY PO Last administered on 08/28/17 08:40; Admin Dose 81 MG; Start 08/25/17 at 09:00 Potassium Chloride/Calcium Chloride/Dextrose (KCl/Ca Chloride/ D5W) 1,030 ml @ 60 mls/hr [id number] IV Last administered on 08/28/17 04:14; Admin Dose 60 MLS/ HR; Start 08/25/17 at 13:30 Heparin Sodium (Porcine) (Heparin (5000 Units/0.5 ml)) 5,000 unit Q8 SC Last administered on 08/28/17 06:18; Admin Dose 5,000 UNIT; Start 08/25/17 at 22: 00 Metoprolol Tartrate (Lopressor) 25 mg Q8 PO Last administered on 08/28/17 06: 17; Admin Dose 25 MG; Start 08/27/17 at 14:00 Valsartan (Diovan) 40 mg DAILY PO Last administered on 08/28/17 08:40; Admin Dose 40 MG; Start 08/27/17 at 09:00 Famotidine (Pepcid) 20 mg HS NGT Last administered on 08/27/17 21:22; Admin Dose 20 MG; Start 08/27/17 at 21:00 VILLA SEWELL Aug 28, 2017 10:38
--- NOTE | 2017-08-28 11:27 | PN ---
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 Subjective hx not possible: pt non-verbal, pt critical status Exam/Review of Systems Vital Signs Vitals Vital Signs Date Time Temp Pulse Resp B/P Pulse Ox O2 Delivery O2 Flow Rate FiO2 08/28/17 11:00 90 22 96 40 08/28/17 10:00 108/63 Mechanical Ventilator 08/28/17 07:00 98.0 Intake and Output 08/27/17 08/27/17 08/28/17 15:00 23:00 07:00 Intake Total 835.903 ml 690 ml 1380 ml Output Total 1247 ml 950 ml 799 ml Balance -411.097 ml -260 ml 581 ml Exam Constitutional: non-verbal Head: normocephalic ENMT: intubated Neck: No bruits, No jvd Respiratory: crackles/rales Cardiovascular: regular rate and rhythm, No murmurs/extra sounds Gastrointestinal: non-tender, soft Musculoskeletal: nl extremities to inspection Extremities: edema (minimal) 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: unresponsive Skin: nl turgor Results Result Diagram: 08/28/17 0420 08/28/17 0708 Results 24 hrs Laboratory Tests Test 08/27/17 13:30 08/28/17 04:20 08/28/17 07:00 08/28/17 07:08 Blood Gas Specimen Source Blood arterial Blood arterial Arterial Blood Date Drawn 08/27/2017 1:35:45 PM 08/28/2017 8:10:46 AM Arterial Blood pH (Temp corrected) 7.445 7.471 H Arterial Blood pCO2 (Temp correct) 31.3 L 30.5 L Arterial Blood pO2 (Temp corrected) 83.6 98.2 H Arterial Blood HCO3 21.0 L 21.7 L Arterial Blood Base Excess -2.2 -1.0 Arterial Blood Oxygen Saturation 96.1 97.3 Hardeep Test ACCEPTAB ACCEPTAB Arterial Blood Gas Puncture Site Right Radial Right Radial Arterial Blood Carboxyhemoglobin 0.3 0.3 Arterial Blood Methemoglobin 0.3 0.3 Blood Gas A-a O2 Differential 165.6 H 151.9 H Oxyhemoglobin Percent 95.5 96.7 Total Hemoglobin 12.6 12.7 Blood Gas Temperature 37.0 37.0 Blood Gas Modality VENT - CPAP VENT - AC FiO2 40.0 40.0 Blood Gas Low PEEP Setting 5.0 5.0 Blood Gas Pressure Support 10 Blood Gas Critical Value Read Back MAKENNA Blood Gas Notified Whom TERRENCE DIAZ Blood Gas Notified Time 08/27/2017 1:42:45 PM 08/28/2017 8:39:31 AM White Blood Count 8.7 Red Blood Count 3.71 L Hemoglobin 10.7 L Hematocrit 33.4 L Mean Corpuscular Volume 90.0 Mean Corpuscular Hemoglobin 28.8 L Mean Corpuscular Hemoglobin Concent 32.0 Red Cell Distribution Width 14.9 H Platelet Count 261 # Mean Platelet Volume 12.0 H Neutrophils % 59.9 Lymphocytes % 18.8 Monocytes % 12.6 H Eosinophils % 1.7 Basophils % 0.5 Nucleated Red Blood Cells % 0.3 H Neutrophils # 5.2 Lymphocytes # 1.6 Monocytes # 1.1 H Eosinophils # 0.2 Basophils # 0.0 Nucleated Red Blood Cells # 0.0 Sodium Level 139 148 H Potassium Level 6.5 #*H 4.0 Chloride Level 112 H 118 H Carbon Dioxide Level 22 22 Anion Gap 12 12 Blood Urea Nitrogen 17 18 Creatinine 0.82 0.83 Glucose Level 364 #H 141 # Calcium Level 10.3 H 9.0 Blood Gas Respiration Rate 22.0 Blood Gas Actual Respiration Rate 28 Blood Gas Tidal Volume 450.0 Magnesium Level 2.1 Medications Medications Current Medications Ondansetron HCl (Zofran Inj) 4 mg Q6H PRN IV NAUSEA AND/OR VOMITING; Start 08/21/17 at 17:30 Acetaminophen/ Hydrocodone Bitart ([place] (5/325)) 1 tab Q6H PRN PO MODERATE PAIN LEVEL 4-6; Start 08/21/17 at 17:30 Morphine Sulfate (morphine) 2 mg Q4H PRN IV SEVERE PAIN LEVEL 7-10; Start 08/21 at 17:30 Docusate Sodium (Colace) 100 mg Q12H PRN PO CONSTIPATION; Start 08/21/17 at 17: 30 Magnesium Hydroxide (Milk Of Mag) 30 ml DAILY PRN PO CONSTIPATION; Start at 17:30 Sodium Biphosphate/ Sodium Phosphate (Fleet Enema) 133 ml DAILY PRN [place] CONSTIPATION; Start 08/21/17 at 17:30 Hydralazine HCl (Apresoline) 10 mg Q6H PRN IV ELEVATED BLOOD PRESSURE; Start 08/21/17 at 17:30 Nitroglycerin (Nitroglycerin (Sl Tab) 0.4 Mg) 1 tab Q5M PRN SL ANGINA; Start 08/21/17 at 17:30 Hydromorphone HCl (Dilaudid) 0.2 mg Q15M PRN IV PAIN LEVEL 1-5 Last administered on 08/23/17 18:35; Admin Dose 0.2 MG; Start 08/22/17 at 01:00 Oxycodone/ Acetaminophen 1 tab 1 tab Q3H PRN PO PAIN LEVEL 1-5; Start 08/22/17 at 01:00 Magnesium Sulfate/ Dextrose (Magnesium Sulfate 1 Gm/D5W) 100 ml @ 100 mls/hr PRN PRN IVPB PENDING LAB VALUE Last administered on 08/23/17 08:54; Admin Dose 100 MLS/HR; Start 08/22/17 at 01:00 Atorvastatin Calcium 80 mg 80 mg HS PO Last administered on 08/27/17 21:22; Admin Dose 80 MG; Start 08/22/17 at 21:00 Propofol (Diprivan) 100 ml @ 1.842 mls/ hr Q12H IV Last administered on 20:12; Admin Dose 5.526 MLS/HR; Start 08/22/17 at 16:00 Acetaminophen (Tylenol Liquid) 650 mg Q4H PRN PO PAIN AND OR ELEVATED TEMP Last administered on 08/26/17 20:02; Admin Dose 650 MG; Start 08/23/17 at 14: 30 Clopidogrel Bisulfate (plaVIX) 75 mg DAILY NGT Last administered on 08/28/17 08:40; Admin Dose 75 MG; Start 08/24/17 at 09:00 IV Flush (NS 10 ml) 10 ml PRN PRN IV IV PROTOCOL; Start 08/24/17 at 12:00 Aspirin 81 mg 81 mg DAILY PO Last administered on 08/28/17 08:40; Admin Dose 81 MG; Start 08/25/17 at 09:00 Potassium Chloride/Calcium Chloride/Dextrose (KCl/Ca Chloride/ D5W) 1,030 ml @ 60 mls/hr [id number] IV Last administered on 08/28/17 04:14; Admin Dose 60 MLS/ HR; Start 08/25/17 at 13:30 Heparin Sodium (Porcine) (Heparin (5000 Units/0.5 ml)) 5,000 unit Q8 SC Last administered on 08/28/17 06:18; Admin Dose 5,000 UNIT; Start 08/25/17 at 22: 00 Metoprolol Tartrate (Lopressor) 25 mg Q8 PO Last administered on 08/28/17 06: 17; Admin Dose 25 MG; Start 08/27/17 at 14:00 Valsartan (Diovan) 40 mg DAILY PO Last administered on 08/28/17 08:40; Admin Dose 40 MG; Start 08/27/17 at 09:00 Famotidine (Pepcid) 20 mg HS NGT Last administered on 08/27/17 21:22; Admin Dose 20 MG; Start 08/27/17 at 21:00 JENNIFER MOORE Aug 28, 2017 11:27
[2017-08-28] MEDS: FUROSEMIDE 40 MG INJ IV SCH (12:50)
[2017-08-28] MEDS: SPIRONOLACTONE 25 MG TAB NGT SCH (12:51)
--- NOTE | 2017-08-28 13:07 | PN ---
Date/Time of Note Date/Time of Note DATE: 08/28/17 TIME: 13:00 Assessment/Plan VTE Prophylaxis VTE Prophylaxis Intervention: SCD's Lines/Catheters IV Catheter Type (from Nrs): PICC Line Central line still needed: No Urinary Cath still in place: Yes Reason Cath still needed: other (indicate) (intubated) Assessment/Plan Assessment/Plan 72 yo M presented with chest pain found to have STEMI. Was taken to [facility] but found to have 3v disease now sp CABG. Hospitalization notable for VFib in the [employer] [employer], cardiogenic shock warranting IABP which has now been removed. 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 blood and urine neg, respiratory specimen with NRF, CXR to my review appears to look consistent with volume overload, no leukocytosis. possibly central in origin. continue to monitor #STEMI: wean pressors as tolerated cont BP/antiplatelet/lipid lowering regimen as per cardiology #Hypernatremia: increase FW. 1.7L FW deficit. Will do 2L FW daily #hx hypothyroid: TFTs wnl #anemia: hgb stable, outpatient follow up critical care time :30 minutes Subjective 24 Hr Interval Summary Free Text/Dictation more awake this AM. Off sedation and moving limbs and opening/closing eyes spontaneously Exam/Review of Systems Vital Signs Vitals Vital Signs Date Time Temp Pulse Resp B/P Pulse Ox O2 Delivery O2 Flow Rate FiO2 08/28/17 12:00 100.0 90 8 116/67 96 Mechanical Ventilator 08/28/17 11:00 40 Intake and Output 08/27/17 08/27/17 08/28/17 15:00 23:00 07:00 Intake Total 835.903 ml 690 ml 1380 ml Output Total 1247 ml 950 ml 799 ml Balance -411.097 ml -260 ml 581 ml Exam intubated no mrg lungs clear abd soft no rashes opens eyes and moves limbs spontaneously Results Result Diagram: 08/28/17 0420 08/28/17 0708 Results 24 hrs Laboratory Tests Test 08/27/17 13:30 08/28/17 04:20 08/28/17 07:00 08/28/17 07:08 Blood Gas Specimen Source Blood arterial Blood arterial Arterial Blood Date Drawn 08/27/2017 1:35:45 PM 08/28/2017 8:10:46 AM Arterial Blood pH (Temp corrected) 7.445 7.471 H Arterial Blood pCO2 (Temp correct) 31.3 L 30.5 L Arterial Blood pO2 (Temp corrected) 83.6 98.2 H Arterial Blood HCO3 21.0 L 21.7 L Arterial Blood Base Excess -2.2 -1.0 Arterial Blood Oxygen Saturation 96.1 97.3 Hardeep Test ACCEPTAB ACCEPTAB Arterial Blood Gas Puncture Site Right Radial Right Radial Arterial Blood Carboxyhemoglobin 0.3 0.3 Arterial Blood Methemoglobin 0.3 0.3 Blood Gas A-a O2 Differential 165.6 H 151.9 H Oxyhemoglobin Percent 95.5 96.7 Total Hemoglobin 12.6 12.7 Blood Gas Temperature 37.0 37.0 Blood Gas Modality VENT - CPAP VENT - AC FiO2 40.0 40.0 Blood Gas Low PEEP Setting 5.0 5.0 Blood Gas Pressure Support 10 Blood Gas Critical Value Read Back HMARK Blood Gas Notified Whom TERRENCE DIAZ Blood Gas Notified Time 08/27/2017 1:42:45 PM 08/28/2017 8:39:31 AM White Blood Count 8.7 Red Blood Count 3.71 L Hemoglobin 10.7 L Hematocrit 33.4 L Mean Corpuscular Volume 90.0 Mean Corpuscular Hemoglobin 28.8 L Mean Corpuscular Hemoglobin Concent 32.0 Red Cell Distribution Width 14.9 H Platelet Count 261 # Mean Platelet Volume 12.0 H Neutrophils % 59.9 Lymphocytes % 18.8 Monocytes % 12.6 H Eosinophils % 1.7 Basophils % 0.5 Nucleated Red Blood Cells % 0.3 H Neutrophils # 5.2 Lymphocytes # 1.6 Monocytes # 1.1 H Eosinophils # 0.2 Basophils # 0.0 Nucleated Red Blood Cells # 0.0 Sodium Level 139 148 H Potassium Level 6.5 #*H 4.0 Chloride Level 112 H 118 H Carbon Dioxide Level 22 22 Anion Gap 12 12 Blood Urea Nitrogen 17 18 Creatinine 0.82 0.83 Glucose Level 364 #H 141 # Calcium Level 10.3 H 9.0 Blood Gas Respiration Rate 22.0 Blood Gas Actual Respiration Rate 28 Blood Gas Tidal Volume 450.0 Magnesium Level 2.1 Medications Medications Current Medications Ondansetron HCl (Zofran Inj) 4 mg Q6H PRN IV NAUSEA AND/OR VOMITING; Start 08/21/17 at 17:30 Acetaminophen/ Hydrocodone Bitart ([place] (5/325)) 1 tab Q6H PRN PO MODERATE PAIN LEVEL 4-6; Start 08/21/17 at 17:30 Morphine Sulfate (morphine) 2 mg Q4H PRN IV SEVERE PAIN LEVEL 7-10; Start 08/21 at 17:30 Docusate Sodium (Colace) 100 mg Q12H PRN PO CONSTIPATION; Start 08/21/17 at 17: 30 Magnesium Hydroxide (Milk Of Mag) 30 ml DAILY PRN PO CONSTIPATION; Start at 17:30 Sodium Biphosphate/ Sodium Phosphate (Fleet Enema) 133 ml DAILY PRN [place] CONSTIPATION; Start 08/21/17 at 17:30 Hydralazine HCl (Apresoline) 10 mg Q6H PRN IV ELEVATED BLOOD PRESSURE; Start 08/21/17 at 17:30 Nitroglycerin (Nitroglycerin (Sl Tab) 0.4 Mg) 1 tab Q5M PRN SL ANGINA; Start 08/21/17 at 17:30 Hydromorphone HCl (Dilaudid) 0.2 mg Q15M PRN IV PAIN LEVEL 1-5 Last administered on 08/23/17 18:35; Admin Dose 0.2 MG; Start 08/22/17 at 01:00 Oxycodone/ Acetaminophen 1 tab 1 tab Q3H PRN PO PAIN LEVEL 1-5; Start 08/22/17 at 01:00 Magnesium Sulfate/ Dextrose (Magnesium Sulfate 1 Gm/D5W) 100 ml @ 100 mls/hr PRN PRN IVPB PENDING LAB VALUE Last administered on 08/23/17 08:54; Admin Dose 100 MLS/HR; Start 08/22/17 at 01:00 Atorvastatin Calcium 80 mg 80 mg HS PO Last administered on 08/27/17 21:22; Admin Dose 80 MG; Start 08/22/17 at 21:00 Propofol (Diprivan) 100 ml @ 1.842 mls/ hr Q12H IV Last administered on 20:12; Admin Dose 5.526 MLS/HR; Start 08/22/17 at 16:00 Acetaminophen (Tylenol Liquid) 650 mg Q4H PRN PO PAIN AND OR ELEVATED TEMP Last administered on 08/26/17 20:02; Admin Dose 650 MG; Start 08/23/17 at 14: 30 Clopidogrel Bisulfate (plaVIX) 75 mg DAILY NGT Last administered on 08/28/17 08:40; Admin Dose 75 MG; Start 08/24/17 at 09:00 IV Flush (NS 10 ml) 10 ml PRN PRN IV IV PROTOCOL; Start 08/24/17 at 12:00 Aspirin 81 mg 81 mg DAILY PO Last administered on 08/28/17 08:40; Admin Dose 81 MG; Start 08/25/17 at 09:00 Potassium Chloride/Calcium Chloride/Dextrose (KCl/Ca Chloride/ D5W) 1,030 ml @ 60 mls/hr [id number] IV Last administered on 08/28/17 04:14; Admin Dose 60 MLS/ HR; Start 08/25/17 at 13:30 Heparin Sodium (Porcine) (Heparin (5000 Units/0.5 ml)) 5,000 unit Q8 SC Last administered on 08/28/17 12:50; Admin Dose 5,000 UNIT; Start 08/25/17 at 22: 00 Valsartan (Diovan) 40 mg DAILY PO Last administered on 08/28/17 08:40; Admin Dose 40 MG; Start 08/27/17 at 09:00 Famotidine (Pepcid) 20 mg HS NGT Last administered on 08/27/17 21:22; Admin Dose 20 MG; Start 08/27/17 at 21:00 Metoprolol Tartrate (Lopressor) 25 mg Q6 PO ; Start 08/28/17 at 12:00 Spironolactone (Aldactone) 25 mg DAILY@06 NGT Last administered on 08/28/17 12:51; Admin Dose 25 MG; Start 08/28/17 at 11:30 Furosemide (Lasix) 40 mg DAILY@06 IV Last administered on 08/28/17 12:50; Admin Dose 40 MG; Start 08/28/17 at 11:30 ZACHARY SHANNON MD Aug 28, 2017 13:07
[2017-08-28 13:46] LABS: CALCIUM 9.4 mg/dl (8.4-10.2); CREATININE 0.9 mg/dl (0.61-1.24); MAGNESIUM 2.1 mg/dl (1.7-2.5); POTASSIUM 3.6 mmol/L (3.5-5.1)
[2017-08-28] MEDS ORDERED: LORAZEPAM 2 MG INJ IV ONE (19:30)
[2017-08-28] MEDS: ATORVASTATIN 80 MG TAB PO SCH (20:47)
[2017-08-28] MEDS: FAMOTIDINE 20 MG TAB NGT SCH (20:47)
[2017-08-28] MEDS: ACETAMINOPHEN 650MG/20.3ML CUP PO PRN (22:16)
[2017-08-28 22:52] LABS: ABNORMAL IP MESSAGE 1; BASOPHILS % 0.2 % (0.0-2.0); EOSINOPHILS # 0.2 10^3/ul (0.0-0.5); EOSINOPHILS % 1.7 % (0.0-7.0); HEMOGLOBIN 12.3 g/dl (14.0-18.0); LYMPHOCYTES # 2.1 10^3/ul (0.8-2.9); MEAN CORPUSCULAR HEMOGLOBIN 29.3 pg (29.0-33.0); MEAN CORPUSCULAR HGB CONC 33.2 g/dl (32.0-37.0); MEAN CORPUSCULAR VOLUME 88.1 fl (82.0-101.0); MEAN PLATELET VOLUME 11.8 fl (7.4-10.4); MONOCYTES % 10.5 % (0.0-11.0); NEUTROPHILS % 60.4 % (39.0-77.0); NUCLEATED RED BLOOD CELLS% 0.2 /100WBC (0.0-0.0); PLATELET COUNT 359 10^3/UL (140-415); POSITIVE DIFF @See below; WHITE BLOOD COUNT 9.9 10^3/ul (4.8-10.8)
[2017-08-29] VITALS (37 sets, daily range): BP systolic 92–132; BP diastolic 58–86; PULSE 88–109; RESP 14–29
[2017-08-29] MEDS ORDERED: PIPER-TAZO 3.375 GM IV (PMX) 50 ML IV ONE
[2017-08-29] MEDS: METOPROLOL 25 MG TAB PO SCH ×5 (00:19→23:53)
[2017-08-29] MEDS: PROPOFOL 100 ML IV SCH ×2 (04:00→16:00)
[2017-08-29 05:52] LABS: ABNORMAL IP MESSAGE 1; BASOPHILS % 0.3 % (0.0-2.0); EOSINOPHILS # 0.3 10^3/ul (0.0-0.5); EOSINOPHILS % 3.3 % (0.0-7.0); HEMOGLOBIN 11.9 g/dl (14.0-18.0); LYMPHOCYTES # 2.1 10^3/ul (0.8-2.9); LYMPHOCYTES % 22.4 % (15.0-51.0); MEAN CORPUSCULAR HEMOGLOBIN 29.3 pg (29.0-33.0); MEAN CORPUSCULAR HGB CONC 33.1 g/dl (32.0-37.0); MEAN CORPUSCULAR VOLUME 88.7 fl (82.0-101.0); MEAN PLATELET VOLUME 11.8 fl (7.4-10.4); MONOCYTES % 10.1 % (0.0-11.0); NEUTROPHIL # 5.5 10^3/ul (1.6-7.5); NEUTROPHILS % 58.2 % (39.0-77.0); PLATELET COUNT 384 10^3/UL (140-415); POSITIVE DIFF @See below; RED BLOOD COUNT 4.06 10^6/ul (4.70-6.10); RED CELL DISTRIBUTION WIDTH 15.2 % (11.5-14.5); WHITE BLOOD COUNT 9.4 10^3/ul (4.8-10.8)
[2017-08-29] MEDS: FUROSEMIDE 40 MG INJ IV SCH (06:06)
[2017-08-29] MEDS: SPIRONOLACTONE 25 MG TAB NGT SCH (06:07)
[2017-08-29] MEDS: HEPARIN 5,000 UNIT/0.5 ML VIAL SC SCH ×3 (06:08→21:57)
[2017-08-29 06:23] LABS: CALCIUM 8.8 mg/dl (8.4-10.2); CREATININE 0.99 mg/dl (0.61-1.24); POTASSIUM 3.3 mmol/L (3.5-5.1)
[2017-08-29] MEDS: POTASSIUM CHLORIDE 50 ML IVPB PRN ×6 (07:50→21:09)
[2017-08-29] MEDS: CLOPIDOGREL 75 MG TAB NGT SCH (09:14)
[2017-08-29] MEDS: VALSARTAN 80 MG TAB PO SCH (09:15)
[2017-08-29] MEDS: ASPIRIN 81 MG TAB PO SCH (09:15)
--- NOTE | 2017-08-29 09:34 | RADRPT ---
PROCEDURE: MR Brain with and without intravenous contrast CLINICAL INDICATION: Not waking up after coronary bypass graft surgery. Concern for anoxic brain in diann. COMPARISON: CT from 08/26/2017. TECHNIQUE: Multiplanar multi-sequence images of the brain were obtained before and after the unevent ful administration of 10 mL [place] intravenous contrast. Images acquired on a 3.0 Estrella magnet. FINDINGS: Parenchyma: Small foci of increased diffusion weighted signal within the right cerebellar hemisphere , right inferior vermis, and left subcortical frontal lobe, consistent with recent infarctions. No h emorrhage. Mild amount of periventricular and subcortical white matter FLAIR hyperintensity, a nonspecific find ing often associated with chronic microangiopathy. Developmental venous anomaly in the left cerebell ar hemisphere. Ventricles: Moderate ventriculomegaly which is slightly disproportionate to the degree of generalize d volume loss. Extra-axial spaces: No herniation or midline shift. Orbits: Bilateral lens replacements. Major intracranial flow voids: Preserved. Paranasal sinuses: Mild paranasal sinus mucosal thickening. Fluid layers within the sphenoid sinus. The maxillary sinuses are atelectatic. Mastoids and middle ears: Bilateral mastoid effusions. Bones: Normal. Extracranial soft tissues: Normal. Additional comment: Left nasal intubation. IMPRESSION: 1. Punctate recent infarctions within the right cerebellar hemisphere and left frontal lobe. 2. Moderate ventriculomegaly which is slightly disproportionate to the degree of generalized cerebr al volume loss. Please correlate for signs of normal-pressure hydrocephalus. 3. Acute sinus disease. If future imaging is performed, please provide a direct callback number to the radiologist. Dr. Joy discussed critical results with Rebecca Frederick R.N. via telephone at 9:32 AM on 017 with read back confirmation. RPTAT: PP Physician Monse Date Time Electronically viewed and signed by Physician Monse on 08/29/2017 09:34 LG/
--- NOTE | 2017-08-29 10:07 | PN ---
Date/Time of Note Date/Time of Note DATE: 08/29/17 TIME: 10:06 Assessment/Plan Lines/Catheters IV Catheter Type (from Nrs): PICC Line Champion in Place (from Nrs): Yes Assessment/Plan Chief Complaint/Hosp Course MRI head shows multiple small punctate infarctions more awake today attempt to extubate discussed with Dr. Elder Neurology consult Problems: Exam/Review of Systems Vital Signs Vitals Vital Signs Date Time Temp Pulse Resp B/P Pulse Ox O2 Delivery O2 Flow Rate FiO2 08/29/17 09:58 40 08/29/17 09:00 105 22 109/69 95 Mechanical Ventilator 08/29/17 08:00 98.1 Intake and Output 08/28/17 08/28/17 08/29/17 15:00 23:00 07:00 Intake Total 960 ml 410 ml 740 ml Output Total 1399 ml 1485 ml 1315 ml Balance -439 ml -1075 ml -575 ml Results Result Diagram: 08/29/17 0450 08/29/17 0450 ERNIE LOPEZ MD Aug 29, 2017 10:07
--- NOTE | 2017-08-29 10:10 | PN ---
Date/Time of Note Date/Time of Note DATE: 08/29/17 TIME: 10:10 Assessment/Plan VTE Prophylaxis VTE Prophylaxis Intervention: SCD's Lines/Catheters IV Catheter Type (from Nrsg): PICC Line Central line still needed: No Urinary Cath still in place: Yes Reason Cath still needed: urinary retention Assessment/Plan Assessment/Plan STEMI anterior wall post CABG ischemic cardiomyopathy resp failure encephalopathy Recommendations On spironolactone for cardiomyopathy Continue metoprolol, valsartan, asa, clopidogrel, atorvastatin Agree with furosemide Work up of mental status per primary team Subjective 24 Hr Interval Summary Free Text/Dictation the aptient with no cahnge Exam/Review of Systems Vital Signs Vitals Vital Signs Date Time Temp Pulse Resp B/P Pulse Ox O2 Delivery O2 Flow Rate FiO2 08/29/17 09:58 40 08/29/17 09:00 105 22 109/69 95 Mechanical Ventilator 08/29/17 08:00 98.1 Intake and Output 08/28/17 08/28/17 08/29/17 14:59 22:59 06:59 Intake Total 1020 ml 410 ml 740 ml Output Total 1122 ml 1666 ml 830 ml Balance -102 ml -1256 ml -90 ml Results Result Diagram: 08/29/17 0450 08/29/17 0450 Results 24 hrs Laboratory Tests Test 08/28/17 13:13 08/28/17 22:09 08/29/17 04:50 Sodium Level 148 H 149 H Potassium Level 3.6 3.3 L Chloride Level 112 H 111 H Carbon Dioxide Level 27 30 Anion Gap 13 11 Blood Urea Nitrogen 18 21 H Creatinine 0.90 0.99 Glucose Level 169 97 # Calcium Level 9.4 8.8 Magnesium Level 2.1 White Blood Count 9.9 9.4 Red Blood Count 4.20 L 4.06 L Hemoglobin 12.3 L 11.9 L Hematocrit 37.0 L 36.0 L Mean Corpuscular Volume 88.1 88.7 Mean Corpuscular Hemoglobin 29.3 29.3 Mean Corpuscular Hemoglobin Concent 33.2 33.1 Red Cell Distribution Width 15.0 H 15.2 H Platelet Count 359 # 384 Mean Platelet Volume 11.8 H 11.8 H Neutrophils % 60.4 58.2 Lymphocytes % 21.0 22.4 Monocytes % 10.5 10.1 Eosinophils % 1.7 3.3 Basophils % 0.2 0.3 Nucleated Red Blood Cells % 0.2 H 0.0 Neutrophils # 6.0 5.5 Lymphocytes # 2.1 2.1 Monocytes # 1.0 H 1.0 H Eosinophils # 0.2 0.3 Basophils # 0.0 0.0 Nucleated Red Blood Cells # 0.0 0.0 Medications Medications Current Medications Ondansetron HCl (Zofran Inj) 4 mg Q6H PRN IV NAUSEA AND/OR VOMITING; Start 08/21/17 at 17:30 Acetaminophen/ Hydrocodone Bitart ([place] (5/325)) 1 tab Q6H PRN PO MODERATE PAIN LEVEL 4-6; Start 08/21/17 at 17:30 Morphine Sulfate (morphine) 2 mg Q4H PRN IV SEVERE PAIN LEVEL 7-10; Start 08/21 at 17:30 Docusate Sodium (Colace) 100 mg Q12H PRN PO CONSTIPATION; Start 08/21/17 at 17: 30 Magnesium Hydroxide (Milk Of Mag) 30 ml DAILY PRN PO CONSTIPATION; Start at 17:30 Sodium Biphosphate/ Sodium Phosphate (Fleet Enema) 133 ml DAILY PRN [place] CONSTIPATION; Start 08/21/17 at 17:30 Hydralazine HCl (Apresoline) 10 mg Q6H PRN IV ELEVATED BLOOD PRESSURE; Start 08/21/17 at 17:30 Nitroglycerin (Nitroglycerin (Sl Tab) 0.4 Mg) 1 tab Q5M PRN SL ANGINA; Start 08/21/17 at 17:30 Hydromorphone HCl (Dilaudid) 0.2 mg Q15M PRN IV PAIN LEVEL 1-5 Last administered on 08/23/17 18:35; Admin Dose 0.2 MG; Start 08/22/17 at 01:00 Oxycodone/ Acetaminophen 1 tab 1 tab Q3H PRN PO PAIN LEVEL 1-5; Start 08/22/17 at 01:00 Magnesium Sulfate/ Dextrose (Magnesium Sulfate 1 Gm/D5W) 100 ml @ 100 mls/hr PRN PRN IVPB PENDING LAB VALUE Last administered on 08/23/17 08:54; Admin Dose 100 MLS/HR; Start 08/22/17 at 01:00 Atorvastatin Calcium 80 mg 80 mg HS PO Last administered on 08/28/17 20:47; Admin Dose 80 MG; Start 08/22/17 at 21:00 Propofol (Diprivan) 100 ml @ 1.842 mls/ hr Q12H IV Last administered on 20:12; Admin Dose 5.526 MLS/HR; Start 08/22/17 at 16:00 Acetaminophen (Tylenol Liquid) 650 mg Q4H PRN PO PAIN AND OR ELEVATED TEMP Last administered on 08/28/17 22:16; Admin Dose 650 MG; Start 08/23/17 at 14: 30 Clopidogrel Bisulfate (plaVIX) 75 mg DAILY NGT Last administered on 08/29/17 09:14; Admin Dose 75 MG; Start 08/24/17 at 09:00 IV Flush (NS 10 ml) 10 ml PRN PRN IV IV PROTOCOL; Start 08/24/17 at 12:00 Aspirin (Aspirin) 81 mg DAILY PO Last administered on 08/29/17 09:15; Admin Dose 81 MG; Start 08/25/17 at 09:00 Heparin Sodium (Porcine) (Heparin (5000 Units/0.5 ml)) 5,000 unit Q8 SC Last administered on 08/29/17 06:08; Admin Dose 5,000 UNIT; Start 08/25/17 at 22: 00 Valsartan (Diovan) 40 mg DAILY PO Last administered on 08/29/17 09:15; Admin Dose 40 MG; Start 08/27/17 at 09:00 Famotidine (Pepcid) 20 mg HS NGT Last administered on 08/28/17 20:47; Admin Dose 20 MG; Start 08/27/17 at 21:00 Metoprolol Tartrate (Lopressor) 25 mg Q6 PO Last administered on 08/29/17 06: 06; Admin Dose 25 MG; Start 08/28/17 at 12:00 Spironolactone (Aldactone) 25 mg DAILY@06 NGT Last administered on 08/29/17 06:07; Admin Dose 25 MG; Start 08/28/17 at 11:30 Furosemide (Lasix) 40 mg DAILY@06 IV Last administered on 08/29/17 06:06; Admin Dose 40 MG; Start 08/28/17 at 11:30 MIKEL RICKETTS MD Aug 29, 2017 10:10
--- NOTE | 2017-08-29 10:26 | RADRPT ---
PROCEDURE: XR Chest. CLINICAL INDICATION: Pneumonia, congestive heart failure. TECHNIQUE: Single frontal view of the chest was obtained COMPARISON: Chest radiograph dated August 28, 2017. FINDINGS: Endotracheal tube tip just above the mike. Feeding tube coursing beneath the diaphragm; the tip is outside the field of view. Right-sided PICC tip overlying the superior cavoatrial junction. Median sternotomy wires are present. There is stable mild cardiomegaly. Aortic calcifications are present. There is grossly unchanged mild pulmonary edema. No focal consolidations or pneumothorax. Degenerative changes of the spine and shoulder joints are present. IMPRESSION: 1. Mild cardiomegaly with mild pulmonary edema, not significantly changed in appearance when compar ed to prior study. 2. Support tubes and lines as described. RPTAT:AAJJ Physician Demar Date Time Electronically viewed and signed by Margie Mims Physician on 08/29/2017 10:26 QL/
[2017-08-29] MEDS ORDERED: HYDROCODONE/APAP (7.5/325) TAB GTB PRN (11:30)
--- NOTE | 2017-08-29 11:30 | CONS ---
Date/Time of Note Date/Time of Note DATE: 08/29/17 TIME: 11:25 Consult Date/Type/Reason Admit Date/Time Aug 21, 2017 at 17:28 Initial Consult Date 08/21/17 Type of Consultation: Pulmonary/critical care Ordering Provider: HANNAH MCCLENDON MD Subjective Opens eyes but not following commands. Remains hemodynamically stable. MRI demonstrates acute infarcts. Objective Vital Signs Date Time Temp Pulse Resp B/P Pulse Ox O2 Delivery O2 Flow Rate FiO2 08/29/17 10:30 106 25 97 08/29/17 10:00 104/73 CPAP 08/29/17 09:58 40 08/29/17 08:00 98.1 Intake and Output 08/28/17 08/28/17 08/29/17 15:00 23:00 07:00 Intake Total 960 ml 410 ml 740 ml Output Total 1399 ml 1485 ml 1315 ml Balance -439 ml -1075 ml -575 ml Exam GENERAL: Elderly-appearing gentleman on mechanical ventilation comfortable at rest. VITAL SIGNS: per chart NECK: Supple. No JVD or lymphadenopathy. CARDIAC EXAM: S1, S2. No added sounds or murmurs. CHEST: clear bilaterally, No added sounds, rales or wheezes ABDOMEN: Soft, nontender. No guarding or rebound. EXTREMITIES: No cyanosis, clubbing or edema. NEUROLOGIC: Generalized weakness. No focal deficits. Results/Medications Result Diagram: 08/29/17 0450 08/29/17 0450 Results 24 hrs Laboratory Tests Test 08/28/17 13:13 08/28/17 22:09 08/29/17 04:50 Sodium Level 148 H 149 H Potassium Level 3.6 3.3 L Chloride Level 112 H 111 H Carbon Dioxide Level 27 30 Anion Gap 13 11 Blood Urea Nitrogen 18 21 H Creatinine 0.90 0.99 Glucose Level 169 97 # Calcium Level 9.4 8.8 Magnesium Level 2.1 White Blood Count 9.9 9.4 Red Blood Count 4.20 L 4.06 L Hemoglobin 12.3 L 11.9 L Hematocrit 37.0 L 36.0 L Mean Corpuscular Volume 88.1 88.7 Mean Corpuscular Hemoglobin 29.3 29.3 Mean Corpuscular Hemoglobin Concent 33.2 33.1 Red Cell Distribution Width 15.0 H 15.2 H Platelet Count 359 # 384 Mean Platelet Volume 11.8 H 11.8 H Neutrophils % 60.4 58.2 Lymphocytes % 21.0 22.4 Monocytes % 10.5 10.1 Eosinophils % 1.7 3.3 Basophils % 0.2 0.3 Nucleated Red Blood Cells % 0.2 H 0.0 Neutrophils # 6.0 5.5 Lymphocytes # 2.1 2.1 Monocytes # 1.0 H 1.0 H Eosinophils # 0.2 0.3 Basophils # 0.0 0.0 Nucleated Red Blood Cells # 0.0 0.0 Medications Current Medications Ondansetron HCl (Zofran Inj) 4 mg Q6H PRN IV NAUSEA AND/OR VOMITING; Start 08/21/17 at 17:30 Acetaminophen/ Hydrocodone Bitart ([place] (5/325)) 1 tab Q6H PRN PO MODERATE PAIN LEVEL 4-6; Start 08/21/17 at 17:30 Morphine Sulfate (morphine) 2 mg Q4H PRN IV SEVERE PAIN LEVEL 7-10; Start 08/21 at 17:30 Docusate Sodium (Colace) 100 mg Q12H PRN PO CONSTIPATION; Start 08/21/17 at 17: 30 Magnesium Hydroxide (Milk Of Mag) 30 ml DAILY PRN PO CONSTIPATION; Start at 17:30 Sodium Biphosphate/ Sodium Phosphate (Fleet Enema) 133 ml DAILY PRN [place] CONSTIPATION; Start 08/21/17 at 17:30 Hydralazine HCl (Apresoline) 10 mg Q6H PRN IV ELEVATED BLOOD PRESSURE; Start 08/21/17 at 17:30 Nitroglycerin (Nitroglycerin (Sl Tab) 0.4 Mg) 1 tab Q5M PRN SL ANGINA; Start 08/21/17 at 17:30 Hydromorphone HCl (Dilaudid) 0.2 mg Q15M PRN IV PAIN LEVEL 1-5 Last administered on 08/23/17 18:35; Admin Dose 0.2 MG; Start 08/22/17 at 01:00 Oxycodone/ Acetaminophen 1 tab 1 tab Q3H PRN PO PAIN LEVEL 1-5; Start 08/22/17 at 01:00 Magnesium Sulfate/ Dextrose (Magnesium Sulfate 1 Gm/D5W) 100 ml @ 100 mls/hr PRN PRN IVPB PENDING LAB VALUE Last administered on 08/23/17 08:54; Admin Dose 100 MLS/HR; Start 08/22/17 at 01:00 Atorvastatin Calcium 80 mg 80 mg HS PO Last administered on 08/28/17 20:47; Admin Dose 80 MG; Start 08/22/17 at 21:00 Propofol (Diprivan) 100 ml @ 1.842 mls/ hr Q12H IV Last administered on 20:12; Admin Dose 5.526 MLS/HR; Start 08/22/17 at 16:00 Acetaminophen (Tylenol Liquid) 650 mg Q4H PRN PO PAIN AND OR ELEVATED TEMP Last administered on 08/28/17 22:16; Admin Dose 650 MG; Start 08/23/17 at 14: 30 Clopidogrel Bisulfate (plaVIX) 75 mg DAILY NGT Last administered on 08/29/17 09:14; Admin Dose 75 MG; Start 08/24/17 at 09:00 IV Flush (NS 10 ml) 10 ml PRN PRN IV IV PROTOCOL; Start 08/24/17 at 12:00 Aspirin (Aspirin) 81 mg DAILY PO Last administered on 08/29/17 09:15; Admin Dose 81 MG; Start 08/25/17 at 09:00 Heparin Sodium (Porcine) (Heparin (5000 Units/0.5 ml)) 5,000 unit Q8 SC Last administered on 08/29/17 06:08; Admin Dose 5,000 UNIT; Start 08/25/17 at 22: 00 Valsartan (Diovan) 40 mg DAILY PO Last administered on 08/29/17 09:15; Admin Dose 40 MG; Start 08/27/17 at 09:00 Famotidine (Pepcid) 20 mg HS NGT Last administered on 08/28/17 20:47; Admin Dose 20 MG; Start 08/27/17 at 21:00 Metoprolol Tartrate (Lopressor) 25 mg Q6 PO Last administered on 08/29/17 06: 06; Admin Dose 25 MG; Start 08/28/17 at 12:00 Spironolactone (Aldactone) 25 mg DAILY@06 NGT Last administered on 08/29/17 06:07; Admin Dose 25 MG; Start 08/28/17 at 11:30 Assessment/Plan Chief Complaint/Hosp Course IMP: 1. s/p STEMI followed by C and CABG 2. Status post cardiogenic shock 3. Resolved lactic acidosis 4. Improving hyponatremia 6. Acute CVA likely intraoperative. Almost certainly etiology of his encephalopathy. RECS: 1. Vent support, cpap trial today, hopefully extubate. 2. Post extubation IS / ST eval. 3. Hold sedation as tolerated 4. May require PEG tube if not able to swallow adequately. Discussed with thoracic surgery Problems: CRISTI REY MD, [facility] Aug 29, 2017 11:30
--- NOTE | 2017-08-29 14:44 | PN ---
Date/Time of Note Date/Time of Note DATE: 08/29/17 TIME: 14:37 Assessment/Plan VTE Prophylaxis VTE Prophylaxis Intervention: SCD's Lines/Catheters IV Catheter Type (from Nrsg): PICC Line Central line still needed: No Urinary Cath still in place: Yes Reason Cath still needed: other (indicate) (critically ill) Assessment/Plan Assessment/Plan 72 yo M presented with chest pain found to have STEMI. Was taken to lab assistant but found to have 3v disease now sp CABG. Hospitalization notable for VFib in the lab assistant, cardiogenic shock warranting IABP which has now been removed. Hospital course cb encephalopathy likely 2/2 CVAs sustained during procedures. PLAN #encephalopathy : MRI with CVAs. dw family cont DAPT, BP control, statin. a1c <7. TTE results noted. cont tele #fevers: cultures remain nondiagnostic possibly central in origin. continue to monitor #STEMI: cont BP/antiplatelet/lipid lowering regimen as per cardiology #Hypernatremia: increase FW again. dieretics reviewed. Aldactone more likely to cause hyponatremia #hx hypothyroid: TFTs wnl #anemia: hgb stable, outpatient follow up critical care time :30 minutes Subjective 24 Hr Interval Summary Free Text/Dictation per family following some commands. seen during his PST Exam/Review of Systems Vital Signs Vitals Vital Signs Date Time Temp Pulse Resp B/P Pulse Ox O2 Delivery O2 Flow Rate FiO2 08/29/17 14:24 102 22 98 35 08/29/17 14:00 121/68 CPAP 08/29/17 12:00 98.8 Intake and Output 08/28/17 08/28/17 08/29/17 14:59 22:59 06:59 Intake Total 1020 ml 410 ml 740 ml Output Total 1122 ml 1666 ml 830 ml Balance -102 ml -1256 ml -90 ml Exam moves legs spontaneously no mrg lungs clear abd soft no rashes cultures reviewed, sputum with NRF MRI brain with multiple infarcts Results Result Diagram: 08/29/17 04508/29/17 0450 Results 24 hrs Laboratory Tests Test 08/28/17 22:09 08/29/17 04:50 White Blood Count 9.9 9.4 Red Blood Count 4.20 L 4.06 L Hemoglobin 12.3 L 11.9 L Hematocrit 37.0 L 36.0 L Mean Corpuscular Volume 88.1 88.7 Mean Corpuscular Hemoglobin 29.3 29.3 Mean Corpuscular Hemoglobin Concent 33.2 33.1 Red Cell Distribution Width 15.0 H 15.2 H Platelet Count 359 # 384 Mean Platelet Volume 11.8 H 11.8 H Neutrophils % 60.4 58.2 Lymphocytes % 21.0 22.4 Monocytes % 10.5 10.1 Eosinophils % 1.7 3.3 Basophils % 0.2 0.3 Nucleated Red Blood Cells % 0.2 H 0.0 Neutrophils # 6.0 5.5 Lymphocytes # 2.1 2.1 Monocytes # 1.0 H 1.0 H Eosinophils # 0.2 0.3 Basophils # 0.0 0.0 Nucleated Red Blood Cells # 0.0 0.0 Sodium Level 149 H Potassium Level 3.3 L Chloride Level 111 H Carbon Dioxide Level 30 Anion Gap 11 Blood Urea Nitrogen 21 H Creatinine 0.99 Glucose Level 97 # Calcium Level 8.8 Medications Medications Current Medications Ondansetron HCl (Zofran Inj) 4 mg Q6H PRN IV NAUSEA AND/OR VOMITING; Start 08/21/17 at 17:30 Acetaminophen/ Hydrocodone Bitart ([place] (5/325)) 1 tab Q6H PRN PO MODERATE PAIN LEVEL 4-6; Start 08/21/17 at 17:30 Morphine Sulfate (morphine) 2 mg Q4H PRN IV SEVERE PAIN LEVEL 7-10; Start 08/21 at 17:30 Docusate Sodium (Colace) 100 mg Q12H PRN PO CONSTIPATION; Start 08/21/17 at 17: 30 Magnesium Hydroxide (Milk Of Mag) 30 ml DAILY PRN PO CONSTIPATION; Start at 17:30 Sodium Biphosphate/ Sodium Phosphate (Fleet Enema) 133 ml DAILY PRN [place] CONSTIPATION; Start 08/21/17 at 17:30 Hydralazine HCl (Apresoline) 10 mg Q6H PRN IV ELEVATED BLOOD PRESSURE; Start 08/21/17 at 17:30 Nitroglycerin (Nitroglycerin (Sl Tab) 0.4 Mg) 1 tab Q5M PRN SL ANGINA; Start 08/21/17 at 17:30 Hydromorphone HCl (Dilaudid) 0.2 mg Q15M PRN IV PAIN LEVEL 1-5 Last administered on 08/23/17t 18:35; Admin Dose 0.2 MG; Start 08/22/17 at 01:00 Oxycodone/ Acetaminophen 1 tab 1 tab Q3H PRN PO PAIN LEVEL 1-5; Start 08/22/17 at 01:00 Magnesium Sulfate/ Dextrose (Magnesium Sulfate 1 Gm/D5W) 100 ml @ 100 mls/hr PRN PRN IVPB PENDING LAB VALUE Last administered on 08/23/17 08:54; Admin Dose 100 MLS/HR; Start 08/22/17 at 01:00 Atorvastatin Calcium 80 mg 80 mg HS PO Last administered on 08/28/17 20:47; Admin Dose 80 MG; Start 08/22/17 at 21:00 Propofol (Diprivan) 100 ml @ 1.842 mls/ hr Q12H IV Last administered on 20:12; Admin Dose 5.526 MLS/HR; Start 08/22/17 at 16:00 Acetaminophen (Tylenol Liquid) 650 mg Q4H PRN PO PAIN AND OR ELEVATED TEMP Last administered on 08/28/17 22:16; Admin Dose 650 MG; Start 08/23/17 at 14: 30 Clopidogrel Bisulfate (plaVIX) 75 mg DAILY NGT Last administered on 08/29/17 09:14; Admin Dose 75 MG; Start 08/24/17 at 09:00 IV Flush (NS 10 ml) 10 ml PRN PRN IV IV PROTOCOL; Start 08/24/17 at 12:00 Aspirin (Aspirin) 81 mg DAILY PO Last administered on 08/29/17 09:15; Admin Dose 81 MG; Start 08/25/17 at 09:00 Heparin Sodium (Porcine) (Heparin (5000 Units/0.5 ml)) 5,000 unit Q8 SC Last administered on 08/29/17 14:23; Admin Dose 5,000 UNIT; Start 08/25/17 at 22: 00 Valsartan (Diovan) 40 mg DAILY PO Last administered on 08/29/17 09:15; Admin Dose 40 MG; Start 08/27/17 at 09:00 Famotidine (Pepcid) 20 mg HS NGT Last administered on 08/28/17 20:47; Admin Dose 20 MG; Start 08/27/17 at 21:00 Metoprolol Tartrate (Lopressor) 25 mg Q6 PO Last administered on 08/29/17 13: 59; Admin Dose 25 MG; Start 08/28/17 at 12:00 Spironolactone (Aldactone) 25 mg DAILY@06 NGT Last administered on 08/29/17 06:07; Admin Dose 25 MG; Start 08/28/17 at 11:30 ZACHARY SHANNON MD Aug 29, 2017 14:44
[2017-08-29] MEDS: FAMOTIDINE 20 MG TAB NGT SCH (20:45)
[2017-08-29] MEDS: ATORVASTATIN 80 MG TAB PO SCH (20:45)
[2017-08-29] MEDS ORDERED: FAMOTIDINE 20 MG TAB NGT SCH (21:00)
[2017-08-30] VITALS (29 sets, daily range): BP systolic 88–130; BP diastolic 54–86; PULSE 83–121; RESP 20–44
[2017-08-30] MEDS: PROPOFOL 100 ML IV SCH (03:31)
[2017-08-30] MEDS: METOPROLOL 25 MG TAB PO SCH ×3 (05:38→18:00)
[2017-08-30] MEDS: SPIRONOLACTONE 25 MG TAB NGT SCH (05:40)
[2017-08-30] MEDS: HEPARIN 5,000 UNIT/0.5 ML VIAL SC SCH ×3 (05:41→21:34)
[2017-08-30 06:21] LABS: BASOPHILS % 0.4 % (0.0-2.0); EOSINOPHILS # 0.1 10^3/ul (0.0-0.5); EOSINOPHILS % 1.2 % (0.0-7.0); HEMOGLOBIN 12.2 g/dl (14.0-18.0); LYMPHOCYTES % 17.5 % (15.0-51.0); MEAN CORPUSCULAR HEMOGLOBIN 28.8 pg (29.0-33.0); MEAN CORPUSCULAR HGB CONC 32.1 g/dl (32.0-37.0); MEAN CORPUSCULAR VOLUME 89.8 fl (82.0-101.0); MEAN PLATELET VOLUME 11.6 fl (7.4-10.4); MONOCYTES % 8.8 % (0.0-11.0); NEUTROPHIL # 7.8 10^3/ul (1.6-7.5); NEUTROPHILS % 69.3 % (39.0-77.0); PLATELET COUNT 504 10^3/UL (140-415); RED BLOOD COUNT 4.23 10^6/ul (4.70-6.10); RED CELL DISTRIBUTION WIDTH 14.9 % (11.5-14.5); WHITE BLOOD COUNT 11.2 10^3/ul (4.8-10.8)
--- NOTE | 2017-08-30 06:36 | PN ---
Date/Time of Note Date/Time of Note DATE: 08/30/17 TIME: 06:35 Assessment/Plan Lines/Catheters IV Catheter Type (from Nrs): PICC Line Champion in Place (from Nrs): Yes Assessment/Plan Chief Complaint/Hosp Course much more awake today attempt weaning and extubating today Problems: Exam/Review of Systems Vital Signs Vitals Vital Signs Date Time Temp Pulse Resp B/P Pulse Ox O2 Delivery O2 Flow Rate FiO2 08/30/17 06:00 83 22 107/71 98 Mechanical Ventilator 08/30/17 05:25 35 08/30/17 04:00 99.3 Intake and Output 08/29/17 08/29/17 08/30/17 15:00 23:00 07:00 Intake Total 680 ml 660 ml 490 ml Output Total 1560 ml 550 ml 450 ml Balance -880 ml 110 ml 40 ml Results Result Diagram: 08/30/17 0520 08/29/17 1354 ERNIE LOPEZ MD Aug 30, 2017 06:36
[2017-08-30 06:42] LABS: ALBUMIN 3.1 g/dl (3.3-4.9); ALBUMIN/GLOBULIN RATIO 0.93; BILIRUBIN,INDIRECT 0.9 mg/dl (0-1.1); BILIRUBIN,TOTAL 0.9 mg/dl (0.2-1.3); CALCIUM 8.5 mg/dl (8.4-10.2); CREATININE 0.92 mg/dl (0.61-1.24); MAGNESIUM 2.5 mg/dl (1.7-2.5); PHOSPHORUS 3.4 mg/dl (2.5-4.9); POTASSIUM 3.5 mmol/L (3.5-5.1); TOTAL PROTEIN 6.4 g/dl (6.1-8.1)
[2017-08-30] MEDS: POTASSIUM CHLORIDE 50 ML IVPB PRN ×3 (06:57→11:17)
[2017-08-30] MEDS: VALSARTAN 80 MG TAB PO SCH (09:12)
[2017-08-30] MEDS: CLOPIDOGREL 75 MG TAB NGT SCH (09:12)
[2017-08-30] MEDS: ASPIRIN 81 MG TAB PO SCH (09:16)
--- NOTE | 2017-08-30 10:11 | CONS ---
Date/Time of Note Date/Time of Note DATE: 08/30/17 TIME: 10:09 Consult Date/Type/Reason Admit Date/Time Aug 21, 2017 at 17:28 Initial Consult Date 08/21/17 Type of Consultation: Pulmonary/critical care Ordering Provider: HANNAH MCCLENDON MD Subjective Patient significantly more alert today. Eyes open makes eye contact but not consistently following commands. Remains stable on CPAP weaning trial with no significant secretions not requiring frequent pulmonary toilet. Objective Vital Signs Date Time Temp Pulse Resp B/P Pulse Ox O2 Delivery O2 Flow Rate FiO2 08/30/17 09:00 104 30 109/71 100 CPAP 08/30/17 08:00 99.2 08/30/17 07:21 35 Intake and Output 08/29/17 08/29/17 08/30/17 15:00 23:00 07:00 Intake Total 680 ml 660 ml 510 ml Output Total 1560 ml 550 ml 520 ml Balance -880 ml 110 ml -10 ml Exam GENERAL: Elderly-appearing gentleman on mechanical ventilation comfortable at rest. VITAL SIGNS: per chart NECK: Supple. No JVD or lymphadenopathy. CARDIAC EXAM: S1, S2. No added sounds or murmurs. CHEST: clear bilaterally, No added sounds, rales or wheezes ABDOMEN: Soft, nontender. No guarding or rebound. EXTREMITIES: No cyanosis, clubbing or edema. NEUROLOGIC: Generalized weakness. No focal deficits. Results/Medications Result Diagram: 08/30/17 0520 08/30/17 0520 Results 24 hrs Laboratory Tests Test 08/29/17 13:54 08/30/17 05:20 Potassium Level 3.7 3.5 White Blood Count 11.2 H Red Blood Count 4.23 L Hemoglobin 12.2 L Hematocrit 38.0 L Mean Corpuscular Volume 89.8 Mean Corpuscular Hemoglobin 28.8 L Mean Corpuscular Hemoglobin Concent 32.1 Red Cell Distribution Width 14.9 H Platelet Count 504 #H Mean Platelet Volume 11.6 H Neutrophils % 69.3 Lymphocytes % 17.5 Monocytes % 8.8 Eosinophils % 1.2 Basophils % 0.4 Nucleated Red Blood Cells % 0.0 Neutrophils # 7.8 H Lymphocytes # 2.0 Monocytes # 1.0 H Eosinophils # 0.1 Basophils # 0.0 Nucleated Red Blood Cells # 0.0 Sodium Level 149 H Chloride Level 112 H Carbon Dioxide Level 26 Anion Gap 15 Blood Urea Nitrogen 25 H Creatinine 0.92 Glucose Level 139 # Calcium Level 8.5 Phosphorus Level 3.4 Magnesium Level 2.5 Total Bilirubin 0.9 Direct Bilirubin 0.00 Indirect Bilirubin 0.9 Aspartate Amino Transf (AST/SGOT) 97 H Alanine Aminotransferase (ALT/SGPT) 81 H Alkaline Phosphatase 213 H Total Protein 6.4 Albumin 3.1 L Globulin 3.30 H Albumin/Globulin Ratio 0.93 Medications Current Medications Ondansetron HCl (Zofran Inj) 4 mg Q6H PRN IV NAUSEA AND/OR VOMITING; Start 08/21/17 at 17:30 Acetaminophen/ Hydrocodone Bitart ([place] (5/325)) 1 tab Q6H PRN PO MODERATE PAIN LEVEL 4-6; Start 08/21/17 at 17:30 Morphine Sulfate (morphine) 2 mg Q4H PRN IV SEVERE PAIN LEVEL 7-10; Start 08/21 at 17:30 Docusate Sodium (Colace) 100 mg Q12H PRN PO CONSTIPATION; Start 08/21/17 at 17: 30 Magnesium Hydroxide (Milk Of Mag) 30 ml DAILY PRN PO CONSTIPATION; Start at 17:30 Sodium Biphosphate/ Sodium Phosphate (Fleet Enema) 133 ml DAILY PRN [place] CONSTIPATION; Start 08/21/17 at 17:30 Hydralazine HCl (Apresoline) 10 mg Q6H PRN IV ELEVATED BLOOD PRESSURE; Start 08/21/17 at 17:30 Nitroglycerin (Nitroglycerin (Sl Tab) 0.4 Mg) 1 tab Q5M PRN SL ANGINA; Start 08/21/17 at 17:30 Hydromorphone HCl (Dilaudid) 0.2 mg Q15M PRN IV PAIN LEVEL 1-5 Last administered on 08/23/17 18:35; Admin Dose 0.2 MG; Start 08/22/17 at 01:00 Oxycodone/ Acetaminophen 1 tab 1 tab Q3H PRN PO PAIN LEVEL 1-5; Start 08/22/17 at 01:00 Magnesium Sulfate/ Dextrose (Magnesium Sulfate 1 Gm/D5W) 100 ml @ 100 mls/hr PRN PRN IVPB PENDING LAB VALUE Last administered on 08/23/17 08:54; Admin Dose 100 MLS/HR; Start 08/22/17 at 01:00 Atorvastatin Calcium 80 mg 80 mg HS PO Last administered on 08/29/17 20:45; Admin Dose 80 MG; Start 08/22/17 at 21:00 Propofol (Diprivan) 100 ml @ 1.842 mls/ hr Q12H IV Last administered on 20:12; Admin Dose 5.526 MLS/HR; Start 08/22/17 at 16:00 Acetaminophen (Tylenol Liquid) 650 mg Q4H PRN PO PAIN AND OR ELEVATED TEMP Last administered on 08/28/17 22:16; Admin Dose 650 MG; Start 08/23/17 at 14: 30 Clopidogrel Bisulfate (plaVIX) 75 mg DAILY NGT Last administered on 08/30/17 09:12; Admin Dose 75 MG; Start 08/24/17 at 09:00 IV Flush (NS 10 ml) 10 ml PRN PRN IV IV PROTOCOL; Start 08/24/17 at 12:00 Aspirin (Aspirin) 81 mg DAILY PO Last administered on 08/30/17 09:16; Admin Dose 81 MG; Start 08/25/17 at 09:00 Heparin Sodium (Porcine) (Heparin (5000 Units/0.5 ml)) 5,000 unit Q8 SC Last administered on 08/30/17 05:41; Admin Dose 5,000 UNIT; Start 08/25/17 at 22: 00 Valsartan (Diovan) 40 mg DAILY PO Last administered on 08/30/17 09:12; Admin Dose 40 MG; Start 08/27/17 at 09:00 Famotidine (Pepcid) 20 mg HS NGT Last administered on 08/29/17 20:45; Admin Dose 20 MG; Start 08/27/17 at 21:00 Metoprolol Tartrate (Lopressor) 25 mg Q6 PO Last administered on 08/30/17 05: 38; Admin Dose 25 MG; Start 08/28/17 at 12:00 Spironolactone (Aldactone) 25 mg DAILY@06 NGT Last administered on 08/30/17 05:40; Admin Dose 25 MG; Start 08/28/17 at 11:30 Assessment/Plan Chief Complaint/Hosp Course IMP: 1. s/p STEMI followed by LHC and CABG 2. Status post cardiogenic shock 3. Resolved lactic acidosis 4. Improving hyponatremia 5. Acute CVA likely intraoperative. Almost certainly etiology of his encephalopathy. 6. Respiratory failure secondary to above RECS: 1. Vent support, cpap trial today, hopefully extubate. 2. Post extubation IS / ST eval. 3. Hold sedation as tolerated 4. May require PEG tube if not able to swallow adequately. Discussed with primary team. Problems: CRISTI REY MD, [facility] Aug 30, 2017 10:10
--- NOTE | 2017-08-30 10:22 | PN ---
Date/Time of Note Date/Time of Note DATE: 08/30/17 TIME: 10:12 Assessment/Plan VTE Prophylaxis VTE Prophylaxis Intervention: SCD's Lines/Catheters IV Catheter Type (from Nrs): PICC Line Central line still needed: Yes Urinary Cath still in place: Yes Reason Cath still needed: other (indicate) Assessment/Plan Assessment/Plan 72-year-old male admitted for ST elevation myocardial infarction now status post coronary bypass surgery managed as follows: 1. Severe coronary artery disease status post ST elevation myocardial infarction with subsequent left heart cath status post coronary bypass surgery for three-vessel disease 2. Status post acute cerebrovascular accident confirmed an MRI 3. History of hypothyroidism 4. Mild hyponatremia 5. Status post cardiogenic shock and metabolic acidosis 6. Transaminitis likely from shock liver from shock 7. Severe systemic inflammatory response syndrome improved with no evidence of underlying infection so far Plan: Patient is planned for CPAP trials today and possible extubation, further interventions will depend on how he responds to CPAP trials All other current interventions reviewed, will continue for now. Other interventions per clinical course Critical care time greater than 40 minutes Subjective 24 Hr Interval Summary Free Text/Dictation Doing much better periparotid, more alert. Exam/Review of Systems Vital Signs Vitals Vital Signs Date Time Temp Pulse Resp B/P Pulse Ox O2 Delivery O2 Flow Rate FiO2 08/30/17 09:00 104 30 109/71 100 CPAP 08/30/17 08:00 99.2 08/30/17 07:21 35 Intake and Output 08/29/17 08/29/17 08/30/17 14:59 22:59 06:59 Intake Total 690 ml 660 ml 510 ml Output Total 2190 ml 560 ml 510 ml Balance -1500 ml 100 ml 0 ml Exam GENERAL: Elderly-appearing gentleman on mechanical ventilation comfortable at rest. VITAL SIGNS: per chart NECK: Supple. No JVD or lymphadenopathy. CARDIAC EXAM: S1, S2. No added sounds or murmurs. CHEST: clear bilaterally, No added sounds, rales or wheezes ABDOMEN: Soft, nontender. No guarding or rebound. EXTREMITIES: No cyanosis, clubbing or edema. NEUROLOGIC: Generalized weakness. No focal deficits. Results Result Diagram: 08/30/17 0520 08/30/17 0520 Results 24 hrs Laboratory Tests Test 08/29/17 13:54 08/30/17 05:20 Potassium Level 3.7 3.5 White Blood Count 11.2 H Red Blood Count 4.23 L Hemoglobin 12.2 L Hematocrit 38.0 L Mean Corpuscular Volume 89.8 Mean Corpuscular Hemoglobin 28.8 L Mean Corpuscular Hemoglobin Concent 32.1 Red Cell Distribution Width 14.9 H Platelet Count 504 #H Mean Platelet Volume 11.6 H Neutrophils % 69.3 Lymphocytes % 17.5 Monocytes % 8.8 Eosinophils % 1.2 Basophils % 0.4 Nucleated Red Blood Cells % 0.0 Neutrophils # 7.8 H Lymphocytes # 2.0 Monocytes # 1.0 H Eosinophils # 0.1 Basophils # 0.0 Nucleated Red Blood Cells # 0.0 Sodium Level 149 H Chloride Level 112 H Carbon Dioxide Level 26 Anion Gap 15 Blood Urea Nitrogen 25 H Creatinine 0.92 Glucose Level 139 # Calcium Level 8.5 Phosphorus Level 3.4 Magnesium Level 2.5 Total Bilirubin 0.9 Direct Bilirubin 0.00 Indirect Bilirubin 0.9 Aspartate Amino Transf (AST/SGOT) 97 H Alanine Aminotransferase (ALT/SGPT) 81 H Alkaline Phosphatase 213 H Total Protein 6.4 Albumin 3.1 L Globulin 3.30 H Albumin/Globulin Ratio 0.93 Medications Medications Current Medications Ondansetron HCl (Zofran Inj) 4 mg Q6H PRN IV NAUSEA AND/OR VOMITING; Start 08/21/17 at 17:30 Acetaminophen/ Hydrocodone Bitart ([place] (5/325)) 1 tab Q6H PRN PO MODERATE PAIN LEVEL 4-6; Start 08/21/17 at 17:30 Morphine Sulfate (morphine) 2 mg Q4H PRN IV SEVERE PAIN LEVEL 7-10; Start 08/21 at 17:30 Docusate Sodium (Colace) 100 mg Q12H PRN PO CONSTIPATION; Start 08/21/17 at 17: 30 Magnesium Hydroxide (Milk Of Mag) 30 ml DAILY PRN PO CONSTIPATION; Start at 17:30 Sodium Biphosphate/ Sodium Phosphate (Fleet Enema) 133 ml DAILY PRN [place] CONSTIPATION; Start 08/21/17 at 17:30 Hydralazine HCl (Apresoline) 10 mg Q6H PRN IV ELEVATED BLOOD PRESSURE; Start 08/21/17 at 17:30 Nitroglycerin (Nitroglycerin (Sl Tab) 0.4 Mg) 1 tab Q5M PRN SL ANGINA; Start 08/21/17 at 17:30 Hydromorphone HCl (Dilaudid) 0.2 mg Q15M PRN IV PAIN LEVEL 1-5 Last administered on 08/23/17 18:35; Admin Dose 0.2 MG; Start 08/22/17 at 01:00 Oxycodone/ Acetaminophen 1 tab 1 tab Q3H PRN PO PAIN LEVEL 1-5; Start 08/22/17 at 01:00 Magnesium Sulfate/ Dextrose (Magnesium Sulfate 1 Gm/D5W) 100 ml @ 100 mls/hr PRN PRN IVPB PENDING LAB VALUE Last administered on 08/23/17 08:54; Admin Dose 100 MLS/HR; Start 08/22/17 at 01:00 Atorvastatin Calcium 80 mg 80 mg HS PO Last administered on 08/29/17 20:45; Admin Dose 80 MG; Start 08/22/17 at 21:00 Propofol (Diprivan) 100 ml @ 1.842 mls/ hr Q12H IV Last administered on 20:12; Admin Dose 5.526 MLS/HR; Start 08/22/17 at 16:00 Acetaminophen (Tylenol Liquid) 650 mg Q4H PRN PO PAIN AND OR ELEVATED TEMP Last administered on 08/28/17 22:16; Admin Dose 650 MG; Start 08/23/17 at 14: 30 Clopidogrel Bisulfate (plaVIX) 75 mg DAILY NGT Last administered on 08/30/17 09:12; Admin Dose 75 MG; Start 08/24/17 at 09:00 IV Flush (NS 10 ml) 10 ml PRN PRN IV IV PROTOCOL; Start 08/24/17 at 12:00 Aspirin (Aspirin) 81 mg DAILY PO Last administered on 08/30/17 09:16; Admin Dose 81 MG; Start 08/25/17 at 09:00 Heparin Sodium (Porcine) (Heparin (5000 Units/0.5 ml)) 5,000 unit Q8 SC Last administered on 08/30/17 05:41; Admin Dose 5,000 UNIT; Start 08/25/17 at 22: 00 Valsartan (Diovan) 40 mg DAILY PO Last administered on 08/30/17 09:12; Admin Dose 40 MG; Start 08/27/17 at 09:00 Famotidine (Pepcid) 20 mg HS NGT Last administered on 08/29/17 20:45; Admin Dose 20 MG; Start 08/27/17 at 21:00 Metoprolol Tartrate (Lopressor) 25 mg Q6 PO Last administered on 08/30/17 05: 38; Admin Dose 25 MG; Start 08/28/17 at 12:00 Spironolactone (Aldactone) 25 mg DAILY@06 NGT Last administered on 08/30/17 05:40; Admin Dose 25 MG; Start 08/28/17 at 11:30 KULWINDER LUNA Aug 30, 2017 10:22
[2017-08-30] MEDS: ALTEPLASE (CATHFLO) 2 MG INJ CATHETER PRN ×2 (10:25→10:30)
--- NOTE | 2017-08-30 10:25 | CONS ---
Date/Time of Note Date/Time of Note DATE: 08/30/17 TIME: 10:23 Consultation Date/Type/Reason Admit Date/Time Aug 21, 2017 at 17:28 Initial Consult Date 08/21/17 Type of Consultation: Pulmonary/critical care Referring Provider: HANNAH MCCLENDON MD 24 HR Interval Summary Free Text/Dictation STEMI anterior wall post CABG ischemic cardiomyopathy resp failure encephalopathy Recommendations On spironolactone for cardiomyopathy Continue metoprolol, valsartan, asa, clopidogrel, atorvastatin Agree with furosemide Work up of mental status per primary team possibel extubation today Subjective hx not possible: pt non-verbal Exam/Review of Systems Vital Signs Vitals Vital Signs Date Time Temp Pulse Resp B/P Pulse Ox O2 Delivery O2 Flow Rate FiO2 08/30/17 09:00 104 30 109/71 100 CPAP 08/30/17 08:00 99.2 08/30/17 07:21 35 Intake and Output 08/29/17 08/29/17 08/30/17 15:00 23:00 07:00 Intake Total 680 ml 660 ml 510 ml Output Total 1560 ml 550 ml 520 ml Balance -880 ml 110 ml -10 ml Exam Constitutional: alert, distress, frail, non-verbal, obese, oriented, other ( confused intubated), well developed Cardiovascular: regular rate and rhythm Results Result Diagram: 08/30/17 0520 08/30/17 0520 Results 24 hrs Laboratory Tests Test 08/29/17 13:54 08/30/17 05:20 Potassium Level 3.7 3.5 White Blood Count 11.2 H Red Blood Count 4.23 L Hemoglobin 12.2 L Hematocrit 38.0 L Mean Corpuscular Volume 89.8 Mean Corpuscular Hemoglobin 28.8 L Mean Corpuscular Hemoglobin Concent 32.1 Red Cell Distribution Width 14.9 H Platelet Count 504 #H Mean Platelet Volume 11.6 H Neutrophils % 69.3 Lymphocytes % 17.5 Monocytes % 8.8 Eosinophils % 1.2 Basophils % 0.4 Nucleated Red Blood Cells % 0.0 Neutrophils # 7.8 H Lymphocytes # 2.0 Monocytes # 1.0 H Eosinophils # 0.1 Basophils # 0.0 Nucleated Red Blood Cells # 0.0 Sodium Level 149 H Chloride Level 112 H Carbon Dioxide Level 26 Anion Gap 15 Blood Urea Nitrogen 25 H Creatinine 0.92 Glucose Level 139 # Calcium Level 8.5 Phosphorus Level 3.4 Magnesium Level 2.5 Total Bilirubin 0.9 Direct Bilirubin 0.00 Indirect Bilirubin 0.9 Aspartate Amino Transf (AST/SGOT) 97 H Alanine Aminotransferase (ALT/SGPT) 81 H Alkaline Phosphatase 213 H Total Protein 6.4 Albumin 3.1 L Globulin 3.30 H Albumin/Globulin Ratio 0.93 Medications Medications Current Medications Ondansetron HCl (Zofran Inj) 4 mg Q6H PRN IV NAUSEA AND/OR VOMITING; Start 08/21/17 at 17:30 Acetaminophen/ Hydrocodone Bitart ([place] (5/325)) 1 tab Q6H PRN PO MODERATE PAIN LEVEL 4-6; Start 08/21/17 at 17:30 Morphine Sulfate (morphine) 2 mg Q4H PRN IV SEVERE PAIN LEVEL 7-10; Start 08/21 at 17:30 Docusate Sodium (Colace) 100 mg Q12H PRN PO CONSTIPATION; Start 08/21/17 at 17: 30 Magnesium Hydroxide (Milk Of Mag) 30 ml DAILY PRN PO CONSTIPATION; Start at 17:30 Sodium Biphosphate/ Sodium Phosphate (Fleet Enema) 133 ml DAILY PRN [place] CONSTIPATION; Start 08/21/17 at 17:30 Hydralazine HCl (Apresoline) 10 mg Q6H PRN IV ELEVATED BLOOD PRESSURE; Start 08/21/17 at 17:30 Nitroglycerin (Nitroglycerin (Sl Tab) 0.4 Mg) 1 tab Q5M PRN SL ANGINA; Start 08/21/17 at 17:30 Hydromorphone HCl (Dilaudid) 0.2 mg Q15M PRN IV PAIN LEVEL 1-5 Last administered on 08/23/17 18:35; Admin Dose 0.2 MG; Start 08/22/17 at 01:00 Oxycodone/ Acetaminophen 1 tab 1 tab Q3H PRN PO PAIN LEVEL 1-5; Start 08/22/17 at 01:00 Magnesium Sulfate/ Dextrose (Magnesium Sulfate 1 Gm/D5W) 100 ml @ 100 mls/hr PRN PRN IVPB PENDING LAB VALUE Last administered on 08/23/17 08:54; Admin Dose 100 MLS/HR; Start 08/22/17 at 01:00 Atorvastatin Calcium 80 mg 80 mg HS PO Last administered on 08/29/17 20:45; Admin Dose 80 MG; Start 08/22/17 at 21:00 Propofol (Diprivan) 100 ml @ 1.842 mls/ hr Q12H IV Last administered on 20:12; Admin Dose 5.526 MLS/HR; Start 08/22/17 at 16:00 Acetaminophen (Tylenol Liquid) 650 mg Q4H PRN PO PAIN AND OR ELEVATED TEMP Last administered on 08/28/17 22:16; Admin Dose 650 MG; Start 08/23/17 at 14: 30 Clopidogrel Bisulfate (plaVIX) 75 mg DAILY NGT Last administered on 08/30/17 09:12; Admin Dose 75 MG; Start 08/24/17 at 09:00 IV Flush (NS 10 ml) 10 ml PRN PRN IV IV PROTOCOL; Start 08/24/17 at 12:00 Aspirin (Aspirin) 81 mg DAILY PO Last administered on 08/30/17 09:16; Admin Dose 81 MG; Start 08/25/17 at 09:00 Heparin Sodium (Porcine) (Heparin (5000 Units/0.5 ml)) 5,000 unit Q8 SC Last administered on 08/30/17 05:41; Admin Dose 5,000 UNIT; Start 08/25/17 at 22: 00 Valsartan (Diovan) 40 mg DAILY PO Last administered on 08/30/17 09:12; Admin Dose 40 MG; Start 08/27/17 at 09:00 Famotidine (Pepcid) 20 mg HS NGT Last administered on 08/29/17 20:45; Admin Dose 20 MG; Start 08/27/17 at 21:00 Metoprolol Tartrate (Lopressor) 25 mg Q6 PO Last administered on 08/30/17 05: 38; Admin Dose 25 MG; Start 08/28/17 at 12:00 Spironolactone (Aldactone) 25 mg DAILY@06 NGT Last administered on 08/30/17 05:40; Admin Dose 25 MG; Start 08/28/17 at 11:30 DEEPAK GARCIA MD Aug 30, 2017 10:25
[2017-08-30 10:32] LABS: AADO2 Arterial 120.8 mmHg (7.0-24.0); Allen Test ACCEPTAB; Arterial Base Excess 1.6 mmol/L (-3.0-3); Arterial COHb 0 % (0.0-3.0); Arterial Fraction of Oxyhgb 96.7 % (93.0-99.0); Arterial HCO3 24.7 mmol/L (22.0-26.0); Arterial MetHb 0 % (0.0-1.5); Arterial Total Hemglobin 13.5 g/dl (12.0-18.0); Blood Gas PS 10; MODE VENT - CPAP
[2017-08-30] MEDS: ATORVASTATIN 80 MG TAB PO SCH (20:35)
[2017-08-30] MEDS: FAMOTIDINE 20 MG TAB NGT SCH (20:35)
[2017-08-31] VITALS (29 sets, daily range): BP systolic 82–122; BP diastolic 50–104; PULSE 101–130; RESP 21–39
[2017-08-31] MEDS: METOPROLOL 25 MG TAB PO SCH ×4 (00:45→17:18)
[2017-08-31 02:03] LABS: AADO2 Arterial 128.1 mmHg (7.0-24.0); Allen Test ACCEPTAB; Arterial Base Excess -0.3 mmol/L (-3.0-3); Arterial COHb 0 % (0.0-3.0); Arterial Fraction of Oxyhgb 95.4 % (93.0-99.0); Arterial HCO3 21.5 mmol/L (22.0-26.0); Arterial MetHb 0 % (0.0-1.5); MODE NASAL CANNULA
--- NOTE | 2017-08-31 02:21 | RADRPT ---
PROCEDURE: XR Chest. CLINICAL INDICATION: CHF TECHNIQUE: AP Portable chest. COMPARISON: CHEST 08/29/2017; CHEST 08/28/2017 FINDINGS: There are multiple wires overlying the chest. Endotracheal tube has been removed. NG tube and right PICC line remain in place. The cardiomediastinal silhouette is enlarged. The aortic arch is calcified. Bilateral interstitial d ensities, edema are unchanged. The left costophrenic angle is obscured. No pneumothorax is seen. Th e osseous structures are intact. IMPRESSION: Interval removal of the endotracheal tube. NG tube and right PICC line in place. CHF. No significant change. Cardiomegaly. Aortic atherosclerosis. Physician Naheed Date Time Electronically viewed and signed by Physician Naheed on 08/31/2017 02:21 CS/
[2017-08-31] MEDS ORDERED: ALBUMIN HUMAN 25% 100 ML ONE (03:23)
[2017-08-31] MEDS: ALBUMIN HUMAN 25% 100 ML IV SCH ×2 (03:35→05:42)
[2017-08-31 04:48] LABS: BASOPHILS % 0.1 % (0.0-2.0); EOSINOPHILS % 0.1 % (0.0-7.0); HEMATOCRIT 32.9 % (42.0-52.0); HEMOGLOBIN 10.6 g/dl (14.0-18.0); LYMPHOCYTES # 2.2 10^3/ul (0.8-2.9); MEAN CORPUSCULAR HEMOGLOBIN 29.1 pg (29.0-33.0); MEAN CORPUSCULAR HGB CONC 32.2 g/dl (32.0-37.0); MEAN CORPUSCULAR VOLUME 90.4 fl (82.0-101.0); MEAN PLATELET VOLUME 11.7 fl (7.4-10.4); MONOCYTE # 1.3 10^3/ul (0.3-0.9); MONOCYTES % 7.5 % (0.0-11.0); NEUTROPHIL # 13.1 10^3/ul (1.6-7.5); NEUTROPHILS % 77.9 % (39.0-77.0); PLATELET COUNT 507 10^3/UL (140-415); RED BLOOD COUNT 3.64 10^6/ul (4.70-6.10); RED CELL DISTRIBUTION WIDTH 15.4 % (11.5-14.5); WHITE BLOOD COUNT 16.8 10^3/ul (4.8-10.8)
[2017-08-31 04:58] LABS: CALCIUM 7.8 mg/dl (8.4-10.2); CREATININE 0.98 mg/dl (0.61-1.24); MAGNESIUM 2.4 mg/dl (1.7-2.5); PHOSPHORUS 3.8 mg/dl (2.5-4.9); POTASSIUM 3.9 mmol/L (3.5-5.1)
[2017-08-31] MEDS: SPIRONOLACTONE 25 MG TAB NGT SCH (05:42)
[2017-08-31] MEDS ORDERED: SOD CHLORIDE 0.9% 500 ML IV ONE (06:00)
--- NOTE | 2017-08-31 06:20 | EN ---
Date/Time of Note Date/Time of Note DATE: 08/31/17 TIME: 06:11 Event Note Medicine Medicine Event Note Acute event Called by the RN as patient noted to be hypotensive and tachypneic at approximately 2 AM. Coarse breath sounds on auscultation. Patient is noted to have encephalopathy as well as status post extubation thought to be likely secondary to CVAs. At the current time he appears to be in mild respiratory distress. General: as per above CVS: Sinus tachycardia Lungs: Bilateral coarse breath sounds/rales on auscultation Abdomen: Soft, normal bowel sounds Genitourinary: Patient has stephanie colored urine, with decreased urine output Neuro: Encephalopathic, confused Chest x-ray: There appears to be signs of pulmonary vascular congestion which are not much different from previous chest x-ray. Assessment and plan: #1 Tachypnea: Likely secondary to underlying vascular congestion. At the current time patient's blood pressure is on the hypotensive side I will provide him with albumin 25% IV 2 to help with volume expansion as well as oncotic pressure effect in hopes of diuresis. Lasix will be held at this time secondary to hypotension. #2 Sirs: Stat CBC BMP lactate level ordered. Patient's hypotension and tachypnea as well as elevated white blood cell count she will concern for possible development of infectious process. He is afebrile, I am concerned for infection. At the current time will order stat blood cultures and urine cultures. I will also start the patient on Zosyn and vancomycin. #3 hyponatremia: This appears to be an acute process developed over the last 24- 48 hours. At the current time I will start the patient on D5 water to help with this correction. Will continue to monitor BMPs serially. Greater than 45 minutes of critical care time was spent on the care and management of this patient. HERMILO DA SILVA Aug 31, 2017 06:20
[2017-08-31] MEDS ORDERED: DEXTROSE 5% 1,000 ML IV SCH (06:30)
[2017-08-31] MEDS ORDERED: VANCOMYCIN IV PER PHARMACY XX SCH (06:30)
[2017-08-31] MEDS: HEPARIN 5,000 UNIT/0.5 ML VIAL SC SCH ×3 (06:34→21:48)
[2017-08-31] MEDS: DEXTROSE 5% 1,000 ML IV SCH ×2 (06:55→16:21)
[2017-08-31] MEDS: PIPER-TAZO 3.375 GM IV (PMX) 50 ML IV SCH ×3 (06:55→21:47)
--- NOTE | 2017-08-31 06:58 | PN ---
Date/Time of Note Date/Time of Note DATE: 08/31/17 TIME: 06:54 Assessment/Plan Lines/Catheters IV Catheter Type (from Nrsg): PICC Line Martinez in Place (from Nrsg): Yes Assessment/Plan Assessment/Plan s/p cabg v fib arrets shock cvas now early sepsis iv vanco and zosyn send induced sputum if possible Subjective 24 Hr Interval Summary extubated responds to voice responded to son fred language Constitutional: no complaints Feeding: NPO Pain Control: well controlled Exam/Review of Systems Vital Signs Vitals Vital Signs Date Time Temp Pulse Resp B/P Pulse Ox O2 Delivery O2 Flow Rate FiO2 08/31/17 05:59 97 4.0 08/31/17 04:00 114 08/31/17 03:30 35 94/59 Nasal Cannula 08/31/17 00:00 97.5 08/30/17 09:30 35 Intake and Output 08/30/17 08/30/17 08/31/17 15:00 23:00 07:00 Intake Total 250 ml 470 ml 970 ml Output Total 715 ml 255 ml 60 ml Balance -465 ml 215 ml 910 ml Exam Constitutional: alert Head: normocephalic Eyes: nl conjunctiva ENMT: nl nasal mucosa & septum Neck: supple Respiratory: normal air movement (oxygen nasal cannula) Cardiovascular: other (had svt and run of torsades self limited), regular rate and rhythm Gastrointestinal: soft Genitourinary - Male: other (martinez) Musculoskeletal: other (moves all four but writhing in bed) 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: other (right cerebeller and left frontal cvas) Skin: nl turgor, rash or lesions Results Result Diagram: 08/31/17 0415 08/31/17 0415 ABENA LOMBARDO MD Aug 31, 2017 06:58
[2017-08-31 07:18] LABS: ADD UMIC NO; UR ASCORBIC ACID NEGATIVE (NEGATIVE); UR BILIRUBIN (Dip) NEGATIVE (NEGATIVE); UR BLOOD (Dip) NEGATIVE (NEGATIVE); UR CLARITY CLEAR (CLEAR); UR COLOR YELLOW (YELLOW); UR GLUCOSE (Dip) NEGATIVE (NEGATIVE); UR KETONES (Dip) 1+ mg/dL (NEGATIVE); UR LEUKOCYTE ESTERASE (Dip) NEGATIVE Leu/ul (NEGATIVE); UR NITRITE (Dip) NEGATIVE (NEGATIVE); UR SPECIFIC GRAVITY (Dip) 1.017 (1.003-1.030); UR TOTAL PROTEIN (Dip) NEGATIVE (NEGATIVE); UR UROBILINOGEN (Dip) 2+ mg/dL (NEGATIVE)
[2017-08-31] MEDS: POTASSIUM CHLORIDE 50 ML IVPB PRN ×5 (07:44→14:14)
[2017-08-31] MEDS ORDERED: VANCOMYCIN 1.25 GM in SOD CHLORIDE 0.9% 250 ML IVPB SCH (08:00)
[2017-08-31] MEDS: VALSARTAN 80 MG TAB PO SCH (08:39)
[2017-08-31] MEDS: ASPIRIN 81 MG TAB PO SCH (08:39)
[2017-08-31] MEDS: CLOPIDOGREL 75 MG TAB NGT SCH (08:39)
[2017-08-31 09:03] LABS: CALCIUM 8.3 mg/dl (8.4-10.2); CREATININE 1.09 mg/dl (0.61-1.24); POTASSIUM 3.9 mmol/L (3.5-5.1)
--- NOTE | 2017-08-31 10:34 | PN ---
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 Now extubated , with ischemic cardiomyopathy, and persistent encephalopathy and possible sepsis. Problems: Assessment/Plan STEMI anterior wall post emergent CABG ischemic cardiomyopathy torsades - resolved, short run of just a few seconds, K repleted encephalopathy possible sepsis Recommendations: Cont asa, clopidogrel, atorvastatin metoprolol, valsartan, spironolactone via NGT for cardiomyopathy (pt failed swallow study) Antibiotics per primary Monitor electrolytes. Subjective 24 Hr Interval Summary Free Text/Dictation Patient extubated yesterday. However, pt had short run of torsades de pointes this am (Mg 2.4 K 3.9), WBC is increased. Patient minimally responsive. Subjective hx not possible: pt non-verbal Exam/Review of Systems Vital Signs Vitals Vital Signs Date Time Temp Pulse Resp B/P Pulse Ox O2 Delivery O2 Flow Rate FiO2 08/31/17 10:00 111 31 107/63 98 Nasal Cannula 3.0 08/31/17 09:00 99.2 08/30/17 09:30 35 Intake and Output 08/30/17 08/30/17 08/31/17 15:00 23:00 07:00 Intake Total 250 ml 470 ml 1190 ml Output Total 715 ml 255 ml 230 ml Balance -465 ml 215 ml 960 ml Exam Constitutional: other (arousable to voice and touch) Head: normocephalic Eyes: nl sclera ENMT: nl external ears & nose Neck: No bruits, No jvd Respiratory: clear to auscultation, normal air movement Cardiovascular: regular rate and rhythm, No murmurs/extra sounds Gastrointestinal: non-tender, soft Musculoskeletal: nl extremities to inspection 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: lethargic Skin: nl turgor Results Result Diagram: 08/31/17 0415 08/31/17 0831 Results 24 hrs Laboratory Tests Test 08/31/17 01:42 08/31/17 04:15 08/31/17 06:15 08/31/17 06:35 Blood Gas Specimen Source Blood arterial Arterial Blood Date Drawn 08/31/2017 1:55:31 AM Arterial Blood pH (Temp corrected) 7.514 H Arterial Blood pCO2 (Temp correct) 27.3 L Arterial Blood pO2 (Temp corrected) 75.3 L Arterial Blood HCO3 21.5 L Arterial Blood Base Excess -0.3 Arterial Blood Oxygen Saturation 95.4 Hardeep Test ACCEPTAB Arterial Blood Gas Puncture Site Right Radial Arterial Blood Carboxyhemoglobin 0 Arterial Blood Methemoglobin 0 Blood Gas A-a O2 Differential 128.1 H Oxyhemoglobin Percent 95.4 Total Hemoglobin 13.0 Blood Gas Temperature 37.0 Blood Gas Actual Respiration Rate 36 Blood Gas Modality NASAL CANNULA FiO2 33.0 Blood Gas Notified Whom MH Blood Gas Notified Time 08/31/2017 2:03:27 AM White Blood Count 16.8 #H Red Blood Count 3.64 L Hemoglobin 10.6 L Hematocrit 32.9 L Mean Corpuscular Volume 90.4 Mean Corpuscular Hemoglobin 29.1 Mean Corpuscular Hemoglobin Concent 32.2 Red Cell Distribution Width 15.4 H Platelet Count 507 H Mean Platelet Volume 11.7 H Neutrophils % 77.9 H Lymphocytes % 13.0 L Monocytes % 7.5 Eosinophils % 0.1 Basophils % 0.1 Nucleated Red Blood Cells % 0.0 Neutrophils # 13.1 H Lymphocytes # 2.2 Monocytes # 1.3 H Eosinophils # 0.0 Basophils # 0.0 Nucleated Red Blood Cells # 0.0 Sodium Level 150 H Potassium Level 3.9 Chloride Level 117 H Carbon Dioxide Level 22 Anion Gap 15 Blood Urea Nitrogen 35 H Creatinine 0.98 Glucose Level 115 Calcium Level 7.8 L Phosphorus Level 3.8 Magnesium Level 2.4 Urine Color YELLOW Urine Clarity CLEAR Urine pH 5.0 Urine Specific [place] 1.017 Urine Ketones 1+ H Urine Nitrite NEGATIVE Urine Bilirubin NEGATIVE Urine Urobilinogen 2+ H Urine Leukocyte Esterase NEGATIVE Urine Hemoglobin NEGATIVE Urine Glucose NEGATIVE Urine Total Protein NEGATIVE Lactic Acid Level 1.8 Test 08/31/17 08:31 Sodium Level 153 H Potassium Level 3.9 Chloride Level 114 H Carbon Dioxide Level 23 Anion Gap 20 H Blood Urea Nitrogen 33 H Creatinine 1.09 Glucose Level 180 Calcium Level 8.3 L Medications Medications Current Medications Ondansetron HCl (Zofran Inj) 4 mg Q6H PRN IV NAUSEA AND/OR VOMITING; Start 08/21/17 at 17:30 Acetaminophen/ Hydrocodone Bitart ([place] (5/325)) 1 tab Q6H PRN PO MODERATE PAIN LEVEL 4-6; Start 08/21/17 at 17:30 Morphine Sulfate (morphine) 2 mg Q4H PRN IV SEVERE PAIN LEVEL 7-10; Start 08/21 at 17:30 Docusate Sodium (Colace) 100 mg Q12H PRN PO CONSTIPATION; Start 08/21/17 at 17: 30 Magnesium Hydroxide (Milk Of Mag) 30 ml DAILY PRN PO CONSTIPATION; Start at 17:30 Sodium Biphosphate/ Sodium Phosphate (Fleet Enema) 133 ml DAILY PRN [place] CONSTIPATION; Start 08/21/17 at 17:30 Hydralazine HCl (Apresoline) 10 mg Q6H PRN IV ELEVATED BLOOD PRESSURE; Start 08/21/17 at 17:30 Nitroglycerin (Nitroglycerin (Sl Tab) 0.4 Mg) 1 tab Q5M PRN SL ANGINA; Start 08/21/17 at 17:30 Hydromorphone HCl (Dilaudid) 0.2 mg Q15M PRN IV PAIN LEVEL 1-5 Last administered on 08/23/17 18:35; Admin Dose 0.2 MG; Start 08/22/17 at 01:00 Oxycodone/ Acetaminophen 1 tab 1 tab Q3H PRN PO PAIN LEVEL 1-5; Start 08/22/17 at 01:00 Magnesium Sulfate/ Dextrose (Magnesium Sulfate 1 Gm/D5W) 100 ml @ 100 mls/hr PRN PRN IVPB PENDING LAB VALUE Last administered on 08/23/17 08:54; Admin Dose 100 MLS/HR; Start 08/22/17 at 01:00 Atorvastatin Calcium (Lipitor) 80 mg HS PO Last administered on 08/30/17 20: 35; Admin Dose 80 MG; Start 08/22/17 at 21:00 Acetaminophen (Tylenol Liquid) 650 mg Q4H PRN PO PAIN AND OR ELEVATED TEMP Last administered on 08/28/17 22:16; Admin Dose 650 MG; Start 08/23/17 at 14: 30 Clopidogrel Bisulfate (plaVIX) 75 mg DAILY NGT Last administered on 08/31/17 08:39; Admin Dose 75 MG; Start 08/24/17 at 09:00 IV Flush (NS 10 ml) 10 ml PRN PRN IV IV PROTOCOL; Start 08/24/17 at 12:00 Aspirin (Aspirin) 81 mg DAILY PO Last administered on 08/31/17 08:39; Admin Dose 81 MG; Start 08/25/17 at 09:00 Heparin Sodium (Porcine) (Heparin (5000 Units/0.5 ml)) 5,000 unit Q8 SC Last administered on 08/31/17 06:34; Admin Dose 5,000 UNIT; Start 08/25/17 at 22: 00 Valsartan (Diovan) 40 mg DAILY PO Last administered on 08/31/17 08:39; Admin Dose 40 MG; Start 08/27/17 at 09:00 Famotidine (Pepcid) 20 mg HS NGT Last administered on 08/30/17 20:35; Admin Dose 20 MG; Start 08/27/17 at 21:00 Metoprolol Tartrate (Lopressor) 25 mg Q6 PO Last administered on 08/30/17 18: 00; Admin Dose 25 MG; Start 08/28/17 at 12:00 Spironolactone 25 mg 25 mg DAILY@06 NGT Last administered on 08/30/17 05:40; Admin Dose 25 MG; Start 08/28/17 at 11:30 Dextrose 1,000 ml @ 100 mls/hr Q10H IV Last administered on 08/31/17 06:55; Admin Dose 100 MLS/HR; Start 08/31/17 at 06:30; Stop 08/31/17 at 16:29 Piperacillin Sod/ Tazobactam Sod 50 ml @ 100 mls/hr Q8 IV Last administered on 08/31/17 06:55; Admin Dose 100 MLS/HR; Start 08/31/17 at 06:25 Vancomycin HCl 1.25 gm/Sodium Chloride 250 ml @ 83.333 mls/ hr ONCE IVPB Last administered on 08/31/17 07:44; Admin Dose 83.333 MLS/HR; Start 08/31/17 at 08:00; Stop 08/31/17 at 10:59 Vancomycin HCl (Vancocin) 250 ml @ 125 mls/hr Q24H IVPB ; Start 09/01/17 at 08 :00 JENNIFER MOORE Aug 31, 2017 10:34
--- NOTE | 2017-08-31 10:59 | CONS ---
Date/Time of Note Date/Time of Note DATE: 08/31/17 TIME: 10:52 Consult Date/Type/Reason Admit Date/Time Aug 21, 2017 at 17:28 Initial Consult Date 08/21/17 Type of Consultation: Pulmonary/critical care Ordering Provider: HANNAH MCCLENDON MD Subjective Extubated, stable for quite some time postextubation however increased congestion and tachycardia last night. Objective Vital Signs Date Time Temp Pulse Resp B/P Pulse Ox O2 Delivery O2 Flow Rate FiO2 08/31/17 10:00 111 31 107/63 98 Nasal Cannula 3.0 08/31/17 09:00 99.2 08/30/17 09:30 35 Intake and Output 08/30/17 08/30/17 08/31/17 15:00 23:00 07:00 Intake Total 250 ml 470 ml 1190 ml Output Total 715 ml 255 ml 230 ml Balance -465 ml 215 ml 960 ml Exam GENERAL: Elderly-appearing gentleman on nasal cannula O2 coarse rales bilaterally, agitation VITAL SIGNS: per chart NECK: Supple. No JVD or lymphadenopathy. CARDIAC EXAM: S1, S2. No added sounds or murmurs. CHEST: Coarse rales bilaterally ABDOMEN: Soft, nontender. No guarding or rebound. EXTREMITIES: No cyanosis, clubbing or edema. NEUROLOGIC: Generalized weakness. No focal deficits. Results/Medications Result Diagram: 08/31/17 0415 08/31/17 0831 Results 24 hrs Laboratory Tests Test 08/31/17 01:42 08/31/17 04:15 08/31/17 06:15 08/31/17 06:35 Blood Gas Specimen Source Blood arterial Arterial Blood Date Drawn 08/31/2017 1:55:31 AM Arterial Blood pH (Temp corrected) 7.514 H Arterial Blood pCO2 (Temp correct) 27.3 L Arterial Blood pO2 (Temp corrected) 75.3 L Arterial Blood HCO3 21.5 L Arterial Blood Base Excess -0.3 Arterial Blood Oxygen Saturation 95.4 Hardeep Test ACCEPTAB Arterial Blood Gas Puncture Site Right Radial Arterial Blood Carboxyhemoglobin 0 Arterial Blood Methemoglobin 0 Blood Gas A-a O2 Differential 128.1 H Oxyhemoglobin Percent 95.4 Total Hemoglobin 13.0 Blood Gas Temperature 37.0 Blood Gas Actual Respiration Rate 36 Blood Gas Modality NASAL CANNULA FiO2 33.0 Blood Gas Notified Whom MH Blood Gas Notified Time 08/31/2017 2:03:27 AM White Blood Count 16.8 #H Red Blood Count 3.64 L Hemoglobin 10.6 L Hematocrit 32.9 L Mean Corpuscular Volume 90.4 Mean Corpuscular Hemoglobin 29.1 Mean Corpuscular Hemoglobin Concent 32.2 Red Cell Distribution Width 15.4 H Platelet Count 507 H Mean Platelet Volume 11.7 H Neutrophils % 77.9 H Lymphocytes % 13.0 L Monocytes % 7.5 Eosinophils % 0.1 Basophils % 0.1 Nucleated Red Blood Cells % 0.0 Neutrophils # 13.1 H Lymphocytes # 2.2 Monocytes # 1.3 H Eosinophils # 0.0 Basophils # 0.0 Nucleated Red Blood Cells # 0.0 Sodium Level 150 H Potassium Level 3.9 Chloride Level 117 H Carbon Dioxide Level 22 Anion Gap 15 Blood Urea Nitrogen 35 H Creatinine 0.98 Glucose Level 115 Calcium Level 7.8 L Phosphorus Level 3.8 Magnesium Level 2.4 Urine Color YELLOW Urine Clarity CLEAR Urine pH 5.0 Urine Specific [place] 1.017 Urine Ketones 1+ H Urine Nitrite NEGATIVE Urine Bilirubin NEGATIVE Urine Urobilinogen 2+ H Urine Leukocyte Esterase NEGATIVE Urine Hemoglobin NEGATIVE Urine Glucose NEGATIVE Urine Total Protein NEGATIVE Lactic Acid Level 1.8 Test 08/31/17 08:31 Sodium Level 153 H Potassium Level 3.9 Chloride Level 114 H Carbon Dioxide Level 23 Anion Gap 20 H Blood Urea Nitrogen 33 H Creatinine 1.09 Glucose Level 180 Calcium Level 8.3 L Medications Current Medications Ondansetron HCl (Zofran Inj) 4 mg Q6H PRN IV NAUSEA AND/OR VOMITING; Start 08/21/17 at 17:30 Acetaminophen/ Hydrocodone Bitart ([place] (5/325)) 1 tab Q6H PRN PO MODERATE PAIN LEVEL 4-6; Start 08/21/17 at 17:30 Morphine Sulfate (morphine) 2 mg Q4H PRN IV SEVERE PAIN LEVEL 7-10; Start 08/21 at 17:30 Docusate Sodium (Colace) 100 mg Q12H PRN PO CONSTIPATION; Start 08/21/17 at 17: 30 Magnesium Hydroxide (Milk Of Mag) 30 ml DAILY PRN PO CONSTIPATION; Start at 17:30 Sodium Biphosphate/ Sodium Phosphate (Fleet Enema) 133 ml DAILY PRN [place] CONSTIPATION; Start 08/21/17 at 17:30 Hydralazine HCl (Apresoline) 10 mg Q6H PRN IV ELEVATED BLOOD PRESSURE; Start 08/21/17 at 17:30 Nitroglycerin (Nitroglycerin (Sl Tab) 0.4 Mg) 1 tab Q5M PRN SL ANGINA; Start 08/21/17 at 17:30 Hydromorphone HCl (Dilaudid) 0.2 mg Q15M PRN IV PAIN LEVEL 1-5 Last administered on 08/23/17 18:35; Admin Dose 0.2 MG; Start 08/22/17 at 01:00 Oxycodone/ Acetaminophen 1 tab 1 tab Q3H PRN PO PAIN LEVEL 1-5; Start 08/22/17 at 01:00 Magnesium Sulfate/ Dextrose (Magnesium Sulfate 1 Gm/D5W) 100 ml @ 100 mls/hr PRN PRN IVPB PENDING LAB VALUE Last administered on 08/23/17 08:54; Admin Dose 100 MLS/HR; Start 08/22/17 at 01:00 Atorvastatin Calcium (Lipitor) 80 mg HS PO Last administered on 08/30/17 20: 35; Admin Dose 80 MG; Start 08/22/17 at 21:00 Acetaminophen (Tylenol Liquid) 650 mg Q4H PRN PO PAIN AND OR ELEVATED TEMP Last administered on 08/28/17 22:16; Admin Dose 650 MG; Start 08/23/17 at 14: 30 Clopidogrel Bisulfate (plaVIX) 75 mg DAILY NGT Last administered on 08/31/17 08:39; Admin Dose 75 MG; Start 08/24/17 at 09:00 IV Flush (NS 10 ml) 10 ml PRN PRN IV IV PROTOCOL; Start 08/24/17 at 12:00 Aspirin (Aspirin) 81 mg DAILY PO Last administered on 08/31/17 08:39; Admin Dose 81 MG; Start 08/25/17 at 09:00 Heparin Sodium (Porcine) (Heparin (5000 Units/0.5 ml)) 5,000 unit Q8 SC Last administered on 08/31/17 06:34; Admin Dose 5,000 UNIT; Start 08/25/17 at 22: 00 Valsartan (Diovan) 40 mg DAILY PO Last administered on 08/31/17 08:39; Admin Dose 40 MG; Start 08/27/17 at 09:00 Famotidine (Pepcid) 20 mg HS NGT Last administered on 08/30/17 20:35; Admin Dose 20 MG; Start 08/27/17 at 21:00 Metoprolol Tartrate (Lopressor) 25 mg Q6 PO Last administered on 08/30/17 18: 00; Admin Dose 25 MG; Start 08/28/17 at 12:00 Spironolactone 25 mg 25 mg DAILY@06 NGT Last administered on 08/30/17 05:40; Admin Dose 25 MG; Start 08/28/17 at 11:30 Dextrose 1,000 ml @ 100 mls/hr Q10H IV Last administered on 08/31/17 06:55; Admin Dose 100 MLS/HR; Start 08/31/17 at 06:30; Stop 08/31/17 at 16:29 Piperacillin Sod/ Tazobactam Sod 50 ml @ 100 mls/hr Q8 IV Last administered on 08/31/17 06:55; Admin Dose 100 MLS/HR; Start 08/31/17 at 06:25 Vancomycin HCl 1.25 gm/Sodium Chloride 250 ml @ 83.333 mls/ hr ONCE IVPB Last administered on 08/31/17 07:44; Admin Dose 83.333 MLS/HR; Start 08/31/17 at 08:00; Stop 08/31/17 at 10:59 Vancomycin HCl (Vancocin) 250 ml @ 125 mls/hr Q24H IVPB ; Start 09/01/17 at 08 :00 Assessment/Plan Chief Complaint/Hosp Course IMP: 1. s/p STEMI followed by LHC and CABG 2. Status post cardiogenic shock 3. Resolved lactic acidosis 4. Hypernatremia likely free water deficit. 5. Acute CVA with encephalopathy. 6. s/p resp faliure. possible aspiration RECS: 1. Aspiration precautions, may require broaden ABx. 2. Post extubation ST eval, not stable for po intake. 3. Hold sedation as tolerated 4. May require PEG tube if not able to swallow adequately. Liver u/s today. Discussed with primary team. Problems: CRISTI REY MD, [facility] Aug 31, 2017 10:59
--- NOTE | 2017-08-31 11:23 | PN ---
Date/Time of Note Date/Time of Note DATE: 08/31/17 TIME: 11:06 Assessment/Plan VTE Prophylaxis VTE Prophylaxis Intervention: heparin Lines/Catheters IV Catheter Type (from Nrs): PICC Line Central line still needed: Yes Urinary Cath still in place: Yes Reason Cath still needed: other (indicate) Assessment/Plan Assessment/Plan 72-year-old male admitted for ST elevation myocardial infarction now status post coronary bypass surgery managed as follows: 1. Severe coronary artery disease status post ST elevation myocardial infarction with subsequent left heart cath status post coronary bypass surgery for three-vessel disease 2. Status post acute cerebrovascular accident confirmed on MRI 3. History of hypothyroidism 4. Hypernatremia: worsening 5. Status post cardiogenic shock and metabolic acidosis 6. Transaminitis likely from shock liver from shock 7. Severe systemic inflammatory response syndrome improved with no evidence of underlying infection so far 8. Acute resp failure 2/2 #2 s/p extubation 08/30/17 Plan: Currently on Empiric vanco and zosyn for possible pneumonia / f/u sputum cultures Agree with gentle D5w infusion repeat labs in PM Patient still NPO with no NGT, ?convert meds to IV / will await ST's eval today Recommend continued monitoring in ICU for now, review again in am All other current interventions reviewed, will continue for now. Other interventions per clinical course Critical care time greater than 40 minutes Subjective 24 Hr Interval Summary Free Text/Dictation successfully extubated yesterday, confused and trying to get out of bed and pulling at lines, pulled out NGT as well failed swallow eval yesterday had some tachycardia and arrhythmias overnight as well as hypotension Exam/Review of Systems Vital Signs Vitals Vital Signs Date Time Temp Pulse Resp B/P Pulse Ox O2 Delivery O2 Flow Rate FiO2 08/31/17 10:00 111 31 107/63 98 Nasal Cannula 3.0 08/31/17 09:00 99.2 08/30/17 09:30 35 Intake and Output 08/30/17 08/30/17 08/31/17 15:00 23:00 07:00 Intake Total 250 ml 470 ml 1190 ml Output Total 715 ml 255 ml 230 ml Balance -465 ml 215 ml 960 ml Exam Constitutional: alert, frail, No oriented Psych: confusion Eyes: PERRL ENMT: No mucosa pink and moist (dry) Respiratory: crackles/rales, diminished breath sounds, No labored breathing, No wheezing Cardiovascular: regular rate and rhythm Gastrointestinal: bowel sounds, non-tender (doesn't seem tender), soft Extremities: No edema 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: confused, No nl mental status Results Result Diagram: 08/31/17 0415 08/31/17 0831 Results 24 hrs Laboratory Tests Test 08/31/17 01:42 08/31/17 04:15 08/31/17 06:15 08/31/17 06:35 Blood Gas Specimen Source Blood arterial Arterial Blood Date Drawn 08/31/2017 1:55:31 AM Arterial Blood pH (Temp corrected) 7.514 H Arterial Blood pCO2 (Temp correct) 27.3 L Arterial Blood pO2 (Temp corrected) 75.3 L Arterial Blood HCO3 21.5 L Arterial Blood Base Excess -0.3 Arterial Blood Oxygen Saturation 95.4 Hardeep Test ACCEPTAB Arterial Blood Gas Puncture Site Right Radial Arterial Blood Carboxyhemoglobin 0 Arterial Blood Methemoglobin 0 Blood Gas A-a O2 Differential 128.1 H Oxyhemoglobin Percent 95.4 Total Hemoglobin 13.0 Blood Gas Temperature 37.0 Blood Gas Actual Respiration Rate 36 Blood Gas Modality NASAL CANNULA FiO2 33.0 Blood Gas Notified Whom MH Blood Gas Notified Time 08/31/2017 2:03:27 AM White Blood Count 16.8 #H Red Blood Count 3.64 L Hemoglobin 10.6 L Hematocrit 32.9 L Mean Corpuscular Volume 90.4 Mean Corpuscular Hemoglobin 29.1 Mean Corpuscular Hemoglobin Concent 32.2 Red Cell Distribution Width 15.4 H Platelet Count 507 H Mean Platelet Volume 11.7 H Neutrophils % 77.9 H Lymphocytes % 13.0 L Monocytes % 7.5 Eosinophils % 0.1 Basophils % 0.1 Nucleated Red Blood Cells % 0.0 Neutrophils # 13.1 H Lymphocytes # 2.2 Monocytes # 1.3 H Eosinophils # 0.0 Basophils # 0.0 Nucleated Red Blood Cells # 0.0 Sodium Level 150 H Potassium Level 3.9 Chloride Level 117 H Carbon Dioxide Level 22 Anion Gap 15 Blood Urea Nitrogen 35 H Creatinine 0.98 Glucose Level 115 Calcium Level 7.8 L Phosphorus Level 3.8 Magnesium Level 2.4 Urine Color YELLOW Urine Clarity CLEAR Urine pH 5.0 Urine Specific [place] 1.017 Urine Ketones 1+ H Urine Nitrite NEGATIVE Urine Bilirubin NEGATIVE Urine Urobilinogen 2+ H Urine Leukocyte Esterase NEGATIVE Urine Hemoglobin NEGATIVE Urine Glucose NEGATIVE Urine Total Protein NEGATIVE Lactic Acid Level 1.8 Test 08/31/17 08:31 Sodium Level 153 H Potassium Level 3.9 Chloride Level 114 H Carbon Dioxide Level 23 Anion Gap 20 H Blood Urea Nitrogen 33 H Creatinine 1.09 Glucose Level 180 Calcium Level 8.3 L Medications Medications Current Medications Ondansetron HCl (Zofran Inj) 4 mg Q6H PRN IV NAUSEA AND/OR VOMITING; Start 08/21/17 at 17:30 Acetaminophen/ Hydrocodone Bitart ([place] (5/325)) 1 tab Q6H PRN PO MODERATE PAIN LEVEL 4-6; Start 08/21/17 at 17:30 Morphine Sulfate (morphine) 2 mg Q4H PRN IV SEVERE PAIN LEVEL 7-10; Start 08/21 at 17:30 Docusate Sodium (Colace) 100 mg Q12H PRN PO CONSTIPATION; Start 08/21/17 at 17: 30 Magnesium Hydroxide (Milk Of Mag) 30 ml DAILY PRN PO CONSTIPATION; Start at 17:30 Sodium Biphosphate/ Sodium Phosphate (Fleet Enema) 133 ml DAILY PRN [place] CONSTIPATION; Start 08/21/17 at 17:30 Hydralazine HCl (Apresoline) 10 mg Q6H PRN IV ELEVATED BLOOD PRESSURE; Start 08/21/17 at 17:30 Nitroglycerin (Nitroglycerin (Sl Tab) 0.4 Mg) 1 tab Q5M PRN SL ANGINA; Start 08/21/17 at 17:30 Hydromorphone HCl (Dilaudid) 0.2 mg Q15M PRN IV PAIN LEVEL 1-5 Last administered on 08/23/17 18:35; Admin Dose 0.2 MG; Start 08/22/17 at 01:00 Oxycodone/ Acetaminophen 1 tab 1 tab Q3H PRN PO PAIN LEVEL 1-5; Start 08/22/17 at 01:00 Magnesium Sulfate/ Dextrose (Magnesium Sulfate 1 Gm/D5W) 100 ml @ 100 mls/hr PRN PRN IVPB PENDING LAB VALUE Last administered on 08/23/17 08:54; Admin Dose 100 MLS/HR; Start 08/22/17 at 01:00 Atorvastatin Calcium (Lipitor) 80 mg HS PO Last administered on 08/30/17 20: 35; Admin Dose 80 MG; Start 08/22/17 at 21:00 Acetaminophen (Tylenol Liquid) 650 mg Q4H PRN PO PAIN AND OR ELEVATED TEMP Last administered on 08/28/17 22:16; Admin Dose 650 MG; Start 08/23/17 at 14: 30 Clopidogrel Bisulfate (plaVIX) 75 mg DAILY NGT Last administered on 08/31/17 08:39; Admin Dose 75 MG; Start 08/24/17 at 09:00 IV Flush (NS 10 ml) 10 ml PRN PRN IV IV PROTOCOL; Start 08/24/17 at 12:00 Aspirin (Aspirin) 81 mg DAILY PO Last administered on 08/31/17 08:39; Admin Dose 81 MG; Start 08/25/17 at 09:00 Heparin Sodium (Porcine) (Heparin (5000 Units/0.5 ml)) 5,000 unit Q8 SC Last administered on 08/31/17 06:34; Admin Dose 5,000 UNIT; Start 08/25/17 at 22: 00 Valsartan (Diovan) 40 mg DAILY PO Last administered on 08/31/17 08:39; Admin Dose 40 MG; Start 08/27/17 at 09:00 Famotidine (Pepcid) 20 mg HS NGT Last administered on 08/30/17 20:35; Admin Dose 20 MG; Start 08/27/17 at 21:00 Metoprolol Tartrate (Lopressor) 25 mg Q6 PO Last administered on 08/30/17 18: 00; Admin Dose 25 MG; Start 08/28/17 at 12:00 Spironolactone 25 mg 25 mg DAILY@06 NGT Last administered on 08/30/17 05:40; Admin Dose 25 MG; Start 08/28/17 at 11:30 Dextrose 1,000 ml @ 100 mls/hr Q10H IV Last administered on 08/31/17 06:55; Admin Dose 100 MLS/HR; Start 08/31/17 at 06:30; Stop 08/31/17 at 16:29 Piperacillin Sod/ Tazobactam Sod 50 ml @ 100 mls/hr Q8 IV Last administered on 08/31/17 06:55; Admin Dose 100 MLS/HR; Start 08/31/17 at 06:25 Vancomycin HCl (Vancocin) 250 ml @ 125 mls/hr Q24H IVPB ; Start 09/01/17 at 08 :00 Procedures Procedures PROCEDURE: XR Chest. CLINICAL INDICATION: CHF TECHNIQUE: AP Portable chest. COMPARISON: CHEST 08/29/2017; CHEST 08/28/2017 FINDINGS: There are multiple wires overlying the chest. Endotracheal tube has been removed. NG tube and right PICC line remain in place. The cardiomediastinal silhouette is enlarged. The aortic arch is calcified. Bilateral interstitial densities, edema are unchanged. The left costophrenic angle is obscured. No pneumothorax is seen. The osseous structures are intact. IMPRESSION: Interval removal of the endotracheal tube. NG tube and right PICC line in place. CHF. No significant change. Cardiomegaly. Aortic atherosclerosis. Physician Naheed Date Time Electronically viewed and signed by Kimberlee Jones Physician on 08/31/2017 02: 21 CS/ CC: HERMILO DA SILVA BOLATITO M. Aug 31, 2017 11:18
[2017-08-31 11:38] LABS: CALCIUM 7.1 mg/dl (8.4-10.2); CREATININE 0.92 mg/dl (0.61-1.24); POTASSIUM 3.4 mmol/L (3.5-5.1)
[2017-08-31 12:20] LABS: CREATININE 0.99 mg/dl (0.61-1.24); POTASSIUM 3.8 mmol/L (3.5-5.1)
--- NOTE | 2017-08-31 13:19 | RADRPT ---
PROCEDURE: US right upper quadrant abdomen. CLINICAL INDICATION: Elevated liver function tests TECHNIQUE: Multiple real-time images were acquired of the patient's right upper quadrant abdomen utilizing a high resolution transducer. COMPARISON: None FINDINGS: The liver demonstrates normal echogenicity and normal size without focal lesions. Patent portal vein . Nondistended gallbladder with gallstone measuring 1.1 cm. No pericholecystic fluid or gallbladder wall thickening. No intrahepatic or extrahepatic biliary dilatation. The common bile duct measures 7 mm in maximal dimension. The visualized portions of the pancreas are normal. The right kidney is normal size with normal echogenicity and morphology. The right kidney measures 10.4 cm. No hydrone phrosis or perinephric fluid collections. Right renal simple cyst measuring 4.1 cm. There are no are as of increased echogenicity to suggest nephrolithiasis. Normal caliber aorta and IVC. No peritoneal free fluid. IMPRESSION: Cholelithiasis without ultrasound evidence of cholecystitis. RPTAT:AAJJ Physician Yadi Date Time Electronically viewed and signed by Physician Yadi on 08/31/2017 13:19 /
[2017-08-31 13:36] LABS: INR 1.24; PROTIME 15.8 Sec (11.9-14.9); PT RATIO 1.2
[2017-08-31 14:41] LABS: CALCIUM 8.1 mg/dl (8.4-10.2); CREATININE 0.99 mg/dl (0.61-1.24); POTASSIUM 4.1 mmol/L (3.5-5.1)
[2017-08-31 14:51] LABS: Allen Test ACCEPTAB; Arterial Base Excess -2.8 mmol/L (-3.0-3); Arterial COHb 0.3 % (0.0-3.0); Arterial Fraction of Oxyhgb 95.2 % (93.0-99.0); Arterial HCO3 20.3 mmol/L (22.0-26.0); Arterial MetHb 0 % (0.0-1.5); Arterial Total Hemglobin 10.3 g/dl (12.0-18.0); MODE NASAL CANNULA
[2017-08-31 16:35] LABS: CALCIUM 7.9 mg/dl (8.4-10.2); CREATININE 0.93 mg/dl (0.61-1.24); POTASSIUM 4.2 mmol/L (3.5-5.1)
[2017-08-31 20:02] LABS: CALCIUM 7.9 mg/dl (8.4-10.2); CREATININE 0.9 mg/dl (0.61-1.24); POTASSIUM 3.8 mmol/L (3.5-5.1)
[2017-08-31] MEDS: ATORVASTATIN 80 MG TAB PO SCH (20:29)
[2017-08-31] MEDS: FAMOTIDINE 20 MG TAB NGT SCH (20:29)
[2017-09-01] VITALS (27 sets, daily range): BP systolic 86–130; BP diastolic 47–104; PULSE 96–132; RESP 22–32
[2017-09-01] MEDS: METOPROLOL 25 MG TAB PO SCH ×2 (00:27→06:20)
[2017-09-01] MEDS: IPRATROPIUM (NEB) 0.5 MG/2.5 ML AMP HHN PRN (01:57)
[2017-09-01] MEDS: LEVALBUTEROL (NEB) 0.63 MG/3 ML AMP HHN PRN (01:57)
[2017-09-01 05:03] LABS: BASOPHILS % 0.1 % (0.0-2.0); EOSINOPHILS % 0.1 % (0.0-7.0); LYMPHOCYTES # 1.6 10^3/ul (0.8-2.9); LYMPHOCYTES % 11.4 % (15.0-51.0); MEAN CORPUSCULAR VOLUME 93.5 fl (82.0-101.0); MEAN PLATELET VOLUME 11.3 fl (7.4-10.4); MONOCYTE # 0.9 10^3/ul (0.3-0.9); MONOCYTES % 6.6 % (0.0-11.0); NEUTROPHIL # 11.2 10^3/ul (1.6-7.5); NEUTROPHILS % 80.9 % (39.0-77.0); PLATELET COUNT 512 10^3/UL (140-415); RED CELL DISTRIBUTION WIDTH 15.2 % (11.5-14.5); WHITE BLOOD COUNT 13.9 10^3/ul (4.8-10.8)
[2017-09-01 05:23] LABS: ALBUMIN 3.2 g/dl (3.3-4.9); BILIRUBIN,DIRECT 0.3 mg/dl (0.00-0.20); BILIRUBIN,INDIRECT 1.2 mg/dl (0-1.1); BILIRUBIN,TOTAL 1.5 mg/dl (0.2-1.3); TOTAL PROTEIN 6.1 g/dl (6.1-8.1)
[2017-09-01 05:25] LABS: CALCIUM 8.3 mg/dl (8.4-10.2); CREATININE 0.92 mg/dl (0.61-1.24); MAGNESIUM 2.7 mg/dl (1.7-2.5); POTASSIUM 3.7 mmol/L (3.5-5.1)
--- NOTE | 2017-09-01 05:57 | PN ---
Date/Time of Note Date/Time of Note DATE: 09/01/17 TIME: 05:56 Assessment/Plan Lines/Catheters IV Catheter Type (from Nrs): PICC Line Champion in Place (from Nrs): Yes Assessment/Plan Chief Complaint/Hosp Course much more awake today WBC 14K continues to improve cultures negativ to date Problems: Exam/Review of Systems Vital Signs Vitals Vital Signs Date Time Temp Pulse Resp B/P Pulse Ox O2 Delivery O2 Flow Rate FiO2 09/01/17 04:00 115 09/01/17 03:00 27 114/57 100 Nasal Cannula 4.0 09/01/17 00:00 99.2 08/30/17 09:30 35 Intake and Output 08/31/17 08/31/17 09/01/17 14:59 22:59 06:59 Intake Total 1853.332 ml 810 ml 450 ml Output Total 395 ml 425 ml 325 ml Balance 1458.332 ml 385 ml 125 ml Results Result Diagram: 09/01/17 0435 09/01/17 0435 ERNIE LOPEZ MD Sep 01, 2017 05:57
[2017-09-01] MEDS: PIPER-TAZO 3.375 GM IV (PMX) 50 ML IV SCH ×3 (06:06→21:54)
[2017-09-01] MEDS: HEPARIN 5,000 UNIT/0.5 ML VIAL SC SCH ×3 (06:08→22:05)
[2017-09-01] MEDS: POTASSIUM CHLORIDE 50 ML IVPB PRN ×4 (06:35→11:52)
[2017-09-01] MEDS: SPIRONOLACTONE 25 MG TAB NGT SCH (06:51)
--- NOTE | 2017-09-01 08:42 | RADRPT ---
PROCEDURE: XR Chest. CLINICAL INDICATION: Pneumonia, CHF. TECHNIQUE: Single frontal view of the chest was obtained. COMPARISON: 08/31/2017. FINDINGS: Enteric tube and right-sided PICC appear stable in position. The cardiomediastinal silhouette demonstrates enlargement of the cardiac silhouette. There are aorti c calcifications. Stable sternotomy wires. No significant change in bilateral interstitial opacities, likely representing edema. No pleural effusion is seen. No definite pneumothorax. No acute osseous abnormality. IMPRESSION: 1. Cardiomegaly with no significant change in pulmonary vascular congestion/edema. 2. Stable support lines and tubes. RPTAT: AAEE Physician Chloe Date Time Electronically viewed and signed by Brad Starr Physician on 09/01/2017 08:42 PH/
[2017-09-01] MEDS: VANCOMYCIN 1 GM in NS 250 ML IVPB SCH (08:55)
[2017-09-01] MEDS: VALSARTAN 80 MG TAB PO SCH (09:00)
[2017-09-01] MEDS: ASPIRIN 81 MG TAB PO SCH (09:01)
[2017-09-01] MEDS: CLOPIDOGREL 75 MG TAB NGT SCH (09:01)
--- NOTE | 2017-09-01 10:03 | CONS ---
Date/Time of Note Date/Time of Note DATE: 09/01/17 TIME: 10:02 Consult Date/Type/Reason Admit Date/Time Aug 21, 2017 at 17:28 Initial Consult Date 08/21/17 Type of Consultation: Pulmonary/critical care Ordering Provider: HANNAH MCCLENDON MD Subjective Patient remains confused and agitated. Mild respiratory distress. Nasogastric tube in place. Objective Vital Signs Date Time Temp Pulse Resp B/P Pulse Ox O2 Delivery O2 Flow Rate FiO2 09/01/17 09:44 97 3.0 09/01/17 09:10 111 31 Nasal Cannula 09/01/17 06:00 98/55 09/01/17 00:00 99.2 08/30/17 09:30 35 Intake and Output 08/31/17 08/31/17 09/01/17 15:00 23:00 07:00 Intake Total 1873.332 ml 710 ml 540 ml Output Total 405 ml 460 ml 530 ml Balance 1468.332 ml 250 ml 10 ml Exam GENERAL: Elderly-appearing gentleman on nasal cannula O2 coarse rales bilaterally, agitation VITAL SIGNS: per chart NECK: Supple. No JVD or lymphadenopathy. CARDIAC EXAM: S1, S2. No added sounds or murmurs. CHEST: Coarse rales bilaterally ABDOMEN: Soft, nontender. No guarding or rebound. EXTREMITIES: No cyanosis, clubbing or edema. NEUROLOGIC: Generalized weakness. No focal deficits. Results/Medications Result Diagram: 09/01/17 0435 09/01/17 0435 Results 24 hrs Laboratory Tests Test 08/31/17 10:15 08/31/17 11:49 08/31/17 11:51 08/31/17 14:14 Sodium Level 140 149 H 150 H Potassium Level 3.4 L 3.8 4.1 Chloride Level 109 115 H 115 H Carbon Dioxide Level 22 22 25 Anion Gap 12 # 16 14 Blood Urea Nitrogen 29 H 31 H 28 H Creatinine 0.92 0.99 0.99 Glucose Level 429 #*H 181 # 172 Calcium Level 7.1 L 8.0 L 8.1 L Prothrombin Time 15.8 H Prothrombin Time Ratio 1.2 INR International Normalized Ratio 1.24 Bedside Glucose 158 Test 08/31/17 14:33 08/31/17 16:08 08/31/17 19:03 09/01/17 04:35 Blood Gas Specimen Source Blood arterial Arterial Blood Date Drawn 08/31/2017 2:40:31 PM Arterial Blood pH (Temp corrected) 7.456 H Arterial Blood pCO2 (Temp correct) 29.4 L Arterial Blood pO2 (Temp corrected) 81.4 Arterial Blood HCO3 20.3 L Arterial Blood Base Excess -2.8 Arterial Blood Oxygen Saturation 95.5 Hardeep Test ACCEPTAB Arterial Blood Gas Puncture Site Right Radial Arterial Blood Carboxyhemoglobin 0.3 Arterial Blood Methemoglobin 0 Blood Gas A-a O2 Differential 98.0 H Oxyhemoglobin Percent 95.2 Total Hemoglobin 10.3 L Blood Gas Temperature 37.0 Blood Gas Modality NASAL CANNULA FiO2 30.0 Blood Gas Notified Whom JLD Blood Gas Notified Time 08/31/2017 2:51:04 PM Sodium Level 147 H 147 H 151 H Potassium Level 4.2 3.8 3.7 Chloride Level 114 H 114 H 116 H Carbon Dioxide Level 23 24 24 Anion Gap 14 13 15 Blood Urea Nitrogen 27 H 25 H 22 H Creatinine 0.93 0.90 0.92 Glucose Level 173 136 132 Calcium Level 7.9 L 7.9 L 8.3 L White Blood Count 13.9 H Red Blood Count 3.10 L Hemoglobin 9.0 L Hematocrit 29.0 L Mean Corpuscular Volume 93.5 Mean Corpuscular Hemoglobin 29.0 Mean Corpuscular Hemoglobin Concent 31.0 L Red Cell Distribution Width 15.2 H Platelet Count 512 H Mean Platelet Volume 11.3 H Neutrophils % 80.9 H Lymphocytes % 11.4 L Monocytes % 6.6 Eosinophils % 0.1 Basophils % 0.1 Nucleated Red Blood Cells % 0.0 Neutrophils # 11.2 H Lymphocytes # 1.6 Monocytes # 0.9 Eosinophils # 0.0 Basophils # 0.0 Nucleated Red Blood Cells # 0.0 Magnesium Level 2.7 H Total Bilirubin 1.5 H Direct Bilirubin 0.30 #H Indirect Bilirubin 1.2 H Aspartate Amino Transf (AST/SGOT) 80 H Alanine Aminotransferase (ALT/SGPT) 79 H Alkaline Phosphatase 146 H Total Protein 6.1 Albumin 3.2 L Medications Current Medications Ondansetron HCl (Zofran Inj) 4 mg Q6H PRN IV NAUSEA AND/OR VOMITING; Start 08/21/17 at 17:30 Acetaminophen/ Hydrocodone Bitart ([place] (5/325)) 1 tab Q6H PRN PO MODERATE PAIN LEVEL 4-6; Start 08/21/17 at 17:30 Morphine Sulfate (morphine) 2 mg Q4H PRN IV SEVERE PAIN LEVEL 7-10 Last administered on 09/01/17 02:45; Admin Dose 2 MG; Start 08/21/17 at 17:30 Docusate Sodium (Colace) 100 mg Q12H PRN PO CONSTIPATION; Start 08/21/17 at 17: 30 Magnesium Hydroxide (Milk Of Mag) 30 ml DAILY PRN PO CONSTIPATION; Start at 17:30 Sodium Biphosphate/ Sodium Phosphate (Fleet Enema) 133 ml DAILY PRN [place] CONSTIPATION; Start 08/21/17 at 17:30 Hydralazine HCl (Apresoline) 10 mg Q6H PRN IV ELEVATED BLOOD PRESSURE; Start 08/21/17 at 17:30 Nitroglycerin (Nitroglycerin (Sl Tab) 0.4 Mg) 1 tab Q5M PRN SL ANGINA; Start 08/21/17 at 17:30 Hydromorphone HCl (Dilaudid) 0.2 mg Q15M PRN IV PAIN LEVEL 1-5 Last administered on 08/23/17 18:35; Admin Dose 0.2 MG; Start 08/22/17 at 01:00 Oxycodone/ Acetaminophen 1 tab 1 tab Q3H PRN PO PAIN LEVEL 1-5; Start 08/22/17 at 01:00 Magnesium Sulfate/ Dextrose (Magnesium Sulfate 1 Gm/D5W) 100 ml @ 100 mls/hr PRN PRN IVPB PENDING LAB VALUE Last administered on 08/23/17 08:54; Admin Dose 100 MLS/HR; Start 08/22/17 at 01:00 Atorvastatin Calcium (Lipitor) 80 mg HS PO Last administered on 08/31/17 20: 29; Admin Dose 80 MG; Start 08/22/17 at 21:00 Acetaminophen (Tylenol Liquid) 650 mg Q4H PRN PO PAIN AND OR ELEVATED TEMP Last administered on 08/28/17 22:16; Admin Dose 650 MG; Start 08/23/17 at 14: 30 Clopidogrel Bisulfate (plaVIX) 75 mg DAILY NGT Last administered on 09/01/17 09:01; Admin Dose 75 MG; Start 08/24/17 at 09:00 IV Flush (NS 10 ml) 10 ml PRN PRN IV IV PROTOCOL; Start 08/24/17 at 12:00 Aspirin (Aspirin) 81 mg DAILY PO Last administered on 09/01/17 09:01; Admin Dose 81 MG; Start 08/25/17 at 09:00 Heparin Sodium (Porcine) (Heparin (5000 Units/0.5 ml)) 5,000 unit Q8 SC Last administered on 09/01/17 06:08; Admin Dose 5,000 UNIT; Start 08/25/17 at 22: 00 Valsartan (Diovan) 40 mg DAILY PO Last administered on 08/31/17 08:39; Admin Dose 40 MG; Start 08/27/17 at 09:00 Famotidine (Pepcid) 20 mg HS NGT Last administered on 08/31/17 20:29; Admin Dose 20 MG; Start 08/27/17 at 21:00 Metoprolol Tartrate (Lopressor) 25 mg Q6 PO Last administered on 09/01/17 06: 20; Admin Dose 25 MG; Start 08/28/17 at 12:00 Spironolactone 25 mg 25 mg DAILY@06 NGT Last administered on 09/01/17 06:51; Admin Dose 25 MG; Start 08/28/17 at 11:30 Piperacillin Sod/ Tazobactam Sod 50 ml @ 100 mls/hr Q8 IV Last administered on 09/01/17 06:06; Admin Dose 100 MLS/HR; Start 08/31/17 at 06:25 Vancomycin HCl (Vancocin) 250 ml @ 125 mls/hr Q24H IVPB Last administered on 09/01/17 08:55; Admin Dose 125 MLS/HR; Start 09/01/17 at 08:00 Assessment/Plan Chief Complaint/Hosp Course IMP: 1. s/p STEMI followed by LHC and CABG 2. Status post cardiogenic shock 3. Resolved lactic acidosis 4. Hypernatremia likely free water deficit. 5. Acute CVA with encephalopathy. 6. s/p resp faliure. possible aspiration RECS: 1. Aspiration precautions, may require broaden ABx. 2. Post extubation ST eval, not stable for po intake. 3. Hold sedation as tolerated 4. Will require PEG tube. Discussed with primary team. Problems: CRISTI REY MD, [facility] Sep 01, 2017 10:03
--- NOTE | 2017-09-01 10:18 | PN ---
Date/Time of Note Date/Time of Note DATE: 09/01/17 TIME: 10:08 Assessment/Plan VTE Prophylaxis VTE Prophylaxis Intervention: SCD's Lines/Catheters IV Catheter Type (from Nrsg): PICC Line Central line still needed: Yes Urinary Cath still in place: Yes Reason Cath still needed: urinary retention Assessment/Plan Chief Complaint/Hosp Course 72 yo presented with STEMI anterior wall, with severe 3V CAD and instability with VF/VT arrest in label folder requiring shock, s/p emergent CABG. Now extubated , with ischemic cardiomyopathy, and persistent encephalopathy and possible sepsis. Problems: Assessment/Plan STEMI anterior wall, post emergent CABG ischemic cardiomyopathy encephalopathy Recommendations: Continue medications for cardiomyopathy, limited by relative hypotension Will change metoprolol to carvedilol due to persistent need for NGT and inability to give metoprolol succinate Continue asa, clopidogrel, atorvastatin, valsartan, spironolactone OOB/PT/mobilize Subjective 24 Hr Interval Summary Free Text/Dictation Per nursing, patient responsive when spoken to in Farsi. He remains weak. Subjective hx not possible: pt non-verbal Exam/Review of Systems Vital Signs Vitals Vital Signs Date Time Temp Pulse Resp B/P Pulse Ox O2 Delivery O2 Flow Rate FiO2 09/01/17 09:44 97 3.0 09/01/17 09:10 111 31 Nasal Cannula 09/01/17 06:00 98/55 09/01/17 00:00 99.2 08/30/17 09:30 35 Intake and Output 08/31/17 08/31/17 09/01/17 15:00 23:00 07:00 Intake Total 1873.332 ml 710 ml 540 ml Output Total 405 ml 460 ml 530 ml Balance 1468.332 ml 250 ml 10 ml Exam Constitutional: alert Psych: nl mood/affect, no complaints Head: atraumatic, normocephalic Eyes: EOMI, nl conjunctiva, nl lids, nl sclera ENMT: nl external ears & nose, nl lips & teeth Respiratory: clear to auscultation, normal air movement Cardiovascular: regular rate and rhythm, No murmurs/extra sounds Gastrointestinal: nl liver, spleen, non-tender, soft Musculoskeletal: nl extremities to inspection Extremities: No edema 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: other (awake, not following commands in [place]ian, minimally verbal ) Skin: nl turgor, No rash or lesions Results Result Diagram: 09/01/17 0435 09/01/17 0435 Results 24 hrs Laboratory Tests Test 08/31/17 10:15 08/31/17 11:49 08/31/17 11:51 08/31/17 14:14 Sodium Level 140 149 H 150 H Potassium Level 3.4 L 3.8 4.1 Chloride Level 109 115 H 115 H Carbon Dioxide Level 22 22 25 Anion Gap 12 # 16 14 Blood Urea Nitrogen 29 H 31 H 28 H Creatinine 0.92 0.99 0.99 Glucose Level 429 #*H 181 # 172 Calcium Level 7.1 L 8.0 L 8.1 L Prothrombin Time 15.8 H Prothrombin Time Ratio 1.2 INR International Normalized Ratio 1.24 Bedside Glucose 158 Test 08/31/17 14:33 08/31/17 16:08 08/31/17 19:03 09/01/17 04:35 Blood Gas Specimen Source Blood arterial Arterial Blood Date Drawn 08/31/2017 2:40:31 PM Arterial Blood pH (Temp corrected) 7.456 H Arterial Blood pCO2 (Temp correct) 29.4 L Arterial Blood pO2 (Temp corrected) 81.4 Arterial Blood HCO3 20.3 L Arterial Blood Base Excess -2.8 Arterial Blood Oxygen Saturation 95.5 Hardeep Test ACCEPTAB Arterial Blood Gas Puncture Site Right Radial Arterial Blood Carboxyhemoglobin 0.3 Arterial Blood Methemoglobin 0 Blood Gas A-a O2 Differential 98.0 H Oxyhemoglobin Percent 95.2 Total Hemoglobin 10.3 L Blood Gas Temperature 37.0 Blood Gas Modality NASAL CANNULA FiO2 30.0 Blood Gas Notified Whom JLD Blood Gas Notified Time 08/31/2017 2:51:04 PM Sodium Level 147 H 147 H 151 H Potassium Level 4.2 3.8 3.7 Chloride Level 114 H 114 H 116 H Carbon Dioxide Level 23 24 24 Anion Gap 14 13 15 Blood Urea Nitrogen 27 H 25 H 22 H Creatinine 0.93 0.90 0.92 Glucose Level 173 136 132 Calcium Level 7.9 L 7.9 L 8.3 L White Blood Count 13.9 H Red Blood Count 3.10 L Hemoglobin 9.0 L Hematocrit 29.0 L Mean Corpuscular Volume 93.5 Mean Corpuscular Hemoglobin 29.0 Mean Corpuscular Hemoglobin Concent 31.0 L Red Cell Distribution Width 15.2 H Platelet Count 512 H Mean Platelet Volume 11.3 H Neutrophils % 80.9 H Lymphocytes % 11.4 L Monocytes % 6.6 Eosinophils % 0.1 Basophils % 0.1 Nucleated Red Blood Cells % 0.0 Neutrophils # 11.2 H Lymphocytes # 1.6 Monocytes # 0.9 Eosinophils # 0.0 Basophils # 0.0 Nucleated Red Blood Cells # 0.0 Magnesium Level 2.7 H Total Bilirubin 1.5 H Direct Bilirubin 0.30 #H Indirect Bilirubin 1.2 H Aspartate Amino Transf (AST/SGOT) 80 H Alanine Aminotransferase (ALT/SGPT) 79 H Alkaline Phosphatase 146 H Total Protein 6.1 Albumin 3.2 L Medications Medications Current Medications Ondansetron HCl (Zofran Inj) 4 mg Q6H PRN IV NAUSEA AND/OR VOMITING; Start 08/21/17 at 17:30 Acetaminophen/ Hydrocodone Bitart ([place] (5/325)) 1 tab Q6H PRN PO MODERATE PAIN LEVEL 4-6; Start 08/21/17 at 17:30 Morphine Sulfate (morphine) 2 mg Q4H PRN IV SEVERE PAIN LEVEL 7-10 Last administered on 09/01/17 02:45; Admin Dose 2 MG; Start 08/21/17 at 17:30 Docusate Sodium (Colace) 100 mg Q12H PRN PO CONSTIPATION; Start 08/21/17 at 17: 30 Magnesium Hydroxide (Milk Of Mag) 30 ml DAILY PRN PO CONSTIPATION; Start at 17:30 Sodium Biphosphate/ Sodium Phosphate (Fleet Enema) 133 ml DAILY PRN [place] CONSTIPATION; Start 08/21/17 at 17:30 Hydralazine HCl (Apresoline) 10 mg Q6H PRN IV ELEVATED BLOOD PRESSURE; Start 08/21/17 at 17:30 Nitroglycerin (Nitroglycerin (Sl Tab) 0.4 Mg) 1 tab Q5M PRN SL ANGINA; Start 08/21/17 at 17:30 Hydromorphone HCl (Dilaudid) 0.2 mg Q15M PRN IV PAIN LEVEL 1-5 Last administered on 08/23/17 18:35; Admin Dose 0.2 MG; Start 08/22/17 at 01:00 Oxycodone/ Acetaminophen 1 tab 1 tab Q3H PRN PO PAIN LEVEL 1-5; Start 08/22/17 at 01:00 Magnesium Sulfate/ Dextrose (Magnesium Sulfate 1 Gm/D5W) 100 ml @ 100 mls/hr PRN PRN IVPB PENDING LAB VALUE Last administered on 08/23/17 08:54; Admin Dose 100 MLS/HR; Start 08/22/17 at 01:00 Atorvastatin Calcium (Lipitor) 80 mg HS PO Last administered on 08/31/17 20: 29; Admin Dose 80 MG; Start 08/22/17 at 21:00 Acetaminophen (Tylenol Liquid) 650 mg Q4H PRN PO PAIN AND OR ELEVATED TEMP Last administered on 08/28/17 22:16; Admin Dose 650 MG; Start 08/23/17 at 14: 30 Clopidogrel Bisulfate (plaVIX) 75 mg DAILY NGT Last administered on 09/01/17 09:01; Admin Dose 75 MG; Start 08/24/17 at 09:00 IV Flush (NS 10 ml) 10 ml PRN PRN IV IV PROTOCOL; Start 08/24/17 at 12:00 Aspirin (Aspirin) 81 mg DAILY PO Last administered on 09/01/17 09:01; Admin Dose 81 MG; Start 08/25/17 at 09:00 Heparin Sodium (Porcine) (Heparin (5000 Units/0.5 ml)) 5,000 unit Q8 SC Last administered on 09/01/17 06:08; Admin Dose 5,000 UNIT; Start 08/25/17 at 22: 00 Valsartan (Diovan) 40 mg DAILY PO Last administered on 08/31/17 08:39; Admin Dose 40 MG; Start 08/27/17 at 09:00 Famotidine (Pepcid) 20 mg HS NGT Last administered on 08/31/17 20:29; Admin Dose 20 MG; Start 08/27/17 at 21:00 Metoprolol Tartrate (Lopressor) 25 mg Q6 PO Last administered on 09/01/17 06: 20; Admin Dose 25 MG; Start 08/28/17 at 12:00 Spironolactone 25 mg 25 mg DAILY@06 NGT Last administered on 09/01/17 06:51; Admin Dose 25 MG; Start 08/28/17 at 11:30 Piperacillin Sod/ Tazobactam Sod 50 ml @ 100 mls/hr Q8 IV Last administered on 09/01/17 06:06; Admin Dose 100 MLS/HR; Start 08/31/17 at 06:25 Vancomycin HCl (Vancocin) 250 ml @ 125 mls/hr Q24H IVPB Last administered on 09/01/17t 08:55; Admin Dose 125 MLS/HR; Start 09/01/17 at 08:00 JENNIFER MOORE Sep 01, 2017 10:18
--- NOTE | 2017-09-01 14:23 | PN ---
Date/Time of Note Date/Time of Note DATE: 09/01/17 TIME: 14:12 Assessment/Plan VTE Prophylaxis VTE Prophylaxis Intervention: SCD's Lines/Catheters IV C[facility]ter Type (from [facility]): PICC Line Central line still needed: Yes Urinary Cath still in place: Yes Reason Cath still needed: urinary retention Assessment/Plan Assessment/Plan 1. Severe CAD s/p ST elevation myocardial infarction with subsequent left heart cath status post coronary bypass surgery for three-vessel disease - Cardiology on board and continue current management. Appreciate consultation - Still slightly tachycardic throughout the day 2. Status post acute cerebrovascular accident confirmed on MRI - still confused - Speech eval this am and plans for video swallow - Discussed with son need for PEG tube if does not do well after video swallow given NG tube has been in for almost 2 weeks 3. History of hypothyroidism - stable 4. Hypernatremia: worsening - on D5W 5. Status post cardiogenic shock and metabolic acidosis 6. Transaminitis likely from shock liver from shock 7. Severe systemic inflammatory response syndrome improved with no evidence of underlying infection so far - continue on empiric antibiotics 8. Acute resp failure 2/2 #2 s/p extubation 08/30/17 - Sputum culture show normal lio 9. Disposition - continue monitoring in ICU setting >35 minutes of critical care time spent with patient and son at bedside Subjective 24 Hr Interval Summary Free Text/Dictation Patient was tachypneic in the 30s-40's over night which improved after breathing treatments. Breathing treatments ordered and administered for SOB and rhonchi. Patient resting comfortably in bed. Discussion held about possible PEG tube placement and son agreeable but would like to hold off for a few days. Exam/Review of Systems Vital Signs Vitals Vital Signs Date Time Temp Pulse Resp B/P Pulse Ox O2 Delivery O2 Flow Rate FiO2 09/01/17 12:00 104 09/01/17 12:00 98.7 23 93/52 97 Nasal Cannula 2.0 08/30/17 09:30 35 Intake and Output 08/31/17 08/31/17 09/01/17 15:00 23:00 07:00 Intake Total 1873.332 ml 710 ml 560 ml Output Total 405 ml 460 ml 580 ml Balance 1468.332 ml 250 ml -20 ml Exam Constitutional: alert, frail, No distress Psych: confusion Head: atraumatic, normocephalic Eyes: PERRL ENMT: mucosa pink and moist Neck: supple Respiratory: crackles/rales, No wheezing Cardiovascular: other (tachycardia ), No systolic murmur Gastrointestinal: non-tender, soft, No distended, No rebound or guarding Musculoskeletal: nl extremities to inspection Extremities: normal pulses, No edema 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: confused Skin: other (surgical incision healing well) Lymph: nl lymph nodes Results Result Diagram: 09/01/17 0435 09/01/17 0435 Results 24 hrs Laboratory Tests Test 08/31/17 14:14 08/31/17 14:33 08/31/17 16:08 08/31/17 19:03 Sodium Level 150 H 147 H 147 H Potassium Level 4.1 4.2 3.8 Chloride Level 115 H 114 H 114 H Carbon Dioxide Level 25 23 24 Anion Gap 14 14 13 Blood Urea Nitrogen 28 H 27 H 25 H Creatinine 0.99 0.93 0.90 Glucose Level 172 173 136 Calcium Level 8.1 L 7.9 L 7.9 L Blood Gas Specimen Source Blood arterial Arterial Blood Date Drawn 08/31/2017 2:40:31 PM Arterial Blood pH (Temp corrected) 7.456 H Arterial Blood pCO2 (Temp correct) 29.4 L Arterial Blood pO2 (Temp corrected) 81.4 Arterial Blood HCO3 20.3 L Arterial Blood Base Excess -2.8 Arterial Blood Oxygen Saturation 95.5 Hardeep Test ACCEPTAB Arterial Blood Gas Puncture Site Right Radial Arterial Blood Carboxyhemoglobin 0.3 Arterial Blood Methemoglobin 0 Blood Gas A-a O2 Differential 98.0 H Oxyhemoglobin Percent 95.2 Total Hemoglobin 10.3 L Blood Gas Temperature 37.0 Blood Gas Modality NASAL CANNULA FiO2 30.0 Blood Gas Notified Whom JLD Blood Gas Notified Time 08/31/2017 2:51:04 PM Test 09/01/17 04:35 White Blood Count 13.9 H Red Blood Count 3.10 L Hemoglobin 9.0 L Hematocrit 29.0 L Mean Corpuscular Volume 93.5 Mean Corpuscular Hemoglobin 29.0 Mean Corpuscular Hemoglobin Concent 31.0 L Red Cell Distribution Width 15.2 H Platelet Count 512 H Mean Platelet Volume 11.3 H Neutrophils % 80.9 H Lymphocytes % 11.4 L Monocytes % 6.6 Eosinophils % 0.1 Basophils % 0.1 Nucleated Red Blood Cells % 0.0 Neutrophils # 11.2 H Lymphocytes # 1.6 Monocytes # 0.9 Eosinophils # 0.0 Basophils # 0.0 Nucleated Red Blood Cells # 0.0 Sodium Level 151 H Potassium Level 3.7 Chloride Level 116 H Carbon Dioxide Level 24 Anion Gap 15 Blood Urea Nitrogen 22 H Creatinine 0.92 Glucose Level 132 Calcium Level 8.3 L Magnesium Level 2.7 H Total Bilirubin 1.5 H Direct Bilirubin 0.30 #H Indirect Bilirubin 1.2 H Aspartate Amino Transf (AST/SGOT) 80 H Alanine Aminotransferase (ALT/SGPT) 79 H Alkaline Phosphatase 146 H Total Protein 6.1 Albumin 3.2 L Medications Medications Current Medications Ondansetron HCl (Zofran Inj) 4 mg Q6H PRN IV NAUSEA AND/OR VOMITING; Start 08/21/17 at 17:30 Acetaminophen/ Hydrocodone Bitart ([place] (5/325)) 1 tab Q6H PRN PO MODERATE PAIN LEVEL 4-6; Start 08/21/17 at 17:30 Morphine Sulfate (morphine) 2 mg Q4H PRN IV SEVERE PAIN LEVEL 7-10 Last administered on 09/01/17 02:45; Admin Dose 2 MG; Start 08/21/17 at 17:30 Docusate Sodium (Colace) 100 mg Q12H PRN PO CONSTIPATION; Start 08/21/17 at 17: 30 Magnesium Hydroxide (Milk Of Mag) 30 ml DAILY PRN PO CONSTIPATION; Start at 17:30 Sodium Biphosphate/ Sodium Phosphate (Fleet Enema) 133 ml DAILY PRN [place] CONSTIPATION; Start 08/21/17 at 17:30 Hydralazine HCl (Apresoline) 10 mg Q6H PRN IV ELEVATED BLOOD PRESSURE; Start 08/21/17 at 17:30 Nitroglycerin (Nitroglycerin (Sl Tab) 0.4 Mg) 1 tab Q5M PRN SL ANGINA; Start 08/21/17 at 17:30 Hydromorphone HCl (Dilaudid) 0.2 mg Q15M PRN IV PAIN LEVEL 1-5 Last administered on 08/23/17 18:35; Admin Dose 0.2 MG; Start 08/22/17 at 01:00 Oxycodone/ Acetaminophen 1 tab 1 tab Q3H PRN PO PAIN LEVEL 1-5; Start 08/22/17 at 01:00 Magnesium Sulfate/ Dextrose (Magnesium Sulfate 1 Gm/D5W) 100 ml @ 100 mls/hr PRN PRN IVPB PENDING LAB VALUE Last administered on 08/23/17 08:54; Admin Dose 100 MLS/HR; Start 08/22/17 at 01:00 Atorvastatin Calcium (Lipitor) 80 mg HS PO Last administered on 08/31/17 20: 29; Admin Dose 80 MG; Start 08/22/17 at 21:00 Acetaminophen (Tylenol Liquid) 650 mg Q4H PRN PO PAIN AND OR ELEVATED TEMP Last administered on 08/28/17 22:16; Admin Dose 650 MG; Start 08/23/17 at 14: 30 Clopidogrel Bisulfate (plaVIX) 75 mg DAILY NGT Last administered on 09/01/17 09:01; Admin Dose 75 MG; Start 08/24/17 at 09:00 IV Flush (NS 10 ml) 10 ml PRN PRN IV IV PROTOCOL; Start 08/24/17 at 12:00 Aspirin (Aspirin) 81 mg DAILY PO Last administered on 09/01/17 09:01; Admin Dose 81 MG; Start 08/25/17 at 09:00 Heparin Sodium (Porcine) (Heparin (5000 Units/0.5 ml)) 5,000 unit Q8 SC Last administered on 09/01/17 06:08; Admin Dose 5,000 UNIT; Start 08/25/17 at 22: 00 Valsartan (Diovan) 40 mg DAILY PO Last administered on 08/31/17 08:39; Admin Dose 40 MG; Start 08/27/17 at 09:00 Famotidine (Pepcid) 20 mg HS NGT Last administered on 08/31/17 20:29; Admin Dose 20 MG; Start 08/27/17 at 21:00 Spironolactone 25 mg 25 mg DAILY@06 NGT Last administered on 09/01/17 06:51; Admin Dose 25 MG; Start 08/28/17 at 11:30 Piperacillin Sod/ Tazobactam Sod 50 ml @ 100 mls/hr Q8 IV Last administered on 09/01/17 06:06; Admin Dose 100 MLS/HR; Start 08/31/17 at 06:25 Vancomycin HCl (Vancocin) 250 ml @ 125 mls/hr Q24H IVPB Last administered on 12/19/17at 08:55; Admin Dose 125 MLS/HR; Start 09/01/17 at 08:00 Carvedilol (Coreg) 6.25 mg BID NGT ; Start 09/01/17 at 10:30 LEANNE FLORES MD Sep 01, 2017 14:22
--- NOTE | 2017-09-01 17:26 | CONS ---
Date/Time of Note Date/Time of Note DATE: 09/01/17 TIME: 17:10 Assessment/Plan Assessment/Plan Chief Complaint/Hosp Course Assessment: Dysphagia Coronary artery disease ST elevation myocardial infarction left heart cath coronary bypass surgery for three-vessel disease Acute cerebrovascular accident confirmed on MRI Hypothyroidism Hypernatremia: worsening Status post cardiogenic shock and metabolic acidosis Transaminitis from shock liver Systemic inflammatory response syndrome Acute resp failure s/p extubation 08/30/17 Plan: Spoke to the son about PEG placement Barium swallow test tomorrow Continue NG tube feeding 30 mL/h advance to 50 mL/h Continue current course of treatment Consultation performed in collaboration with Dr. Govea Problems: Consultation Date/Type/Reason Admit Date/Time Aug 21, 2017 at 17:28 Date of Consultation: Sep 01, 2017 Type of Consultation: GI Reason for Consultation Dysphagia Hx of Present Illness This is 72-year-old male admitted for ST elevation myocardial infarction. Subsequently he undergone coronary bypass surgery and cardiac catheterization. His past medical history includes coronary artery disease, hypothyroidism, dyslipidemia and hypertension. Patient denies hematochezia, nausea vomiting, hematemesis, or abdominal pain. Hematochezia patient is currently on continuous NG tube feeding at 30 mL/h with the goal to advance to 50 mL/h. Patient had a swallow evaluation yesterday by speech therapist he was able to swallow thin liquids but unable to swallow applesauce. Barium swallow study will be performed tomorrow. Patient's son was explained the need for PEG placement down the road. Risks and benefits have been reviewed. At this point son is refusing to PEG placement hopeful that it will not be necessary. Will reassess the patient after barium swallow study and revisit the topic if indicated. Gastrointestinal: no complaints (See HPI) Past Medical History Dyslipidemia, hypertension, coronary artery disease, hypothyroidism Medical History: high cholesterol, hypertension Past Surgical History Cataract surgery, CABG Past Surgical Hx: other (cataract) Family History Significant Family History: no pertinent family hx Social History Alcohol Use: none Smoking Status: Former smoker Drug Use: none Exam/Review of Systems Vital Signs Vitals Vital Signs Date Time Temp Pulse Resp B/P Pulse Ox O2 Delivery O2 Flow Rate FiO2 09/01/17 16:00 2.0 09/01/17 14:00 107 30 120/72 95 Nasal Cannula 09/01/17 12:00 98.7 12/17/17 09:30 35 Intake and Output 08/31/17 08/31/17 09/01/17 15:00 23:00 07:00 Intake Total 1873.332 ml 710 ml 560 ml Output Total 405 ml 460 ml 580 ml Balance 1468.332 ml 250 ml -20 ml Exam PHYSICAL EXAMINATION: GENERAL: Well developed, cachectic, alert & oriented, nonverbal, in no acute distress SKIN: No lesions, no stigmata chronic liver disease, no evidence of bleeding diathesis, surgical scar in the abdomen and groin bruising from cardiac catheterization LYMPHATIC: No palpable lymphadenopathy. HEAD: Normocephalic, atraumatic, no tenderness. EYES: Pupils equal reactive to light and accommodation, full extraocular movements, sclera clear, non-icteric, no discharge. EARS/NOSE AND THROAT: Ears normal, nose normal, oropharynx normal, oral membranes well hydrated without lesions. NECK: Supple, no masses, thyroid normal, JVP within normal limits, carotids normal without bruits. CHEST: Inspection within normal limits. CARDIOVASCULAR: Heart: Regular rate and rhythm, no murmurs, gallops or rubs. Peripheral pulses present within normal limits, no cyanosis, clubbing or edemas. No pulsatile abdominal mass RESPIRATORY: Lungs clear to auscultation and percussion, no wheezing, no rubs GASTROINTESTINAL AND LIVER: Abdomen: Soft, non tenderness, non-distended, no hernias, no masses, no organomegaly, no ascites, no guarding, no rebound tenderness, normoactive bowel sounds. Rectal: Deferred. GENITOURINARY: [Male genitalia within normal limits. EXTREMITIES: No cyanosis, clubbing or edema. Results Result Diagram: 09/01/17 0435 09/01/17 0435 Results 24 hrs Laboratory Tests Test 08/31/17 19:03 09/01/17 04:35 Sodium Level 147 H 151 H Potassium Level 3.8 3.7 Chloride Level 114 H 116 H Carbon Dioxide Level 24 24 Anion Gap 13 15 Blood Urea Nitrogen 25 H 22 H Creatinine 0.90 0.92 Glucose Level 136 132 Calcium Level 7.9 L 8.3 L White Blood Count 13.9 H Red Blood Count 3.10 L Hemoglobin 9.0 L Hematocrit 29.0 L Mean Corpuscular Volume 93.5 Mean Corpuscular Hemoglobin 29.0 Mean Corpuscular Hemoglobin Concent 31.0 L Red Cell Distribution Width 15.2 H Platelet Count 512 H Mean Platelet Volume 11.3 H Neutrophils % 80.9 H Lymphocytes % 11.4 L Monocytes % 6.6 Eosinophils % 0.1 Basophils % 0.1 Nucleated Red Blood Cells % 0.0 Neutrophils # 11.2 H Lymphocytes # 1.6 Monocytes # 0.9 Eosinophils # 0.0 Basophils # 0.0 Nucleated Red Blood Cells # 0.0 Magnesium Level 2.7 H Total Bilirubin 1.5 H Direct Bilirubin 0.30 #H Indirect Bilirubin 1.2 H Aspartate Amino Transf (AST/SGOT) 80 H Alanine Aminotransferase (ALT/SGPT) 79 H Alkaline Phosphatase 146 H Total Protein 6.1 Albumin 3.2 L Medications Medications Current Medications Ondansetron HCl (Zofran Inj) 4 mg Q6H PRN IV NAUSEA AND/OR VOMITING; Start 08/21/17 at 17:30 Acetaminophen/ Hydrocodone Bitart ([place] (5/325)) 1 tab Q6H PRN PO MODERATE PAIN LEVEL 4-6; Start 08/21/17 at 17:30 Morphine Sulfate (morphine) 2 mg Q4H PRN IV SEVERE PAIN LEVEL 7-10 Last administered on 09/01/17 02:45; Admin Dose 2 MG; Start 08/21/17 at 17:30 Docusate Sodium (Colace) 100 mg Q12H PRN PO CONSTIPATION; Start 08/21/17 at 17: 30 Magnesium Hydroxide (Milk Of Mag) 30 ml DAILY PRN PO CONSTIPATION; Start at 17:30 Sodium Biphosphate/ Sodium Phosphate (Fleet Enema) 133 ml DAILY PRN [place] CONSTIPATION; Start 08/21/17 at 17:30 Hydralazine HCl (Apresoline) 10 mg Q6H PRN IV ELEVATED BLOOD PRESSURE; Start 08/21/17 at 17:30 Nitroglycerin (Nitroglycerin (Sl Tab) 0.4 Mg) 1 tab Q5M PRN SL ANGINA; Start 08/21/17 at 17:30 Hydromorphone HCl (Dilaudid) 0.2 mg Q15M PRN IV PAIN LEVEL 1-5 Last administered on 08/23/17 18:35; Admin Dose 0.2 MG; Start 08/22/17 at 01:00 Oxycodone/ Acetaminophen 1 tab 1 tab Q3H PRN PO PAIN LEVEL 1-5; Start 08/22/17 at 01:00 Magnesium Sulfate/ Dextrose (Magnesium Sulfate 1 Gm/D5W) 100 ml @ 100 mls/hr PRN PRN IVPB PENDING LAB VALUE Last administered on 08/23/17 08:54; Admin Dose 100 MLS/HR; Start 08/22/17 at 01:00 Atorvastatin Calcium (Lipitor) 80 mg HS PO Last administered on 08/31/17 20: 29; Admin Dose 80 MG; Start 08/22/17 at 21:00 Acetaminophen (Tylenol Liquid) 650 mg Q4H PRN PO PAIN AND OR ELEVATED TEMP Last administered on 08/28/17 22:16; Admin Dose 650 MG; Start 08/23/17 at 14: 30 Clopidogrel Bisulfate (plaVIX) 75 mg DAILY NGT Last administered on 09/01/17 09:01; Admin Dose 75 MG; Start 08/24/17 at 09:00 IV Flush (NS 10 ml) 10 ml PRN PRN IV IV PROTOCOL; Start 08/24/17 at 12:00 Aspirin (Aspirin) 81 mg DAILY PO Last administered on 09/01/17 09:01; Admin Dose 81 MG; Start 08/25/17 at 09:00 Heparin Sodium (Porcine) (Heparin (5000 Units/0.5 ml)) 5,000 unit Q8 SC Last administered on 09/01/17 14:37; Admin Dose 5,000 UNIT; Start 08/25/17 at 22: 00 Valsartan (Diovan) 40 mg DAILY PO Last administered on 08/31/17 08:39; Admin Dose 40 MG; Start 08/27/17 at 09:00 Famotidine (Pepcid) 20 mg HS NGT Last administered on 08/31/17 20:29; Admin Dose 20 MG; Start 08/27/17 at 21:00 Spironolactone 25 mg 25 mg DAILY@06 NGT Last administered on 09/01/17 06:51; Admin Dose 25 MG; Start 08/28/17 at 11:30 Piperacillin Sod/ Tazobactam Sod 50 ml @ 100 mls/hr Q8 IV Last administered on 09/01/17 14:20; Admin Dose 100 MLS/HR; Start 08/31/17 at 06:25 Vancomycin HCl (Vancocin) 250 ml @ 125 mls/hr Q24H IVPB Last administered on 09/01/17t 08:55; Admin Dose 125 MLS/HR; Start 09/01/17 at 08:00 Carvedilol (Coreg) 6.25 mg BID NGT ; Start 09/01/17 at 10:30 Copies To: CC: ZULLY GOVEA MD, ANASTASIA NP Sep 01, 2017 17:23
[2017-09-01] MEDS: FAMOTIDINE 20 MG TAB NGT SCH (21:53)
[2017-09-01] MEDS: ATORVASTATIN 80 MG TAB PO SCH (21:53)
[2017-09-02] VITALS (30 sets, daily range): BP systolic 66–168; BP diastolic 40–145; PULSE 96–136; RESP 15–44
[2017-09-02] MEDS: LEVALBUTEROL (NEB) 0.63 MG/3 ML AMP HHN PRN (03:57)
[2017-09-02] MEDS: IPRATROPIUM (NEB) 0.5 MG/2.5 ML AMP HHN PRN (03:57)
[2017-09-02 05:33] LABS: BASOPHILS % 0.1 % (0.0-2.0); EOSINOPHILS # 0.1 10^3/ul (0.0-0.5); EOSINOPHILS % 0.7 % (0.0-7.0); HEMATOCRIT 28.5 % (42.0-52.0); HEMOGLOBIN 9.1 g/dl (14.0-18.0); LYMPHOCYTES % 13.6 % (15.0-51.0); MEAN CORPUSCULAR HEMOGLOBIN 29.4 pg (29.0-33.0); MEAN CORPUSCULAR HGB CONC 31.9 g/dl (32.0-37.0); MEAN CORPUSCULAR VOLUME 91.9 fl (82.0-101.0); MEAN PLATELET VOLUME 11.5 fl (7.4-10.4); MONOCYTE # 1.1 10^3/ul (0.3-0.9); MONOCYTES % 7.1 % (0.0-11.0); NEUTROPHIL # 11.6 10^3/ul (1.6-7.5); NEUTROPHILS % 77.6 % (39.0-77.0); NUCLEATED RED BLOOD CELLS% 0.1 /100WBC (0.0-0.0); PLATELET COUNT 572 10^3/UL (140-415); RED CELL DISTRIBUTION WIDTH 15.6 % (11.5-14.5); WHITE BLOOD COUNT 14.9 10^3/ul (4.8-10.8)
[2017-09-02 05:47] LABS: ALBUMIN 3.2 g/dl (3.3-4.9); CALCIUM 8.3 mg/dl (8.4-10.2); CREATININE 0.92 mg/dl (0.61-1.24); MAGNESIUM 2.7 mg/dl (1.7-2.5); PHOSPHORUS 1.9 mg/dl (2.5-4.9); POTASSIUM 3.7 mmol/L (3.5-5.1)
[2017-09-02] MEDS: SPIRONOLACTONE 25 MG TAB NGT SCH (05:51)
[2017-09-02] MEDS: PIPER-TAZO 3.375 GM IV (PMX) 50 ML IV SCH ×3 (05:51→22:37)
[2017-09-02] MEDS: HEPARIN 5,000 UNIT/0.5 ML VIAL SC SCH ×3 (06:01→22:48)
--- NOTE | 2017-09-02 06:44 | PN ---
Date/Time of Note Date/Time of Note DATE: 09/02/17 TIME: 06:42 Assessment/Plan Lines/Catheters IV Catheter Type (from [facility]): PICC Line Champion in Place (from [facility]): Yes Assessment/Plan Chief Complaint/Hosp Course anxious follows commands barium swallow today, may need PEG afebrile on abx, WBC 14 consider stopping abx if cultures remain negative Problems: Exam/Review of Systems Vital Signs Vitals Vital Signs Date Time Temp Pulse Resp B/P Pulse Ox O2 Delivery O2 Flow Rate FiO2 09/02/17 06:00 115 22 111/58 97 Nasal Cannula 2.0 09/02/17 04:00 98.1 08/30/17 09:30 35 Intake and Output 09/01/17 09/01/17 09/02/17 15:00 23:00 07:00 Intake Total 1060 ml 750 ml 1100 ml Output Total 600 ml 625 ml 640 ml Balance 460 ml 125 ml 460 ml Results Result Diagram: 09/02/17 0400 09/02/17 0400 ERNIE LOPEZ MD Sep 02, 2017 06:44
[2017-09-02] MEDS: POTASSIUM CHLORIDE 50 ML IVPB PRN ×2 (06:45→08:17)
[2017-09-02] MEDS: CLOPIDOGREL 75 MG TAB NGT SCH (08:17)
[2017-09-02] MEDS: VANCOMYCIN 1 GM in NS 250 ML IVPB SCH (08:17)
[2017-09-02] MEDS: ASPIRIN 81 MG TAB PO SCH (08:19)
--- NOTE | 2017-09-02 09:31 | CONS ---
Date/Time of Note Date/Time of Note DATE: 09/02/17 TIME: 09:29 Consult Date/Type/Reason Admit Date/Time Aug 21, 2017 at 17:28 Initial Consult Date 08/21/17 Type of Consultation: Pulm Ordering Provider: HANNAH MCCLENDON MD Subjective Comfortable, mild accessory muscle use. Communicating with son at bedside. Objective Vital Signs Date Time Temp Pulse Resp B/P Pulse Ox O2 Delivery O2 Flow Rate FiO2 09/02/17 06:00 115 22 111/58 97 Nasal Cannula 2.0 09/02/17 04:00 98.1 08/30/17 09:30 35 Intake and Output 09/01/17 09/01/17 09/02/17 15:00 23:00 07:00 Intake Total 1060 ml 750 ml 1100 ml Output Total 600 ml 625 ml 640 ml Balance 460 ml 125 ml 460 ml Exam GENERAL: Elderly-appearing gentleman on nasal cannula O2 coarse rales bilaterally, agitation VITAL SIGNS: per chart NECK: Supple. No JVD or lymphadenopathy. CARDIAC EXAM: S1, S2. No added sounds or murmurs. CHEST: Coarse rales bilaterally ABDOMEN: Soft, nontender. No guarding or rebound. EXTREMITIES: No cyanosis, clubbing or edema. NEUROLOGIC: Generalized weakness. No focal deficits. Results/Medications Result Diagram: 09/02/17 0400 09/02/17 0400 Results 24 hrs Laboratory Tests Test 09/02/17 04:00 White Blood Count 14.9 H Red Blood Count 3.10 L Hemoglobin 9.1 L Hematocrit 28.5 L Mean Corpuscular Volume 91.9 Mean Corpuscular Hemoglobin 29.4 Mean Corpuscular Hemoglobin Concent 31.9 L Red Cell Distribution Width 15.6 H Platelet Count 572 H Mean Platelet Volume 11.5 H Neutrophils % 77.6 H Lymphocytes % 13.6 L Monocytes % 7.1 Eosinophils % 0.7 Basophils % 0.1 Nucleated Red Blood Cells % 0.1 H Neutrophils # 11.6 H Lymphocytes # 2.0 Monocytes # 1.1 H Eosinophils # 0.1 Basophils # 0.0 Nucleated Red Blood Cells # 0.0 Sodium Level 152 H Potassium Level 3.7 Chloride Level 118 H Carbon Dioxide Level 23 Anion Gap 15 Blood Urea Nitrogen 17 Creatinine 0.92 Glucose Level 153 Calcium Level 8.3 L Phosphorus Level 1.9 #L Magnesium Level 2.7 H Albumin 3.2 L Medications Current Medications Ondansetron HCl (Zofran Inj) 4 mg Q6H PRN IV NAUSEA AND/OR VOMITING; Start 08/21/17 at 17:30 Acetaminophen/ Hydrocodone Bitart ([place] (5/325)) 1 tab Q6H PRN PO MODERATE PAIN LEVEL 4-6; Start 08/21/17 at 17:30 Morphine Sulfate (morphine) 2 mg Q4H PRN IV SEVERE PAIN LEVEL 7-10 Last administered on 09/01/17 02:45; Admin Dose 2 MG; Start 08/21/17 at 17:30 Docusate Sodium (Colace) 100 mg Q12H PRN PO CONSTIPATION; Start 08/21/17 at 17: 30 Magnesium Hydroxide (Milk Of Mag) 30 ml DAILY PRN PO CONSTIPATION; Start at 17:30 Sodium Biphosphate/ Sodium Phosphate (Fleet Enema) 133 ml DAILY PRN [place] CONSTIPATION; Start 08/21/17 at 17:30 Hydralazine HCl (Apresoline) 10 mg Q6H PRN IV ELEVATED BLOOD PRESSURE; Start 08/21/17 at 17:30 Nitroglycerin (Nitroglycerin (Sl Tab) 0.4 Mg) 1 tab Q5M PRN SL ANGINA; Start 08/21/17 at 17:30 Hydromorphone HCl (Dilaudid) 0.2 mg Q15M PRN IV PAIN LEVEL 1-5 Last administered on 08/23/17 18:35; Admin Dose 0.2 MG; Start 08/22/17 at 01:00 Oxycodone/ Acetaminophen 1 tab 1 tab Q3H PRN PO PAIN LEVEL 1-5; Start 08/22/17 at 01:00 Magnesium Sulfate/ Dextrose (Magnesium Sulfate 1 Gm/D5W) 100 ml @ 100 mls/hr PRN PRN IVPB PENDING LAB VALUE Last administered on 08/23/17 08:54; Admin Dose 100 MLS/HR; Start 08/22/17 at 01:00 Atorvastatin Calcium (Lipitor) 80 mg HS PO Last administered on 09/01/17 21: 53; Admin Dose 80 MG; Start 08/22/17 at 21:00 Acetaminophen (Tylenol Liquid) 650 mg Q4H PRN PO PAIN AND OR ELEVATED TEMP Last administered on 08/28/17 22:16; Admin Dose 650 MG; Start 08/23/17 at 14: 30 Clopidogrel Bisulfate (plaVIX) 75 mg DAILY NGT Last administered on 09/02/17 08:17; Admin Dose 75 MG; Start 08/24/17 at 09:00 IV Flush (NS 10 ml) 10 ml PRN PRN IV IV PROTOCOL; Start 08/24/17 at 12:00 Aspirin (Aspirin) 81 mg DAILY PO Last administered on 09/02/17 08:19; Admin Dose 81 MG; Start 08/25/17 at 09:00 Heparin Sodium (Porcine) (Heparin (5000 Units/0.5 ml)) 5,000 unit Q8 SC Last administered on 09/02/17 06:01; Admin Dose 5,000 UNIT; Start 08/25/17 at 22: 00 Valsartan (Diovan) 40 mg DAILY PO Last administered on 08/31/17 08:39; Admin Dose 40 MG; Start 08/27/17 at 09:00 Famotidine (Pepcid) 20 mg HS NGT Last administered on 09/01/17 21:53; Admin Dose 20 MG; Start 08/27/17 at 21:00 Spironolactone 25 mg 25 mg DAILY@06 NGT Last administered on 09/02/17 05:51; Admin Dose 25 MG; Start 08/28/17 at 11:30 Piperacillin Sod/ Tazobactam Sod 50 ml @ 100 mls/hr Q8 IV Last administered on 09/02/17 05:51; Admin Dose 100 MLS/HR; Start 08/31/17 at 06:25 Vancomycin HCl (Vancocin) 250 ml @ 125 mls/hr Q24H IVPB Last administered on 09/02/17 08:17; Admin Dose 125 MLS/HR; Start 09/01/17 at 08:00 Carvedilol (Coreg) 6.25 mg BID NGT Last administered on 09/02/17 08:19; Admin Dose 6.25 MG; Start 09/01/17 at 10:30 Assessment/Plan Chief Complaint/Hosp Course IMP: 1. s/p STEMI followed by LHC and CABG 2. Status post cardiogenic shock 3. Resolved lactic acidosis 4. Hypernatremia likely free water deficit. 5. Acute CVA with encephalopathy. 6. s/p resp faliure. possible aspiration, increasing pulm edema. RECS: 1. Aspiration precautions, may require broaden ABx. 2. Post extubation ST eval, not stable for po intake. 3. Hold sedation as tolerated 4. increase diuretics 5. May need PEG. Discussed with son at bedside. Problems: CRISTI REY MD, [facility] Sep 02, 2017 09:31
--- NOTE | 2017-09-02 10:14 | PN ---
Date/Time of Note Date/Time of Note DATE: 09/02/17 TIME: 09:57 Assessment/Plan VTE Prophylaxis VTE Prophylaxis Intervention: heparin Lines/Catheters IV Catheter Type (from Nrs): PICC Line Central line still needed: Yes Urinary Cath still in place: Yes Reason Cath still needed: urinary retention Assessment/Plan Chief Complaint/Hosp Course S: Patient off the floor presently at nuclear medicine. Seen by cardiothoracic surgery and pulmonary teams today. Still tachycardic. O: VS (see below) PE: -Unable to be performed today because patient is presently off the floor at radiology Assessment/Plan: 72 yo male with hx of DL, anxiety, ?hypothyroidism who presented with chest pain and found to have STEMI with emergent cardiac cath revealing three-disease. 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 1. STEMI - Three-vessel CAD, s/p CABG -three-vessel - POD # 11. -Continue ICU monitoring, pressors per cardiothoracic surgery and cardiology recommendations - cont vent support, pulmonary to follow - f/u cardiology and CT surg recs 2. Status post acute cerebrovascular accident confirmed on MRI brain. Also having some decreased ability to swallow. -Follow-up results of barium swallow test -May need PEG tube if does not do well after video swallow given NG tube has been in for almost 2 weeks 3. s/p cardiopulmonary arrest: s/p cardioversion x 2, intubation -see #1 -Continue to replete any low electrolytes 4. SIRS: secondary to above -no fevers. Culture results have been essentially negative thus far. Still on antibiotics. WBC still elevated (reactive?) -Consider stopping antibiotics, monitor white blood cell count for now 5. Metabolic lactic acidosis: from ischemic event/cardiogenic shock -resolved now - 6. Hypernatremia - still present -Monitor, D5W 7. Anemia: likely 2/2 blood loss and dilutional effect -monitor and transfuse as needed 8. Hx of Dyslipidemia -status post CABG for ST elevation MD -Follow-up FLP - statin Critical care time spent on patient care today equals 50 minutes. Problems: Exam/Review of Systems Vital Signs Vitals Vital Signs Date Time Temp Pulse Resp B/P Pulse Ox O2 Delivery O2 Flow Rate FiO2 09/02/17 06:00 115 22 111/58 97 Nasal Cannula 2.0 09/02/17 04:00 98.1 08/30/17 09:30 35 Intake and Output 09/01/17 09/01/17 09/02/17 15:00 23:00 07:00 Intake Total 1060 ml 750 ml 1100 ml Output Total 600 ml 625 ml 640 ml Balance 460 ml 125 ml 460 ml Results Result Diagram: 09/02/17 0400 09/02/17 0400 Results 24 hrs Laboratory Tests Test 09/02/17 04:00 White Blood Count 14.9 H Red Blood Count 3.10 L Hemoglobin 9.1 L Hematocrit 28.5 L Mean Corpuscular Volume 91.9 Mean Corpuscular Hemoglobin 29.4 Mean Corpuscular Hemoglobin Concent 31.9 L Red Cell Distribution Width 15.6 H Platelet Count 572 H Mean Platelet Volume 11.5 H Neutrophils % 77.6 H Lymphocytes % 13.6 L Monocytes % 7.1 Eosinophils % 0.7 Basophils % 0.1 Nucleated Red Blood Cells % 0.1 H Neutrophils # 11.6 H Lymphocytes # 2.0 Monocytes # 1.1 H Eosinophils # 0.1 Basophils # 0.0 Nucleated Red Blood Cells # 0.0 Sodium Level 152 H Potassium Level 3.7 Chloride Level 118 H Carbon Dioxide Level 23 Anion Gap 15 Blood Urea Nitrogen 17 Creatinine 0.92 Glucose Level 153 Calcium Level 8.3 L Phosphorus Level 1.9 #L Magnesium Level 2.7 H Albumin 3.2 L Medications Medications Current Medications Ondansetron HCl (Zofran Inj) 4 mg Q6H PRN IV NAUSEA AND/OR VOMITING; Start 08/21/17 at 17:30 Acetaminophen/ Hydrocodone Bitart ([place] (5/325)) 1 tab Q6H PRN PO MODERATE PAIN LEVEL 4-6; Start 08/21/17 at 17:30 Morphine Sulfate (morphine) 2 mg Q4H PRN IV SEVERE PAIN LEVEL 7-10 Last administered on 09/01/17t 02:45; Admin Dose 2 MG; Start 08/21/17 at 17:30 Docusate Sodium (Colace) 100 mg Q12H PRN PO CONSTIPATION; Start 08/21/17 at 17: 30 Magnesium Hydroxide (Milk Of Mag) 30 ml DAILY PRN PO CONSTIPATION; Start at 17:30 Sodium Biphosphate/ Sodium Phosphate (Fleet Enema) 133 ml DAILY PRN [place] CONSTIPATION; Start 08/21/17 at 17:30 Hydralazine HCl (Apresoline) 10 mg Q6H PRN IV ELEVATED BLOOD PRESSURE; Start 08/21/17 at 17:30 Nitroglycerin (Nitroglycerin (Sl Tab) 0.4 Mg) 1 tab Q5M PRN SL ANGINA; Start 08/21/17 at 17:30 Hydromorphone HCl (Dilaudid) 0.2 mg Q15M PRN IV PAIN LEVEL 1-5 Last administered on 08/23/17 18:35; Admin Dose 0.2 MG; Start 08/22/17 at 01:00 Oxycodone/ Acetaminophen 1 tab 1 tab Q3H PRN PO PAIN LEVEL 1-5; Start 08/22/17 at 01:00 Magnesium Sulfate/ Dextrose (Magnesium Sulfate 1 Gm/D5W) 100 ml @ 100 mls/hr PRN PRN IVPB PENDING LAB VALUE Last administered on 08/23/17 08:54; Admin Dose 100 MLS/HR; Start 08/22/17 at 01:00 Atorvastatin Calcium (Lipitor) 80 mg HS PO Last administered on 09/01/17 21: 53; Admin Dose 80 MG; Start 08/22/17 at 21:00 Acetaminophen (Tylenol Liquid) 650 mg Q4H PRN PO PAIN AND OR ELEVATED TEMP Last administered on 08/28/17 22:16; Admin Dose 650 MG; Start 08/23/17 at 14: 30 Clopidogrel Bisulfate (plaVIX) 75 mg DAILY NGT Last administered on 09/02/17 08:17; Admin Dose 75 MG; Start 08/24/17 at 09:00 IV Flush (NS 10 ml) 10 ml PRN PRN IV IV PROTOCOL; Start 08/24/17 at 12:00 Aspirin (Aspirin) 81 mg DAILY PO Last administered on 09/02/17 08:19; Admin Dose 81 MG; Start 08/25/17 at 09:00 Heparin Sodium (Porcine) (Heparin (5000 Units/0.5 ml)) 5,000 unit Q8 SC Last administered on 09/02/17 06:01; Admin Dose 5,000 UNIT; Start 08/25/17 at 22: 00 Valsartan (Diovan) 40 mg DAILY PO Last administered on 08/31/17 08:39; Admin Dose 40 MG; Start 08/27/17 at 09:00 Famotidine (Pepcid) 20 mg HS NGT Last administered on 09/01/17 21:53; Admin Dose 20 MG; Start 08/27/17 at 21:00 Spironolactone 25 mg 25 mg DAILY@06 NGT Last administered on 09/02/17 05:51; Admin Dose 25 MG; Start 08/28/17 at 11:30 Piperacillin Sod/ Tazobactam Sod 50 ml @ 100 mls/hr Q8 IV Last administered on 09/02/17 05:51; Admin Dose 100 MLS/HR; Start 08/31/17 at 06:25 Vancomycin HCl (Vancocin) 250 ml @ 125 mls/hr Q24H IVPB Last administered on 09/02/17 08:17; Admin Dose 125 MLS/HR; Start 09/01/17 at 08:00 Carvedilol (Coreg) 6.25 mg BID NGT Last administered on 09/02/17 08:19; Admin Dose 6.25 MG; Start 09/01/17 at 10:30 Furosemide (Lasix) 40 mg DAILY IV ; Start 09/02/17 at 10:00 DON HYATT Sep 02, 2017 10:11
[2017-09-02] MEDS ORDERED: DEXTROSE 5% IVPB ONE (11:00)
[2017-09-02] MEDS ORDERED: POTASSIUM PHOSPHATE IVPB ONE (11:00)
[2017-09-02] MEDS ORDERED: ALPRAZOLAM 0.25 MG TAB NGT PRN (11:30)
[2017-09-02] MEDS ORDERED: ALPRAZOLAM 0.5 MG TAB ONE (11:40)
[2017-09-02] MEDS: FUROSEMIDE 40 MG INJ IV SCH ×2 (11:55→14:18)
[2017-09-02] MEDS: VALSARTAN 80 MG TAB PO SCH (11:55)
[2017-09-02] MEDS ORDERED: PATIENT'S OWN MEDICATION NGT SCH (12:00)
--- NOTE | 2017-09-02 14:42 | RADRPT ---
PROCEDURE: Video-fluoroscopy swallowing study. CLINICAL INDICATION: Dysphagia. TECHNIQUE: Fluoroscopic guided video swallowing study was done in conjunction with the speech ther apist. The study was confined to the oral, pharyngeal, and cervical phases of the swallowing mechani sm. 2.4 minutes of fluoroscopy time was used. 20 series of images were obtained. COMPARISON: No prior study is available for comparison. FINDINGS: There is aspiration during swallowing with delayed cough. There is aspiration during swallowing thin liquids with immediate gross silent aspiration. IMPRESSION: 1. Abnormal study with silent aspiration and delayed cough reflex. 2. Please refer to the speech therapist's recommendations for future feedings. RPTAT: QQ .Ariel Matta MD, MD Date Time Electronically viewed and signed by .Ariel Matta MD, on 09/02/2017 14:41 .R/
--- NOTE | 2017-09-02 15:54 | PN ---
Date/Time of Note Date/Time of Note DATE: 09/02/17 TIME: 15:44 Assessment/Plan VTE Prophylaxis VTE Prophylaxis Intervention: SCD's Lines/Catheters IV Catheter Type (from Nrs): PICC Line Central line still needed: Yes (Medication) Urinary Cath still in place: Yes Reason Cath still needed: urinary retention (Monitor urine output) Assessment/Plan Chief Complaint/Hosp Course Assessment: Dysphagia Coronary artery disease ST elevation myocardial infarction left heart cath coronary bypass surgery for three-vessel disease Acute cerebrovascular accident Hypothyroidism Status post cardiogenic shock and metabolic acidosis Transaminitis from shock liver Systemic inflammatory response syndrome Acute resp failure s/p extubation 08/30/17 Plan: Spoke to the son about PEG placement Barium swallow test Did not fully pass Recommend a trial of pured food Continue NG tube feeding 50 mL/h Subjective: Patient is agitated, noncommunicable. Continuous tube feeding at 50 mL/h via NG tube. Champion catheter in place draining bloody urine. On auscultation lungs sound wet. Son is at the bedside refusing PEG placement. He wants to do the trial of pured food, and gave his father a chance to regain strength on continuous NG tube feeding. At this point GI will sign off and will be available for consultation based on the need for PEG. Consultation performed in collaboration with Dr. Govea PHYSICAL EXAMINATION: GENERAL: Cachectic, noncommunicable/nonverbal, agitated SKIN: No lesions, no stigmata chronic liver disease, no evidence of bleeding diathesis LYMPHATIC: No palpable lymphadenopathy. HEAD: Normocephalic, atraumatic, no tenderness. EYES: Pupils equal reactive to light and accommodation, full extraocular movements, sclera clear, non-icteric, no discharge. EARS/NOSE AND THROAT: Ears normal, nose normal, oropharynx normal, oral membranes well hydrated without lesions. NG tube is in place NECK: Supple, no masses, thyroid normal, JVP within normal limits, carotids normal without bruits. CHEST: Inspection within normal limits. CARDIOVASCULAR: Heart: Regular rate and rhythm, no murmurs, gallops or rubs. Peripheral pulses present within normal limits, no cyanosis, clubbing or edemas. No pulsatile abdominal mass RESPIRATORY: Lungs clear to auscultation and percussion, no wheezing, no rubs GASTROINTESTINAL AND LIVER: Abdomen: Soft, non tenderness, non-distended, no hernias, no masses, no organomegaly, no ascites, no guarding, no rebound tenderness, normoactive bowel sounds. Rectal: Deferred. GENITOURINARY: Male genitalia within normal limits. Champion catheter in place EXTREMITIES: No cyanosis, clubbing or edema. Problems: Exam/Review of Systems Vital Signs Vitals Vital Signs Date Time Temp Pulse Resp B/P Pulse Ox O2 Delivery O2 Flow Rate FiO2 09/02/17 12:05 Nasal Cannula 6.0 09/02/17 12:00 108 24 81/55 94 09/02/17 08:00 98.4 08/30/17 09:30 35 Intake and Output 09/01/17 09/01/17 09/02/17 15:00 23:00 07:00 Intake Total 1060 ml 750 ml 1150 ml Output Total 600 ml 625 ml 710 ml Balance 460 ml 125 ml 440 ml Results Result Diagram: 09/02/17 0400 09/02/17 0400 Results 24 hrs Laboratory Tests Test 09/02/17 04:00 White Blood Count 14.9 H Red Blood Count 3.10 L Hemoglobin 9.1 L Hematocrit 28.5 L Mean Corpuscular Volume 91.9 Mean Corpuscular Hemoglobin 29.4 Mean Corpuscular Hemoglobin Concent 31.9 L Red Cell Distribution Width 15.6 H Platelet Count 572 H Mean Platelet Volume 11.5 H Neutrophils % 77.6 H Lymphocytes % 13.6 L Monocytes % 7.1 Eosinophils % 0.7 Basophils % 0.1 Nucleated Red Blood Cells % 0.1 H Neutrophils # 11.6 H Lymphocytes # 2.0 Monocytes # 1.1 H Eosinophils # 0.1 Basophils # 0.0 Nucleated Red Blood Cells # 0.0 Sodium Level 152 H Potassium Level 3.7 Chloride Level 118 H Carbon Dioxide Level 23 Anion Gap 15 Blood Urea Nitrogen 17 Creatinine 0.92 Glucose Level 153 Calcium Level 8.3 L Phosphorus Level 1.9 #L Magnesium Level 2.7 H Albumin 3.2 L Medications Medications Current Medications Ondansetron HCl (Zofran Inj) 4 mg Q6H PRN IV NAUSEA AND/OR VOMITING; Start 08/21/17 at 17:30 Acetaminophen/ Hydrocodone Bitart ([place] (5/325)) 1 tab Q6H PRN PO MODERATE PAIN LEVEL 4-6; Start 08/21/17 at 17:30 Morphine Sulfate (morphine) 2 mg Q4H PRN IV SEVERE PAIN LEVEL 7-10 Last administered on 09/01/17 02:45; Admin Dose 2 MG; Start 08/21/17 at 17:30 Docusate Sodium (Colace) 100 mg Q12H PRN PO CONSTIPATION; Start 08/21/17 at 17: 30 Magnesium Hydroxide (Milk Of Mag) 30 ml DAILY PRN PO CONSTIPATION; Start at 17:30 Sodium Biphosphate/ Sodium Phosphate (Fleet Enema) 133 ml DAILY PRN [place] CONSTIPATION; Start 08/21/17 at 17:30 Hydralazine HCl (Apresoline) 10 mg Q6H PRN IV ELEVATED BLOOD PRESSURE; Start 08/21/17 at 17:30 Nitroglycerin (Nitroglycerin (Sl Tab) 0.4 Mg) 1 tab Q5M PRN SL ANGINA; Start 08/21/17 at 17:30 Hydromorphone HCl (Dilaudid) 0.2 mg Q15M PRN IV PAIN LEVEL 1-5 Last administered on 08/23/17 18:35; Admin Dose 0.2 MG; Start 08/22/17 at 01:00 Oxycodone/ Acetaminophen 1 tab 1 tab Q3H PRN PO PAIN LEVEL 1-5; Start 08/22/17 at 01:00 Magnesium Sulfate/ Dextrose (Magnesium Sulfate 1 Gm/D5W) 100 ml @ 100 mls/hr PRN PRN IVPB PENDING LAB VALUE Last administered on 08/23/17 08:54; Admin Dose 100 MLS/HR; Start 08/22/17 at 01:00 Atorvastatin Calcium (Lipitor) 80 mg HS PO Last administered on 09/01/17 21: 53; Admin Dose 80 MG; Start 08/22/17 at 21:00 Acetaminophen (Tylenol Liquid) 650 mg Q4H PRN PO PAIN AND OR ELEVATED TEMP Last administered on 08/28/17 22:16; Admin Dose 650 MG; Start 08/23/17 at 14: 30 Clopidogrel Bisulfate (plaVIX) 75 mg DAILY NGT Last administered on 09/02/17 08:17; Admin Dose 75 MG; Start 08/24/17 at 09:00 IV Flush (NS 10 ml) 10 ml PRN PRN IV IV PROTOCOL; Start 08/24/17 at 12:00 Aspirin (Aspirin) 81 mg DAILY PO Last administered on 09/02/17 08:19; Admin Dose 81 MG; Start 08/25/17 at 09:00 Heparin Sodium (Porcine) (Heparin (5000 Units/0.5 ml)) 5,000 unit Q8 SC Last administered on 09/02/17 14:20; Admin Dose 5,000 UNIT; Start 08/25/17 at 22: 00 Valsartan (Diovan) 40 mg DAILY PO Last administered on 09/02/17 11:55; Admin Dose 40 MG; Start 08/27/17 at 09:00 Famotidine (Pepcid) 20 mg HS NGT Last administered on 09/01/17 21:53; Admin Dose 20 MG; Start 08/27/17 at 21:00 Spironolactone 25 mg 25 mg DAILY@06 NGT Last administered on 09/02/17 05:51; Admin Dose 25 MG; Start 08/28/17 at 11:30 Piperacillin Sod/ Tazobactam Sod 50 ml @ 100 mls/hr Q8 IV Last administered on 09/02/17 14:18; Admin Dose 100 MLS/HR; Start 08/31/17 at 06:25 Vancomycin HCl (Vancocin) 250 ml @ 125 mls/hr Q24H IVPB Last administered on 09/02/17 08:17; Admin Dose 125 MLS/HR; Start 09/01/17 at 08:00 Carvedilol (Coreg) 6.25 mg BID NGT Last administered on 09/02/17 08:19; Admin Dose 6.25 MG; Start 09/01/17 at 10:30 Furosemide (Lasix) 40 mg DAILY IV Last administered on 09/02/17 14:18; Admin Dose 40 MG; Start 09/02/17 at 10:00 Alprazolam (Xanax) 0.5 mg Q6 PRN NGT AGITATION; Start 09/02/17 at 11:30 Patient Own Medication . HS NGT ; Start 09/02/17 at 12:00; Status UNV Miscellaneous Information (*Rx Drug Level Order Reminder*) VANCO TROUGH @ 0, 700 ON ... ONCE ONCE XX ; Start 09/03/17 at 07:00; Stop 09/03/17 at 07:01 Chlorpromazine (Thorazine) 25 mg HS PO ; Start 09/02/17 at 15:30; Status UNV Trihexyphenidyl HCl (Artane) 5 mg HS PO ; Start 09/02/17 at 15:30; Status UNV [place] Carbonate ([place] Carbonate) 300 mg HS PO ; Start 09/02/17 at 21:00; Status UNV Copies To: CC: ZULLY GOVEA MD, ANASTASIA NP Sep 02, 2017 15:54
[2017-09-02] MEDS: TRIHEXYPHENIDYL 5 MG TAB PO SCH ×2 (16:53→21:00)
[2017-09-02] MEDS: CHLORPROMAZINE 25 MG TAB PO SCH ×2 (16:53→21:00)
--- NOTE | 2017-09-02 18:54 | PN ---
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 Now extubated , with ischemic cardiomyopathy, acute cva's noted on MRI, encephalopathy, hypernatremia, and high risk of aspiration. Problems: Assessment/Plan STEMI ant wall post CABG ischemic cardiomyopathy post CABG acute CVAs encephalopathy hypernatremia Recommendations: Change carvedilol to metoprolol, since carvedilol doses are being held due to relative hypotension and pt is significantly tachycardic Continue valsartan, spironolactone, atorvastatin, asa, clopidogrel Management of hypernatremia, encephalopathy per primary team Subjective 24 Hr Interval Summary Free Text/Dictation Patient nonverbal, less interactive today. Pt pulled out his martinez, had significant trauma, martinez replaced by urologist. Subjective hx not possible: pt non-verbal Exam/Review of Systems Vital Signs Vitals Vital Signs Date Time Temp Pulse Resp B/P Pulse Ox O2 Delivery O2 Flow Rate FiO2 09/02/17 17:59 3.0 09/02/17 17:00 115 27 168/145 100 Nasal Cannula 09/02/17 08:00 98.4 08/30/17 09:30 35 Intake and Output 09/01/17 09/01/17 09/02/17 15:00 23:00 07:00 Intake Total 1060 ml 750 ml 1150 ml Output Total 600 ml 625 ml 710 ml Balance 460 ml 125 ml 440 ml Exam Constitutional: non-verbal Head: atraumatic, normocephalic ENMT: nl external ears & nose Neck: No bruits, No jvd Respiratory: clear to auscultation, normal air movement Cardiovascular: regular rate and rhythm, No edema, No murmurs/extra sounds Gastrointestinal: distended (mildly), nl liver, spleen, non-tender, soft Musculoskeletal: nl extremities to inspection 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: lethargic, nl strength Skin: nl turgor, No rash or lesions Results Result Diagram: 09/02/170 09/02/170 Results 24 hrs Laboratory Tests Test 09/02/17 04:00 White Blood Count 14.9 H Red Blood Count 3.10 L Hemoglobin 9.1 L Hematocrit 28.5 L Mean Corpuscular Volume 91.9 Mean Corpuscular Hemoglobin 29.4 Mean Corpuscular Hemoglobin Concent 31.9 L Red Cell Distribution Width 15.6 H Platelet Count 572 H Mean Platelet Volume 11.5 H Neutrophils % 77.6 H Lymphocytes % 13.6 L Monocytes % 7.1 Eosinophils % 0.7 Basophils % 0.1 Nucleated Red Blood Cells % 0.1 H Neutrophils # 11.6 H Lymphocytes # 2.0 Monocytes # 1.1 H Eosinophils # 0.1 Basophils # 0.0 Nucleated Red Blood Cells # 0.0 Sodium Level 152 H Potassium Level 3.7 Chloride Level 118 H Carbon Dioxide Level 23 Anion Gap 15 Blood Urea Nitrogen 17 Creatinine 0.92 Glucose Level 153 Calcium Level 8.3 L Phosphorus Level 1.9 #L Magnesium Level 2.7 H Albumin 3.2 L Medications Medications Current Medications Ondansetron HCl (Zofran Inj) 4 mg Q6H PRN IV NAUSEA AND/OR VOMITING; Start 08/21/17 at 17:30 Acetaminophen/ Hydrocodone Bitart ([place] (5/325)) 1 tab Q6H PRN PO MODERATE PAIN LEVEL 4-6; Start 08/21/17 at 17:30 Morphine Sulfate (morphine) 2 mg Q4H PRN IV SEVERE PAIN LEVEL 7-10 Last administered on 09/01/17t 02:45; Admin Dose 2 MG; Start 08/21/17 at 17:30 Docusate Sodium (Colace) 100 mg Q12H PRN PO CONSTIPATION; Start 08/21/17 at 17: 30 Magnesium Hydroxide (Milk Of Mag) 30 ml DAILY PRN PO CONSTIPATION; Start at 17:30 Sodium Biphosphate/ Sodium Phosphate (Fleet Enema) 133 ml DAILY PRN [place] CONSTIPATION; Start 08/21/17 at 17:30 Hydralazine HCl (Apresoline) 10 mg Q6H PRN IV ELEVATED BLOOD PRESSURE; Start 08/21/17 at 17:30 Nitroglycerin (Nitroglycerin (Sl Tab) 0.4 Mg) 1 tab Q5M PRN SL ANGINA; Start 08/21/17 at 17:30 Hydromorphone HCl (Dilaudid) 0.2 mg Q15M PRN IV PAIN LEVEL 1-5 Last administered on 08/23/17 18:35; Admin Dose 0.2 MG; Start 08/22/17 at 01:00 Oxycodone/ Acetaminophen 1 tab 1 tab Q3H PRN PO PAIN LEVEL 1-5; Start 08/22/17 at 01:00 Magnesium Sulfate/ Dextrose (Magnesium Sulfate 1 Gm/D5W) 100 ml @ 100 mls/hr PRN PRN IVPB PENDING LAB VALUE Last administered on 08/23/17 08:54; Admin Dose 100 MLS/HR; Start 08/22/17 at 01:00 Atorvastatin Calcium (Lipitor) 80 mg HS PO Last administered on 09/01/17 21: 53; Admin Dose 80 MG; Start 08/22/17 at 21:00 Acetaminophen (Tylenol Liquid) 650 mg Q4H PRN PO PAIN AND OR ELEVATED TEMP Last administered on 08/28/17 22:16; Admin Dose 650 MG; Start 08/23/17 at 14: 30 Clopidogrel Bisulfate (plaVIX) 75 mg DAILY NGT Last administered on 09/02/17 08:17; Admin Dose 75 MG; Start 08/24/17 at 09:00 IV Flush (NS 10 ml) 10 ml PRN PRN IV IV PROTOCOL; Start 08/24/17 at 12:00 Aspirin (Aspirin) 81 mg DAILY PO Last administered on 09/02/17 08:19; Admin Dose 81 MG; Start 08/25/17 at 09:00 Heparin Sodium (Porcine) (Heparin (5000 Units/0.5 ml)) 5,000 unit Q8 SC Last administered on 09/02/17 14:20; Admin Dose 5,000 UNIT; Start 08/25/17 at 22: 00 Valsartan (Diovan) 40 mg DAILY PO Last administered on 09/02/17 11:55; Admin Dose 40 MG; Start 08/27/17 at 09:00 Famotidine (Pepcid) 20 mg HS NGT Last administered on 09/01/17 21:53; Admin Dose 20 MG; Start 08/27/17 at 21:00 Spironolactone 25 mg 25 mg DAILY@06 NGT Last administered on 09/02/17 05:51; Admin Dose 25 MG; Start 08/28/17 at 11:30 Piperacillin Sod/ Tazobactam Sod 50 ml @ 100 mls/hr Q8 IV Last administered on 09/02/17 14:18; Admin Dose 100 MLS/HR; Start 08/31/17 at 06:25 Vancomycin HCl (Vancocin) 250 ml @ 125 mls/hr Q24H IVPB Last administered on 09/02/17 08:17; Admin Dose 125 MLS/HR; Start 09/01/17 at 08:00 Carvedilol (Coreg) 6.25 mg BID NGT Last administered on 09/02/17 08:19; Admin Dose 6.25 MG; Start 09/01/17 at 10:30 Furosemide (Lasix) 40 mg DAILY IV Last administered on 09/02/17 14:18; Admin Dose 40 MG; Start 09/02/17 at 10:00 Alprazolam (Xanax) 0.5 mg Q6 PRN NGT AGITATION; Start 09/02/17 at 11:30 Miscellaneous Information (*Rx Drug Level Order Reminder*) VANCO TROUGH @ 0, 700 ON ... ONCE ONCE XX ; Start 09/03/17 at 07:00; Stop 09/03/17 at 07:01 Chlorpromazine (Thorazine) 25 mg HS PO Last administered on 09/02/17 16:53; Admin Dose 25 MG; Start 09/02/17 at 15:30 Trihexyphenidyl HCl (Artane) 5 mg HS PO Last administered on 09/02/17 16:53; Admin Dose 5 MG; Start 09/02/17 at 15:30 [place] Carbonate ([place] Carbonate) 300 mg HS PO ; Start 09/02/17 at 21:00 JENNIFER MOORE Sep 02, 2017 18:54
[2017-09-02] MEDS: METOPROLOL 25 MG TAB NGT SCH (19:00)
[2017-09-02 19:20] LABS: AADO2 Arterial 117.8 mmHg (7.0-24.0); Allen Test ACCEPTAB; Arterial Base Excess -1.5 mmol/L (-3.0-3); Arterial COHb 0.3 % (0.0-3.0); Arterial Fraction of Oxyhgb 93.6 % (93.0-99.0); Arterial HCO3 20.4 mmol/L (22.0-26.0); Arterial MetHb 0.2 % (0.0-1.5); Arterial Total Hemglobin 9.2 g/dl (12.0-18.0); MODE NASAL CANNULA
[2017-09-02] MEDS ORDERED: NORepinephrine 8MG/250 ML (PMX 250 ML ONE (20:18)
[2017-09-02] MEDS ORDERED: SOD CHLORIDE 0.9% 500 ML IV ONE (20:30)
[2017-09-02] MEDS: LITHIUM CARBONATE 300 MG CAP PO SCH (21:00)
[2017-09-02] MEDS: FAMOTIDINE 20 MG TAB NGT SCH (21:12)
[2017-09-02] MEDS: NORepinephrine 8MG/250 ML (PMX 250 ML IV SCH (21:12)
[2017-09-02] MEDS: ATORVASTATIN 80 MG TAB PO SCH (21:12)
[2017-09-03] VITALS (63 sets, daily range): BP systolic 78–141; BP diastolic 43–122; PULSE 83–120; RESP 18–33
[2017-09-03] MEDS: SPIRONOLACTONE 25 MG TAB NGT SCH (05:35)
[2017-09-03] MEDS: METOPROLOL 25 MG TAB NGT SCH ×4 (05:36→17:42)
--- NOTE | 2017-09-03 05:37 | CONS ---
DATE OF ADMISSION: 08/21/2017 DATE OF CONSULTATION: 09/02/2017 REQUESTING PHYSICIAN: Dr. Hyatt Dear Dr. Hyatt: Thank you for asking me to see this patient in urological consultation. HISTORY OF PRESENT ILLNESS: This is a 72-year-old male who initially presented to the hospital on 10/22/2016 with chest pain, was found to have a STEMI with emergent cardiac catheterization revealing 3-vessel disease. 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 The patient has been in the intensive care unit since. The patient has also SIRS secondary to his cardiopulmonary arrest and 3-vessel coronar y artery disease, had lactic acidosis from the ischemic event. He does have hypernatremia, anemia, and there is a question history of hypothyroidism and dyslipidemia, and also a history of hypertensi on. The patient did have an indwelling Champion catheter and, today, he did have gross hematuria. The nurse irrigated the catheter and it would not irrigate well, therefore, they took the catheter out and a big clot came out. Then, they inserted an 18 [place] Champion catheter, a 3-way, and started cont inuous irrigation. However, he is still having hematuria. The patient himself is very restless and not capable of giving any history; however, I did spend a good time reviewing his medical record an d the hospital course was also reviewed. PAST MEDICAL HISTORY: Again, the patient has a history of high cholesterol and hypertension. PAST SURGICAL HISTORY: Cataract surgery. SOCIAL HISTORY: He does not drink alcohol, but he has been a former smoker. MEDICATIONS: The medications that he is presently on include: 1. Vancomycin. 2. [place] carbonate. 3. Thorazine. 4. Artane 5. Xanax. 6. Lasix. 7. Coreg. 8. Xopenex. 9. Ipratropium bromide. 10. Zosyn. 11. Aldactone. 12. Pepcid. 13. Diovan. 14. Heparin subcutaneous. 15. Aspirin. 16. Plavix. 17. Tylenol p.r.n. 18. Atorvastatin 80 mg daily. 19. Percocet p.r.n. 20. Zofran p.r.n. 21. Potassium chloride p.r.n. 22. Morphine sulfate p.r.n. 23. Colace p.r.n. 24. Milk of Magnesia p.r.n. 25. Hydralazine p.r.n. 26. Nitroglycerin p.r.n. PHYSICAL EXAMINATION: GENERAL: Reveals an elderly male who is very agitated. The patient, again, is restless. VITAL SIGNS: His temperature today is 98.4. He previously had a temperature of 100.8 and 101.6 on 08/29/2017. The pulse is 115, respirations 27. Blood pressure 107/70, another time 135/68. CHEST: He has a chest incision, status post coronary artery bypass graft. ABDOMEN: His bladder is distended up to the umbilicus. GENITOURINARY: He does have a 3-way Champion catheter that is draining bloody urine with irrigation. I hand-irrigated the catheter and it does not irrigate well, which basically indicated that the cath eter is not inside his bladder. Therefore, we removed it. The external genitalia otherwise are nor mal. EXTREMITIES: Lower extremities revealed no edema. LABORATORY DATA: His CBC shows a white count of 14.9, hemoglobin 9.1, hematocrit 28.5. BUN is 17, creatinine 0.92, sodium 152, potassium 3.7, chloride 118, CO2 of 23. PT is 15.8, INR 1.24. Urinaly sis 2 days ago showed 2+ urobilinogen, 1+ ketones, otherwise it was negative. Urine culture also caba s been negative. IMPRESSION: Gross hematuria, most likely the patient being restless and he probably has pulled the catheter with the balloon into his urethra causing to bleed, especially that he is on anticoagulant, and that makes it much easier for him to bleed. PLAN: I did take the old Champion catheter, then I tried to insert a 16 [place] regular catheter with a 30 mL balloon, it did go in, and it drained about 300 mL, but then I tried to irrigate it, it would not irrigate well, as well. Therefore, I took it out and inserted a 16 [place] coude catheter with 10 mL balloon, and that did go into the bladder and it drained well and it irrigated well, and the t otal that we drained out of his bladder was about 600 mL, and his abdominal distention and the supra pubic mass subsided. The return of the urine is blood-tinged and it will probably stay blood-tinged because of the trauma from the prior catheterization and also the fact that the initial catheter wa s not inside his bladder. RECOMMENDATION: To keep the Champion catheter in. May hand-irrigate it as needed if it is blocked and , hopefully, the urine gradually will clear up. I will follow his urological problem with you. I d o thank you for allowing me to help in his care. Dictated By: LAINA BRADY/BURTON Conf#: [id number] DID#: [id number] CC: DON HYATT;*Benny*
[2017-09-03] MEDS: PIPER-TAZO 3.375 GM IV (PMX) 50 ML IV SCH (05:41)
[2017-09-03] MEDS: HEPARIN 5,000 UNIT/0.5 ML VIAL SC SCH ×2 (05:42→14:00)
[2017-09-03 06:05] LABS: BASOPHILS % 0.2 % (0.0-2.0); EOSINOPHILS # 0.1 10^3/ul (0.0-0.5); HEMATOCRIT 23.7 % (42.0-52.0); HEMOGLOBIN 7.6 g/dl (14.0-18.0); LYMPHOCYTES # 1.8 10^3/ul (0.8-2.9); LYMPHOCYTES % 14.1 % (15.0-51.0); MEAN CORPUSCULAR HEMOGLOBIN 29.9 pg (29.0-33.0); MEAN CORPUSCULAR HGB CONC 32.1 g/dl (32.0-37.0); MEAN CORPUSCULAR VOLUME 93.3 fl (82.0-101.0); MEAN PLATELET VOLUME 12.6 fl (7.4-10.4); MONOCYTE # 0.9 10^3/ul (0.3-0.9); MONOCYTES % 7.2 % (0.0-11.0); NEUTROPHIL # 9.9 10^3/ul (1.6-7.5); NEUTROPHILS % 76.3 % (39.0-77.0); NUCLEATED RED BLOOD CELLS% 0.2 /100WBC (0.0-0.0); PLATELET COUNT 386 10^3/UL (140-415); RED BLOOD COUNT 2.54 10^6/ul (4.70-6.10); RED CELL DISTRIBUTION WIDTH 15.9 % (11.5-14.5)
--- NOTE | 2017-09-03 06:25 | PN ---
Date/Time of Note Date/Time of Note DATE: 09/03/17 TIME: 06:24 Assessment/Plan Lines/Catheters IV Catheter Type (from [facility]): PICC Line Champion in Place (from [facility]): Yes Assessment/Plan Chief Complaint/Hosp Course received his psych meds and became obtunded and hypotensive, started on levophed failed swallow study d/c thorazine Problems: Exam/Review of Systems Vital Signs Vitals Vital Signs Date Time Temp Pulse Resp B/P Pulse Ox O2 Delivery O2 Flow Rate FiO2 09/03/17 06:00 99 27 117/64 100 Nasal Cannula 5.0 09/03/17 05:00 98.2 08/30/17 09:30 35 Intake and Output 09/02/17 09/02/17 09/03/17 15:00 23:00 07:00 Intake Total 1250 ml 604.5455 ml Output Total 430 ml 810 ml Balance 820 ml -205.4545 ml Results Result Diagram: 09/02/17 0400 09/02/17 0400 ERNIE LOPEZ MD Sep 03, 2017 06:25
[2017-09-03] MEDS: NORepinephrine 8MG/250 ML (PMX 250 ML IV SCH ×2 (06:41→22:07)
[2017-09-03 06:43] LABS: ALBUMIN 2.6 g/dl (3.3-4.9); CALCIUM 7.7 mg/dl (8.4-10.2); CREATININE 1.11 mg/dl (0.61-1.24); MAGNESIUM 2.5 mg/dl (1.7-2.5); PHOSPHORUS 3.4 mg/dl (2.5-4.9); POTASSIUM 3.6 mmol/L (3.5-5.1)
--- NOTE | 2017-09-03 07:34 | RADRPT ---
PROCEDURE: XR Chest. CLINICAL INDICATION: CHF TECHNIQUE: An AP view of the chest was obtained. COMPARISON: CHEST 09/01/2017; CHEST 08/31/2017; CHEST 08/29/2017; CHEST 08/28/2017 FINDINGS: The tip of the enteric tube extends below the left diaphragm. There is a right upper extremity PIC C line with tip near the cavoatrial junction. There is prominence of the interstitial markings. There is a small right pleural effusion. No pneum othorax is seen. The cardiomediastinal silhouette is mildly enlarged. Calcifications are seen with in the aortic arch. There are post cardiac surgery changes with sternotomy wires. The osseous struc tures demonstrate senescent changes. IMPRESSION: 1. Mild prominence of the interstitial markings, may reflect mild underlying interstitial edema or chronic lung changes. Lung aeration is mildly improved when compared to the prior examination. 2. Small right pleural effusion. 3. Mild cardiomegaly and aortic atherosclerosis. 4. Tubes and lines, as described above. RPTAT: HH .Hannah Bean MD, MD Date Time Electronically viewed and signed by .Hannah Bean MD, MD on 09/03/2017 07:33 .G/
[2017-09-03] MEDS: VANCOMYCIN 1 GM in NS 250 ML IVPB SCH (08:52)
[2017-09-03] MEDS: VALSARTAN 80 MG TAB PO SCH (09:00)
--- NOTE | 2017-09-03 09:53 | PN ---
Date/Time of Note Date/Time of Note DATE: 09/03/17 TIME: 09:51 Assessment/Plan VTE Prophylaxis VTE Prophylaxis Intervention: SCD's Lines/Catheters IV Catheter Type (from Nrs): PICC Line Central line still needed: Yes Urinary Cath still in place: Yes Reason Cath still needed: urinary retention Assessment/Plan Chief Complaint/Hosp Course S: Patient off the floor presently at nuclear medicine. Seen by cardiothoracic surgery and pulmonary teams today. Still tachycardic. O: VS (see below) PE: -Unable to be performed today because patient is presently off the floor at radiology Assessment/Plan: 72 yo male with hx of DL, anxiety, ?hypothyroidism who presented with chest pain and found to have STEMI with emergent cardiac cath revealing three-disease. 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 1. STEMI - Three-vessel CAD, s/p CABG -three-vessel - POD # 11. -Continue ICU monitoring, pressors per cardiothoracic surgery and cardiology recommendations - f/u pulm rec's - f/u cardiology and CT surg recs 2. Status post acute cerebrovascular accident confirmed on MRI brain. Also having some decreased ability to swallow. -Follow-up results of barium swallow test -May need PEG tube if does not do well after video swallow given NG tube has been in for almost 2 weeks 3. s/p cardiopulmonary arrest: s/p cardioversion x 2, intubation earlier, now extubated -see #1 -f/u CTS rec's, continue to replete any low electrolytes 4. SIRS: secondary to above - no fevers now. Culture results have been essentially negative thus far. Still on antibiotics. WBC still elevated ( reactive?) -Consider stopping antibiotics, monitor white blood cell count for now 5. Metabolic lactic acidosis: from ischemic event/cardiogenic shock -resolved now - 6. Hypernatremia - still present -Monitor, D5W 7. Anemia: likely 2/2 blood loss and dilutional effect -monitor and transfuse as needed 8. Hx of Dyslipidemia -status post CABG for ST elevation CT -Follow-up FLP - statin Critical care time spent on patient care today equals 50 minutes. Problems: Exam/Review of Systems Vital Signs Vitals Vital Signs Date Time Temp Pulse Resp B/P Pulse Ox O2 Delivery O2 Flow Rate FiO2 09/03/17 08:45 112 21 110/87 98 Nasal Cannula 3.0 09/03/17 07:30 97.8 08/30/17 09:30 35 Intake and Output 09/02/17 09/02/17 09/03/17 15:00 23:00 07:00 Intake Total 1250 ml 982.3455 ml 1462.95 ml Output Total 430 ml 1135 ml 495 ml Balance 820 ml -152.6545 ml 967.95 ml Results Result Diagram: 09/03/17 0450 09/03/17 0450 Results 24 hrs Laboratory Tests Test 09/02/17 18:46 09/03/17 04:50 09/03/17 07:00 Blood Gas Specimen Source Blood arterial Arterial Blood Date Drawn 09/02/2017 7:00:49 PM Arterial Blood pH (Temp corrected) 7.525 H Arterial Blood pCO2 (Temp correct) 25.3 L Arterial Blood pO2 (Temp corrected) 66.4 L Arterial Blood HCO3 20.4 L Arterial Blood Base Excess -1.5 Arterial Blood Oxygen Saturation 94.1 L Hardeep Test ACCEPTAB Arterial Blood Gas Puncture Site Right Radial Arterial Blood Carboxyhemoglobin 0.3 Arterial Blood Methemoglobin 0.2 Blood Gas A-a O2 Differential 117.8 H Oxyhemoglobin Percent 93.6 Total Hemoglobin 9.2 L Blood Gas Temperature 37.0 Blood Gas Modality NASAL CANNULA FiO2 30.0 Blood Gas Notified Whom MA Blood Gas Notified Time 09/02/2017 7:20:28 PM White Blood Count 13.0 H Red Blood Count 2.54 L Hemoglobin 7.6 L Hematocrit 23.7 L Mean Corpuscular Volume 93.3 Mean Corpuscular Hemoglobin 29.9 Mean Corpuscular Hemoglobin Concent 32.1 Red Cell Distribution Width 15.9 H Platelet Count 386 # Mean Platelet Volume 12.6 H Neutrophils % 76.3 Lymphocytes % 14.1 L Monocytes % 7.2 Eosinophils % 1.0 Basophils % 0.2 Nucleated Red Blood Cells % 0.2 H Neutrophils # 9.9 H Lymphocytes # 1.8 Monocytes # 0.9 Eosinophils # 0.1 Basophils # 0.0 Nucleated Red Blood Cells # 0.0 Sodium Level 155 H Potassium Level 3.6 Chloride Level 121 H Carbon Dioxide Level 24 Anion Gap 14 Blood Urea Nitrogen 23 H Creatinine 1.11 Glucose Level 207 Calcium Level 7.7 L Phosphorus Level 3.4 Magnesium Level 2.5 Albumin 2.6 L Vancomycin Level Trough 10.1 Medications Medications Current Medications Ondansetron HCl (Zofran Inj) 4 mg Q6H PRN IV NAUSEA AND/OR VOMITING; Start 08/21/17 at 17:30 Acetaminophen/ Hydrocodone Bitart ([place] (5/325)) 1 tab Q6H PRN PO MODERATE PAIN LEVEL 4-6; Start 08/21/17 at 17:30 Morphine Sulfate (morphine) 2 mg Q4H PRN IV SEVERE PAIN LEVEL 7-10 Last administered on 09/01/17 02:45; Admin Dose 2 MG; Start 08/21/17 at 17:30 Docusate Sodium (Colace) 100 mg Q12H PRN PO CONSTIPATION; Start 08/21/17 at 17: 30 Magnesium Hydroxide (Milk Of Mag) 30 ml DAILY PRN PO CONSTIPATION; Start at 17:30 Sodium Biphosphate/ Sodium Phosphate (Fleet Enema) 133 ml DAILY PRN [place] CONSTIPATION; Start 08/21/17 at 17:30 Hydralazine HCl (Apresoline) 10 mg Q6H PRN IV ELEVATED BLOOD PRESSURE; Start 08/21/17 at 17:30 Nitroglycerin (Nitroglycerin (Sl Tab) 0.4 Mg) 1 tab Q5M PRN SL ANGINA; Start 08/21/17 at 17:30 Hydromorphone HCl (Dilaudid) 0.2 mg Q15M PRN IV PAIN LEVEL 1-5 Last administered on 08/23/17 18:35; Admin Dose 0.2 MG; Start 08/22/17 at 01:00 Oxycodone/ Acetaminophen 1 tab 1 tab Q3H PRN PO PAIN LEVEL 1-5; Start 08/22/17 at 01:00 Magnesium Sulfate/ Dextrose (Magnesium Sulfate 1 Gm/D5W) 100 ml @ 100 mls/hr PRN PRN IVPB PENDING LAB VALUE Last administered on 08/23/17 08:54; Admin Dose 100 MLS/HR; Start 08/22/17 at 01:00 Atorvastatin Calcium (Lipitor) 80 mg HS PO Last administered on 09/02/17 21: 12; Admin Dose 80 MG; Start 08/22/17 at 21:00 Acetaminophen (Tylenol Liquid) 650 mg Q4H PRN PO PAIN AND OR ELEVATED TEMP Last administered on 08/28/17 22:16; Admin Dose 650 MG; Start 08/23/17 at 14: 30 Clopidogrel Bisulfate (plaVIX) 75 mg DAILY NGT Last administered on 09/02/17 08:17; Admin Dose 75 MG; Start 08/24/17 at 09:00 IV Flush (NS 10 ml) 10 ml PRN PRN IV IV PROTOCOL; Start 08/24/17 at 12:00 Aspirin (Aspirin) 81 mg DAILY PO Last administered on 09/02/17 08:19; Admin Dose 81 MG; Start 08/25/17 at 09:00 Heparin Sodium (Porcine) (Heparin (5000 Units/0.5 ml)) 5,000 unit Q8 SC Last administered on 09/03/17 05:42; Admin Dose 5,000 UNIT; Start 08/25/17 at 22: 00 Valsartan (Diovan) 40 mg DAILY PO Last administered on 09/02/17 11:55; Admin Dose 40 MG; Start 08/27/17 at 09:00 Famotidine (Pepcid) 20 mg HS NGT Last administered on 09/02/17 21:12; Admin Dose 20 MG; Start 08/27/17 at 21:00 Spironolactone 25 mg 25 mg DAILY@06 NGT Last administered on 09/02/17 05:51; Admin Dose 25 MG; Start 08/28/17 at 11:30 Piperacillin Sod/ Tazobactam Sod 50 ml @ 100 mls/hr Q8 IV Last administered on 09/03/17 05:41; Admin Dose 100 MLS/HR; Start 08/31/17 at 06:25 Vancomycin HCl (Vancocin) 250 ml @ 125 mls/hr Q24H IVPB Last administered on 09/03/17 08:52; Admin Dose 125 MLS/HR; Start 09/01/17 at 08:00 Furosemide (Lasix) 40 mg DAILY IV Last administered on 09/02/17 14:18; Admin Dose 40 MG; Start 09/02/17 at 10:00 Alprazolam (Xanax) 0.5 mg Q6 PRN NGT AGITATION; Start 09/02/17 at 11:30 Chlorpromazine (Thorazine) 25 mg HS PO Last administered on 09/02/17 16:53; Admin Dose 25 MG; Start 09/02/17 at 15:30 Trihexyphenidyl HCl (Artane) 5 mg HS PO Last administered on 09/02/17 16:53; Admin Dose 5 MG; Start 09/02/17 at 15:30 [place] Carbonate ([place] Carbonate) 300 mg HS PO ; Start 09/02/17 at 21:00 Metoprolol Tartrate 25 mg 25 mg Q6 NGT ; Start 09/02/17 at 19:00 Norepinephrine (Levophed) 250 ml @ 1.875 mls/ hr TITRATE IV Last administered on 09/03/17 06:41; Admin Dose 22.5 MLS/HR; Start 09/02/17 at 20:30 DON HYATT Sep 03, 2017 09:53
--- NOTE | 2017-09-03 10:07 | PN ---
Date/Time of Note Date/Time of Note DATE: 09/03/17 TIME: 10:02 Assessment/Plan VTE Prophylaxis VTE Prophylaxis Intervention: heparin Lines/Catheters IV Catheter Type (from Nrs): PICC Line Central line still needed: Yes Urinary Cath still in place: Yes Reason Cath still needed: urinary retention Assessment/Plan Chief Complaint/Hosp Course S: Patient had swallow study performed yesterday. Presently on cautious pure diet, although silent aspiration was seen on the swallow study. Seen by urology team given his hematuria which is still present, likely secondary to traumatic Champion. Hemoglobin is lower today, presently awaiting blood transfusion. O: VS (see below) PE: -Unable to be performed today because patient is presently off the floor at radiology Assessment/Plan: 72 yo male with hx of DL, anxiety, ?hypothyroidism who presented with chest pain and found to have STEMI with emergent cardiac cath revealing three-disease. 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 1. STEMI - Three-vessel CAD, s/p CABG -three-vessel - POD # 12. -Continue ICU monitoring, pressors per cardiothoracic surgery and cardiology recommendations - f/u pulm rec's - f/u cardiology and CT surg recs 2. Status post acute cerebrovascular accident confirmed on MRI brain. Also having some decreased ability to swallow -again barium swallow test was performed yesterday -Follow-up recommendations from speech therapy team. -Monitor neurologic status, continue cautious pure feeding and NG tube feeds as well for dietary and nutritional recommendations. 3. s/p cardiopulmonary arrest: s/p cardioversion x 2, intubation earlier, now extubated -see #1 -f/u CTS rec's, continue to replete any low electrolytes 4. SIRS: secondary to above - no fevers now. Culture results have been essentially negative thus far. Still on antibiotics. WBC still elevated ( reactive?) -We will hold antibiotics for now, monitor white blood cell count 5. Metabolic lactic acidosis: from ischemic event/cardiogenic shock -resolved now -Monitor 6. Hypernatremia - still present (155). Had been on free water every 6 hours 400 cc although again sodium still higher today. -Monitor, D5W today 12 hours, monitor BMP in the morning 7. Hematuria: Again likely secondary to traumatic Champion. Appreciate urology recommendations -Continue Champion catheter, follow-up urology recommendations, because of low hemoglobin patient also planning for PRBC transfusion today. -We will need to discuss with cardiothoracic surgery team about possibly holding Plavix and aspirin temporarily given his continued hematuria 8. Hx of Dyslipidemia -status post CABG for ST elevation IA -Follow-up FLP - statin Critical care time spent on patient care today equals 40 minutes. Problems: Exam/Review of Systems Vital Signs Vitals Vital Signs Date Time Temp Pulse Resp B/P Pulse Ox O2 Delivery O2 Flow Rate FiO2 09/03/17 08:45 112 21 110/87 98 Nasal Cannula 3.0 09/03/17 07:30 97.8 08/30/17 09:30 35 Intake and Output 09/02/17 09/02/17 09/03/17 15:00 23:00 07:00 Intake Total 1250 ml 982.3455 ml 1462.95 ml Output Total 430 ml 1135 ml 495 ml Balance 820 ml -152.6545 ml 967.95 ml Results Result Diagram: 09/03/17 0450 09/03/17 0450 Results 24 hrs Laboratory Tests Test 09/02/17 18:46 09/03/17 04:50 09/03/17 07:00 Blood Gas Specimen Source Blood arterial Arterial Blood Date Drawn 09/02/2017 7:00:49 PM Arterial Blood pH (Temp corrected) 7.525 H Arterial Blood pCO2 (Temp correct) 25.3 L Arterial Blood pO2 (Temp corrected) 66.4 L Arterial Blood HCO3 20.4 L Arterial Blood Base Excess -1.5 Arterial Blood Oxygen Saturation 94.1 L Hardeep Test ACCEPTAB Arterial Blood Gas Puncture Site Right Radial Arterial Blood Carboxyhemoglobin 0.3 Arterial Blood Methemoglobin 0.2 Blood Gas A-a O2 Differential 117.8 H Oxyhemoglobin Percent 93.6 Total Hemoglobin 9.2 L Blood Gas Temperature 37.0 Blood Gas Modality NASAL CANNULA FiO2 30.0 Blood Gas Notified Whom MA Blood Gas Notified Time 09/02/2017 7:20:28 PM White Blood Count 13.0 H Red Blood Count 2.54 L Hemoglobin 7.6 L Hematocrit 23.7 L Mean Corpuscular Volume 93.3 Mean Corpuscular Hemoglobin 29.9 Mean Corpuscular Hemoglobin Concent 32.1 Red Cell Distribution Width 15.9 H Platelet Count 386 # Mean Platelet Volume 12.6 H Neutrophils % 76.3 Lymphocytes % 14.1 L Monocytes % 7.2 Eosinophils % 1.0 Basophils % 0.2 Nucleated Red Blood Cells % 0.2 H Neutrophils # 9.9 H Lymphocytes # 1.8 Monocytes # 0.9 Eosinophils # 0.1 Basophils # 0.0 Nucleated Red Blood Cells # 0.0 Sodium Level 155 H Potassium Level 3.6 Chloride Level 121 H Carbon Dioxide Level 24 Anion Gap 14 Blood Urea Nitrogen 23 H Creatinine 1.11 Glucose Level 207 Calcium Level 7.7 L Phosphorus Level 3.4 Magnesium Level 2.5 Albumin 2.6 L Vancomycin Level Trough 10.1 Medications Medications Current Medications Ondansetron HCl (Zofran Inj) 4 mg Q6H PRN IV NAUSEA AND/OR VOMITING; Start 08/21/17 at 17:30 Acetaminophen/ Hydrocodone Bitart ([place] (5/325)) 1 tab Q6H PRN PO MODERATE PAIN LEVEL 4-6; Start 08/21/17 at 17:30 Morphine Sulfate (morphine) 2 mg Q4H PRN IV SEVERE PAIN LEVEL 7-10 Last administered on 09/01/17 02:45; Admin Dose 2 MG; Start 08/21/17 at 17:30 Docusate Sodium (Colace) 100 mg Q12H PRN PO CONSTIPATION; Start 08/21/17 at 17: 30 Magnesium Hydroxide (Milk Of Mag) 30 ml DAILY PRN PO CONSTIPATION; Start at 17:30 Sodium Biphosphate/ Sodium Phosphate (Fleet Enema) 133 ml DAILY PRN [place] CONSTIPATION; Start 08/21/17 at 17:30 Hydralazine HCl (Apresoline) 10 mg Q6H PRN IV ELEVATED BLOOD PRESSURE; Start 08/21/17 at 17:30 Nitroglycerin (Nitroglycerin (Sl Tab) 0.4 Mg) 1 tab Q5M PRN SL ANGINA; Start 08/21/17 at 17:30 Hydromorphone HCl (Dilaudid) 0.2 mg Q15M PRN IV PAIN LEVEL 1-5 Last administered on 08/23/17 18:35; Admin Dose 0.2 MG; Start 08/22/17 at 01:00 Oxycodone/ Acetaminophen 1 tab 1 tab Q3H PRN PO PAIN LEVEL 1-5; Start 08/22/17 at 01:00 Magnesium Sulfate/ Dextrose (Magnesium Sulfate 1 Gm/D5W) 100 ml @ 100 mls/hr PRN PRN IVPB PENDING LAB VALUE Last administered on 08/23/17 08:54; Admin Dose 100 MLS/HR; Start 08/22/17 at 01:00 Atorvastatin Calcium (Lipitor) 80 mg HS PO Last administered on 09/02/17 21: 12; Admin Dose 80 MG; Start 08/22/17 at 21:00 Acetaminophen (Tylenol Liquid) 650 mg Q4H PRN PO PAIN AND OR ELEVATED TEMP Last administered on 08/28/17 22:16; Admin Dose 650 MG; Start 08/23/17 at 14: 30 Clopidogrel Bisulfate (plaVIX) 75 mg DAILY NGT Last administered on 09/02/17 08:17; Admin Dose 75 MG; Start 08/24/17 at 09:00 IV Flush (NS 10 ml) 10 ml PRN PRN IV IV PROTOCOL; Start 08/24/17 at 12:00 Aspirin (Aspirin) 81 mg DAILY PO Last administered on 09/02/17 08:19; Admin Dose 81 MG; Start 08/25/17 at 09:00 Heparin Sodium (Porcine) (Heparin (5000 Units/0.5 ml)) 5,000 unit Q8 SC Last administered on 09/03/17 05:42; Admin Dose 5,000 UNIT; Start 08/25/17 at 22: 00 Valsartan (Diovan) 40 mg DAILY PO Last administered on 09/02/17 11:55; Admin Dose 40 MG; Start 08/27/17 at 09:00 Famotidine (Pepcid) 20 mg HS NGT Last administered on 09/02/17 21:12; Admin Dose 20 MG; Start 08/27/17 at 21:00 Spironolactone 25 mg 25 mg DAILY@06 NGT Last administered on 09/02/17 05:51; Admin Dose 25 MG; Start 08/28/17 at 11:30 Piperacillin Sod/ Tazobactam Sod 50 ml @ 100 mls/hr Q8 IV Last administered on 09/03/17 05:41; Admin Dose 100 MLS/HR; Start 08/31/17 at 06:25 Vancomycin HCl (Vancocin) 250 ml @ 125 mls/hr Q24H IVPB Last administered on 09/03/17 08:52; Admin Dose 125 MLS/HR; Start 09/01/17 at 08:00 Furosemide (Lasix) 40 mg DAILY IV Last administered on 09/02/17 14:18; Admin Dose 40 MG; Start 09/02/17 at 10:00 Alprazolam (Xanax) 0.5 mg Q6 PRN NGT AGITATION; Start 09/02/17 at 11:30 Chlorpromazine (Thorazine) 25 mg HS PO Last administered on 09/02/17 16:53; Admin Dose 25 MG; Start 09/02/17 at 15:30 Trihexyphenidyl HCl (Artane) 5 mg HS PO Last administered on 09/02/17 16:53; Admin Dose 5 MG; Start 09/02/17 at 15:30 [place] Carbonate ([place] Carbonate) 300 mg HS PO ; Start 09/02/17 at 21:00 Metoprolol Tartrate 25 mg 25 mg Q6 NGT ; Start 09/02/17 at 19:00 Norepinephrine (Levophed) 250 ml @ 1.875 mls/ hr TITRATE IV Last administered on 09/03/17 06:41; Admin Dose 22.5 MLS/HR; Start 09/02/17 at 20:30 DON HYATT Sep 03, 2017 10:07
[2017-09-03] MEDS ORDERED: DEXTROSE 5% 1,000 ML IV SCH (10:30)
[2017-09-03] MEDS: ASPIRIN 81 MG TAB PO SCH (10:55)
[2017-09-03] MEDS: FUROSEMIDE 40 MG INJ IV SCH (10:55)
[2017-09-03] MEDS: CLOPIDOGREL 75 MG TAB NGT SCH (10:56)
--- NOTE | 2017-09-03 11:08 | CONS ---
Date/Time of Note Date/Time of Note DATE: 09/03/17 TIME: 11:04 Consult Date/Type/Reason Admit Date/Time Aug 21, 2017 at 17:28 Initial Consult Date 08/21/17 Type of Consultation: Pulm Ordering Provider: HANNAH MCCLENDON MD Subjective Awake alert, sitting up in chair. Son at bedside. Objective Vital Signs Date Time Temp Pulse Resp B/P Pulse Ox O2 Delivery O2 Flow Rate FiO2 09/03/17 08:45 112 21 110/87 98 Nasal Cannula 3.0 09/03/17 07:30 97.8 08/30/17 09:30 35 Intake and Output 09/02/17 09/02/17 09/03/17 15:00 23:00 07:00 Intake Total 1250 ml 982.3455 ml 1462.95 ml Output Total 430 ml 1135 ml 495 ml Balance 820 ml -152.6545 ml 967.95 ml Exam GENERAL: Elderly-appearing gentleman on nasal cannula O2 VITAL SIGNS: per chart NECK: Supple. No JVD or lymphadenopathy. CARDIAC EXAM: S1, S2. No added sounds or murmurs. CHEST: Coarse rales bilaterally ABDOMEN: Soft, nontender. No guarding or rebound. EXTREMITIES: No cyanosis, clubbing or edema. NEUROLOGIC: Generalized weakness. No focal deficits. Results/Medications Result Diagram: 09/03/17 0450 09/03/17 0450 Results 24 hrs Laboratory Tests Test 09/02/17 18:46 09/03/17 04:50 09/03/17 07:00 Blood Gas Specimen Source Blood arterial Arterial Blood Date Drawn 09/02/2017 7:00:49 PM Arterial Blood pH (Temp corrected) 7.525 H Arterial Blood pCO2 (Temp correct) 25.3 L Arterial Blood pO2 (Temp corrected) 66.4 L Arterial Blood HCO3 20.4 L Arterial Blood Base Excess -1.5 Arterial Blood Oxygen Saturation 94.1 L Hardeep Test ACCEPTAB Arterial Blood Gas Puncture Site Right Radial Arterial Blood Carboxyhemoglobin 0.3 Arterial Blood Methemoglobin 0.2 Blood Gas A-a O2 Differential 117.8 H Oxyhemoglobin Percent 93.6 Total Hemoglobin 9.2 L Blood Gas Temperature 37.0 Blood Gas Modality NASAL CANNULA FiO2 30.0 Blood Gas Notified Whom MA Blood Gas Notified Time 09/02/2017 7:20:28 PM White Blood Count 13.0 H Red Blood Count 2.54 L Hemoglobin 7.6 L Hematocrit 23.7 L Mean Corpuscular Volume 93.3 Mean Corpuscular Hemoglobin 29.9 Mean Corpuscular Hemoglobin Concent 32.1 Red Cell Distribution Width 15.9 H Platelet Count 386 # Mean Platelet Volume 12.6 H Neutrophils % 76.3 Lymphocytes % 14.1 L Monocytes % 7.2 Eosinophils % 1.0 Basophils % 0.2 Nucleated Red Blood Cells % 0.2 H Neutrophils # 9.9 H Lymphocytes # 1.8 Monocytes # 0.9 Eosinophils # 0.1 Basophils # 0.0 Nucleated Red Blood Cells # 0.0 Sodium Level 155 H Potassium Level 3.6 Chloride Level 121 H Carbon Dioxide Level 24 Anion Gap 14 Blood Urea Nitrogen 23 H Creatinine 1.11 Glucose Level 207 Calcium Level 7.7 L Phosphorus Level 3.4 Magnesium Level 2.5 Albumin 2.6 L Vancomycin Level Trough 10.1 Medications Current Medications Ondansetron HCl (Zofran Inj) 4 mg Q6H PRN IV NAUSEA AND/OR VOMITING; Start 08/21/17 at 17:30 Acetaminophen/ Hydrocodone Bitart ([place] (5/325)) 1 tab Q6H PRN PO MODERATE PAIN LEVEL 4-6; Start 08/21/17 at 17:30 Morphine Sulfate (morphine) 2 mg Q4H PRN IV SEVERE PAIN LEVEL 7-10 Last administered on 09/01/17t 02:45; Admin Dose 2 MG; Start 08/21/17 at 17:30 Docusate Sodium (Colace) 100 mg Q12H PRN PO CONSTIPATION; Start 08/21/17 at 17: 30 Magnesium Hydroxide (Milk Of Mag) 30 ml DAILY PRN PO CONSTIPATION; Start at 17:30 Sodium Biphosphate/ Sodium Phosphate (Fleet Enema) 133 ml DAILY PRN [place] CONSTIPATION; Start 08/21/17 at 17:30 Hydralazine HCl (Apresoline) 10 mg Q6H PRN IV ELEVATED BLOOD PRESSURE; Start 08/21/17 at 17:30 Nitroglycerin (Nitroglycerin (Sl Tab) 0.4 Mg) 1 tab Q5M PRN SL ANGINA; Start 08/21/17 at 17:30 Hydromorphone HCl (Dilaudid) 0.2 mg Q15M PRN IV PAIN LEVEL 1-5 Last administered on 08/23/17 18:35; Admin Dose 0.2 MG; Start 08/22/17 at 01:00 Oxycodone/ Acetaminophen 1 tab 1 tab Q3H PRN PO PAIN LEVEL 1-5; Start 08/22/17 at 01:00 Magnesium Sulfate/ Dextrose (Magnesium Sulfate 1 Gm/D5W) 100 ml @ 100 mls/hr PRN PRN IVPB PENDING LAB VALUE Last administered on 08/23/17 08:54; Admin Dose 100 MLS/HR; Start 08/22/17 at 01:00 Atorvastatin Calcium (Lipitor) 80 mg HS PO Last administered on 09/02/17 21: 12; Admin Dose 80 MG; Start 08/22/17 at 21:00 Acetaminophen (Tylenol Liquid) 650 mg Q4H PRN PO PAIN AND OR ELEVATED TEMP Last administered on 08/28/17 22:16; Admin Dose 650 MG; Start 08/23/17 at 14: 30 Clopidogrel Bisulfate (plaVIX) 75 mg DAILY NGT Last administered on 09/02/17 08:17; Admin Dose 75 MG; Start 08/24/17 at 09:00 IV Flush (NS 10 ml) 10 ml PRN PRN IV IV PROTOCOL; Start 08/24/17 at 12:00 Aspirin (Aspirin) 81 mg DAILY PO Last administered on 09/03/17 10:55; Admin Dose 81 MG; Start 08/25/17 at 09:00 Heparin Sodium (Porcine) (Heparin (5000 Units/0.5 ml)) 5,000 unit Q8 SC Last administered on 09/03/17 05:42; Admin Dose 5,000 UNIT; Start 08/25/17 at 22: 00 Valsartan (Diovan) 40 mg DAILY PO Last administered on 09/02/17 11:55; Admin Dose 40 MG; Start 08/27/17 at 09:00 Famotidine (Pepcid) 20 mg HS NGT Last administered on 09/02/17 21:12; Admin Dose 20 MG; Start 08/27/17 at 21:00 Spironolactone 25 mg 25 mg DAILY@06 NGT Last administered on 09/02/17 05:51; Admin Dose 25 MG; Start 08/28/17 at 11:30 Piperacillin Sod/ Tazobactam Sod 50 ml @ 100 mls/hr Q8 IV Last administered on 09/03/17 05:41; Admin Dose 100 MLS/HR; Start 08/31/17 at 06:25 Vancomycin HCl (Vancocin) 250 ml @ 125 mls/hr Q24H IVPB Last administered on 09/03/17 08:52; Admin Dose 125 MLS/HR; Start 09/01/17 at 08:00 Furosemide (Lasix) 40 mg DAILY IV Last administered on 09/03/17 10:55; Admin Dose 40 MG; Start 09/02/17 at 10:00 Alprazolam (Xanax) 0.5 mg Q6 PRN NGT AGITATION; Start 09/02/17 at 11:30 Chlorpromazine (Thorazine) 25 mg HS PO Last administered on 09/02/17 16:53; Admin Dose 25 MG; Start 09/02/17 at 15:30 Trihexyphenidyl HCl (Artane) 5 mg HS PO Last administered on 09/02/17 16:53; Admin Dose 5 MG; Start 09/02/17 at 15:30 [place] Carbonate ([place] Carbonate) 300 mg HS PO ; Start 09/02/17 at 21:00 Metoprolol Tartrate 25 mg 25 mg Q6 NGT ; Start 09/02/17 at 19:00 Norepinephrine 250 ml @ 1.875 mls/ hr TITRATE IV Last administered on 06:41; Admin Dose 22.5 MLS/HR; Start 09/02/17 at 20:30 Dextrose (D5W) 1,000 ml @ 75 mls/hr [id number] IV Last administered on 10:55; Admin Dose 75 MLS/HR; Start 09/03/17 at 10:30; Stop 09/03/17 at 21 :30 Assessment/Plan Chief Complaint/Hosp Course IMP: 1. s/p STEMI followed by LHC and CABG 2. Status post cardiogenic shock 3. Anemia with hematuria. 4. Hypernatremia likely free water deficit. 5. Acute CVA with resolving encephalopathy. 6. s/p resp faliure. possible aspiration, RECS: 1. Aspiration precautions, may require broaden ABx. 2. dc ng tube, aspiration precautions with modified diet, 3. Nocturnal librium and amantadine per family. 4. gentle diuresis. 5. Urology recs. ? bladder irrigation. Discussed with son at bedside. Problems: CRISTI REY MD, [facility] Sep 03, 2017 11:08
--- NOTE | 2017-09-03 17:35 | PN ---
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 Now extubated , with ischemic cardiomyopathy, acute cva's noted on MRI, encephalopathy, hypernatremia, and high risk of aspiration, and was hypotensive today now improved Problems: Assessment/Plan STEMI anterior wall post CABG hypotension now off pressors, due to anemia and possible sepsis anemia of blood loss due to traumatic martinez removal by patient aspiration ischemic cardiomyopathy Recc: Reasonable to hold aspirin and clopidogrel given bleeding from penis Hold metoprolol, valsartan, spironolactone as needed for blood pressure Continue atorvastatin Supportive care Hematuria per urology D5W for hypernatremia Subjective 24 Hr Interval Summary Free Text/Dictation Patient more alert than I have seen him at any time this admission. Pt answers simple questions when translated into farsi. Family at bedside. Pt was on levophed earlier in the day. He has had persistent bleeding from the penis after traumatic self-removal of martinez yesterday. Pt removed his ng tube today, and did eat some pureed food this am. Constitutional: no complaints Respiratory: no complaints Cardiovascular: no complaints Exam/Review of Systems Vital Signs Vitals Vital Signs Date Time Temp Pulse Resp B/P Pulse Ox O2 Delivery O2 Flow Rate FiO2 09/03/17 16:00 97.6 115 24 113/72 100 Nasal Cannula 2.0 09/03/17 11:31 21 Intake and Output 09/02/17 09/02/17 09/03/17 15:00 23:00 07:00 Intake Total 1250 ml 982.3455 ml 1462.95 ml Output Total 430 ml 1135 ml 495 ml Balance 820 ml -152.6545 ml 967.95 ml Exam Constitutional: alert, frail Head: normocephalic Eyes: nl sclera ENMT: nl external ears & nose, nl lips & teeth Neck: No bruits, No jvd Respiratory: clear to auscultation (anteriorly) Cardiovascular: regular rate and rhythm Gastrointestinal: distended (mildly ), nl liver, spleen, non-tender, soft Musculoskeletal: nl extremities to inspection Extremities: No edema Skin: nl turgor Results Result Diagram: 09/03/17 0450 09/03/17 0450 Results 24 hrs Laboratory Tests Test 09/02/17 18:46 09/03/17 04:50 09/03/17 07:00 Blood Gas Specimen Source Blood arterial Arterial Blood Date Drawn 09/02/2017 7:00:49 PM Arterial Blood pH (Temp corrected) 7.525 H Arterial Blood pCO2 (Temp correct) 25.3 L Arterial Blood pO2 (Temp corrected) 66.4 L Arterial Blood HCO3 20.4 L Arterial Blood Base Excess -1.5 Arterial Blood Oxygen Saturation 94.1 L Hardeep Test ACCEPTAB Arterial Blood Gas Puncture Site Right Radial Arterial Blood Carboxyhemoglobin 0.3 Arterial Blood Methemoglobin 0.2 Blood Gas A-a O2 Differential 117.8 H Oxyhemoglobin Percent 93.6 Total Hemoglobin 9.2 L Blood Gas Temperature 37.0 Blood Gas Modality NASAL CANNULA FiO2 30.0 Blood Gas Notified Whom MA Blood Gas Notified Time 09/02/2017 7:20:28 PM White Blood Count 13.0 H Red Blood Count 2.54 L Hemoglobin 7.6 L Hematocrit 23.7 L Mean Corpuscular Volume 93.3 Mean Corpuscular Hemoglobin 29.9 Mean Corpuscular Hemoglobin Concent 32.1 Red Cell Distribution Width 15.9 H Platelet Count 386 # Mean Platelet Volume 12.6 H Neutrophils % 76.3 Lymphocytes % 14.1 L Monocytes % 7.2 Eosinophils % 1.0 Basophils % 0.2 Nucleated Red Blood Cells % 0.2 H Neutrophils # 9.9 H Lymphocytes # 1.8 Monocytes # 0.9 Eosinophils # 0.1 Basophils # 0.0 Nucleated Red Blood Cells # 0.0 Sodium Level 155 H Potassium Level 3.6 Chloride Level 121 H Carbon Dioxide Level 24 Anion Gap 14 Blood Urea Nitrogen 23 H Creatinine 1.11 Glucose Level 207 Calcium Level 7.7 L Phosphorus Level 3.4 Magnesium Level 2.5 Albumin 2.6 L Vancomycin Level Trough 10.1 Medications Medications Current Medications Ondansetron HCl (Zofran Inj) 4 mg Q6H PRN IV NAUSEA AND/OR VOMITING; Start 08/21/17 at 17:30 Acetaminophen/ Hydrocodone Bitart ([place] (5/325)) 1 tab Q6H PRN PO MODERATE PAIN LEVEL 4-6; Start 08/21/17 at 17:30 Morphine Sulfate (morphine) 2 mg Q4H PRN IV SEVERE PAIN LEVEL 7-10 Last administered on 09/01/17 02:45; Admin Dose 2 MG; Start 08/21/17 at 17:30 Docusate Sodium (Colace) 100 mg Q12H PRN PO CONSTIPATION; Start 08/21/17 at 17: 30 Magnesium Hydroxide (Milk Of Mag) 30 ml DAILY PRN PO CONSTIPATION; Start at 17:30 Sodium Biphosphate/ Sodium Phosphate (Fleet Enema) 133 ml DAILY PRN OR CONSTIPATION; Start 08/21/17 at 17:30 Hydralazine HCl (Apresoline) 10 mg Q6H PRN IV ELEVATED BLOOD PRESSURE; Start 08/21/17 at 17:30 Nitroglycerin (Nitroglycerin (Sl Tab) 0.4 Mg) 1 tab Q5M PRN SL ANGINA; Start 08/21/17 at 17:30 Oxycodone/ Acetaminophen 1 tab 1 tab Q3H PRN PO PAIN LEVEL 1-5; Start 08/22/17 at 01:00 Magnesium Sulfate/ Dextrose (Magnesium Sulfate 1 Gm/D5W) 100 ml @ 100 mls/hr PRN PRN IVPB PENDING LAB VALUE Last administered on 08/23/17 08:54; Admin Dose 100 MLS/HR; Start 08/22/17 at 01:00 Atorvastatin Calcium (Lipitor) 80 mg HS PO Last administered on 09/02/17 21: 12; Admin Dose 80 MG; Start 08/22/17 at 21:00 Acetaminophen (Tylenol Liquid) 650 mg Q4H PRN PO PAIN AND OR ELEVATED TEMP Last administered on 08/28/17 22:16; Admin Dose 650 MG; Start 08/23/17 at 14: 30 Clopidogrel Bisulfate (plaVIX) 75 mg DAILY NGT Last administered on 09/02/17 08:17; Admin Dose 75 MG; Start 08/24/17 at 09:00 IV Flush (NS 10 ml) 10 ml PRN PRN IV IV PROTOCOL; Start 08/24/17 at 12:00 Aspirin (Aspirin) 81 mg DAILY PO Last administered on 09/03/17 10:55; Admin Dose 81 MG; Start 08/25/17 at 09:00 Heparin Sodium (Porcine) (Heparin (5000 Units/0.5 ml)) 5,000 unit Q8 SC Last administered on 09/03/17 05:42; Admin Dose 5,000 UNIT; Start 08/25/17 at 22: 00; Status Future Hold Valsartan (Diovan) 40 mg DAILY PO Last administered on 09/02/17 11:55; Admin Dose 40 MG; Start 08/27/17 at 09:00 Famotidine (Pepcid) 20 mg HS NGT Last administered on 09/02/17 21:12; Admin Dose 20 MG; Start 08/27/17 at 21:00 Spironolactone (Aldactone) 25 mg DAILY@06 NGT Last administered on 09/02/17 05:51; Admin Dose 25 MG; Start 08/28/17 at 11:30 Furosemide (Lasix) 40 mg DAILY IV Last administered on 09/03/17 10:55; Admin Dose 40 MG; Start 09/02/17 at 10:00 Alprazolam (Xanax) 0.5 mg Q6 PRN NGT AGITATION; Start 09/02/17 at 11:30 Chlorpromazine (Thorazine) 25 mg HS PO Last administered on 09/02/17 16:53; Admin Dose 25 MG; Start 09/02/17 at 15:30 Trihexyphenidyl HCl (Artane) 5 mg HS PO Last administered on 09/02/17 16:53; Admin Dose 5 MG; Start 09/02/17 at 15:30 [place] Carbonate ([place] Carbonate) 300 mg HS PO ; Start 09/02/17 at 21:00 Metoprolol Tartrate 25 mg 25 mg Q6 NGT ; Start 09/02/17 at 19:00 Norepinephrine 250 ml @ 1.875 mls/ hr TITRATE IV Last administered on 06:41; Admin Dose 22.5 MLS/HR; Start 09/02/17 at 20:30 Dextrose (D5W) 1,000 ml @ 75 mls/hr [id number] IV Last administered on 10:55; Admin Dose 75 MLS/HR; Start 09/03/17 at 10:30; Stop 09/03/17 at 21 :30 JENNIFER MOORE Sep 03, 2017 17:35
[2017-09-03 19:07] LABS: HEMATOCRIT 31.4 % (42.0-52.0); HEMOGLOBIN 10.2 g/dl (14.0-18.0)
--- NOTE | 2017-09-03 20:24 | CONS ---
Date/Time of Note Date/Time of Note DATE: 09/03/17 TIME: : Consult Date/Type/Reason Admit Date/Time Aug 21, 2017 at 17:28 Initial Consult Date 09/01/17 Type of Consultation: Urology Reason for Consultation Gross hematuria Ordering Provider: HANNAH MCCLENDON MD Subjective Patient is less restless than yesterday and appear comfortable. The Champion catheter is draining blood-tinged urine. Objective Vital Signs Date Time Temp Pulse Resp B/P Pulse Ox O2 Delivery O2 Flow Rate FiO2 09/03/17 19:00 117 22 117/80 100 Nasal Cannula 2.0 09/03/17 16:00 97.6 09/03/17 11:31 21 Intake and Output 09/02/17 09/02/17 09/03/17 15:00 23:00 07:00 Intake Total 1250 ml 982.3455 ml 1462.95 ml Output Total 430 ml 1135 ml 495 ml Balance 820 ml -152.6545 ml 967.95 ml Exam Temperature is 97.6, earlier the Champion catheter did not drain and the nurse hand irrigated it but she was not able to aspirate back. I did check the catheter it is in good position and I did hand irrigated and it does irrigate well. The urine remains bloody. There are no clots. Results/Medications Result Diagram: 09/03/17 1900 09/03/17 0450 Results 24 hrs Laboratory Tests Test 09/03/17 04:50 09/03/17 07:00 09/03/17 19:00 White Blood Count 13.0 H Red Blood Count 2.54 L Hemoglobin 7.6 L 10.2 #L Hematocrit 23.7 L 31.4 #L Mean Corpuscular Volume 93.3 Mean Corpuscular Hemoglobin 29.9 Mean Corpuscular Hemoglobin Concent 32.1 Red Cell Distribution Width 15.9 H Platelet Count 386 # Mean Platelet Volume 12.6 H Neutrophils % 76.3 Lymphocytes % 14.1 L Monocytes % 7.2 Eosinophils % 1.0 Basophils % 0.2 Nucleated Red Blood Cells % 0.2 H Neutrophils # 9.9 H Lymphocytes # 1.8 Monocytes # 0.9 Eosinophils # 0.1 Basophils # 0.0 Nucleated Red Blood Cells # 0.0 Sodium Level 155 H Potassium Level 3.6 Chloride Level 121 H Carbon Dioxide Level 24 Anion Gap 14 Blood Urea Nitrogen 23 H Creatinine 1.11 Glucose Level 207 Calcium Level 7.7 L Phosphorus Level 3.4 Magnesium Level 2.5 Albumin 2.6 L Vancomycin Level Trough 10.1 Medications Current Medications Ondansetron HCl (Zofran Inj) 4 mg Q6H PRN IV NAUSEA AND/OR VOMITING; Start 08/21/17 at 17:30 Acetaminophen/ Hydrocodone Bitart ([place] (5/325)) 1 tab Q6H PRN PO MODERATE PAIN LEVEL 4-6; Start 08/21/17 at 17:30 Morphine Sulfate (morphine) 2 mg Q4H PRN IV SEVERE PAIN LEVEL 7-10 Last administered on 09/01/17 02:45; Admin Dose 2 MG; Start 08/21/17 at 17:30 Docusate Sodium (Colace) 100 mg Q12H PRN PO CONSTIPATION; Start 08/21/17 at 17: 30 Magnesium Hydroxide (Milk Of Mag) 30 ml DAILY PRN PO CONSTIPATION; Start at 17:30 Sodium Biphosphate/ Sodium Phosphate (Fleet Enema) 133 ml DAILY PRN [place] CONSTIPATION; Start 08/21/17 at 17:30 Hydralazine HCl (Apresoline) 10 mg Q6H PRN IV ELEVATED BLOOD PRESSURE; Start 08/21/17 at 17:30 Nitroglycerin (Nitroglycerin (Sl Tab) 0.4 Mg) 1 tab Q5M PRN SL ANGINA; Start 08/21/17 at 17:30 Oxycodone/ Acetaminophen 1 tab 1 tab Q3H PRN PO PAIN LEVEL 1-5; Start 08/22/17 at 01:00 Magnesium Sulfate/ Dextrose (Magnesium Sulfate 1 Gm/D5W) 100 ml @ 100 mls/hr PRN PRN IVPB PENDING LAB VALUE Last administered on 08/23/17 08:54; Admin Dose 100 MLS/HR; Start 08/22/17 at 01:00 Atorvastatin Calcium (Lipitor) 80 mg HS PO Last administered on 09/02/17 21: 12; Admin Dose 80 MG; Start 08/22/17 at 21:00 Acetaminophen (Tylenol Liquid) 650 mg Q4H PRN PO PAIN AND OR ELEVATED TEMP Last administered on 08/28/17 22:16; Admin Dose 650 MG; Start 08/23/17 at 14: 30 Clopidogrel Bisulfate (plaVIX) 75 mg DAILY NGT Last administered on 09/02/17 08:17; Admin Dose 75 MG; Start 08/24/17 at 09:00 IV Flush (NS 10 ml) 10 ml PRN PRN IV IV PROTOCOL; Start 08/24/17 at 12:00 Aspirin (Aspirin) 81 mg DAILY PO Last administered on 09/03/17 10:55; Admin Dose 81 MG; Start 08/25/17 at 09:00 Heparin Sodium (Porcine) (Heparin (5000 Units/0.5 ml)) 5,000 unit Q8 SC Last administered on 09/03/17 05:42; Admin Dose 5,000 UNIT; Start 08/25/17 at 22: 00; Status Future Hold Valsartan (Diovan) 40 mg DAILY PO Last administered on 09/02/17 11:55; Admin Dose 40 MG; Start 08/27/17 at 09:00 Famotidine (Pepcid) 20 mg HS NGT Last administered on 09/02/17 21:12; Admin Dose 20 MG; Start 08/27/17 at 21:00 Spironolactone (Aldactone) 25 mg DAILY@06 NGT Last administered on 09/02/17 05:51; Admin Dose 25 MG; Start 08/28/17 at 11:30 Furosemide (Lasix) 40 mg DAILY IV Last administered on 09/03/17 10:55; Admin Dose 40 MG; Start 09/02/17 at 10:00 Alprazolam (Xanax) 0.5 mg Q6 PRN NGT AGITATION; Start 09/02/17 at 11:30 Chlorpromazine (Thorazine) 25 mg HS PO Last administered on 09/02/17 16:53; Admin Dose 25 MG; Start 09/02/17 at 15:30 Trihexyphenidyl HCl (Artane) 5 mg HS PO Last administered on 09/02/17 16:53; Admin Dose 5 MG; Start 09/02/17 at 15:30 [place] Carbonate ([place] Carbonate) 300 mg HS PO ; Start 09/02/17 at 21:00 Metoprolol Tartrate 25 mg 25 mg Q6 NGT Last administered on 09/03/17 17:42; Admin Dose 25 MG; Start 09/02/17 at 19:00 Norepinephrine 250 ml @ 1.875 mls/ hr TITRATE IV Last administered on 06:41; Admin Dose 22.5 MLS/HR; Start 09/02/17 at 20:30 Dextrose (D5W) 1,000 ml @ 75 mls/hr [id number] IV Last administered on 10:55; Admin Dose 75 MLS/HR; Start 09/03/17 at 10:30; Stop 09/03/17 at 21 :30 Assessment/Plan Chief Complaint/Hosp Course 72-year-old male status post open heart surgery. Yesterday he had a gross hematuria and he may have pulled on the old Champion catheter that he had. I did remove the old Champion catheter and inserted a new catheter and it drained his bladder. About 600 mL drained yesterday. The urine has been bloody and that may be secondary to the trauma from pulling on the catheter and the fact that he is on no anticoagulation. Presently the catheter is draining well and the urine is blood-tinged. Recommend to keep the Champion catheter in place, watch the patient and try to prevent him from pulling on the catheter. Hand irrigate the catheter as needed if blocked. Problems: LAINA STRONG MD Sep 03, 2017 20:24
[2017-09-03] MEDS: LITHIUM CARBONATE 300 MG CAP PO SCH (20:45)
[2017-09-03] MEDS: FAMOTIDINE 20 MG TAB NGT SCH (20:45)
[2017-09-03] MEDS: TRIHEXYPHENIDYL 5 MG TAB PO SCH (20:45)
[2017-09-03] MEDS: ATORVASTATIN 80 MG TAB PO SCH (20:45)
[2017-09-03] MEDS: CHLORPROMAZINE 25 MG TAB PO SCH (20:45)
[2017-09-04] VITALS (69 sets, daily range): BP systolic 79–127; BP diastolic 47–89; PULSE 68–127; RESP 15–36
[2017-09-04] MEDS: METOPROLOL 25 MG TAB NGT SCH ×3 (01:29→06:12)
[2017-09-04 05:27] LABS: HEMATOCRIT 27.9 % (42.0-52.0); HEMOGLOBIN 9.1 g/dl (14.0-18.0); MEAN CORPUSCULAR HGB CONC 32.6 g/dl (32.0-37.0); MEAN CORPUSCULAR VOLUME 92.1 fl (82.0-101.0); MEAN PLATELET VOLUME 11.2 fl (7.4-10.4); NUCLEATED RED BLOOD CELLS% 0.4 /100WBC (0.0-0.0); PLATELET COUNT 501 10^3/UL (140-415); POSITIVE DIFF @See below; RED BLOOD COUNT 3.03 10^6/ul (4.70-6.10); RED CELL DISTRIBUTION WIDTH 15.8 % (11.5-14.5); WHITE BLOOD COUNT 11.5 10^3/ul (4.8-10.8)
[2017-09-04 05:45] LABS: ALBUMIN 2.8 g/dl (3.3-4.9); CALCIUM 8.1 mg/dl (8.4-10.2); MAGNESIUM 2.3 mg/dl (1.7-2.5); POTASSIUM 3.2 mmol/L (3.5-5.1)
[2017-09-04] MEDS: SPIRONOLACTONE 25 MG TAB NGT SCH (06:00)
[2017-09-04] MEDS: POTASSIUM CHLORIDE 50 ML IVPB PRN ×3 (06:21→09:14)
--- NOTE | 2017-09-04 06:41 | PN ---
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 Now extubated , with ischemic cardiomyopathy, acute cva's noted on MRI, encephalopathy, hypernatremia, and high risk of aspiration, and intermittent hypotension requiring levophed. Problems: Assessment/Plan STEMI anterior wall two weeks ago ischemic cardiomyopathy hypernatremia, improved relative hypotension with initiation of psych meds, off pressors at present Recommendations: Continue asa, clopidogrel, atorvastatin hold parameters for cardiac meds, prefer that metoprolol not be held in order to prevent beta neda withdrawal Treatment for hypernatremia, possible sepsis Subjective 24 Hr Interval Summary Free Text/Dictation No events overnight. Per nursing, pt was on psychiatric meds at home including thorazine and lithium (on admission I asked pt son if he was on meds, he only stated bp, cholesterol medicaton). Patient much more alert today. Subjective hx not possible: other (patient speaks Farsi) Exam/Review of Systems Vital Signs Vitals Vital Signs Date Time Temp Pulse Resp B/P Pulse Ox O2 Delivery O2 Flow Rate FiO2 09/04/17 06:00 94 24 93/58 100 Nasal Cannula 3.0 09/04/17 04:00 98.3 09/03/17 11:31 21 Intake and Output 09/03/17 09/03/17 09/04/17 15:00 23:00 07:00 Intake Total 950 ml 1005 ml 121.25 ml Output Total 1735 ml 725 ml 630 ml Balance -785 ml 280 ml -508.75 ml Exam Constitutional: alert Psych: nl mood/affect, no complaints Head: atraumatic, normocephalic Eyes: EOMI, nl conjunctiva, nl lids, nl sclera ENMT: nl external ears & nose, nl lips & teeth, nl nasal mucosa & septum Neck: supple, No bruits, No jvd Respiratory: clear to auscultation, normal air movement Cardiovascular: regular rate and rhythm Gastrointestinal: nl liver, spleen, non-tender, soft Musculoskeletal: nl extremities to inspection Extremities: No edema Skin: nl turgor, No rash or lesions Results Result Diagram: 09/04/17 0430 09/04/17 0430 Results 24 hrs Laboratory Tests Test 09/03/17 07:00 09/03/17 19:00 09/04/17 04:30 09/04/17 05:05 Vancomycin Level Trough 10.1 Hemoglobin 10.2 #L 9.1 L Hematocrit 31.4 #L 27.9 L White Blood Count 11.5 H Red Blood Count 3.03 L Mean Corpuscular Volume 92.1 Mean Corpuscular Hemoglobin 30.0 Mean Corpuscular Hemoglobin Concent 32.6 Red Cell Distribution Width 15.8 H Platelet Count 501 #H Mean Platelet Volume 11.2 H Neutrophils % Lymphocytes % Monocytes % Eosinophils % Basophils % Nucleated Red Blood Cells % 0.4 H Neutrophils # Lymphocytes # Monocytes # Eosinophils # Basophils # Nucleated Red Blood Cells # Sodium Level 152 H Potassium Level 3.2 L Chloride Level 116 H Carbon Dioxide Level 26 Anion Gap 13 Blood Urea Nitrogen 20 Creatinine 1.00 Glucose Level 118 # Calcium Level 8.1 L Phosphorus Level 3.0 Magnesium Level 2.3 Albumin 2.8 L Lab Scanned Report BLOOD TRANSFUSION Medications Medications Current Medications Ondansetron HCl (Zofran Inj) 4 mg Q6H PRN IV NAUSEA AND/OR VOMITING; Start 08/21/17 at 17:30 Acetaminophen/ Hydrocodone Bitart ([place] (5/325)) 1 tab Q6H PRN PO MODERATE PAIN LEVEL 4-6; Start 08/21/17 at 17:30 Morphine Sulfate (morphine) 2 mg Q4H PRN IV SEVERE PAIN LEVEL 7-10 Last administered on 09/01/17t 02:45; Admin Dose 2 MG; Start 08/21/17 at 17:30 Docusate Sodium (Colace) 100 mg Q12H PRN PO CONSTIPATION; Start 08/21/17 at 17: 30 Magnesium Hydroxide (Milk Of Mag) 30 ml DAILY PRN PO CONSTIPATION; Start at 17:30 Sodium Biphosphate/ Sodium Phosphate (Fleet Enema) 133 ml DAILY PRN [place] CONSTIPATION; Start 08/21/17 at 17:30 Hydralazine HCl (Apresoline) 10 mg Q6H PRN IV ELEVATED BLOOD PRESSURE; Start 08/21/17 at 17:30 Nitroglycerin (Nitroglycerin (Sl Tab) 0.4 Mg) 1 tab Q5M PRN SL ANGINA; Start 08/21/17 at 17:30 Oxycodone/ Acetaminophen 1 tab 1 tab Q3H PRN PO PAIN LEVEL 1-5; Start 08/22/17 at 01:00 Magnesium Sulfate/ Dextrose (Magnesium Sulfate 1 Gm/D5W) 100 ml @ 100 mls/hr PRN PRN IVPB PENDING LAB VALUE Last administered on 08/23/17 08:54; Admin Dose 100 MLS/HR; Start 08/22/17 at 01:00 Atorvastatin Calcium (Lipitor) 80 mg HS PO Last administered on 09/03/17 20: 45; Admin Dose 80 MG; Start 08/22/17 at 21:00 Acetaminophen (Tylenol Liquid) 650 mg Q4H PRN PO PAIN AND OR ELEVATED TEMP Last administered on 08/28/17 22:16; Admin Dose 650 MG; Start 08/23/17 at 14: 30 Clopidogrel Bisulfate (plaVIX) 75 mg DAILY NGT Last administered on 09/02/17 08:17; Admin Dose 75 MG; Start 08/24/17 at 09:00 IV Flush (NS 10 ml) 10 ml PRN PRN IV IV PROTOCOL; Start 08/24/17 at 12:00 Aspirin (Aspirin) 81 mg DAILY PO Last administered on 09/03/17 10:55; Admin Dose 81 MG; Start 08/25/17 at 09:00 Heparin Sodium (Porcine) (Heparin (5000 Units/0.5 ml)) 5,000 unit Q8 SC Last administered on 09/03/17 05:42; Admin Dose 5,000 UNIT; Start 08/25/17 at 22: 00; Status Future Hold Valsartan (Diovan) 40 mg DAILY PO Last administered on 09/02/17 11:55; Admin Dose 40 MG; Start 08/27/17 at 09:00 Famotidine (Pepcid) 20 mg HS NGT Last administered on 09/03/17 20:45; Admin Dose 20 MG; Start 08/27/17 at 21:00 Spironolactone (Aldactone) 25 mg DAILY@06 NGT Last administered on 09/02/17 05:51; Admin Dose 25 MG; Start 08/28/17 at 11:30 Furosemide (Lasix) 40 mg DAILY IV Last administered on 09/03/17 10:55; Admin Dose 40 MG; Start 09/02/17 at 10:00 Alprazolam (Xanax) 0.5 mg Q6 PRN NGT AGITATION; Start 09/02/17 at 11:30 Chlorpromazine (Thorazine) 25 mg HS PO Last administered on 09/03/17 20:45; Admin Dose 25 MG; Start 09/02/17 at 15:30 Trihexyphenidyl HCl (Artane) 5 mg HS PO Last administered on 09/03/17 20:45; Admin Dose 5 MG; Start 09/02/17 at 15:30 [place] Carbonate ([place] Carbonate) 300 mg HS PO ; Start 09/02/17 at 21:00 Metoprolol Tartrate 25 mg 25 mg Q6 NGT Last administered on 09/04/17 06:12; Admin Dose 25 MG; Start 09/02/17 at 19:00 Norepinephrine (Levophed) 250 ml @ 1.875 mls/ hr TITRATE IV Last administered on 09/03/17 22:07; Admin Dose 9.375 MLS/HR; Start 09/02/17 at 20:30 JENNIFER MOORE Sep 04, 2017 06:41
[2017-09-04] MEDS: METOPROLOL 25 MG TAB PO SCH ×2 (09:00→20:57)
[2017-09-04] MEDS: VALSARTAN 80 MG TAB PO SCH (09:00)
--- NOTE | 2017-09-04 09:08 | PN ---
Date/Time of Note Date/Time of Note DATE: 09/04/17 TIME: 09:06 Assessment/Plan VTE Prophylaxis VTE Prophylaxis Intervention: anti-embolic stocking Lines/Catheters IV Catheter Type (from Nrsg): PICC Line Central line still needed: Yes Urinary Cath still in place: Yes Reason Cath still needed: other (indicate) Assessment/Plan Assessment/Plan Improving neurologically. Clinically stable. K low. Replace. Fairly responsive. Very supportive son. Exam/Review of Systems Vital Signs Vitals Vital Signs Date Time Temp Pulse Resp B/P Pulse Ox O2 Delivery O2 Flow Rate FiO2 09/04/17 06:00 94 24 93/58 100 Nasal Cannula 3.0 09/04/17 04:00 98.3 09/03/17 11:31 21 Intake and Output 09/03/17 09/03/17 09/04/17 15:00 23:00 07:00 Intake Total 950 ml 1005 ml 121.25 ml Output Total 1735 ml 725 ml 630 ml Balance -785 ml 280 ml -508.75 ml Results Result Diagram: 09/04/17 0430 09/04/17 0430 Results 24 hrs Laboratory Tests Test 09/03/17 19:00 09/04/17 04:30 09/04/17 05:05 Hemoglobin 10.2 #L 9.1 L Hematocrit 31.4 #L 27.9 L White Blood Count 11.5 H Red Blood Count 3.03 L Mean Corpuscular Volume 92.1 Mean Corpuscular Hemoglobin 30.0 Mean Corpuscular Hemoglobin Concent 32.6 Red Cell Distribution Width 15.8 H Platelet Count 501 #H Mean Platelet Volume 11.2 H Neutrophils % Lymphocytes % Monocytes % Eosinophils % Basophils % Nucleated Red Blood Cells % 0.4 H Neutrophils # Lymphocytes # Monocytes # Eosinophils # Basophils # Nucleated Red Blood Cells # Sodium Level 152 H Potassium Level 3.2 L Chloride Level 116 H Carbon Dioxide Level 26 Anion Gap 13 Blood Urea Nitrogen 20 Creatinine 1.00 Glucose Level 118 # Calcium Level 8.1 L Phosphorus Level 3.0 Magnesium Level 2.3 Albumin 2.8 L Lab Scanned Report BLOOD TRANSFUSION Medications Medications Current Medications Ondansetron HCl (Zofran Inj) 4 mg Q6H PRN IV NAUSEA AND/OR VOMITING; Start 08/21/17 at 17:30 Acetaminophen/ Hydrocodone Bitart ([place] (5/325)) 1 tab Q6H PRN PO MODERATE PAIN LEVEL 4-6; Start 08/21/17 at 17:30 Morphine Sulfate (morphine) 2 mg Q4H PRN IV SEVERE PAIN LEVEL 7-10 Last administered on 09/01/17 02:45; Admin Dose 2 MG; Start 08/21/17 at 17:30 Docusate Sodium (Colace) 100 mg Q12H PRN PO CONSTIPATION; Start 08/21/17 at 17: 30 Magnesium Hydroxide (Milk Of Mag) 30 ml DAILY PRN PO CONSTIPATION; Start at 17:30 Sodium Biphosphate/ Sodium Phosphate (Fleet Enema) 133 ml DAILY PRN [place] CONSTIPATION; Start 08/21/17 at 17:30 Hydralazine HCl (Apresoline) 10 mg Q6H PRN IV ELEVATED BLOOD PRESSURE; Start 08/21/17 at 17:30 Nitroglycerin (Nitroglycerin (Sl Tab) 0.4 Mg) 1 tab Q5M PRN SL ANGINA; Start 08/21/17 at 17:30 Oxycodone/ Acetaminophen 1 tab 1 tab Q3H PRN PO PAIN LEVEL 1-5; Start 08/22/17 at 01:00 Magnesium Sulfate/ Dextrose (Magnesium Sulfate 1 Gm/D5W) 100 ml @ 100 mls/hr PRN PRN IVPB PENDING LAB VALUE Last administered on 08/23/17 08:54; Admin Dose 100 MLS/HR; Start 08/22/17 at 01:00 Atorvastatin Calcium (Lipitor) 80 mg HS PO Last administered on 09/03/17 20: 45; Admin Dose 80 MG; Start 08/22/17 at 21:00 Acetaminophen (Tylenol Liquid) 650 mg Q4H PRN PO PAIN AND OR ELEVATED TEMP Last administered on 08/28/17 22:16; Admin Dose 650 MG; Start 08/23/17 at 14: 30 Clopidogrel Bisulfate (plaVIX) 75 mg DAILY NGT Last administered on 09/02/17 08:17; Admin Dose 75 MG; Start 08/24/17 at 09:00 IV Flush (NS 10 ml) 10 ml PRN PRN IV IV PROTOCOL; Start 08/24/17 at 12:00 Aspirin (Aspirin) 81 mg DAILY PO Last administered on 09/03/17 10:55; Admin Dose 81 MG; Start 08/25/17 at 09:00 Heparin Sodium (Porcine) (Heparin (5000 Units/0.5 ml)) 5,000 unit Q8 SC Last administered on 09/03/17 05:42; Admin Dose 5,000 UNIT; Start 08/25/17 at 22: 00; Status Future Hold Valsartan (Diovan) 40 mg DAILY PO Last administered on 09/02/17 11:55; Admin Dose 40 MG; Start 08/27/17 at 09:00 Famotidine (Pepcid) 20 mg HS NGT Last administered on 09/03/17 20:45; Admin Dose 20 MG; Start 08/27/17 at 21:00 Spironolactone (Aldactone) 25 mg DAILY@06 NGT Last administered on 09/02/17 05:51; Admin Dose 25 MG; Start 08/28/17 at 11:30 Furosemide (Lasix) 40 mg DAILY IV Last administered on 09/03/17 10:55; Admin Dose 40 MG; Start 09/02/17 at 10:00 Alprazolam (Xanax) 0.5 mg Q6 PRN NGT AGITATION; Start 09/02/17 at 11:30 Chlorpromazine (Thorazine) 25 mg HS PO Last administered on 09/03/17 20:45; Admin Dose 25 MG; Start 09/02/17 at 15:30 Trihexyphenidyl HCl (Artane) 5 mg HS PO Last administered on 09/03/17 20:45; Admin Dose 5 MG; Start 09/02/17 at 15:30 [place] Carbonate 300 mg 300 mg HS PO ; Start 09/02/17 at 21:00 Norepinephrine (Levophed) 250 ml @ 1.875 mls/ hr TITRATE IV Last administered on 09/03/17 22:07; Admin Dose 9.375 MLS/HR; Start 09/02/17 at 20:30 Metoprolol Tartrate (Lopressor) 25 mg BID PO ; Start 09/04/17 at 09:00 CLIVE JESUS MD Sep 04, 2017 09:08
[2017-09-04] MEDS: FUROSEMIDE 40 MG INJ IV SCH (09:12)
[2017-09-04] MEDS: ASPIRIN 81 MG TAB PO SCH (09:13)
[2017-09-04] MEDS: CLOPIDOGREL 75 MG TAB NGT SCH (09:13)
--- NOTE | 2017-09-04 09:43 | PN ---
Date/Time of Note Date/Time of Note DATE: 09/04/17 TIME: 09:38 Assessment/Plan VTE Prophylaxis VTE Prophylaxis Intervention: other Lines/Catheters IV C[facility]ter Type [facility]from [facility] PICC Line Central line still needed: Yes Urinary Cath still in place: Yes Reason Cath still needed: urinary retention Assessment/Plan Chief Complaint/Hosp Course S: Patient had blood transfusion yesterday. Became hypotensive last night and required a few hours of pressor support, now off since this morning. Still with blood-tinged urine. O: VS (see below) PE: Constitutional: alert, sitting in chair, son at bedside Psych: nl mood/affect, no complaints Head: atraumatic, normocephalic Eyes: EOMI, nl conjunctiva, nl lids, nl sclera ENMT: nl external ears & nose, nl lips & teeth, nl nasal mucosa & septum Neck: supple, No bruits, No jvd Respiratory: clear to auscultation, normal air movement Cardiovascular: regular rate and rhythm Gastrointestinal: nl liver, spleen, non-tender, soft Musculoskeletal: nl extremities to inspection Extremities: No edema Assessment/Plan: 72 yo male with hx of DL, anxiety, ?hypothyroidism who presented with chest pain and found to have STEMI with emergent cardiac cath revealing three-disease. s/p unsuccessful PCI of LAD, s/p cardiac arrest in medical lab assistant s/p cardioversion x 2 and placement of balloon pump -with subsequent CABG POD # 13, with subsequent CVA and now dysphasia. 1. STEMI - Three-vessel CAD, s/p CABG -three-vessel - POD # 13. -Continue ICU monitoring, pressors per cardiothoracic surgery and cardiology recommendations - f/u pulm rec's - f/u cardiology and CT surg recs 2. Status post acute cerebrovascular accident confirmed on MRI brain. Also having some decreased ability to swallow -again barium swallow test was performed 2 days ago. -Follow-up recommendations from speech therapy team. -Monitor neurologic status, continue cautious pure feeding per dietary and nutritional recommendations. 3. s/p cardiopulmonary arrest: s/p cardioversion x 2, intubation earlier, now extubated -see #1 -f/u CTS rec's, continue to replete any low electrolytes 4. SIRS: secondary to above - no fevers now. Culture results have been essentially negative thus far. Antibiotics were stopped yesterday, WBC slightly improved today. -Continue holding antibiotics for now, monitor white blood cell count 5. Metabolic lactic acidosis: from ischemic event/cardiogenic shock -resolved now -Monitor 6. Hypernatremia -slightly improved, but still present (155 -> 152). -Monitor, D5W today 12 hours , monitor BMP in the morning 7. Hematuria: Again likely secondary to traumatic Champion. Appreciate urology recommendations -Continue Champion catheter, follow-up urology recommendations, patient to get PRBC transfusion yesterday with improvement in his hemoglobin now. -We will need to discuss with cardiothoracic surgery team about possibly holding Plavix again today given his continued hematuria. 8. Hx of Dyslipidemia -status post CABG for ST elevation MN -Follow-up FLP - statin Critical care time spent on patient care today equals 45 minutes. Problems: Exam/Review of Systems Vital Signs Vitals Vital Signs Date Time Temp Pulse Resp B/P Pulse Ox O2 Delivery O2 Flow Rate FiO2 09/04/17 06:00 94 24 93/58 100 Nasal Cannula 3.0 09/04/17 04:00 98.3 09/03/17 11:31 21 Intake and Output 09/03/17 09/03/17 09/04/17 15:00 23:00 07:00 Intake Total 950 ml 1005 ml 121.25 ml Output Total 1735 ml 725 ml 780 ml Balance -785 ml 280 ml -658.75 ml Results Result Diagram: 09/04/17 0430 09/04/17 0430 Results 24 hrs Laboratory Tests Test 09/03/17 19:00 09/04/17 04:30 09/04/17 05:05 Hemoglobin 10.2 #L 9.1 L Hematocrit 31.4 #L 27.9 L White Blood Count 11.5 H Red Blood Count 3.03 L Mean Corpuscular Volume 92.1 Mean Corpuscular Hemoglobin 30.0 Mean Corpuscular Hemoglobin Concent 32.6 Red Cell Distribution Width 15.8 H Platelet Count 501 #H Mean Platelet Volume 11.2 H Neutrophils % Lymphocytes % Monocytes % Eosinophils % Basophils % Nucleated Red Blood Cells % 0.4 H Neutrophils # Lymphocytes # Monocytes # Eosinophils # Basophils # Nucleated Red Blood Cells # Sodium Level 152 H Potassium Level 3.2 L Chloride Level 116 H Carbon Dioxide Level 26 Anion Gap 13 Blood Urea Nitrogen 20 Creatinine 1.00 Glucose Level 118 # Calcium Level 8.1 L Phosphorus Level 3.0 Magnesium Level 2.3 Albumin 2.8 L Lab Scanned Report BLOOD TRANSFUSION Medications Medications Current Medications Ondansetron HCl (Zofran Inj) 4 mg Q6H PRN IV NAUSEA AND/OR VOMITING; Start 08/21/17 at 17:30 Acetaminophen/ Hydrocodone Bitart ([place] (5/325)) 1 tab Q6H PRN PO MODERATE PAIN LEVEL 4-6; Start 08/21/17 at 17:30 Morphine Sulfate (morphine) 2 mg Q4H PRN IV SEVERE PAIN LEVEL 7-10 Last administered on 09/01/17 02:45; Admin Dose 2 MG; Start 08/21/17 at 17:30 Docusate Sodium (Colace) 100 mg Q12H PRN PO CONSTIPATION; Start 08/21/17 at 17: 30 Magnesium Hydroxide (Milk Of Mag) 30 ml DAILY PRN PO CONSTIPATION; Start at 17:30 Sodium Biphosphate/ Sodium Phosphate (Fleet Enema) 133 ml DAILY PRN [place] CONSTIPATION; Start 08/21/17 at 17:30 Hydralazine HCl (Apresoline) 10 mg Q6H PRN IV ELEVATED BLOOD PRESSURE; Start 08/21/17 at 17:30 Nitroglycerin (Nitroglycerin (Sl Tab) 0.4 Mg) 1 tab Q5M PRN SL ANGINA; Start 08/21/17 at 17:30 Oxycodone/ Acetaminophen 1 tab 1 tab Q3H PRN PO PAIN LEVEL 1-5; Start 08/22/17 at 01:00 Magnesium Sulfate/ Dextrose (Magnesium Sulfate 1 Gm/D5W) 100 ml @ 100 mls/hr PRN PRN IVPB PENDING LAB VALUE Last administered on 08/23/17 08:54; Admin Dose 100 MLS/HR; Start 08/22/17 at 01:00 Atorvastatin Calcium (Lipitor) 80 mg HS PO Last administered on 09/03/17 20: 45; Admin Dose 80 MG; Start 08/22/17 at 21:00 Acetaminophen (Tylenol Liquid) 650 mg Q4H PRN PO PAIN AND OR ELEVATED TEMP Last administered on 08/28/17 22:16; Admin Dose 650 MG; Start 08/23/17 at 14: 30 Clopidogrel Bisulfate (plaVIX) 75 mg DAILY NGT Last administered on 09/04/17 09:13; Admin Dose 75 MG; Start 08/24/17 at 09:00; Status Future hold IV Flush (NS 10 ml) 10 ml PRN PRN IV IV PROTOCOL; Start 08/24/17 at 12:00 Aspirin (Aspirin) 81 mg DAILY PO Last administered on 09/04/17 09:13; Admin Dose 81 MG; Start 08/25/17 at 09:00 Heparin Sodium (Porcine) (Heparin (5000 Units/0.5 ml)) 5,000 unit Q8 SC Last administered on 09/03/17 05:42; Admin Dose 5,000 UNIT; Start 08/25/17 at 22: 00; Status Future Hold Valsartan (Diovan) 40 mg DAILY PO Last administered on 09/02/17 11:55; Admin Dose 40 MG; Start 08/27/17 at 09:00 Famotidine (Pepcid) 20 mg HS NGT Last administered on 09/03/17 20:45; Admin Dose 20 MG; Start 08/27/17 at 21:00 Spironolactone (Aldactone) 25 mg DAILY@06 NGT Last administered on 09/02/17 05:51; Admin Dose 25 MG; Start 08/28/17 at 11:30 Furosemide (Lasix) 40 mg DAILY IV Last administered on 09/04/17 09:12; Admin Dose 40 MG; Start 09/02/17 at 10:00 Alprazolam (Xanax) 0.5 mg Q6 PRN NGT AGITATION; Start 09/02/17 at 11:30 Chlorpromazine (Thorazine) 25 mg HS PO Last administered on 09/03/17 20:45; Admin Dose 25 MG; Start 09/02/17 at 15:30 Trihexyphenidyl HCl (Artane) 5 mg HS PO Last administered on 09/03/17 20:45; Admin Dose 5 MG; Start 09/02/17 at 15:30 [place] Carbonate 300 mg 300 mg HS PO ; Start 09/02/17 at 21:00 Norepinephrine (Levophed) 250 ml @ 1.875 mls/ hr TITRATE IV Last administered on 09/03/17 22:07; Admin Dose 9.375 MLS/HR; Start 09/02/17 at 20:30 Metoprolol Tartrate (Lopressor) 25 mg BID PO ; Start 09/04/17 at 09:00 DON HYATT Sep 04, 2017 09:43
[2017-09-04] MEDS ORDERED: DEXTROSE 5% 1,000 ML IV SCH (10:00)
[2017-09-04 10:05] LABS: ANISOCYTOSIS 1+ (0-0); BASOPHILS % (M) 1 % (0-2); EOSINOPHILS % (M) 1 % (0-7); GIANT THROMBO% (M) 2 % (0-0); METAMYELOCYTES %M 1 % (0-0); MONOCYTES % (M) 6 % (0-11); PLATELET ESTIMATE INCREASED; POIKILOCYTOSIS 1+ (0-0); POLYCHROMASIA 1+ (0-0); REACTIVE LYMPHOCYTES% (M) 2 % (0-0)
--- NOTE | 2017-09-04 12:09 | CONS ---
Date/Time of Note Date/Time of Note DATE: 09/04/17 TIME: 12:08 Consult Date/Type/Reason Admit Date/Time Aug 21, 2017 at 17:28 Initial Consult Date 08/21/17 Type of Consultation: Pulmonary Ordering Provider: HANNAH MCCLENDON MD Subjective Elderly gentleman comfortable at rest. Sitting up in chair talking in full complete sentences family at bedside. Hypotensive overnight requiring vasopressor support. Objective Vital Signs Date Time Temp Pulse Resp B/P Pulse Ox O2 Delivery O2 Flow Rate FiO2 09/04/17 10:15 101 20 106/70 95 Nasal Cannula 3.0 09/04/17 08:00 97.7 09/03/17 11:31 21 Intake and Output 09/03/17 09/03/17 09/04/17 15:00 23:00 07:00 Intake Total 950 ml 1005 ml 121.25 ml Output Total 1735 ml 725 ml 780 ml Balance -785 ml 280 ml -658.75 ml Exam GENERAL: Elderly-appearing gentleman on nasal cannula O2 VITAL SIGNS: per chart NECK: Supple. No JVD or lymphadenopathy. CARDIAC EXAM: S1, S2. No added sounds or murmurs. CHEST: Coarse rales bilaterally ABDOMEN: Soft, nontender. No guarding or rebound. EXTREMITIES: No cyanosis, clubbing or edema. NEUROLOGIC: Generalized weakness. No focal deficits. Results/Medications Result Diagram: 09/04/17 0430 09/04/17 0430 Results 24 hrs Laboratory Tests Test 09/03/17 19:00 09/04/17 04:30 09/04/17 05:05 Hemoglobin 10.2 #L 9.1 L Hematocrit 31.4 #L 27.9 L White Blood Count 11.5 H Red Blood Count 3.03 L Mean Corpuscular Volume 92.1 Mean Corpuscular Hemoglobin 30.0 Mean Corpuscular Hemoglobin Concent 32.6 Red Cell Distribution Width 15.8 H Platelet Count 501 #H Mean Platelet Volume 11.2 H Neutrophils % Segmented Neutrophils % (Manual) 70 Band Neutrophils % (Manual) 3 Lymphocytes % Lymphocytes % (Manual) 16 Reactive Lymphocytes % (Manual) 2 H Monocytes % Monocytes % (Manual) 6 Eosinophils % Eosinophils % (Manual) 1 Basophils % Basophils % (Manual) 1 Metamyelocytes % (manual) 1 H Nucleated Red Blood Cells % 0.4 H Neutrophils # Neutrophils # (Manual) 8.1 H Band Neutrophils # 0.3 Absolute Lymphocytes (Manual) 1.8 Lymphocytes # Reactive Lymphocytes # 0.2 H Monocytes # Absolute Monocytes (Manual) 0.6 Eosinophils # Basophils # Basophils # (Manual) 0.1 H Metamyelocytes # 0.1 H Nucleated Red Blood Cells # Platelet Estimate INCREASED Giant Platelets 2 H Polychromasia 1+ Poikilocytosis 1+ Anisocytosis 1+ Sodium Level 152 H Potassium Level 3.2 L Chloride Level 116 H Carbon Dioxide Level 26 Anion Gap 13 Blood Urea Nitrogen 20 Creatinine 1.00 Glucose Level 118 # Calcium Level 8.1 L Phosphorus Level 3.0 Magnesium Level 2.3 Albumin 2.8 L Lab Scanned Report BLOOD TRANSFUSION Medications Current Medications Ondansetron HCl (Zofran Inj) 4 mg Q6H PRN IV NAUSEA AND/OR VOMITING; Start 08/21/17 at 17:30 Acetaminophen/ Hydrocodone Bitart ([place] (5/325)) 1 tab Q6H PRN PO MODERATE PAIN LEVEL 4-6; Start 08/21/17 at 17:30 Morphine Sulfate (morphine) 2 mg Q4H PRN IV SEVERE PAIN LEVEL 7-10 Last administered on 09/01/17 02:45; Admin Dose 2 MG; Start 08/21/17 at 17:30 Docusate Sodium (Colace) 100 mg Q12H PRN PO CONSTIPATION; Start 08/21/17 at 17: 30 Magnesium Hydroxide (Milk Of Mag) 30 ml DAILY PRN PO CONSTIPATION; Start at 17:30 Sodium Biphosphate/ Sodium Phosphate (Fleet Enema) 133 ml DAILY PRN [place] CONSTIPATION; Start 08/21/17 at 17:30 Hydralazine HCl (Apresoline) 10 mg Q6H PRN IV ELEVATED BLOOD PRESSURE; Start 08/21/17 at 17:30 Nitroglycerin (Nitroglycerin (Sl Tab) 0.4 Mg) 1 tab Q5M PRN SL ANGINA; Start 08/21/17 at 17:30 Oxycodone/ Acetaminophen 1 tab 1 tab Q3H PRN PO PAIN LEVEL 1-5; Start 08/22/17 at 01:00 Magnesium Sulfate/ Dextrose (Magnesium Sulfate 1 Gm/D5W) 100 ml @ 100 mls/hr PRN PRN IVPB PENDING LAB VALUE Last administered on 08/23/17 08:54; Admin Dose 100 MLS/HR; Start 08/22/17 at 01:00 Atorvastatin Calcium (Lipitor) 80 mg HS PO Last administered on 09/03/17 20: 45; Admin Dose 80 MG; Start 08/22/17 at 21:00 Acetaminophen (Tylenol Liquid) 650 mg Q4H PRN PO PAIN AND OR ELEVATED TEMP Last administered on 08/28/17 22:16; Admin Dose 650 MG; Start 08/23/17 at 14: 30 Clopidogrel Bisulfate (plaVIX) 75 mg DAILY NGT Last administered on 09/04/17 09:13; Admin Dose 75 MG; Start 08/24/17 at 09:00; Status Future hold IV Flush (NS 10 ml) 10 ml PRN PRN IV IV PROTOCOL; Start 08/24/17 at 12:00 Aspirin (Aspirin) 81 mg DAILY PO Last administered on 09/04/17 09:13; Admin Dose 81 MG; Start 08/25/17 at 09:00 Heparin Sodium (Porcine) (Heparin (5000 Units/0.5 ml)) 5,000 unit Q8 SC Last administered on 09/03/17 05:42; Admin Dose 5,000 UNIT; Start 08/25/17 at 22: 00; Status Future Hold Valsartan (Diovan) 40 mg DAILY PO Last administered on 09/02/17 11:55; Admin Dose 40 MG; Start 08/27/17 at 09:00 Famotidine (Pepcid) 20 mg HS NGT Last administered on 09/03/17 20:45; Admin Dose 20 MG; Start 08/27/17 at 21:00 Spironolactone (Aldactone) 25 mg DAILY@06 NGT Last administered on 09/02/17 05:51; Admin Dose 25 MG; Start 08/28/17 at 11:30 Furosemide (Lasix) 40 mg DAILY IV Last administered on 09/04/17 09:12; Admin Dose 40 MG; Start 09/02/17 at 10:00 Alprazolam (Xanax) 0.5 mg Q6 PRN NGT AGITATION; Start 09/02/17 at 11:30 Chlorpromazine (Thorazine) 25 mg HS PO Last administered on 09/03/17 20:45; Admin Dose 25 MG; Start 09/02/17 at 15:30 Trihexyphenidyl HCl (Artane) 5 mg HS PO Last administered on 09/03/17 20:45; Admin Dose 5 MG; Start 09/02/17 at 15:30 [place] Carbonate 300 mg 300 mg HS PO ; Start 09/02/17 at 21:00 Norepinephrine (Levophed) 250 ml @ 1.875 mls/ hr TITRATE IV Last administered on 09/03/17 22:07; Admin Dose 9.375 MLS/HR; Start 09/02/17 at 20:30 Metoprolol Tartrate 25 mg 25 mg BID PO ; Start 09/04/17 at 09:00 Dextrose (D5W) 1,000 ml @ 75 mls/hr [id number] IV Last administered on 09:48; Admin Dose 75 MLS/HR; Start 09/04/17 at 10:00; Stop 09/04/17 at 22 :00 Assessment/Plan Chief Complaint/Hosp Course IMP: 1. s/p STEMI followed by LHC and CABG 2. Status post cardiogenic shock 3. Anemia with hematuria. 4. Hypernatremia likely free water deficit. 5. Acute CVA with resolving encephalopathy. 6. s/p resp faliure. possible aspiration, 7. Hematuria likely secondary to urethral trauma from catheter RECS: 1. Aspiration precautions, antibiotics per ID. 2. Modify diet 3. Nocturnal librium and amantadine per family. 4. gentle diuresis. 5. Urology recs. Discussed with son at bedside. Problems: CRISTI REY MD, [facility] Sep 04, 2017 12:09
[2017-09-04 14:49] LABS: HEMATOCRIT 32.7 % (42.0-52.0); HEMOGLOBIN 10.3 g/dl (14.0-18.0)
[2017-09-04 15:26] LABS: ALBUMIN 3.3 g/dl (3.3-4.9); ALBUMIN/GLOBULIN RATIO 0.91; BILIRUBIN,INDIRECT 0.9 mg/dl (0-1.1); BILIRUBIN,TOTAL 0.9 mg/dl (0.2-1.3); CALCIUM 8.5 mg/dl (8.4-10.2); CREATININE 1.13 mg/dl (0.61-1.24); POTASSIUM 3.7 mmol/L (3.5-5.1); TOTAL PROTEIN 6.9 g/dl (6.1-8.1)
--- NOTE | 2017-09-04 18:46 | CONS ---
Date/Time of Note Date/Time of Note DATE: 09/04/17 TIME: 18:43 Consult Date/Type/Reason Admit Date/Time Aug 21, 2017 at 17:28 Initial Consult Date 09/01/17 Type of Consultation: Urology Reason for Consultation Gross hematuria Ordering Provider: HANNAH MCCLENDON MD Subjective The patient is sitting in the chair and his son is giving him dinner. The Champion catheter is in place and draining blood-tinged urine Objective Vital Signs Date Time Temp Pulse Resp B/P Pulse Ox O2 Delivery O2 Flow Rate FiO2 09/04/17 18:00 98.3 121 20 122/63 98 Nasal Cannula 3.0 09/03/17 11:31 21 Intake and Output 09/03/17 09/03/17 09/04/17 15:00 23:00 07:00 Intake Total 950 ml 1005 ml 121.25 ml Output Total 1735 ml 725 ml 780 ml Balance -785 ml 280 ml -658.75 ml Exam Alert awake and appears to be comfortable. Champion catheter is draining blood- tinged urine Results/Medications Result Diagram: 09/04/17 1430 09/04/17 1430 Results 24 hrs Laboratory Tests Test 09/03/17 19:00 09/04/17 04:30 09/04/17 05:05 09/04/17 14:30 Hemoglobin 10.2 #L 9.1 L 10.3 L Hematocrit 31.4 #L 27.9 L 32.7 L White Blood Count 11.5 H Red Blood Count 3.03 L Mean Corpuscular Volume 92.1 Mean Corpuscular Hemoglobin 30.0 Mean Corpuscular Hemoglobin Concent 32.6 Red Cell Distribution Width 15.8 H Platelet Count 501 #H Mean Platelet Volume 11.2 H Neutrophils % Segmented Neutrophils % (Manual) 70 Band Neutrophils % (Manual) 3 Lymphocytes % Lymphocytes % (Manual) 16 Reactive Lymphocytes % (Manual) 2 H Monocytes % Monocytes % (Manual) 6 Eosinophils % Eosinophils % (Manual) 1 Basophils % Basophils % (Manual) 1 Metamyelocytes % (manual) 1 H Nucleated Red Blood Cells % 0.4 H Neutrophils # Neutrophils # (Manual) 8.1 H Band Neutrophils # 0.3 Absolute Lymphocytes (Manual) 1.8 Lymphocytes # Reactive Lymphocytes # 0.2 H Monocytes # Absolute Monocytes (Manual) 0.6 Eosinophils # Basophils # Basophils # (Manual) 0.1 H Metamyelocytes # 0.1 H Nucleated Red Blood Cells # Platelet Estimate INCREASED Giant Platelets 2 H Polychromasia 1+ Poikilocytosis 1+ Anisocytosis 1+ Sodium Level 152 H 151 H Potassium Level 3.2 L 3.7 Chloride Level 116 H 113 H Carbon Dioxide Level 26 26 Anion Gap 13 16 Blood Urea Nitrogen 20 22 H Creatinine 1.00 1.13 Glucose Level 118 # 241 #H Calcium Level 8.1 L 8.5 Phosphorus Level 3.0 Magnesium Level 2.3 2.4 Albumin 2.8 L 3.3 Lab Scanned Report BLOOD TRANSFUSION Total Bilirubin 0.9 Direct Bilirubin 0.00 Indirect Bilirubin 0.9 Aspartate Amino Transf (AST/SGOT) 66 H Alanine Aminotransferase (ALT/SGPT) 61 Alkaline Phosphatase 133 H Total Protein 6.9 Globulin 3.60 H Albumin/Globulin Ratio 0.91 Medications Current Medications Ondansetron HCl (Zofran Inj) 4 mg Q6H PRN IV NAUSEA AND/OR VOMITING; Start 08/21/17 at 17:30 Acetaminophen/ Hydrocodone Bitart ([place] (5/325)) 1 tab Q6H PRN PO MODERATE PAIN LEVEL 4-6; Start 08/21/17 at 17:30 Morphine Sulfate (morphine) 2 mg Q4H PRN IV SEVERE PAIN LEVEL 7-10 Last administered on 09/01/17t 02:45; Admin Dose 2 MG; Start 08/21/17 at 17:30 Docusate Sodium (Colace) 100 mg Q12H PRN PO CONSTIPATION; Start 08/21/17 at 17: 30 Magnesium Hydroxide (Milk Of Mag) 30 ml DAILY PRN PO CONSTIPATION; Start at 17:30 Sodium Biphosphate/ Sodium Phosphate (Fleet Enema) 133 ml DAILY PRN [place] CONSTIPATION; Start 08/21/17 at 17:30 Hydralazine HCl (Apresoline) 10 mg Q6H PRN IV ELEVATED BLOOD PRESSURE; Start 08/21/17 at 17:30 Nitroglycerin (Nitroglycerin (Sl Tab) 0.4 Mg) 1 tab Q5M PRN SL ANGINA; Start 08/21/17 at 17:30 Oxycodone/ Acetaminophen 1 tab 1 tab Q3H PRN PO PAIN LEVEL 1-5; Start 08/22/17 at 01:00 Magnesium Sulfate/ Dextrose (Magnesium Sulfate 1 Gm/D5W) 100 ml @ 100 mls/hr PRN PRN IVPB PENDING LAB VALUE Last administered on 08/23/17 08:54; Admin Dose 100 MLS/HR; Start 08/22/17 at 01:00 Atorvastatin Calcium (Lipitor) 80 mg HS PO Last administered on 09/03/17 20: 45; Admin Dose 80 MG; Start 08/22/17 at 21:00 Acetaminophen (Tylenol Liquid) 650 mg Q4H PRN PO PAIN AND OR ELEVATED TEMP Last administered on 08/28/17 22:16; Admin Dose 650 MG; Start 08/23/17 at 14: 30 Clopidogrel Bisulfate (plaVIX) 75 mg DAILY NGT Last administered on 09/04/17 09:13; Admin Dose 75 MG; Start 08/24/17 at 09:00; Status Future hold IV Flush (NS 10 ml) 10 ml PRN PRN IV IV PROTOCOL; Start 08/24/17 at 12:00 Aspirin (Aspirin) 81 mg DAILY PO Last administered on 09/04/17 09:13; Admin Dose 81 MG; Start 08/25/17 at 09:00 Heparin Sodium (Porcine) (Heparin (5000 Units/0.5 ml)) 5,000 unit Q8 SC Last administered on 09/03/17 05:42; Admin Dose 5,000 UNIT; Start 08/25/17 at 22: 00; Status Future Hold Valsartan (Diovan) 40 mg DAILY PO Last administered on 09/02/17 11:55; Admin Dose 40 MG; Start 08/27/17 at 09:00 Famotidine (Pepcid) 20 mg HS NGT Last administered on 09/03/17 20:45; Admin Dose 20 MG; Start 08/27/17 at 21:00 Spironolactone (Aldactone) 25 mg DAILY@06 NGT Last administered on 09/02/17 05:51; Admin Dose 25 MG; Start 08/28/17 at 11:30 Furosemide (Lasix) 40 mg DAILY IV Last administered on 09/04/17 09:12; Admin Dose 40 MG; Start 09/02/17 at 10:00 Alprazolam (Xanax) 0.5 mg Q6 PRN NGT AGITATION; Start 09/02/17 at 11:30 Chlorpromazine (Thorazine) 25 mg HS PO Last administered on 09/03/17 20:45; Admin Dose 25 MG; Start 09/02/17 at 15:30 Trihexyphenidyl HCl (Artane) 5 mg HS PO Last administered on 09/03/17 20:45; Admin Dose 5 MG; Start 09/02/17 at 15:30 [place] Carbonate 300 mg 300 mg HS PO ; Start 09/02/17 at 21:00 Norepinephrine (Levophed) 250 ml @ 1.875 mls/ hr TITRATE IV Last administered on 09/03/17 22:07; Admin Dose 9.375 MLS/HR; Start 09/02/17 at 20:30 Metoprolol Tartrate 25 mg 25 mg BID PO ; Start 09/04/17 at 09:00 Dextrose (D5W) 1,000 ml @ 75 mls/hr [id number] IV Last administered on 09:48; Admin Dose 75 MLS/HR; Start 09/04/17 at 10:00; Stop 09/04/17 at 22 :00 Assessment/Plan Chief Complaint/Hosp Course 72-year-old male status post open heart surgery. he has gross hematuria which probably was caused by him pulling on the catheter couple of days earlier and also since he is on anticoagulation. He has a Champion catheter now that is draining blood-tinged urine. He needs to be on the anticoagulation because of his open heart surgery therefore the recommendation would be to keep the Champion catheter in and hopefully the urine will clear up gradually and if he needs to be transfused then we may have to give him blood Problems: LAINA STRONG MD Sep 04, 2017 18:46
[2017-09-04] MEDS: LITHIUM CARBONATE 300 MG CAP PO SCH (20:50)
[2017-09-04] MEDS: ATORVASTATIN 80 MG TAB PO SCH (20:57)
[2017-09-04] MEDS: FAMOTIDINE 20 MG TAB NGT SCH (20:57)
[2017-09-04] MEDS: CHLORPROMAZINE 25 MG TAB PO SCH (20:58)
[2017-09-04] MEDS: TRIHEXYPHENIDYL 5 MG TAB PO SCH (20:58)
[2017-09-05] VITALS (24 sets, daily range): BP systolic 84–117; BP diastolic 51–85; PULSE 87–119; RESP 14–29
[2017-09-05] MEDS: SPIRONOLACTONE 25 MG TAB NGT SCH (05:46)
--- NOTE | 2017-09-05 06:20 | PN ---
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 Now extubated , with ischemic cardiomyopathy, acute cva's noted on MRI, encephalopathy, hypernatremia, and high risk of aspiration. Patient blood pressure has stabilized over the past 24 hours. Problems: Assessment/Plan STEMI anterior wall s/p emergent CABG ischemic cardiomyopathy hematuria due to trauma hypernatremia Recommendations: Continue asa, hold clopidogrel due to bleeding Continue atorvastatin Change metoprolol to succinate preparation as patient is taking pills and bp has been stable Continue valsartan and spironolactone for cardiomyopathy Supportive care, physical therapy Possible transfer out of ICU soon? Subjective 24 Hr Interval Summary Free Text/Dictation No events overnight. Pt still with bloody urine. He has not required pressors for the past day, was able to receive metoprolol doses yesterday and has received spironolactone this am. Valsartan held yesterday due to hypotension. Exam/Review of Systems Vital Signs Vitals Vital Signs Date Time Temp Pulse Resp B/P Pulse Ox O2 Delivery O2 Flow Rate FiO2 09/05/17 04:00 98.2 97 14 112/66 Room Air 09/05/17 03:00 99 09/05/17 01:37 2.0 27 Intake and Output 09/04/17 09/04/17 09/05/17 15:00 23:00 07:00 Intake Total 1025 ml 875 ml 30 ml Output Total 1500 ml 1375 ml 900 ml Balance -475 ml -500 ml -870 ml Exam Constitutional: alert Psych: nl mood/affect Head: atraumatic, normocephalic Eyes: EOMI, nl conjunctiva, nl lids, nl sclera ENMT: nl external ears & nose, nl lips & teeth Neck: supple, No bruits, No jvd Respiratory: clear to auscultation, normal air movement Cardiovascular: regular rate and rhythm (tachycardic), No murmurs/extra sounds Gastrointestinal: non-tender, soft Musculoskeletal: nl extremities to inspection Extremities: No edema 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: nl mental status, nl speech Skin: nl turgor, No rash or lesions Results Result Diagram: 09/04/17 1430 09/04/17 1430 Results 24 hrs Laboratory Tests Test 09/04/17 14:30 Hemoglobin 10.3 L Hematocrit 32.7 L Sodium Level 151 H Potassium Level 3.7 Chloride Level 113 H Carbon Dioxide Level 26 Anion Gap 16 Blood Urea Nitrogen 22 H Creatinine 1.13 Glucose Level 241 #H Calcium Level 8.5 Magnesium Level 2.4 Total Bilirubin 0.9 Direct Bilirubin 0.00 Indirect Bilirubin 0.9 Aspartate Amino Transf (AST/SGOT) 66 H Alanine Aminotransferase (ALT/SGPT) 61 Alkaline Phosphatase 133 H Total Protein 6.9 Albumin 3.3 Globulin 3.60 H Albumin/Globulin Ratio 0.91 Medications Medications Current Medications Ondansetron HCl (Zofran Inj) 4 mg Q6H PRN IV NAUSEA AND/OR VOMITING; Start 08/21/17 at 17:30 Acetaminophen/ Hydrocodone Bitart ([place] (5/325)) 1 tab Q6H PRN PO MODERATE PAIN LEVEL 4-6; Start 08/21/17 at 17:30 Morphine Sulfate (morphine) 2 mg Q4H PRN IV SEVERE PAIN LEVEL 7-10 Last administered on 09/01/17t 02:45; Admin Dose 2 MG; Start 08/21/17 at 17:30 Docusate Sodium (Colace) 100 mg Q12H PRN PO CONSTIPATION; Start 08/21/17 at 17: 30 Magnesium Hydroxide (Milk Of Mag) 30 ml DAILY PRN PO CONSTIPATION; Start at 17:30 Sodium Biphosphate/ Sodium Phosphate (Fleet Enema) 133 ml DAILY PRN [place] CONSTIPATION; Start 08/21/17 at 17:30 Hydralazine HCl (Apresoline) 10 mg Q6H PRN IV ELEVATED BLOOD PRESSURE; Start 08/21/17 at 17:30 Nitroglycerin (Nitroglycerin (Sl Tab) 0.4 Mg) 1 tab Q5M PRN SL ANGINA; Start 08/21/17 at 17:30 Oxycodone/ Acetaminophen 1 tab 1 tab Q3H PRN PO PAIN LEVEL 1-5; Start 08/22/17 at 01:00 Magnesium Sulfate/ Dextrose (Magnesium Sulfate 1 Gm/D5W) 100 ml @ 100 mls/hr PRN PRN IVPB PENDING LAB VALUE Last administered on 08/23/17 08:54; Admin Dose 100 MLS/HR; Start 08/22/17 at 01:00 Atorvastatin Calcium (Lipitor) 80 mg HS PO Last administered on 09/04/17 20: 57; Admin Dose 80 MG; Start 08/22/17 at 21:00 Acetaminophen (Tylenol Liquid) 650 mg Q4H PRN PO PAIN AND OR ELEVATED TEMP Last administered on 08/28/17 22:16; Admin Dose 650 MG; Start 08/23/17 at 14: 30 Clopidogrel Bisulfate (plaVIX) 75 mg DAILY NGT Last administered on 09/04/17 09:13; Admin Dose 75 MG; Start 08/24/17 at 09:00; Status Future hold IV Flush (NS 10 ml) 10 ml PRN PRN IV IV PROTOCOL; Start 08/24/17 at 12:00 Aspirin (Aspirin) 81 mg DAILY PO Last administered on 09/04/17 09:13; Admin Dose 81 MG; Start 08/25/17 at 09:00 Heparin Sodium (Porcine) (Heparin (5000 Units/0.5 ml)) 5,000 unit Q8 SC Last administered on 09/03/17 05:42; Admin Dose 5,000 UNIT; Start 08/25/17 at 22: 00; Status Future Hold Valsartan (Diovan) 40 mg DAILY PO Last administered on 09/02/17 11:55; Admin Dose 40 MG; Start 08/27/17 at 09:00 Famotidine (Pepcid) 20 mg HS NGT Last administered on 09/04/17 20:57; Admin Dose 20 MG; Start 08/27/17 at 21:00 Spironolactone (Aldactone) 25 mg DAILY@06 NGT Last administered on 09/05/17 05:46; Admin Dose 25 MG; Start 08/28/17 at 11:30 Furosemide (Lasix) 40 mg DAILY IV Last administered on 09/04/17 09:12; Admin Dose 40 MG; Start 09/02/17 at 10:00 Alprazolam (Xanax) 0.5 mg Q6 PRN NGT AGITATION; Start 09/02/17 at 11:30 Chlorpromazine (Thorazine) 25 mg HS PO Last administered on 09/04/17 20:58; Admin Dose 25 MG; Start 09/02/17 at 15:30 Trihexyphenidyl HCl (Artane) 5 mg HS PO Last administered on 09/04/17 20:58; Admin Dose 5 MG; Start 09/02/17 at 15:30 [place] Carbonate 300 mg 300 mg HS PO ; Start 09/02/17 at 21:00 Norepinephrine (Levophed) 250 ml @ 1.875 mls/ hr TITRATE IV Last administered on 09/03/17 22:07; Admin Dose 9.375 MLS/HR; Start 09/02/17 at 20:30 Metoprolol Tartrate (Lopressor) 25 mg BID PO Last administered on 09/04/17 20 :57; Admin Dose 25 MG; Start 09/04/17 at 09:00 JENNIFER MOORE Sep 05, 2017 06:20
[2017-09-05 06:46] LABS: BASOPHILS % 0.3 % (0.0-2.0); EOSINOPHILS # 0.3 10^3/ul (0.0-0.5); EOSINOPHILS % 2.1 % (0.0-7.0); HEMATOCRIT 28.1 % (42.0-52.0); HEMOGLOBIN 9.3 g/dl (14.0-18.0); LYMPHOCYTES # 2.1 10^3/ul (0.8-2.9); MEAN CORPUSCULAR HEMOGLOBIN 30.3 pg (29.0-33.0); MEAN CORPUSCULAR HGB CONC 33.1 g/dl (32.0-37.0); MEAN CORPUSCULAR VOLUME 91.5 fl (82.0-101.0); MEAN PLATELET VOLUME 11.2 fl (7.4-10.4); MONOCYTES % 8.8 % (0.0-11.0); NEUTROPHIL # 8.2 10^3/ul (1.6-7.5); NUCLEATED RED BLOOD CELLS% 0.2 /100WBC (0.0-0.0); PLATELET COUNT 479 10^3/UL (140-415); RED BLOOD COUNT 3.07 10^6/ul (4.70-6.10); RED CELL DISTRIBUTION WIDTH 15.9 % (11.5-14.5); WHITE BLOOD COUNT 11.8 10^3/ul (4.8-10.8)
[2017-09-05 07:14] LABS: CALCIUM 8.6 mg/dl (8.4-10.2); CREATININE 0.98 mg/dl (0.61-1.24); POTASSIUM 3.7 mmol/L (3.5-5.1)
[2017-09-05] MEDS: CLOPIDOGREL 75 MG TAB NGT SCH (09:00)
[2017-09-05] MEDS: VALSARTAN 80 MG TAB PO SCH (09:00)
[2017-09-05] MEDS: ASPIRIN 81 MG TAB PO SCH (09:19)
[2017-09-05] MEDS: METOPROLOL (XL) 50 MG TAB PO SCH (09:21)
--- NOTE | 2017-09-05 10:11 | CONS ---
Date/Time of Note Date/Time of Note DATE: 09/05/17 TIME: 10:08 Consult Date/Type/Reason Admit Date/Time Aug 21, 2017 at 17:28 Initial Consult Date 09/01/17 Type of Consultation: Urology Reason for Consultation Gross hematuria Ordering Provider: HANNAH MCCLENDON MD Subjective Patient is sitting up in the chair and his urine remains bloody. Objective Vital Signs Date Time Temp Pulse Resp B/P Pulse Ox O2 Delivery O2 Flow Rate FiO2 09/05/17 06:00 114 29 113/72 98 Room Air 09/05/17 04:00 98.2 09/05/17 01:37 2.0 27 Intake and Output 09/04/17 09/04/17 09/05/17 15:00 23:00 07:00 Intake Total 1025 ml 875 ml 30 ml Output Total 1500 ml 1375 ml 1100 ml Balance -475 ml -500 ml -1070 ml Exam Abdomen is soft, the Champion catheter is draining blood-tinged urine and there is no clots Results/Medications Result Diagram: 09/05/17 0600 09/05/17 0600 Results 24 hrs Laboratory Tests Test 09/04/17 14:30 09/05/17 06:00 Hemoglobin 10.3 L 9.3 L Hematocrit 32.7 L 28.1 L Sodium Level 151 H 150 H Potassium Level 3.7 3.7 Chloride Level 113 H 116 H Carbon Dioxide Level 26 26 Anion Gap 16 12 Blood Urea Nitrogen 22 H 20 Creatinine 1.13 0.98 Glucose Level 241 #H 133 # Calcium Level 8.5 8.6 Magnesium Level 2.4 Total Bilirubin 0.9 Direct Bilirubin 0.00 Indirect Bilirubin 0.9 Aspartate Amino Transf (AST/SGOT) 66 H Alanine Aminotransferase (ALT/SGPT) 61 Alkaline Phosphatase 133 H Total Protein 6.9 Albumin 3.3 Globulin 3.60 H Albumin/Globulin Ratio 0.91 White Blood Count 11.8 H Red Blood Count 3.07 L Mean Corpuscular Volume 91.5 Mean Corpuscular Hemoglobin 30.3 Mean Corpuscular Hemoglobin Concent 33.1 Red Cell Distribution Width 15.9 H Platelet Count 479 H Mean Platelet Volume 11.2 H Neutrophils % 70.0 Lymphocytes % 18.0 Monocytes % 8.8 Eosinophils % 2.1 Basophils % 0.3 Nucleated Red Blood Cells % 0.2 H Neutrophils # 8.2 H Lymphocytes # 2.1 Monocytes # 1.0 H Eosinophils # 0.3 Basophils # 0.0 Nucleated Red Blood Cells # 0.0 Medications Current Medications Ondansetron HCl (Zofran Inj) 4 mg Q6H PRN IV NAUSEA AND/OR VOMITING; Start 08/21/17 at 17:30 Acetaminophen/ Hydrocodone Bitart ([place] (5/325)) 1 tab Q6H PRN PO MODERATE PAIN LEVEL 4-6; Start 08/21/17 at 17:30 Morphine Sulfate (morphine) 2 mg Q4H PRN IV SEVERE PAIN LEVEL 7-10 Last administered on 09/01/17 02:45; Admin Dose 2 MG; Start 08/21/17 at 17:30 Docusate Sodium (Colace) 100 mg Q12H PRN PO CONSTIPATION; Start 08/21/17 at 17: 30 Magnesium Hydroxide (Milk Of Mag) 30 ml DAILY PRN PO CONSTIPATION; Start at 17:30 Sodium Biphosphate/ Sodium Phosphate (Fleet Enema) 133 ml DAILY PRN [place] CONSTIPATION; Start 08/21/17 at 17:30 Hydralazine HCl (Apresoline) 10 mg Q6H PRN IV ELEVATED BLOOD PRESSURE; Start 08/21/17 at 17:30 Nitroglycerin (Nitroglycerin (Sl Tab) 0.4 Mg) 1 tab Q5M PRN SL ANGINA; Start 08/21/17 at 17:30 Oxycodone/ Acetaminophen 1 tab 1 tab Q3H PRN PO PAIN LEVEL 1-5; Start 08/22/17 at 01:00 Magnesium Sulfate/ Dextrose (Magnesium Sulfate 1 Gm/D5W) 100 ml @ 100 mls/hr PRN PRN IVPB PENDING LAB VALUE Last administered on 08/23/17 08:54; Admin Dose 100 MLS/HR; Start 08/22/17 at 01:00 Atorvastatin Calcium (Lipitor) 80 mg HS PO Last administered on 09/04/17 20: 57; Admin Dose 80 MG; Start 08/22/17 at 21:00 Acetaminophen (Tylenol Liquid) 650 mg Q4H PRN PO PAIN AND OR ELEVATED TEMP Last administered on 08/28/17 22:16; Admin Dose 650 MG; Start 08/23/17 at 14: 30 Clopidogrel Bisulfate (plaVIX) 75 mg DAILY NGT Last administered on 09/04/17 09:13; Admin Dose 75 MG; Start 08/24/17 at 09:00; Status Future hold IV Flush (NS 10 ml) 10 ml PRN PRN IV IV PROTOCOL; Start 08/24/17 at 12:00 Aspirin (Aspirin) 81 mg DAILY PO Last administered on 09/05/17 09:19; Admin Dose 81 MG; Start 08/25/17 at 09:00 Heparin Sodium (Porcine) (Heparin (5000 Units/0.5 ml)) 5,000 unit Q8 SC Last administered on 09/03/17 05:42; Admin Dose 5,000 UNIT; Start 08/25/17 at 22: 00; Status Future Hold Valsartan (Diovan) 40 mg DAILY PO Last administered on 09/02/17 11:55; Admin Dose 40 MG; Start 08/27/17 at 09:00 Famotidine (Pepcid) 20 mg HS NGT Last administered on 09/04/17 20:57; Admin Dose 20 MG; Start 08/27/17 at 21:00 Spironolactone (Aldactone) 25 mg DAILY@06 NGT Last administered on 09/05/17 05:46; Admin Dose 25 MG; Start 08/28/17 at 11:30 Alprazolam (Xanax) 0.5 mg Q6 PRN NGT AGITATION; Start 09/02/17 at 11:30 Chlorpromazine (Thorazine) 25 mg HS PO Last administered on 09/04/17 20:58; Admin Dose 25 MG; Start 09/02/17 at 15:30 Trihexyphenidyl HCl (Artane) 5 mg HS PO Last administered on 09/04/17 20:58; Admin Dose 5 MG; Start 09/02/17 at 15:30 [place] Carbonate 300 mg 300 mg HS PO ; Start 09/02/17 at 21:00 Norepinephrine (Levophed) 250 ml @ 1.875 mls/ hr TITRATE IV Last administered on 09/03/17 22:07; Admin Dose 9.375 MLS/HR; Start 09/02/17 at 20:30 Metoprolol Succinate (Toprol Xl) 50 mg DAILY PO Last administered on 09:21; Admin Dose 50 MG; Start 09/05/17 at 09:00 Assessment/Plan Chief Complaint/Hosp Course 72-year-old male status post open heart surgery. he has gross hematuria which probably was caused by him pulling on the catheter couple of days earlier and also since he is on anticoagulation. He has a Champion catheter now that is draining blood-tinged urine. He needs to be on the anticoagulation because of his open heart surgery therefore the recommendation would be to keep the Champion catheter in and hopefully the urine will clear up gradually and if he needs to be transfused then we may have to give him blood Problems: LAINA STRONG MD Sep 05, 2017 10:11
[2017-09-05] MEDS ORDERED: DEXTROSE 5% 1,000 ML IV SCH (11:30)
--- NOTE | 2017-09-05 11:34 | PN ---
Date/Time of Note Date/Time of Note DATE: 09/05/17 TIME: 11:29 Assessment/Plan VTE Prophylaxis VTE Prophylaxis Intervention: SCD's Lines/Catheters IV [facility]ter Type (from [facility]): PICC Line Central line still needed: Yes Urinary Cath still in place: Yes Reason Cath still needed: urinary retention Assessment/Plan Chief Complaint/Hosp Course S: Patient still with some hematuria, seen by cardiology team, Plavix has been held this morning now. More alert today. O: VS (see below) PE: Constitutional: alert, sitting in chair, son at bedside Psych: nl mood/affect, no complaints Head: atraumatic, normocephalic Eyes: EOMI, nl conjunctiva, nl lids, nl sclera ENMT: nl external ears & nose, nl lips & teeth, nl nasal mucosa & septum Neck: supple, No bruits, No jvd Respiratory: clear to auscultation, normal air movement Cardiovascular: regular rate and rhythm Gastrointestinal: nl liver, spleen, non-tender, soft Musculoskeletal: nl extremities to inspection Extremities: No edema Assessment/Plan: 72 yo male with hx of DL, anxiety, ?hypothyroidism who presented with chest pain and found to have STEMI with emergent cardiac cath revealing three-disease. 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 1. STEMI - Three-vessel CAD, s/p CABG -three-vessel - POD # 14. - Continue ICU monitoring, pressors per cardiothoracic surgery and cardiology recommendations - f/u pulm rec's - f/u cardiology and CT surg recs 2. Status post acute cerebrovascular accident confirmed on MRI brain. Also having some decreased ability to swallow -again barium swallow test was performed 3 days ago. -Follow-up recommendations from speech therapy team. -Monitor neurologic status, continue cautious pure feeding per dietary and nutritional recommendations. 3. s/p cardiopulmonary arrest: s/p cardioversion x 2, intubation earlier, now extubated -see #1 -f/u CTS rec's, continue to replete any low electrolytes 4. SIRS: secondary to above - no fevers now. Culture results have been essentially negative thus far. Antibiotics were stopped, WBC improved. -Continue holding antibiotics for now, monitor white blood cell count 5. Metabolic lactic acidosis: from ischemic event/cardiogenic shock -resolved now -Monitor 6. Hypernatremia -slightly improved, but still present (155 -> 152 -> 150 -> 150 ). -Monitor, D5W today 10 hours (cautiously giving this because of patient's recent past surgery and risk for fluid overload), monitor BMP in the morning 7. Hematuria: Again likely secondary to traumatic Champion. Appreciate urology recommendations -Continue Champion catheter, follow-up urology recommendations, patient to get PRBC transfusion yesterday with improvement in his hemoglobin now. -For now holding Plavix today given his continued hematuria. 8. Hx of Dyslipidemia -status post CABG for ST elevation PR -Follow-up FLP -statin Critical care time spent on patient care today equals 45 minutes. Problems: Exam/Review of Systems Vital Signs Vitals Vital Signs Date Time Temp Pulse Resp B/P Pulse Ox O2 Delivery O2 Flow Rate FiO2 09/05/17 11:00 107 15 106/67 99 Nasal Cannula 09/05/17 08:00 98.1 09/05/17 01:37 2.0 27 Intake and Output 09/04/17 09/04/17 09/05/17 15:00 23:00 07:00 Intake Total 1025 ml 875 ml 30 ml Output Total 1500 ml 1375 ml 1100 ml Balance -475 ml -500 ml -1070 ml Results Result Diagram: 09/05/17 0600 09/05/17 0600 Results 24 hrs Laboratory Tests Test 09/04/17 14:30 09/05/17 06:00 Hemoglobin 10.3 L 9.3 L Hematocrit 32.7 L 28.1 L Sodium Level 151 H 150 H Potassium Level 3.7 3.7 Chloride Level 113 H 116 H Carbon Dioxide Level 26 26 Anion Gap 16 12 Blood Urea Nitrogen 22 H 20 Creatinine 1.13 0.98 Glucose Level 241 #H 133 # Calcium Level 8.5 8.6 Magnesium Level 2.4 Total Bilirubin 0.9 Direct Bilirubin 0.00 Indirect Bilirubin 0.9 Aspartate Amino Transf (AST/SGOT) 66 H Alanine Aminotransferase (ALT/SGPT) 61 Alkaline Phosphatase 133 H Total Protein 6.9 Albumin 3.3 Globulin 3.60 H Albumin/Globulin Ratio 0.91 White Blood Count 11.8 H Red Blood Count 3.07 L Mean Corpuscular Volume 91.5 Mean Corpuscular Hemoglobin 30.3 Mean Corpuscular Hemoglobin Concent 33.1 Red Cell Distribution Width 15.9 H Platelet Count 479 H Mean Platelet Volume 11.2 H Neutrophils % 70.0 Lymphocytes % 18.0 Monocytes % 8.8 Eosinophils % 2.1 Basophils % 0.3 Nucleated Red Blood Cells % 0.2 H Neutrophils # 8.2 H Lymphocytes # 2.1 Monocytes # 1.0 H Eosinophils # 0.3 Basophils # 0.0 Nucleated Red Blood Cells # 0.0 Medications Medications Current Medications Ondansetron HCl (Zofran Inj) 4 mg Q6H PRN IV NAUSEA AND/OR VOMITING; Start 08/21/17 at 17:30 Acetaminophen/ Hydrocodone Bitart ([place] (5/325)) 1 tab Q6H PRN PO MODERATE PAIN LEVEL 4-6; Start 08/21/17 at 17:30 Morphine Sulfate (morphine) 2 mg Q4H PRN IV SEVERE PAIN LEVEL 7-10 Last administered on 09/01/17 02:45; Admin Dose 2 MG; Start 08/21/17 at 17:30 Docusate Sodium (Colace) 100 mg Q12H PRN PO CONSTIPATION; Start 08/21/17 at 17: 30 Magnesium Hydroxide (Milk Of Mag) 30 ml DAILY PRN PO CONSTIPATION; Start at 17:30 Sodium Biphosphate/ Sodium Phosphate (Fleet Enema) 133 ml DAILY PRN [place] CONSTIPATION; Start 08/21/17 at 17:30 Hydralazine HCl (Apresoline) 10 mg Q6H PRN IV ELEVATED BLOOD PRESSURE; Start 08/21/17 at 17:30 Nitroglycerin (Nitroglycerin (Sl Tab) 0.4 Mg) 1 tab Q5M PRN SL ANGINA; Start 08/21/17 at 17:30 Oxycodone/ Acetaminophen 1 tab 1 tab Q3H PRN PO PAIN LEVEL 1-5; Start 08/22/17 at 01:00 Magnesium Sulfate/ Dextrose (Magnesium Sulfate 1 Gm/D5W) 100 ml @ 100 mls/hr PRN PRN IVPB PENDING LAB VALUE Last administered on 08/23/17 08:54; Admin Dose 100 MLS/HR; Start 08/22/17 at 01:00 Atorvastatin Calcium (Lipitor) 80 mg HS PO Last administered on 09/04/17 20: 57; Admin Dose 80 MG; Start 08/22/17 at 21:00 Acetaminophen (Tylenol Liquid) 650 mg Q4H PRN PO PAIN AND OR ELEVATED TEMP Last administered on 08/28/17 22:16; Admin Dose 650 MG; Start 08/23/17 at 14: 30 Clopidogrel Bisulfate (plaVIX) 75 mg DAILY NGT Last administered on 09/04/17 09:13; Admin Dose 75 MG; Start 08/24/17 at 09:00; Status Future hold IV Flush (NS 10 ml) 10 ml PRN PRN IV IV PROTOCOL; Start 08/24/17 at 12:00 Aspirin (Aspirin) 81 mg DAILY PO Last administered on 09/05/17 09:19; Admin Dose 81 MG; Start 08/25/17 at 09:00 Heparin Sodium (Porcine) (Heparin (5000 Units/0.5 ml)) 5,000 unit Q8 SC Last administered on 09/03/17 05:42; Admin Dose 5,000 UNIT; Start 08/25/17 at 22: 00; Status Future Hold Valsartan (Diovan) 40 mg DAILY PO Last administered on 09/02/17 11:55; Admin Dose 40 MG; Start 08/27/17 at 09:00 Famotidine (Pepcid) 20 mg HS NGT Last administered on 09/04/17 20:57; Admin Dose 20 MG; Start 08/27/17 at 21:00 Spironolactone (Aldactone) 25 mg DAILY@06 NGT Last administered on 09/05/17 05:46; Admin Dose 25 MG; Start 08/28/17 at 11:30 Alprazolam (Xanax) 0.5 mg Q6 PRN NGT AGITATION; Start 09/02/17 at 11:30 Chlorpromazine (Thorazine) 25 mg HS PO Last administered on 09/04/17 20:58; Admin Dose 25 MG; Start 09/02/17 at 15:30 Trihexyphenidyl HCl (Artane) 5 mg HS PO Last administered on 09/04/17 20:58; Admin Dose 5 MG; Start 09/02/17 at 15:30 [place] Carbonate 300 mg 300 mg HS PO ; Start 09/02/17 at 21:00 Norepinephrine (Levophed) 250 ml @ 1.875 mls/ hr TITRATE IV Last administered on 09/03/17 22:07; Admin Dose 9.375 MLS/HR; Start 09/02/17 at 20:30 Metoprolol Succinate (Toprol Xl) 50 mg DAILY PO Last administered on 09:21; Admin Dose 50 MG; Start 09/05/17 at 09:00 DON HYATT Sep 05, 2017 11:34
--- NOTE | 2017-09-05 11:52 | CONS ---
Date/Time of Note Date/Time of Note DATE: 09/05/17 TIME: 11:50 Assessment/Plan Assessment/Plan Additional Assessment/Plan Assessment and recommendations; 1. Patient admitted with STEMI requiring CABG. 2. Significant improvement in overall clinical status. 3. Hypernatremia. Patient getting free water replacement. 4. COPD. 5. Anemia. 6. CVA with interval improvement. 7. ICU delirium. Continue current treatment. Patient responding well to current treatment regimen. Consultation Date/Type/Reason Admit Date/Time Aug 21, 2017 at 17:28 Initial Consult Date 08/21/17 Type of Consultation: Pulmonary/critical care Referring Provider: HANNAH MCCLENDON MD 24 HR Interval Summary Free Text/Dictation Patient condition is stable. Currently sitting in a chair by bedside. Denies any chest pain, shortness of breath. General exam; elderly male, awake and alert. Currently in no distress. Exam/Review of Systems Vital Signs Vitals Vital Signs Date Time Temp Pulse Resp B/P Pulse Ox O2 Delivery O2 Flow Rate FiO2 09/05/17 11:00 107 15 106/67 99 Room Air 09/05/17 08:00 98.1 09/05/17 01:37 2.0 27 Intake and Output 09/04/17 09/04/17 09/05/17 15:00 23:00 07:00 Intake Total 1025 ml 875 ml 30 ml Output Total 1500 ml 1375 ml 1100 ml Balance -475 ml -500 ml -1070 ml Exam HEENT exam; supple neck, no JVD. No lymphadenopathy. Midline trachea. No thyromegaly. Pharynx is clear. Pupils are small bilaterally. Chest exam; diminished breath sounds throughout. Patient is barrel chested. There is a well-healed sternal scar. S1-S2 audible, no murmurs. Regular rhythm. Abdomen exam; soft, nontender. No organomegaly. Bowel sounds audible. Extremity exam; no edema. 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 Results Result Diagram: 09/05/17 0600 09/05/17 0600 Results 24 hrs Laboratory Tests Test 09/04/17 14:30 09/05/17 06:00 Hemoglobin 10.3 L 9.3 L Hematocrit 32.7 L 28.1 L Sodium Level 151 H 150 H Potassium Level 3.7 3.7 Chloride Level 113 H 116 H Carbon Dioxide Level 26 26 Anion Gap 16 12 Blood Urea Nitrogen 22 H 20 Creatinine 1.13 0.98 Glucose Level 241 #H 133 # Calcium Level 8.5 8.6 Magnesium Level 2.4 Total Bilirubin 0.9 Direct Bilirubin 0.00 Indirect Bilirubin 0.9 Aspartate Amino Transf (AST/SGOT) 66 H Alanine Aminotransferase (ALT/SGPT) 61 Alkaline Phosphatase 133 H Total Protein 6.9 Albumin 3.3 Globulin 3.60 H Albumin/Globulin Ratio 0.91 White Blood Count 11.8 H Red Blood Count 3.07 L Mean Corpuscular Volume 91.5 Mean Corpuscular Hemoglobin 30.3 Mean Corpuscular Hemoglobin Concent 33.1 Red Cell Distribution Width 15.9 H Platelet Count 479 H Mean Platelet Volume 11.2 H Neutrophils % 70.0 Lymphocytes % 18.0 Monocytes % 8.8 Eosinophils % 2.1 Basophils % 0.3 Nucleated Red Blood Cells % 0.2 H Neutrophils # 8.2 H Lymphocytes # 2.1 Monocytes # 1.0 H Eosinophils # 0.3 Basophils # 0.0 Nucleated Red Blood Cells # 0.0 Medications Medications Current Medications Ondansetron HCl (Zofran Inj) 4 mg Q6H PRN IV NAUSEA AND/OR VOMITING; Start 08/21/17 at 17:30 Acetaminophen/ Hydrocodone Bitart ([place] (5/325)) 1 tab Q6H PRN PO MODERATE PAIN LEVEL 4-6; Start 08/21/17 at 17:30 Morphine Sulfate (morphine) 2 mg Q4H PRN IV SEVERE PAIN LEVEL 7-10 Last administered on 09/01/17t 02:45; Admin Dose 2 MG; Start 08/21/17 at 17:30 Docusate Sodium (Colace) 100 mg Q12H PRN PO CONSTIPATION; Start 08/21/17 at 17: 30 Magnesium Hydroxide (Milk Of Mag) 30 ml DAILY PRN PO CONSTIPATION; Start at 17:30 Sodium Biphosphate/ Sodium Phosphate (Fleet Enema) 133 ml DAILY PRN [place] CONSTIPATION; Start 08/21/17 at 17:30 Hydralazine HCl (Apresoline) 10 mg Q6H PRN IV ELEVATED BLOOD PRESSURE; Start 08/21/17 at 17:30 Nitroglycerin (Nitroglycerin (Sl Tab) 0.4 Mg) 1 tab Q5M PRN SL ANGINA; Start 08/21/17 at 17:30 Oxycodone/ Acetaminophen 1 tab 1 tab Q3H PRN PO PAIN LEVEL 1-5; Start 08/22/17 at 01:00 Magnesium Sulfate/ Dextrose (Magnesium Sulfate 1 Gm/D5W) 100 ml @ 100 mls/hr PRN PRN IVPB PENDING LAB VALUE Last administered on 08/23/17 08:54; Admin Dose 100 MLS/HR; Start 08/22/17 at 01:00 Atorvastatin Calcium (Lipitor) 80 mg HS PO Last administered on 09/04/17 20: 57; Admin Dose 80 MG; Start 08/22/17 at 21:00 Acetaminophen (Tylenol Liquid) 650 mg Q4H PRN PO PAIN AND OR ELEVATED TEMP Last administered on 08/28/17 22:16; Admin Dose 650 MG; Start 08/23/17 at 14: 30 Clopidogrel Bisulfate (plaVIX) 75 mg DAILY NGT Last administered on 09/04/17 09:13; Admin Dose 75 MG; Start 08/24/17 at 09:00; Status Future hold IV Flush (NS 10 ml) 10 ml PRN PRN IV IV PROTOCOL; Start 08/24/17 at 12:00 Aspirin (Aspirin) 81 mg DAILY PO Last administered on 09/05/17 09:19; Admin Dose 81 MG; Start 08/25/17 at 09:00 Heparin Sodium (Porcine) (Heparin (5000 Units/0.5 ml)) 5,000 unit Q8 SC Last administered on 09/03/17 05:42; Admin Dose 5,000 UNIT; Start 08/25/17 at 22: 00; Status Future Hold Valsartan (Diovan) 40 mg DAILY PO Last administered on 09/02/17 11:55; Admin Dose 40 MG; Start 08/27/17 at 09:00 Famotidine (Pepcid) 20 mg HS NGT Last administered on 09/04/17 20:57; Admin Dose 20 MG; Start 08/27/17 at 21:00 Spironolactone (Aldactone) 25 mg DAILY@06 NGT Last administered on 09/05/17 05:46; Admin Dose 25 MG; Start 08/28/17 at 11:30 Alprazolam (Xanax) 0.5 mg Q6 PRN NGT AGITATION; Start 09/02/17 at 11:30 Chlorpromazine (Thorazine) 25 mg HS PO Last administered on 09/04/17 20:58; Admin Dose 25 MG; Start 09/02/17 at 15:30 Trihexyphenidyl HCl (Artane) 5 mg HS PO Last administered on 09/04/17 20:58; Admin Dose 5 MG; Start 09/02/17 at 15:30 [place] Carbonate 300 mg 300 mg HS PO ; Start 09/02/17 at 21:00 Norepinephrine (Levophed) 250 ml @ 1.875 mls/ hr TITRATE IV Last administered on 09/03/17 22:07; Admin Dose 9.375 MLS/HR; Start 09/02/17 at 20:30 Metoprolol Succinate 50 mg 50 mg DAILY PO Last administered on 09/05/17 09:21 ; Admin Dose 50 MG; Start 09/05/17 at 09:00 Dextrose (D5W) 1,000 ml @ 75 mls/hr [id number] IV ; Start 09/05/17 at 11:30; Stop 09/05/17 at 20:30 VILLA SEWELL Sep 05, 2017 11:52
[2017-09-05] MEDS: LITHIUM CARBONATE 300 MG CAP PO SCH (20:05)
[2017-09-05] MEDS: CHLORPROMAZINE 25 MG TAB PO SCH (20:05)
[2017-09-05] MEDS: ATORVASTATIN 80 MG TAB PO SCH (20:05)
[2017-09-05] MEDS: FAMOTIDINE 20 MG TAB NGT SCH (20:05)
[2017-09-05] MEDS: TRIHEXYPHENIDYL 5 MG TAB PO SCH (20:05)
[2017-09-06] VITALS (22 sets, daily range): BP systolic 90–128; BP diastolic 49–94; PULSE 95–116; RESP 15–25
[2017-09-06] MEDS: SPIRONOLACTONE 25 MG TAB NGT SCH (05:38)
[2017-09-06 05:47] LABS: BASOPHILS % 0.4 % (0.0-2.0); EOSINOPHILS # 0.3 10^3/ul (0.0-0.5); EOSINOPHILS % 2.5 % (0.0-7.0); HEMATOCRIT 27.5 % (42.0-52.0); HEMOGLOBIN 8.8 g/dl (14.0-18.0); LYMPHOCYTES # 1.9 10^3/ul (0.8-2.9); LYMPHOCYTES % 18.1 % (15.0-51.0); MEAN CORPUSCULAR HEMOGLOBIN 29.4 pg (29.0-33.0); MEAN PLATELET VOLUME 11.3 fl (7.4-10.4); MONOCYTES % 9.7 % (0.0-11.0); NEUTROPHIL # 7.3 10^3/ul (1.6-7.5); NEUTROPHILS % 68.1 % (39.0-77.0); PLATELET COUNT 455 10^3/UL (140-415); RED BLOOD COUNT 2.99 10^6/ul (4.70-6.10); RED CELL DISTRIBUTION WIDTH 15.8 % (11.5-14.5); WHITE BLOOD COUNT 10.7 10^3/ul (4.8-10.8)
[2017-09-06 06:30] LABS: CALCIUM 8.5 mg/dl (8.4-10.2); CREATININE 0.88 mg/dl (0.61-1.24); POTASSIUM 3.5 mmol/L (3.5-5.1)
--- NOTE | 2017-09-06 07:51 | PN ---
Date/Time of Note Date/Time of Note DATE: 09/06/17 TIME: 07:51 Assessment/Plan VTE Prophylaxis VTE Prophylaxis Intervention: SCD's Lines/Catheters [facility] PICC Line Central line still needed: Yes Urinary Cath still in place: Yes Reason Cath still needed: urinary retention Assessment/Plan Chief Complaint/Hosp Course S: Patient still with some hematuria, seen by cardiology team, Plavix has been held this morning now. More alert today. O: VS (see below) PE: Constitutional: alert, sitting in chair, son at bedside Psych: nl mood/affect, no complaints Head: atraumatic, normocephalic Eyes: EOMI, nl conjunctiva, nl lids, nl sclera ENMT: nl external ears & nose, nl lips & teeth, nl nasal mucosa & septum Neck: supple, No bruits, No jvd Respiratory: clear to auscultation, normal air movement Cardiovascular: regular rate and rhythm Gastrointestinal: nl liver, spleen, non-tender, soft Musculoskeletal: nl extremities to inspection Extremities: No edema Assessment/Plan: 72 yo male with hx of DL, anxiety, ?hypothyroidism who presented with chest pain and found to have STEMI with emergent cardiac cath revealing three-disease. 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 1. STEMI - Three-vessel CAD, s/p CABG -three-vessel - POD # 14. - Continue ICU monitoring, pressors per cardiothoracic surgery and cardiology recommendations - f/u pulm rec's - f/u cardiology and CT surg recs 2. Status post acute cerebrovascular accident confirmed on MRI brain. Also having some decreased ability to swallow -again barium swallow test was performed 3 days ago. -Follow-up recommendations from speech therapy team. -Monitor neurologic status, continue cautious pure feeding per dietary and nutritional recommendations. 3. s/p cardiopulmonary arrest: s/p cardioversion x 2, intubation earlier, now extubated -see #1 -f/u CTS rec's, continue to replete any low electrolytes 4. SIRS: secondary to above - no fevers now. Culture results have been essentially negative thus far. Antibiotics were stopped, WBC improved. -Continue holding antibiotics for now, monitor white blood cell count 5. Metabolic lactic acidosis: from ischemic event/cardiogenic shock -resolved now -Monitor 6. Hypernatremia -slightly improved, but still present (155 -> 152 -> 150 -> 150 ). -Monitor, D5W today 10 hours (cautiously giving this because of patient's recent past surgery and risk for fluid overload), monitor BMP in the morning 7. Hematuria: Again likely secondary to traumatic Champion. Appreciate urology recommendations -Continue Champion catheter, follow-up urology recommendations, patient to get PRBC transfusion yesterday with improvement in his hemoglobin now. -For now holding Plavix today given his continued hematuria. 8. Hx of Dyslipidemia -status post CABG for ST elevation IA -Follow-up FLP -statin Critical care time spent on patient care today equals 45 minutes. Problems: Exam/Review of Systems Vital Signs Vitals Vital Signs Date Time Temp Pulse Resp B/P Pulse Ox O2 Delivery O2 Flow Rate FiO2 09/06/17 06:00 105 21 103/55 95 Room Air 09/06/17 04:00 98.5 09/05/17 17:38 2.0 09/05/17 01:37 27 Intake and Output 09/05/17 09/05/17 09/06/17 15:00 23:00 07:00 Intake Total 1900 ml 900 ml 300 ml Output Total 1100 ml 1670 ml 1500 ml Balance 800 ml -770 ml -1200 ml Results Result Diagram: 09/06/17 0400 09/06/17 0400 Results 24 hrs Laboratory Tests Test 09/06/17 04:00 White Blood Count 10.7 Red Blood Count 2.99 L Hemoglobin 8.8 L Hematocrit 27.5 L Mean Corpuscular Volume 92.0 Mean Corpuscular Hemoglobin 29.4 Mean Corpuscular Hemoglobin Concent 32.0 Red Cell Distribution Width 15.8 H Platelet Count 455 H Mean Platelet Volume 11.3 H Neutrophils % 68.1 Lymphocytes % 18.1 Monocytes % 9.7 Eosinophils % 2.5 Basophils % 0.4 Nucleated Red Blood Cells % 0.0 Neutrophils # 7.3 Lymphocytes # 1.9 Monocytes # 1.0 H Eosinophils # 0.3 Basophils # 0.0 Nucleated Red Blood Cells # 0.0 Sodium Level 146 H Potassium Level 3.5 Chloride Level 115 H Carbon Dioxide Level 24 Anion Gap 11 Blood Urea Nitrogen 15 Creatinine 0.88 Glucose Level 115 Calcium Level 8.5 Medications Medications Current Medications Ondansetron HCl (Zofran Inj) 4 mg Q6H PRN IV NAUSEA AND/OR VOMITING; Start 08/21/17 at 17:30 Acetaminophen/ Hydrocodone Bitart ([place] (5/325)) 1 tab Q6H PRN PO MODERATE PAIN LEVEL 4-6; Start 08/21/17 at 17:30 Morphine Sulfate (morphine) 2 mg Q4H PRN IV SEVERE PAIN LEVEL 7-10 Last administered on 09/01/17 02:45; Admin Dose 2 MG; Start 08/21/17 at 17:30 Docusate Sodium (Colace) 100 mg Q12H PRN PO CONSTIPATION; Start 08/21/17 at 17: 30 Magnesium Hydroxide (Milk Of Mag) 30 ml DAILY PRN PO CONSTIPATION; Start at 17:30 Sodium Biphosphate/ Sodium Phosphate (Fleet Enema) 133 ml DAILY PRN [place] CONSTIPATION; Start 08/21/17 at 17:30 Hydralazine HCl (Apresoline) 10 mg Q6H PRN IV ELEVATED BLOOD PRESSURE; Start 08/21/17 at 17:30 Nitroglycerin (Nitroglycerin (Sl Tab) 0.4 Mg) 1 tab Q5M PRN SL ANGINA; Start 08/21/17 at 17:30 Oxycodone/ Acetaminophen 1 tab 1 tab Q3H PRN PO PAIN LEVEL 1-5; Start 08/22/17 at 01:00 Magnesium Sulfate/ Dextrose (Magnesium Sulfate 1 Gm/D5W) 100 ml @ 100 mls/hr PRN PRN IVPB PENDING LAB VALUE Last administered on 08/23/17 08:54; Admin Dose 100 MLS/HR; Start 08/22/17 at 01:00 Atorvastatin Calcium (Lipitor) 80 mg HS PO Last administered on 09/05/17 20: 05; Admin Dose 80 MG; Start 08/22/17 at 21:00 Acetaminophen (Tylenol Liquid) 650 mg Q4H PRN PO PAIN AND OR ELEVATED TEMP Last administered on 08/28/17 22:16; Admin Dose 650 MG; Start 08/23/17 at 14: 30 Clopidogrel Bisulfate (plaVIX) 75 mg DAILY NGT Last administered on 09/04/17 09:13; Admin Dose 75 MG; Start 08/24/17 at 09:00; Status Future hold IV Flush (NS 10 ml) 10 ml PRN PRN IV IV PROTOCOL; Start 08/24/17 at 12:00 Aspirin (Aspirin) 81 mg DAILY PO Last administered on 09/05/17 09:19; Admin Dose 81 MG; Start 08/25/17 at 09:00 Heparin Sodium (Porcine) (Heparin (5000 Units/0.5 ml)) 5,000 unit Q8 SC Last administered on 09/03/17 05:42; Admin Dose 5,000 UNIT; Start 08/25/17 at 22: 00; Status Future Hold Valsartan (Diovan) 40 mg DAILY PO Last administered on 09/02/17 11:55; Admin Dose 40 MG; Start 08/27/17 at 09:00 Famotidine (Pepcid) 20 mg HS NGT Last administered on 09/05/17 20:05; Admin Dose 20 MG; Start 08/27/17 at 21:00 Spironolactone (Aldactone) 25 mg DAILY@06 NGT Last administered on 09/06/17 05:38; Admin Dose 25 MG; Start 08/28/17 at 11:30 Alprazolam (Xanax) 0.5 mg Q6 PRN NGT AGITATION; Start 09/02/17 at 11:30 Chlorpromazine (Thorazine) 25 mg HS PO Last administered on 09/05/17 20:05; Admin Dose 25 MG; Start 09/02/17 at 15:30 Trihexyphenidyl HCl (Artane) 5 mg HS PO Last administered on 09/05/17 20:05; Admin Dose 5 MG; Start 09/02/17 at 15:30 [place] Carbonate 300 mg 300 mg HS PO ; Start 09/02/17 at 21:00 Norepinephrine (Levophed) 250 ml @ 1.875 mls/ hr TITRATE IV Last administered on 09/03/17 22:07; Admin Dose 9.375 MLS/HR; Start 09/02/17 at 20:30 Metoprolol Succinate (Toprol Xl) 50 mg DAILY PO Last administered on 09:21; Admin Dose 50 MG; Start 09/05/17 at 09:00 DON HYATT Sep 06, 2017 07:51
--- NOTE | 2017-09-06 08:09 | PN ---
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 Now extubated , with ischemic cardiomyopathy, acute cva's noted on MRI, encephalopathy, hypernatremia, and high risk of aspiration. Mental status has gradually improved. Blood pressure remains low/normal, no pressors required. Problems: Assessment/Plan STEMI post emergent cabg ischemic cardiomyopathy hematuria due to traumatic martinez removal Reccomendations: Transfer out of ICU once felt appropriate by primary team Continue metoprolol succinate, spironolactone, and valsartan -- hopefully bp will permit administration of valsartan today Supportive care Reasonable to continue to hold clopidogrel until hematuria and anemia improves Subjective 24 Hr Interval Summary Free Text/Dictation Overnight no events, pt off pressors, receiving metoprolol succinate and spironolactone but valsartan was held. Patient speaks to me this morning, in Farsi. Subjective hx not possible: other (language barrier) Exam/Review of Systems Vital Signs Vitals Vital Signs Date Time Temp Pulse Resp B/P Pulse Ox O2 Delivery O2 Flow Rate FiO2 09/06/17 06:00 105 21 103/55 95 Room Air 09/06/17 04:00 98.5 09/05/17 17:38 2.0 09/05/17 01:37 27 Intake and Output 09/05/17 09/05/17 09/06/17 15:00 23:00 07:00 Intake Total 1900 ml 900 ml 300 ml Output Total 1100 ml 1670 ml 1500 ml Balance 800 ml -770 ml -1200 ml Exam Constitutional: alert, well developed Head: atraumatic, normocephalic Eyes: EOMI, nl conjunctiva, nl lids, nl sclera ENMT: nl external ears & nose, nl lips & teeth, nl nasal mucosa & septum Neck: supple, No bruits, No jvd Respiratory: clear to auscultation, normal air movement Cardiovascular: regular rate and rhythm, No murmurs/extra sounds Gastrointestinal: non-tender, soft Musculoskeletal: nl extremities to inspection Extremities: No edema 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: nl mental status Skin: nl turgor, No rash or lesions Results Result Diagram: 09/06/170 09/06/17 0400 Results 24 hrs Laboratory Tests Test 09/06/17 04:00 White Blood Count 10.7 Red Blood Count 2.99 L Hemoglobin 8.8 L Hematocrit 27.5 L Mean Corpuscular Volume 92.0 Mean Corpuscular Hemoglobin 29.4 Mean Corpuscular Hemoglobin Concent 32.0 Red Cell Distribution Width 15.8 H Platelet Count 455 H Mean Platelet Volume 11.3 H Neutrophils % 68.1 Lymphocytes % 18.1 Monocytes % 9.7 Eosinophils % 2.5 Basophils % 0.4 Nucleated Red Blood Cells % 0.0 Neutrophils # 7.3 Lymphocytes # 1.9 Monocytes # 1.0 H Eosinophils # 0.3 Basophils # 0.0 Nucleated Red Blood Cells # 0.0 Sodium Level 146 H Potassium Level 3.5 Chloride Level 115 H Carbon Dioxide Level 24 Anion Gap 11 Blood Urea Nitrogen 15 Creatinine 0.88 Glucose Level 115 Calcium Level 8.5 Medications Medications Current Medications Ondansetron HCl (Zofran Inj) 4 mg Q6H PRN IV NAUSEA AND/OR VOMITING; Start 08/21/17 at 17:30 Acetaminophen/ Hydrocodone Bitart ([place] (5/325)) 1 tab Q6H PRN PO MODERATE PAIN LEVEL 4-6; Start 08/21/17 at 17:30 Morphine Sulfate (morphine) 2 mg Q4H PRN IV SEVERE PAIN LEVEL 7-10 Last administered on 09/01/17t 02:45; Admin Dose 2 MG; Start 08/21/17 at 17:30 Docusate Sodium (Colace) 100 mg Q12H PRN PO CONSTIPATION; Start 08/21/17 at 17: 30 Magnesium Hydroxide (Milk Of Mag) 30 ml DAILY PRN PO CONSTIPATION; Start at 17:30 Sodium Biphosphate/ Sodium Phosphate (Fleet Enema) 133 ml DAILY PRN [place] CONSTIPATION; Start 08/21/17 at 17:30 Hydralazine HCl (Apresoline) 10 mg Q6H PRN IV ELEVATED BLOOD PRESSURE; Start 08/21/17 at 17:30 Nitroglycerin (Nitroglycerin (Sl Tab) 0.4 Mg) 1 tab Q5M PRN SL ANGINA; Start 08/21/17 at 17:30 Oxycodone/ Acetaminophen 1 tab 1 tab Q3H PRN PO PAIN LEVEL 1-5; Start 08/22/17 at 01:00 Magnesium Sulfate/ Dextrose (Magnesium Sulfate 1 Gm/D5W) 100 ml @ 100 mls/hr PRN PRN IVPB PENDING LAB VALUE Last administered on 08/23/17 08:54; Admin Dose 100 MLS/HR; Start 08/22/17 at 01:00 Atorvastatin Calcium (Lipitor) 80 mg HS PO Last administered on 09/05/17 20: 05; Admin Dose 80 MG; Start 08/22/17 at 21:00 Acetaminophen (Tylenol Liquid) 650 mg Q4H PRN PO PAIN AND OR ELEVATED TEMP Last administered on 08/28/17 22:16; Admin Dose 650 MG; Start 08/23/17 at 14: 30 Clopidogrel Bisulfate (plaVIX) 75 mg DAILY NGT Last administered on 09/04/17 09:13; Admin Dose 75 MG; Start 08/24/17 at 09:00; Status Future hold IV Flush (NS 10 ml) 10 ml PRN PRN IV IV PROTOCOL; Start 08/24/17 at 12:00 Aspirin (Aspirin) 81 mg DAILY PO Last administered on 09/05/17 09:19; Admin Dose 81 MG; Start 08/25/17 at 09:00 Heparin Sodium (Porcine) (Heparin (5000 Units/0.5 ml)) 5,000 unit Q8 SC Last administered on 09/03/17 05:42; Admin Dose 5,000 UNIT; Start 08/25/17 at 22: 00; Status Future Hold Valsartan (Diovan) 40 mg DAILY PO Last administered on 09/02/17 11:55; Admin Dose 40 MG; Start 08/27/17 at 09:00 Famotidine (Pepcid) 20 mg HS NGT Last administered on 09/05/17 20:05; Admin Dose 20 MG; Start 08/27/17 at 21:00 Spironolactone (Aldactone) 25 mg DAILY@06 NGT Last administered on 09/06/17 05:38; Admin Dose 25 MG; Start 08/28/17 at 11:30 Alprazolam (Xanax) 0.5 mg Q6 PRN NGT AGITATION; Start 09/02/17 at 11:30 Chlorpromazine (Thorazine) 25 mg HS PO Last administered on 09/05/17 20:05; Admin Dose 25 MG; Start 09/02/17 at 15:30 Trihexyphenidyl HCl (Artane) 5 mg HS PO Last administered on 09/05/17 20:05; Admin Dose 5 MG; Start 09/02/17 at 15:30 [place] Carbonate 300 mg 300 mg HS PO ; Start 09/02/17 at 21:00 Norepinephrine (Levophed) 250 ml @ 1.875 mls/ hr TITRATE IV Last administered on 09/03/17 22:07; Admin Dose 9.375 MLS/HR; Start 09/02/17 at 20:30 Metoprolol Succinate (Toprol Xl) 50 mg DAILY PO Last administered on 09:21; Admin Dose 50 MG; Start 09/05/17 at 09:00 JENNIFER MOORE Sep 06, 2017 08:09
--- NOTE | 2017-09-06 08:14 | PN ---
Date/Time of Note Date/Time of Note DATE: 09/06/17 TIME: 08:11 Assessment/Plan Lines/Catheters IV Catheter Type (from Nrs): PICC Line Champion in Place (from Nrsg): Yes Assessment/Plan Assessment/Plan s/p cabg cva hematuria gradual improvement Subjective 24 Hr Interval Summary Constitutional: no complaints Exam/Review of Systems Vital Signs Vitals Vital Signs Date Time Temp Pulse Resp B/P Pulse Ox O2 Delivery O2 Flow Rate FiO2 09/06/17 06:00 105 21 103/55 95 Room Air 09/06/17 04:00 98.5 09/05/17 17:38 2.0 09/05/17 01:37 27 Intake and Output 09/05/17 09/05/17 09/06/17 15:00 23:00 07:00 Intake Total 1900 ml 900 ml 300 ml Output Total 1100 ml 1670 ml 1500 ml Balance 800 ml -770 ml -1200 ml Exam Head: normocephalic Eyes: nl conjunctiva Neck: supple Respiratory: clear to auscultation Cardiovascular: regular rate and rhythm Results Result Diagram: 09/06/170 09/06/170 ABENA LOMBARDO MD Sep 06, 2017 08:14
[2017-09-06] MEDS: CLOPIDOGREL 75 MG TAB NGT SCH (08:28)
[2017-09-06] MEDS: ASPIRIN 81 MG TAB PO SCH (08:28)
[2017-09-06] MEDS: METOPROLOL (XL) 50 MG TAB PO SCH (08:29)
[2017-09-06] MEDS: VALSARTAN 80 MG TAB PO SCH (08:29)
--- NOTE | 2017-09-06 09:07 | PN ---
Date/Time of Note Date/Time of Note DATE: 09/06/17 TIME: 08:59 Assessment/Plan VTE Prophylaxis VTE Prophylaxis Intervention: contraindicated, SCD's VTE Contraindication Reason: bleeding Lines/Catheters IV Catheter Type (from Nrsg): PICC Line Central line still needed: Yes Urinary Cath still in place: Yes Reason Cath still needed: urinary retention Assessment/Plan Chief Complaint/Hosp Course S: Patient with less hematuria, seen by cardiology team. O: VS (see below) PE: Constitutional: alert, no acute distress Psych: nl mood/affect, no complaints Head: atraumatic, normocephalic Eyes: EOMI, nl conjunctiva, nl lids, nl sclera ENMT: nl external ears & nose, nl lips & teeth, nl nasal mucosa & septum Neck: supple, No bruits, No jvd Respiratory: clear to auscultation, normal air movement Cardiovascular: regular rate and rhythm Gastrointestinal: nl liver, spleen, non-tender, soft Musculoskeletal: nl extremities to inspection Extremities: No edema Assessment/Plan: 72 yo male with hx of DL, anxiety, ?hypothyroidism who presented with chest pain and found to have STEMI with emergent cardiac cath revealing three-disease. 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 1. STEMI - Three-vessel CAD, s/p CABG -three-vessel - POD # 15. - Continue ICU monitoring, pressors per cardiothoracic surgery and cardiology recommendations - f/u pulm rec's - f/u cardiology and CT surg recs 2. Status post acute cerebrovascular accident confirmed on MRI brain. Also having some decreased ability to swallow -again barium swallow test was performed 3 days ago. -Follow-up recommendations from speech therapy team. -Monitor neurologic status, continue cautious pure feeding per dietary and nutritional recommendations. 3. s/p cardiopulmonary arrest: s/p cardioversion x 2, intubation earlier this admission, then extubated. -see #1 -f/u CTS rec's, continue to replete any low electrolytes 4. SIRS: secondary to above - no fevers now. Culture results have been essentially negative thus far. Antibiotics were stopped, WBC improved. -Continue holding antibiotics for now, monitor white blood cell count 5. Metabolic lactic acidosis: from ischemic event/cardiogenic shock -resolved now -Monitor 6. Hypernatremia -slightly improved today (150 -> 146) -Monitor, D5W x 5-6 hrs today 7. Hematuria: Again likely secondary to traumatic Champion. Appreciate urology recommendations, slowly improving -Continue Champion catheter, follow-up urology recommendations -For now continue to hold Plavix today given his continued hematuria. 8. Hx of Dyslipidemia -status post CABG for ST elevation CA -Follow-up FLP -statin Critical care time spent on patient care today equals 40 minutes. Problems: Exam/Review of Systems Vital Signs Vitals Vital Signs Date Time Temp Pulse Resp B/P Pulse Ox O2 Delivery O2 Flow Rate FiO2 09/06/17 06:00 105 21 103/55 95 Room Air 09/06/17 04:00 98.5 09/05/17 17:38 2.0 09/05/17 01:37 27 Intake and Output 09/05/17 09/05/17 09/06/17 15:00 23:00 07:00 Intake Total 1900 ml 900 ml 300 ml Output Total 1100 ml 1670 ml 1500 ml Balance 800 ml -770 ml -1200 ml Results Result Diagram: 09/06/17 0400 09/06/17 0400 Results 24 hrs Laboratory Tests Test 09/06/17 04:00 White Blood Count 10.7 Red Blood Count 2.99 L Hemoglobin 8.8 L Hematocrit 27.5 L Mean Corpuscular Volume 92.0 Mean Corpuscular Hemoglobin 29.4 Mean Corpuscular Hemoglobin Concent 32.0 Red Cell Distribution Width 15.8 H Platelet Count 455 H Mean Platelet Volume 11.3 H Neutrophils % 68.1 Lymphocytes % 18.1 Monocytes % 9.7 Eosinophils % 2.5 Basophils % 0.4 Nucleated Red Blood Cells % 0.0 Neutrophils # 7.3 Lymphocytes # 1.9 Monocytes # 1.0 H Eosinophils # 0.3 Basophils # 0.0 Nucleated Red Blood Cells # 0.0 Sodium Level 146 H Potassium Level 3.5 Chloride Level 115 H Carbon Dioxide Level 24 Anion Gap 11 Blood Urea Nitrogen 15 Creatinine 0.88 Glucose Level 115 Calcium Level 8.5 Medications Medications Current Medications Ondansetron HCl (Zofran Inj) 4 mg Q6H PRN IV NAUSEA AND/OR VOMITING; Start 08/21/17 at 17:30 Acetaminophen/ Hydrocodone Bitart ([place] (5/325)) 1 tab Q6H PRN PO MODERATE PAIN LEVEL 4-6; Start 08/21/17 at 17:30 Morphine Sulfate (morphine) 2 mg Q4H PRN IV SEVERE PAIN LEVEL 7-10 Last administered on 09/01/17 02:45; Admin Dose 2 MG; Start 08/21/17 at 17:30 Docusate Sodium (Colace) 100 mg Q12H PRN PO CONSTIPATION; Start 08/21/17 at 17: 30 Magnesium Hydroxide (Milk Of Mag) 30 ml DAILY PRN PO CONSTIPATION; Start at 17:30 Sodium Biphosphate/ Sodium Phosphate (Fleet Enema) 133 ml DAILY PRN [place] CONSTIPATION; Start 08/21/17 at 17:30 Hydralazine HCl (Apresoline) 10 mg Q6H PRN IV ELEVATED BLOOD PRESSURE; Start 08/21/17 at 17:30 Nitroglycerin (Nitroglycerin (Sl Tab) 0.4 Mg) 1 tab Q5M PRN SL ANGINA; Start 08/21/17 at 17:30 Oxycodone/ Acetaminophen 1 tab 1 tab Q3H PRN PO PAIN LEVEL 1-5; Start 08/22/17 at 01:00 Magnesium Sulfate/ Dextrose (Magnesium Sulfate 1 Gm/D5W) 100 ml @ 100 mls/hr PRN PRN IVPB PENDING LAB VALUE Last administered on 08/23/17 08:54; Admin Dose 100 MLS/HR; Start 08/22/17 at 01:00 Atorvastatin Calcium (Lipitor) 80 mg HS PO Last administered on 09/05/17 20: 05; Admin Dose 80 MG; Start 08/22/17 at 21:00 Acetaminophen (Tylenol Liquid) 650 mg Q4H PRN PO PAIN AND OR ELEVATED TEMP Last administered on 08/28/17 22:16; Admin Dose 650 MG; Start 08/23/17 at 14: 30 Clopidogrel Bisulfate (plaVIX) 75 mg DAILY NGT Last administered on 09/06/17 08:28; Admin Dose 75 MG; Start 08/24/17 at 09:00; Status Future hold IV Flush (NS 10 ml) 10 ml PRN PRN IV IV PROTOCOL; Start 08/24/17 at 12:00 Aspirin (Aspirin) 81 mg DAILY PO Last administered on 09/06/17 08:28; Admin Dose 81 MG; Start 08/25/17 at 09:00 Heparin Sodium (Porcine) (Heparin (5000 Units/0.5 ml)) 5,000 unit Q8 SC Last administered on 09/03/17 05:42; Admin Dose 5,000 UNIT; Start 08/25/17 at 22: 00; Status Future Hold Valsartan (Diovan) 40 mg DAILY PO Last administered on 09/06/17 08:29; Admin Dose 40 MG; Start 08/27/17 at 09:00 Famotidine (Pepcid) 20 mg HS NGT Last administered on 09/05/17 20:05; Admin Dose 20 MG; Start 08/27/17 at 21:00 Spironolactone (Aldactone) 25 mg DAILY@06 NGT Last administered on 09/06/17 05:38; Admin Dose 25 MG; Start 08/28/17 at 11:30 Alprazolam (Xanax) 0.5 mg Q6 PRN NGT AGITATION; Start 09/02/17 at 11:30 Chlorpromazine (Thorazine) 25 mg HS PO Last administered on 09/05/17 20:05; Admin Dose 25 MG; Start 09/02/17 at 15:30 Trihexyphenidyl HCl (Artane) 5 mg HS PO Last administered on 09/05/17 20:05; Admin Dose 5 MG; Start 09/02/17 at 15:30 [place] Carbonate 300 mg 300 mg HS PO ; Start 09/02/17 at 21:00 Norepinephrine (Levophed) 250 ml @ 1.875 mls/ hr TITRATE IV Last administered on 09/03/17 22:07; Admin Dose 9.375 MLS/HR; Start 09/02/17 at 20:30 Metoprolol Succinate (Toprol Xl) 50 mg DAILY PO Last administered on 08:29; Admin Dose 50 MG; Start 09/05/17 at 09:00 DON HYATT Sep 06, 2017 09:07
[2017-09-06] MEDS ORDERED: DEXTROSE 5% 1,000 ML IV SCH (09:30)
--- NOTE | 2017-09-06 11:32 | CONS ---
Date/Time of Note Date/Time of Note DATE: 09/06/17 TIME: 11:30 Assessment/Plan Assessment/Plan Additional Assessment/Plan Assessment and recommendations; 1. Patient admitted with STEMI status post CABG surgery. Status post extubation. 2. Underlying severe COPD. 3. Hypernatremia with interval improvement. 4. Anemia. 5. ICU delirium with interval improvement as well. Continue current treatment. Patient can be transferred to telemetry unit. Consultation Date/Type/Reason Admit Date/Time Aug 21, 2017 at 17:28 Initial Consult Date 08/21/17 Type of Consultation: Pulmonary/critical care Referring Provider: HANNAH MCCLENDON MD 24 HR Interval Summary Free Text/Dictation Patient's condition is stable. Denies any chest pain, complains of minimal shortness of breath. General exam; elderly male, awake and alert. Currently in no distress. Exam/Review of Systems Vital Signs Vitals Vital Signs Date Time Temp Pulse Resp B/P Pulse Ox O2 Delivery O2 Flow Rate FiO2 09/06/17 11:00 103 15 112/78 97 Room Air 09/06/17 08:00 98.4 09/05/17 17:38 2.0 09/05/17 01:37 27 Intake and Output 09/05/17 09/05/17 09/06/17 14:59 22:59 06:59 Intake Total 1525 ml 1200 ml 375 ml Output Total 1200 ml 1570 ml 1700 ml Balance 325 ml -370 ml -1325 ml Exam H ENT exam; supple neck, no JVD. No lymphadenopathy. Midline trachea. No thyromegaly. Patient has multiple carious teeth. Chest exam; barrel chested. Well-healed sternal scar is present. Diminished breath sounds throughout. S1-S2 audible, no murmurs. Regular rhythm. Abdomen exam; soft, nontender. No organomegaly. Bowel sounds audible. Extremity exam; no edema. [employer] exam; no focal deficit. Results Result Diagram: 09/06/17 0400 09/06/17 0400 Results 24 hrs Laboratory Tests Test 09/06/17 04:00 White Blood Count 10.7 Red Blood Count 2.99 L Hemoglobin 8.8 L Hematocrit 27.5 L Mean Corpuscular Volume 92.0 Mean Corpuscular Hemoglobin 29.4 Mean Corpuscular Hemoglobin Concent 32.0 Red Cell Distribution Width 15.8 H Platelet Count 455 H Mean Platelet Volume 11.3 H Neutrophils % 68.1 Lymphocytes % 18.1 Monocytes % 9.7 Eosinophils % 2.5 Basophils % 0.4 Nucleated Red Blood Cells % 0.0 Neutrophils # 7.3 Lymphocytes # 1.9 Monocytes # 1.0 H Eosinophils # 0.3 Basophils # 0.0 Nucleated Red Blood Cells # 0.0 Sodium Level 146 H Potassium Level 3.5 Chloride Level 115 H Carbon Dioxide Level 24 Anion Gap 11 Blood Urea Nitrogen 15 Creatinine 0.88 Glucose Level 115 Calcium Level 8.5 Medications Medications Current Medications Ondansetron HCl (Zofran Inj) 4 mg Q6H PRN IV NAUSEA AND/OR VOMITING; Start 08/21/17 at 17:30 Acetaminophen/ Hydrocodone Bitart ([place] (5/325)) 1 tab Q6H PRN PO MODERATE PAIN LEVEL 4-6; Start 08/21/17 at 17:30 Morphine Sulfate (morphine) 2 mg Q4H PRN IV SEVERE PAIN LEVEL 7-10 Last administered on 09/01/17 02:45; Admin Dose 2 MG; Start 08/21/17 at 17:30 Docusate Sodium (Colace) 100 mg Q12H PRN PO CONSTIPATION; Start 08/21/17 at 17: 30 Magnesium Hydroxide (Milk Of Mag) 30 ml DAILY PRN PO CONSTIPATION; Start at 17:30 Sodium Biphosphate/ Sodium Phosphate (Fleet Enema) 133 ml DAILY PRN [place] CONSTIPATION; Start 08/21/17 at 17:30 Hydralazine HCl (Apresoline) 10 mg Q6H PRN IV ELEVATED BLOOD PRESSURE; Start 08/21/17 at 17:30 Nitroglycerin (Nitroglycerin (Sl Tab) 0.4 Mg) 1 tab Q5M PRN SL ANGINA; Start 08/21/17 at 17:30 Oxycodone/ Acetaminophen 1 tab 1 tab Q3H PRN PO PAIN LEVEL 1-5; Start 08/22/17 at 01:00 Magnesium Sulfate/ Dextrose (Magnesium Sulfate 1 Gm/D5W) 100 ml @ 100 mls/hr PRN PRN IVPB PENDING LAB VALUE Last administered on 08/23/17 08:54; Admin Dose 100 MLS/HR; Start 08/22/17 at 01:00 Atorvastatin Calcium (Lipitor) 80 mg HS PO Last administered on 09/05/17 20: 05; Admin Dose 80 MG; Start 08/22/17 at 21:00 Acetaminophen (Tylenol Liquid) 650 mg Q4H PRN PO PAIN AND OR ELEVATED TEMP Last administered on 08/28/17 22:16; Admin Dose 650 MG; Start 08/23/17 at 14: 30 Clopidogrel Bisulfate (plaVIX) 75 mg DAILY NGT Last administered on 09/06/17 08:28; Admin Dose 75 MG; Start 08/24/17 at 09:00; Status Future Hold IV Flush (NS 10 ml) 10 ml PRN PRN IV IV PROTOCOL; Start 08/24/17 at 12:00 Aspirin (Aspirin) 81 mg DAILY PO Last administered on 09/06/17 08:28; Admin Dose 81 MG; Start 08/25/17 at 09:00 Heparin Sodium (Porcine) (Heparin (5000 Units/0.5 ml)) 5,000 unit Q8 SC Last administered on 09/03/17 05:42; Admin Dose 5,000 UNIT; Start 08/25/17 at 22: 00; Status Future Hold Valsartan (Diovan) 40 mg DAILY PO Last administered on 09/06/17 08:29; Admin Dose 40 MG; Start 08/27/17 at 09:00 Famotidine (Pepcid) 20 mg HS NGT Last administered on 09/05/17 20:05; Admin Dose 20 MG; Start 08/27/17 at 21:00 Spironolactone (Aldactone) 25 mg DAILY@06 NGT Last administered on 09/06/17 05:38; Admin Dose 25 MG; Start 08/28/17 at 11:30 Alprazolam (Xanax) 0.5 mg Q6 PRN NGT AGITATION; Start 09/02/17 at 11:30 Chlorpromazine (Thorazine) 25 mg HS PO Last administered on 09/05/17 20:05; Admin Dose 25 MG; Start 09/02/17 at 15:30 Trihexyphenidyl HCl (Artane) 5 mg HS PO Last administered on 09/05/17 20:05; Admin Dose 5 MG; Start 09/02/17 at 15:30 [place] Carbonate 300 mg 300 mg HS PO ; Start 09/02/17 at 21:00 Norepinephrine (Levophed) 250 ml @ 1.875 mls/ hr TITRATE IV Last administered on 09/03/17 22:07; Admin Dose 9.375 MLS/HR; Start 09/02/17 at 20:30 Metoprolol Succinate 50 mg 50 mg DAILY PO Last administered on 09/06/17 08:29 ; Admin Dose 50 MG; Start 09/05/17 at 09:00 Dextrose (D5W) 1,000 ml @ 75 mls/hr [id number] IV Last administered on 09:41; Admin Dose 75 MLS/HR; Start 09/06/17 at 09:30; Stop 09/06/17 at 15 :30 VILLA SEWELL Sep 06, 2017 11:32
--- NOTE | 2017-09-06 11:57 | CONS ---
Date/Time of Note Date/Time of Note DATE: 09/06/17 TIME: 11:53 Consult Date/Type/Reason Admit Date/Time Aug 21, 2017 at 17:28 Initial Consult Date 09/01/17 Type of Consultation: Urology Reason for Consultation Hematuria Ordering Provider: HANNAH MCCLENDON MD Subjective Patient denies having any pain. His son is at his bedside and translated. The Champion catheter is draining blood-tinged urine. Objective Vital Signs Date Time Temp Pulse Resp B/P Pulse Ox O2 Delivery O2 Flow Rate FiO2 09/06/17 11:00 103 15 112/78 97 Room Air 09/06/17 08:00 98.4 09/05/17 17:38 2.0 09/05/17 01:37 27 Intake and Output 09/05/17 09/05/17 09/06/17 14:59 22:59 06:59 Intake Total 1525 ml 1200 ml 375 ml Output Total 1200 ml 1570 ml 1700 ml Balance 325 ml -370 ml -1325 ml Exam His vital signs are stable, the abdomen is soft without any tenderness, the Champion catheter is draining blood-tinged urine. The urine is however clearer today than yesterday. His anticoagulation has been put on hold for the time being Results/Medications Result Diagram: 09/06/17 0400 09/06/17 0400 Results 24 hrs Laboratory Tests Test 09/06/17 04:00 White Blood Count 10.7 Red Blood Count 2.99 L Hemoglobin 8.8 L Hematocrit 27.5 L Mean Corpuscular Volume 92.0 Mean Corpuscular Hemoglobin 29.4 Mean Corpuscular Hemoglobin Concent 32.0 Red Cell Distribution Width 15.8 H Platelet Count 455 H Mean Platelet Volume 11.3 H Neutrophils % 68.1 Lymphocytes % 18.1 Monocytes % 9.7 Eosinophils % 2.5 Basophils % 0.4 Nucleated Red Blood Cells % 0.0 Neutrophils # 7.3 Lymphocytes # 1.9 Monocytes # 1.0 H Eosinophils # 0.3 Basophils # 0.0 Nucleated Red Blood Cells # 0.0 Sodium Level 146 H Potassium Level 3.5 Chloride Level 115 H Carbon Dioxide Level 24 Anion Gap 11 Blood Urea Nitrogen 15 Creatinine 0.88 Glucose Level 115 Calcium Level 8.5 Medications Current Medications Ondansetron HCl (Zofran Inj) 4 mg Q6H PRN IV NAUSEA AND/OR VOMITING; Start 08/21/17 at 17:30 Acetaminophen/ Hydrocodone Bitart ([place] (5/325)) 1 tab Q6H PRN PO MODERATE PAIN LEVEL 4-6; Start 08/21/17 at 17:30 Morphine Sulfate (morphine) 2 mg Q4H PRN IV SEVERE PAIN LEVEL 7-10 Last administered on 09/01/17 02:45; Admin Dose 2 MG; Start 08/21/17 at 17:30 Docusate Sodium (Colace) 100 mg Q12H PRN PO CONSTIPATION; Start 08/21/17 at 17: 30 Magnesium Hydroxide (Milk Of Mag) 30 ml DAILY PRN PO CONSTIPATION; Start at 17:30 Sodium Biphosphate/ Sodium Phosphate (Fleet Enema) 133 ml DAILY PRN [place] CONSTIPATION; Start 08/21/17 at 17:30 Hydralazine HCl (Apresoline) 10 mg Q6H PRN IV ELEVATED BLOOD PRESSURE; Start 08/21/17 at 17:30 Nitroglycerin (Nitroglycerin (Sl Tab) 0.4 Mg) 1 tab Q5M PRN SL ANGINA; Start 08/21/17 at 17:30 Oxycodone/ Acetaminophen 1 tab 1 tab Q3H PRN PO PAIN LEVEL 1-5; Start 08/22/17 at 01:00 Magnesium Sulfate/ Dextrose (Magnesium Sulfate 1 Gm/D5W) 100 ml @ 100 mls/hr PRN PRN IVPB PENDING LAB VALUE Last administered on 08/23/17 08:54; Admin Dose 100 MLS/HR; Start 08/22/17 at 01:00 Atorvastatin Calcium (Lipitor) 80 mg HS PO Last administered on 09/05/17 20: 05; Admin Dose 80 MG; Start 08/22/17 at 21:00 Acetaminophen (Tylenol Liquid) 650 mg Q4H PRN PO PAIN AND OR ELEVATED TEMP Last administered on 08/28/17 22:16; Admin Dose 650 MG; Start 08/23/17 at 14: 30 Clopidogrel Bisulfate (plaVIX) 75 mg DAILY NGT Last administered on 09/06/17 08:28; Admin Dose 75 MG; Start 08/24/17 at 09:00; Status Future Hold IV Flush (NS 10 ml) 10 ml PRN PRN IV IV PROTOCOL; Start 08/24/17 at 12:00 Aspirin (Aspirin) 81 mg DAILY PO Last administered on 09/06/17 08:28; Admin Dose 81 MG; Start 08/25/17 at 09:00 Heparin Sodium (Porcine) (Heparin (5000 Units/0.5 ml)) 5,000 unit Q8 SC Last administered on 09/03/17 05:42; Admin Dose 5,000 UNIT; Start 08/25/17 at 22: 00; Status Future Hold Valsartan (Diovan) 40 mg DAILY PO Last administered on 09/06/17 08:29; Admin Dose 40 MG; Start 08/27/17 at 09:00 Famotidine (Pepcid) 20 mg HS NGT Last administered on 09/05/17 20:05; Admin Dose 20 MG; Start 08/27/17 at 21:00 Spironolactone (Aldactone) 25 mg DAILY@06 NGT Last administered on 09/06/17 05:38; Admin Dose 25 MG; Start 08/28/17 at 11:30 Alprazolam (Xanax) 0.5 mg Q6 PRN NGT AGITATION; Start 09/02/17 at 11:30 Chlorpromazine (Thorazine) 25 mg HS PO Last administered on 09/05/17 20:05; Admin Dose 25 MG; Start 09/02/17 at 15:30 Trihexyphenidyl HCl (Artane) 5 mg HS PO Last administered on 09/05/17 20:05; Admin Dose 5 MG; Start 09/02/17 at 15:30 [place] Carbonate 300 mg 300 mg HS PO ; Start 09/02/17 at 21:00 Norepinephrine (Levophed) 250 ml @ 1.875 mls/ hr TITRATE IV Last administered on 09/03/17 22:07; Admin Dose 9.375 MLS/HR; Start 09/02/17 at 20:30 Metoprolol Succinate 50 mg 50 mg DAILY PO Last administered on 09/06/17 08:29 ; Admin Dose 50 MG; Start 09/05/17 at 09:00 Dextrose (D5W) 1,000 ml @ 75 mls/hr [id number] IV Last administered on 09:41; Admin Dose 75 MLS/HR; Start 09/06/17 at 09:30; Stop 09/06/17 at 15 :30 Assessment/Plan Chief Complaint/Hosp Course 72-year-old male status post open heart surgery. he has gross hematuria which probably was caused by him pulling on the catheter . He has a Champion catheter now that is draining blood-tinged urine. The urine is clearing slowly and the catheter is draining well. We will continue to monitor his urine . Problems: LAINA STRONG MD Sep 06, 2017 11:57
[2017-09-06] MEDS: ATORVASTATIN 80 MG TAB PO SCH (21:50)
[2017-09-06] MEDS: CHLORPROMAZINE 25 MG TAB PO SCH (21:50)
[2017-09-06] MEDS: LITHIUM CARBONATE 300 MG CAP PO SCH (21:50)
[2017-09-06] MEDS: FAMOTIDINE 20 MG TAB NGT SCH (21:50)
[2017-09-06] MEDS: TRIHEXYPHENIDYL 5 MG TAB PO SCH (21:50)
[2017-09-07] VITALS (15 sets, daily range): BP systolic 87–135; BP diastolic 50–72; PULSE 102–117; RESP 17–19
[2017-09-07] MEDS: SPIRONOLACTONE 25 MG TAB NGT SCH (05:26)
--- NOTE | 2017-09-07 08:49 | PN ---
Date/Time of Note Date/Time of Note DATE: 09/07/17 TIME: 08:48 Assessment/Plan Lines/Catheters IV Catheter Type (from Nrsg): PICC Line Champion in Place (from Nrsg): Yes Assessment/Plan Assessment/Plan s/p cabg overall improving took a few steps yesterday lithium restarted Subjective 24 Hr Interval Summary Constitutional: improved Feeding: advancing diet Pain Control: well controlled Exam/Review of Systems Vital Signs Vitals Vital Signs Date Time Temp Pulse Resp B/P Pulse Ox O2 Delivery O2 Flow Rate FiO2 09/07/17 08:11 110 09/07/17 07:50 98.1 19 87/50 97 09/07/17 00:44 2.0 09/06/17 18:00 Room Air 09/05/17 01:37 27 Intake and Output 09/06/17 09/06/17 09/07/17 15:00 23:00 07:00 Intake Total 3375 ml 500 ml 800 ml Output Total 1050 ml 325 ml 3000 ml Balance 2325 ml 175 ml -2200 ml Exam Constitutional: alert, well developed Psych: no complaints Head: normocephalic Eyes: EOMI ENMT: nl lips & teeth Neck: non-tender Respiratory: clear to auscultation Cardiovascular: regular rate and rhythm Gastrointestinal: soft Musculoskeletal: nl extremities to inspection Results Result Diagram: 09/06/1739909/06/17399 ABENA LOMBARDO MD Sep 07, 2017 08:49
--- NOTE | 2017-09-07 09:21 | PN ---
Date/Time of Note Date/Time of Note DATE: 09/07/17 TIME: 09:13 Assessment/Plan VTE Prophylaxis VTE Prophylaxis Intervention: SCD's Lines/Catheters IV Catheter Type (from Nrs): PICC Line Central line still needed: Yes Urinary Cath still in place: Yes Reason Cath still needed: urinary retention Assessment/Plan Chief Complaint/Hosp Course 72 yo presented with STEMI anterior wall, post 3V CABG. Now with ischemic cardiomyopathy, acute cva's post CABG. Mental status has gradually improved. Blood pressure remains low/normal, requiring some meds for cardiomyopathy to be held.. Problems: Assessment/Plan STEMI anterior wall post CABG ischemic cardiomyopathy relative hypotension Debility/weakness Hematuria due to traumatic martinez removal Recommendations: Continue metoprolol succinate, valsartan, spironolactone -- requested nursing to stagger meds as best as possible so pt bp will tolerate OOB/ambulate Continue asa, holding clopidogrel due to hematuria Subjective 24 Hr Interval Summary Free Text/Dictation Son at bedside, to translate, I asked him how he feels, pt feels good, ate breakfast, walked a few steps yesterday. Exam/Review of Systems Vital Signs Vitals Vital Signs Date Time Temp Pulse Resp B/P Pulse Ox O2 Delivery O2 Flow Rate FiO2 09/07/17 08:11 110 09/07/17 07:50 98.1 19 87/50 97 09/07/17 00:44 2.0 09/06/17 18:00 Room Air 09/05/17 01:37 27 Intake and Output 09/06/17 09/06/17 09/07/17 15:00 23:00 07:00 Intake Total 3375 ml 500 ml 800 ml Output Total 1050 ml 325 ml 3000 ml Balance 2325 ml 175 ml -2200 ml Exam Constitutional: alert, well developed Psych: nl mood/affect, no complaints Head: atraumatic, normocephalic Eyes: EOMI, nl conjunctiva, nl lids, nl sclera ENMT: nl external ears & nose, nl lips & teeth, nl nasal mucosa & septum Neck: supple, No bruits, No jvd Respiratory: clear to auscultation, normal air movement Cardiovascular: regular rate and rhythm, No murmurs/extra sounds Gastrointestinal: non-tender, soft Musculoskeletal: nl extremities to inspection Extremities: No edema 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: nl mental status, nl speech Skin: nl turgor, No rash or lesions Results Result Diagram: 09/06/17 0400 09/06/17 0400 Medications Medications Current Medications Ondansetron HCl (Zofran Inj) 4 mg Q6H PRN IV NAUSEA AND/OR VOMITING; Start 08/21/17 at 17:30 Acetaminophen/ Hydrocodone Bitart ([place] (5/325)) 1 tab Q6H PRN PO MODERATE PAIN LEVEL 4-6; Start 08/21/17 at 17:30 Morphine Sulfate (morphine) 2 mg Q4H PRN IV SEVERE PAIN LEVEL 7-10 Last administered on 09/01/17 02:45; Admin Dose 2 MG; Start 08/21/17 at 17:30 Docusate Sodium (Colace) 100 mg Q12H PRN PO CONSTIPATION; Start 08/21/17 at 17: 30 Magnesium Hydroxide (Milk Of Mag) 30 ml DAILY PRN PO CONSTIPATION; Start at 17:30 Sodium Biphosphate/ Sodium Phosphate (Fleet Enema) 133 ml DAILY PRN [place] CONSTIPATION; Start 08/21/17 at 17:30 Hydralazine HCl (Apresoline) 10 mg Q6H PRN IV ELEVATED BLOOD PRESSURE; Start 08/21/17 at 17:30 Nitroglycerin (Nitroglycerin (Sl Tab) 0.4 Mg) 1 tab Q5M PRN SL ANGINA; Start 08/21/17 at 17:30 Oxycodone/ Acetaminophen 1 tab 1 tab Q3H PRN PO PAIN LEVEL 1-5; Start 08/22/17 at 01:00 Magnesium Sulfate/ Dextrose (Magnesium Sulfate 1 Gm/D5W) 100 ml @ 100 mls/hr PRN PRN IVPB PENDING LAB VALUE Last administered on 08/23/17 08:54; Admin Dose 100 MLS/HR; Start 08/22/17 at 01:00 Atorvastatin Calcium (Lipitor) 80 mg HS PO Last administered on 09/06/17 21: 50; Admin Dose 80 MG; Start 08/22/17 at 21:00 Acetaminophen (Tylenol Liquid) 650 mg Q4H PRN PO PAIN AND OR ELEVATED TEMP Last administered on 08/28/17 22:16; Admin Dose 650 MG; Start 08/23/17 at 14: 30 Clopidogrel Bisulfate (plaVIX) 75 mg DAILY NGT Last administered on 09/06/17 08:28; Admin Dose 75 MG; Start 08/24/17 at 09:00; Status Future Hold IV Flush (NS 10 ml) 10 ml PRN PRN IV IV PROTOCOL; Start 08/24/17 at 12:00 Aspirin (Aspirin) 81 mg DAILY PO Last administered on 09/06/17 08:28; Admin Dose 81 MG; Start 08/25/17 at 09:00 Heparin Sodium (Porcine) (Heparin (5000 Units/0.5 ml)) 5,000 unit Q8 SC Last administered on 09/03/17 05:42; Admin Dose 5,000 UNIT; Start 08/25/17 at 22: 00; Status Future Hold Valsartan (Diovan) 40 mg DAILY PO Last administered on 09/06/17 08:29; Admin Dose 40 MG; Start 08/27/17 at 09:00 Famotidine (Pepcid) 20 mg HS NGT Last administered on 09/06/17 21:50; Admin Dose 20 MG; Start 08/27/17 at 21:00 Spironolactone (Aldactone) 25 mg DAILY@06 NGT Last administered on 09/06/17 05:38; Admin Dose 25 MG; Start 08/28/17 at 11:30 Chlorpromazine (Thorazine) 25 mg HS PO Last administered on 09/06/17 21:50; Admin Dose 25 MG; Start 09/02/17 at 15:30 Trihexyphenidyl HCl (Artane) 5 mg HS PO Last administered on 09/06/17 21:50; Admin Dose 5 MG; Start 09/02/17 at 15:30 [place] Carbonate ([place] Carbonate) 300 mg HS PO Last administered on 21:50; Admin Dose 300 MG; Start 09/02/17 at 21:00 Metoprolol Succinate (Toprol Xl) 50 mg DAILY PO Last administered on 08:29; Admin Dose 50 MG; Start 09/05/17 at 09:00 JENNIFER MOORE Sep 07, 2017 09:21
[2017-09-07] MEDS: ASPIRIN 81 MG TAB PO SCH (09:25)
[2017-09-07] MEDS: METOPROLOL (XL) 50 MG TAB PO SCH (09:26)
[2017-09-07] MEDS: VALSARTAN 80 MG TAB PO SCH (09:31)
[2017-09-07 10:39] LABS: BASOPHIL # 0.1 10^3/ul (0.0-0.1); BASOPHILS % 0.5 % (0.0-2.0); EOSINOPHILS # 0.2 10^3/ul (0.0-0.5); EOSINOPHILS % 2.2 % (0.0-7.0); HEMATOCRIT 29.9 % (42.0-52.0); HEMOGLOBIN 9.5 g/dl (14.0-18.0); LYMPHOCYTES # 2.3 10^3/ul (0.8-2.9); LYMPHOCYTES % 20.6 % (15.0-51.0); MEAN CORPUSCULAR HEMOGLOBIN 29.7 pg (29.0-33.0); MEAN CORPUSCULAR HGB CONC 31.8 g/dl (32.0-37.0); MEAN CORPUSCULAR VOLUME 93.4 fl (82.0-101.0); MEAN PLATELET VOLUME 11.3 fl (7.4-10.4); MONOCYTE # 1.1 10^3/ul (0.3-0.9); MONOCYTES % 10.3 % (0.0-11.0); NEUTROPHIL # 7.2 10^3/ul (1.6-7.5); NEUTROPHILS % 65.2 % (39.0-77.0); PLATELET COUNT 448 10^3/UL (140-415); RED CELL DISTRIBUTION WIDTH 15.5 % (11.5-14.5)
[2017-09-07 10:56] LABS: CALCIUM 9.2 mg/dl (8.4-10.2); CREATININE 0.97 mg/dl (0.61-1.24); POTASSIUM 3.7 mmol/L (3.5-5.1)
--- NOTE | 2017-09-07 15:11 | PN ---
Date/Time of Note Date/Time of Note DATE: 09/07/17 TIME: 15:02 Assessment/Plan VTE Prophylaxis VTE Prophylaxis Intervention: SCD's Lines/Catheters IV Catheter Type (from Nrsg): PICC Line Central line still needed: No Urinary Cath still in place: Yes Reason Cath still needed: urinary retention Assessment/Plan Assessment/Plan 72 yo M presented with chest pain found to have STEMI. sp CABG. Hospitalization notable for [place]ib in the [employer] [place], cardiogenic shock warranting IABP which has now been removed. Hospital course cb encephalopathy likely 2/2 CVAs sustained during procedures. Encephalopathy significantly improved. Hospitalization also c /b AUR warranting martinez placement. PLAN #STEMI/CAD sp CABG cont BP/antiplatelet/lipid lowering regimen as per cardiology #hematuria from pulling on martinez: martinez in place. manage as per #CVA: cont asa, cont PT, cont ST cont statin, BB, arb, plavix #hx hypothyroid: TFTs wnl #anemia: hgb stable, outpatient follow up #chronic mental illness? unclear why pt on Artane and Thorazine. Appears he is on [place] home per notes? cont home lithium. hold other psychotropics as rationale for their use is unclear and Thorazine in particular would increase pt's risk of fall and Artane could exacerbated pt's urinary retention PT eval ongoing. CM cs for SNF Subjective 24 Hr Interval Summary Free Text/Dictation Looks greatly improved compared to my last encounter with patient 8 days ago. Pt sitting up in bed working with PT Exam/Review of Systems Vital Signs Vitals Vital Signs Date Time Temp Pulse Resp B/P Pulse Ox O2 Delivery O2 Flow Rate FiO2 09/07/17 12:18 102 09/07/17 11:15 97.6 19 96/61 98 09/07/17 00:44 2.0 09/06/17 18:00 Room Air 09/05/17 01:37 27 Intake and Output 09/06/17 09/06/17 09/07/17 15:00 23:00 07:00 Intake Total 3375 ml 500 ml 800 ml Output Total 1050 ml 325 ml 3000 ml Balance 2325 ml 175 ml -2200 ml Exam nad no mrg +sternotomy scar no rashes no edema Results Result Diagram: 09/07/17 0909 09/07/17 0909 Results 24 hrs Laboratory Tests Test 09/07/17 09:09 White Blood Count 11.0 H Red Blood Count 3.20 L Hemoglobin 9.5 L Hematocrit 29.9 L Mean Corpuscular Volume 93.4 Mean Corpuscular Hemoglobin 29.7 Mean Corpuscular Hemoglobin Concent 31.8 L Red Cell Distribution Width 15.5 H Platelet Count 448 H Mean Platelet Volume 11.3 H Neutrophils % 65.2 Lymphocytes % 20.6 Monocytes % 10.3 Eosinophils % 2.2 Basophils % 0.5 Nucleated Red Blood Cells % 0.0 Neutrophils # 7.2 Lymphocytes # 2.3 Monocytes # 1.1 H Eosinophils # 0.2 Basophils # 0.1 Nucleated Red Blood Cells # 0.0 Sodium Level 146 H Potassium Level 3.7 Chloride Level 111 H Carbon Dioxide Level 26 Anion Gap 13 Blood Urea Nitrogen 17 Creatinine 0.97 Glucose Level 139 Calcium Level 9.2 Medications Medications Current Medications Ondansetron HCl (Zofran Inj) 4 mg Q6H PRN IV NAUSEA AND/OR VOMITING; Start 08/21/17 at 17:30 Acetaminophen/ Hydrocodone Bitart ([place] (5/325)) 1 tab Q6H PRN PO MODERATE PAIN LEVEL 4-6; Start 08/21/17 at 17:30 Morphine Sulfate (morphine) 2 mg Q4H PRN IV SEVERE PAIN LEVEL 7-10 Last administered on 09/01/17t 02:45; Admin Dose 2 MG; Start 08/21/17 at 17:30 Docusate Sodium (Colace) 100 mg Q12H PRN PO CONSTIPATION; Start 08/21/17 at 17: 30 Magnesium Hydroxide (Milk Of Mag) 30 ml DAILY PRN PO CONSTIPATION; Start at 17:30 Sodium Biphosphate/ Sodium Phosphate (Fleet Enema) 133 ml DAILY PRN [place] CONSTIPATION; Start 08/21/17 at 17:30 Hydralazine HCl (Apresoline) 10 mg Q6H PRN IV ELEVATED BLOOD PRESSURE; Start 08/21/17 at 17:30 Nitroglycerin (Nitroglycerin (Sl Tab) 0.4 Mg) 1 tab Q5M PRN SL ANGINA; Start 08/21/17 at 17:30 Oxycodone/ Acetaminophen 1 tab 1 tab Q3H PRN PO PAIN LEVEL 1-5; Start 08/22/17 at 01:00 Magnesium Sulfate/ Dextrose (Magnesium Sulfate 1 Gm/D5W) 100 ml @ 100 mls/hr PRN PRN IVPB PENDING LAB VALUE Last administered on 08/23/17 08:54; Admin Dose 100 MLS/HR; Start 08/22/17 at 01:00 Atorvastatin Calcium (Lipitor) 80 mg HS PO Last administered on 09/06/17 21: 50; Admin Dose 80 MG; Start 08/22/17 at 21:00 Acetaminophen (Tylenol Liquid) 650 mg Q4H PRN PO PAIN AND OR ELEVATED TEMP Last administered on 08/28/17 22:16; Admin Dose 650 MG; Start 08/23/17 at 14: 30 Clopidogrel Bisulfate (plaVIX) 75 mg DAILY NGT Last administered on 09/06/17 08:28; Admin Dose 75 MG; Start 08/24/17 at 09:00; Status Future Hold IV Flush (NS 10 ml) 10 ml PRN PRN IV IV PROTOCOL; Start 08/24/17 at 12:00 Aspirin (Aspirin) 81 mg DAILY PO Last administered on 09/07/17 09:25; Admin Dose 81 MG; Start 08/25/17 at 09:00 Heparin Sodium (Porcine) (Heparin (5000 Units/0.5 ml)) 5,000 unit Q8 SC Last administered on 09/03/17 05:42; Admin Dose 5,000 UNIT; Start 08/25/17 at 22: 00; Status Future Hold Valsartan (Diovan) 40 mg DAILY PO Last administered on 09/07/17 09:31; Admin Dose 40 MG; Start 08/27/17 at 09:00 Famotidine (Pepcid) 20 mg HS NGT Last administered on 09/06/17 21:50; Admin Dose 20 MG; Start 08/27/17 at 21:00 Spironolactone (Aldactone) 25 mg DAILY@06 NGT Last administered on 09/06/17 05:38; Admin Dose 25 MG; Start 08/28/17 at 11:30 Chlorpromazine (Thorazine) 25 mg HS PO Last administered on 09/06/17 21:50; Admin Dose 25 MG; Start 09/02/17 at 15:30 Trihexyphenidyl HCl (Artane) 5 mg HS PO Last administered on 09/06/17 21:50; Admin Dose 5 MG; Start 09/02/17 at 15:30 [place] Carbonate ([place] Carbonate) 300 mg HS PO Last administered on 21:50; Admin Dose 300 MG; Start 09/02/17 at 21:00 Metoprolol Succinate (Toprol Xl) 50 mg DAILY PO Last administered on 09:26; Admin Dose 50 MG; Start 09/05/17 at 09:00 ZACHARY SHANNON MD Sep 07, 2017 15:11
--- NOTE | 2017-09-07 17:09 | CONS ---
Date/Time of Note Date/Time of Note DATE: 09/07/17 TIME: 17:06 Consult Date/Type/Reason Admit Date/Time Aug 21, 2017 at 17:28 Initial Consult Date 09/01/17 Type of Consultation: Urology Reason for Consultation Gross hematuria Ordering Provider: HANNAH MCCLENDON MD Subjective Patient denies having any chest pain and he has been drinking a lot of tea. His urine is now clear Objective Vital Signs Date Time Temp Pulse Resp B/P Pulse Ox O2 Delivery O2 Flow Rate FiO2 09/07/17 16:36 108 09/07/17 15:23 98.1 19 120/66 98 09/07/17 00:44 2.0 09/06/17 18:00 Room Air 09/05/17 01:37 27 Intake and Output 09/06/17 09/06/17 09/07/17 15:00 23:00 07:00 Intake Total 3375 ml 500 ml 800 ml Output Total 1050 ml 325 ml 3000 ml Balance 2325 ml 175 ml -2200 ml Exam The patient is awake and alert, his grandson is at his bedside. He has been drinking a lot of tea. The urine in the drainage tubing is now clear and there is no gross hematuria. He was on Plavix and it seems that was stopped yesterday but he still on aspirin. We will continue to monitor his urine color and his output and if the urine remains clear we may even take out the Champion catheter and see if he does void on his own. Results/Medications Result Diagram: 09/07/17 0909 09/07/17 0909 Results 24 hrs Laboratory Tests Test 09/07/17 09:09 White Blood Count 11.0 H Red Blood Count 3.20 L Hemoglobin 9.5 L Hematocrit 29.9 L Mean Corpuscular Volume 93.4 Mean Corpuscular Hemoglobin 29.7 Mean Corpuscular Hemoglobin Concent 31.8 L Red Cell Distribution Width 15.5 H Platelet Count 448 H Mean Platelet Volume 11.3 H Neutrophils % 65.2 Lymphocytes % 20.6 Monocytes % 10.3 Eosinophils % 2.2 Basophils % 0.5 Nucleated Red Blood Cells % 0.0 Neutrophils # 7.2 Lymphocytes # 2.3 Monocytes # 1.1 H Eosinophils # 0.2 Basophils # 0.1 Nucleated Red Blood Cells # 0.0 Sodium Level 146 H Potassium Level 3.7 Chloride Level 111 H Carbon Dioxide Level 26 Anion Gap 13 Blood Urea Nitrogen 17 Creatinine 0.97 Glucose Level 139 Calcium Level 9.2 Medications Current Medications Ondansetron HCl (Zofran Inj) 4 mg Q6H PRN IV NAUSEA AND/OR VOMITING; Start 08/21/17 at 17:30 Acetaminophen/ Hydrocodone Bitart ([place] (5/325)) 1 tab Q6H PRN PO MODERATE PAIN LEVEL 4-6; Start 08/21/17 at 17:30 Morphine Sulfate (morphine) 2 mg Q4H PRN IV SEVERE PAIN LEVEL 7-10 Last administered on 09/01/17 02:45; Admin Dose 2 MG; Start 08/21/17 at 17:30 Docusate Sodium (Colace) 100 mg Q12H PRN PO CONSTIPATION; Start 08/21/17 at 17: 30 Magnesium Hydroxide (Milk Of Mag) 30 ml DAILY PRN PO CONSTIPATION; Start at 17:30 Sodium Biphosphate/ Sodium Phosphate (Fleet Enema) 133 ml DAILY PRN [place] CONSTIPATION; Start 08/21/17 at 17:30 Hydralazine HCl (Apresoline) 10 mg Q6H PRN IV ELEVATED BLOOD PRESSURE; Start 08/21/17 at 17:30 Nitroglycerin (Nitroglycerin (Sl Tab) 0.4 Mg) 1 tab Q5M PRN SL ANGINA; Start 08/21/17 at 17:30 Oxycodone/ Acetaminophen (Percocet (5/ 325)) 1 tab Q3H PRN PO PAIN LEVEL 1-5; Start 08/22/17 at 01:00 Atorvastatin Calcium (Lipitor) 80 mg HS PO Last administered on 09/06/17 21: 50; Admin Dose 80 MG; Start 08/22/17 at 21:00 Acetaminophen (Tylenol Liquid) 650 mg Q4H PRN PO PAIN AND OR ELEVATED TEMP Last administered on 08/28/17 22:16; Admin Dose 650 MG; Start 08/23/17 at 14: 30 Clopidogrel Bisulfate (plaVIX) 75 mg DAILY NGT Last administered on 09/06/17 08:28; Admin Dose 75 MG; Start 08/24/17 at 09:00; Status Future Hold IV Flush (NS 10 ml) 10 ml PRN PRN IV IV PROTOCOL; Start 08/24/17 at 12:00 Aspirin (Aspirin) 81 mg DAILY PO Last administered on 09/07/17 09:25; Admin Dose 81 MG; Start 08/25/17 at 09:00 Heparin Sodium (Porcine) (Heparin (5000 Units/0.5 ml)) 5,000 unit Q8 SC Last administered on 09/03/17 05:42; Admin Dose 5,000 UNIT; Start 08/25/17 at 22: 00; Status Future Hold Valsartan (Diovan) 40 mg DAILY PO Last administered on 09/07/17 09:31; Admin Dose 40 MG; Start 08/27/17 at 09:00 Spironolactone (Aldactone) 25 mg DAILY@06 NGT Last administered on 09/06/17 05:38; Admin Dose 25 MG; Start 08/28/17 at 11:30 Metoprolol Succinate (Toprol Xl) 50 mg DAILY PO Last administered on 09:26; Admin Dose 50 MG; Start 09/05/17 at 09:00 [place] Carbonate ([place] Carbonate (Sr)) 300 mg QHS PO ; Start 09/07/17 at 21 :00 Assessment/Plan Chief Complaint/Hosp Course 72-year-old male status post open heart surgery. he has gross hematuria which probably was caused by him pulling on the catheter . He has a Champion catheter now that is draining blood-tinged urine. The urine is clearing slowly and the catheter is draining well. We will continue to monitor his urine . Problems: LAINA STRONG MD Sep 07, 2017 17:09
[2017-09-07] MEDS ORDERED: LITHIUM CARBONATE (SR) 300 MG TAB PO SCH (21:00)
[2017-09-07] MEDS: ATORVASTATIN 80 MG TAB PO SCH (21:11)
[2017-09-07] MEDS ORDERED: TRIHEXYPHENIDYL 5 MG TAB PO SCH (22:00)
[2017-09-07] MEDS ORDERED: CHLORPROMAZINE 25 MG TAB PO SCH (22:00)
[2017-09-08] VITALS (10 sets, daily range): BP systolic 94–105; BP diastolic 55–59; PULSE 68–120; RESP 17–18
[2017-09-08] MEDS: SPIRONOLACTONE 25 MG TAB NGT SCH (06:59)
[2017-09-08 07:24] LABS: BASOPHILS % 0.4 % (0.0-2.0); EOSINOPHILS # 0.2 10^3/ul (0.0-0.5); EOSINOPHILS % 2.4 % (0.0-7.0); HEMATOCRIT 28.8 % (42.0-52.0); HEMOGLOBIN 9.2 g/dl (14.0-18.0); LYMPHOCYTES # 1.8 10^3/ul (0.8-2.9); LYMPHOCYTES % 18.7 % (15.0-51.0); MEAN CORPUSCULAR HEMOGLOBIN 29.4 pg (29.0-33.0); MEAN CORPUSCULAR HGB CONC 31.9 g/dl (32.0-37.0); MEAN PLATELET VOLUME 11.1 fl (7.4-10.4); MONOCYTES % 10.5 % (0.0-11.0); NEUTROPHIL # 6.2 10^3/ul (1.6-7.5); NEUTROPHILS % 66.7 % (39.0-77.0); PLATELET COUNT 405 10^3/UL (140-415); RED BLOOD COUNT 3.13 10^6/ul (4.70-6.10); RED CELL DISTRIBUTION WIDTH 15.3 % (11.5-14.5); WHITE BLOOD COUNT 9.4 10^3/ul (4.8-10.8)
[2017-09-08] MEDS: ASPIRIN 81 MG TAB PO SCH (08:55)
[2017-09-08] MEDS: VALSARTAN 80 MG TAB PO SCH (08:55)
[2017-09-08] MEDS: METOPROLOL (XL) 50 MG TAB PO SCH (08:55)
[2017-09-08 10:23] LABS: CALCIUM 9.1 mg/dl (8.4-10.2); CREATININE 0.94 mg/dl (0.61-1.24); POTASSIUM 3.8 mmol/L (3.5-5.1)
--- NOTE | 2017-09-08 10:44 | CONS ---
Date/Time of Note Date/Time of Note DATE: 09/08/17 TIME: 10:42 Consult Date/Type/Reason Admit Date/Time Aug 21, 2017 at 17:28 Initial Consult Date 09/01/17 Type of Consultation: Urology Reason for Consultation Gross hematuria Ordering Provider: HANNAH MCCLENDON MD Subjective Patient is feeling much better. The Champion catheter was removed last night and he has a condom catheter on and he is voiding well and the urine is clear Objective Vital Signs Date Time Temp Pulse Resp B/P Pulse Ox O2 Delivery O2 Flow Rate FiO2 09/08/17 08:56 108 104/58 09/08/17 08:05 98.3 17 97 09/08/17 05:36 2.0 09/06/17 18:00 Room Air 09/05/17 01:37 27 Intake and Output 09/07/17 09/07/17 09/08/17 15:00 23:00 07:00 Intake Total 500 ml Output Total 1700 ml Balance -1200 ml Exam Patient is awake and alert and ambulating with help. He has a condom catheter on and that is draining clear urine Results/Medications Result Diagram: 09/08/17 0654 09/07/17 0909 Results 24 hrs Laboratory Tests Test 09/08/17 06:54 White Blood Count 9.4 Red Blood Count 3.13 L Hemoglobin 9.2 L Hematocrit 28.8 L Mean Corpuscular Volume 92.0 Mean Corpuscular Hemoglobin 29.4 Mean Corpuscular Hemoglobin Concent 31.9 L Red Cell Distribution Width 15.3 H Platelet Count 405 Mean Platelet Volume 11.1 H Neutrophils % 66.7 Lymphocytes % 18.7 Monocytes % 10.5 Eosinophils % 2.4 Basophils % 0.4 Nucleated Red Blood Cells % 0.0 Neutrophils # 6.2 Lymphocytes # 1.8 Monocytes # 1.0 H Eosinophils # 0.2 Basophils # 0.0 Nucleated Red Blood Cells # 0.0 Medications Current Medications Ondansetron HCl (Zofran Inj) 4 mg Q6H PRN IV NAUSEA AND/OR VOMITING; Start 08/21/17 at 17:30 Acetaminophen/ Hydrocodone Bitart ([place] (5/325)) 1 tab Q6H PRN PO MODERATE PAIN LEVEL 4-6; Start 08/21/17 at 17:30 Morphine Sulfate (morphine) 2 mg Q4H PRN IV SEVERE PAIN LEVEL 7-10 Last administered on 09/01/17 02:45; Admin Dose 2 MG; Start 08/21/17 at 17:30 Docusate Sodium (Colace) 100 mg Q12H PRN PO CONSTIPATION; Start 08/21/17 at 17: 30 Magnesium Hydroxide (Milk Of Mag) 30 ml DAILY PRN PO CONSTIPATION; Start at 17:30 Sodium Biphosphate/ Sodium Phosphate (Fleet Enema) 133 ml DAILY PRN [place] CONSTIPATION; Start 08/21/17 at 17:30 Hydralazine HCl (Apresoline) 10 mg Q6H PRN IV ELEVATED BLOOD PRESSURE; Start 08/21/17 at 17:30 Nitroglycerin (Nitroglycerin (Sl Tab) 0.4 Mg) 1 tab Q5M PRN SL ANGINA; Start 08/21/17 at 17:30 Oxycodone/ Acetaminophen (Percocet (5/ 325)) 1 tab Q3H PRN PO PAIN LEVEL 1-5; Start 08/22/17 at 01:00 Atorvastatin Calcium (Lipitor) 80 mg HS PO Last administered on 09/07/17 21: 11; Admin Dose 80 MG; Start 08/22/17 at 21:00 Acetaminophen (Tylenol Liquid) 650 mg Q4H PRN PO PAIN AND OR ELEVATED TEMP Last administered on 08/28/17 22:16; Admin Dose 650 MG; Start 08/23/17 at 14: 30 Clopidogrel Bisulfate (plaVIX) 75 mg DAILY NGT Last administered on 09/06/17 08:28; Admin Dose 75 MG; Start 08/24/17 at 09:00; Status Future Hold IV Flush (NS 10 ml) 10 ml PRN PRN IV IV PROTOCOL; Start 08/24/17 at 12:00 Aspirin (Aspirin) 81 mg DAILY PO Last administered on 09/08/17 08:55; Admin Dose 81 MG; Start 08/25/17 at 09:00 Heparin Sodium (Porcine) (Heparin (5000 Units/0.5 ml)) 5,000 unit Q8 SC Last administered on 09/03/17 05:42; Admin Dose 5,000 UNIT; Start 08/25/17 at 22: 00; Status Future Hold Valsartan (Diovan) 40 mg DAILY PO Last administered on 09/08/17 08:55; Admin Dose 40 MG; Start 08/27/17 at 09:00 Spironolactone (Aldactone) 25 mg DAILY@06 NGT Last administered on 09/08/17 06:59; Admin Dose 25 MG; Start 08/28/17 at 11:30 Metoprolol Succinate (Toprol Xl) 50 mg DAILY PO Last administered on 08:55; Admin Dose 50 MG; Start 09/05/17 at 09:00 [place] Carbonate ([place] Carbonate (Sr)) 300 mg QHS PO Last administered on 09/07/17 21:11; Admin Dose 300 MG; Start 09/07/17 at 21:00 Chlorpromazine (Thorazine) 12.5 mg HS PO Last administered on 09/07/17 23:40 ; Admin Dose 12.5 MG; Start 09/07/17 at 22:00 Trihexyphenidyl HCl (Artane) 2.5 mg HS PO Last administered on 09/07/17 23:39 ; Admin Dose 2.5 MG; Start 09/07/17 at 22:00 Amantadine HCl (Symmetrel) 100 mg QHS PO ; Start 09/08/17 at 21:00 Assessment/Plan Chief Complaint/Hosp Course 72-year-old male status post open heart surgery. he has gross hematuria which probably was caused by him pulling on the catheter . He had a Champion catheter that was removed last night. A condom catheter was applied and he is voiding on his own and the urine is yellow clear. From a urological standpoint the patient may be discharged. Problems: LAINA STRONG MD Sep 08, 2017 10:44
--- NOTE | 2017-09-08 12:41 | CONS ---
Date/Time of Note Date/Time of Note DATE: 09/08/17 TIME: 12:40 Consult Date/Type/Reason Admit Date/Time Aug 21, 2017 at 17:28 Initial Consult Date 08/21/17 Type of Consultation: Pulmonary Ordering Provider: HANNAH MCCLENDON MD Subjective Patient comfortable. Son at bedside. No events overnight. Champion catheter now removed and patient urinating adequately. Objective Vital Signs Date Time Temp Pulse Resp B/P Pulse Ox O2 Delivery O2 Flow Rate FiO2 09/08/17 11:15 98.0 102 17 94/55 97 09/08/17 05:36 2.0 09/06/17 18:00 Room Air 09/05/17 01:37 27 Intake and Output 09/07/17 09/07/17 09/08/17 15:00 23:00 07:00 Intake Total 500 ml Output Total 1700 ml Balance -1200 ml Exam GENERAL: Elderly gentleman comfortable at rest no acute distress VITAL SIGNS: per chart NECK: Supple. No JVD or lymphadenopathy. CARDIAC EXAM: S1, S2. No added sounds or murmurs. CHEST: clear bilaterally, No added sounds, rales or wheezes ABDOMEN: Soft, nontender. No guarding or rebound. EXTREMITIES: No cyanosis, clubbing or edema. NEUROLOGIC: Generalized weakness. No focal deficits. Results/Medications Result Diagram: 09/08/17 0654 09/08/17 0658 Results 24 hrs Laboratory Tests Test 09/08/17 06:54 09/08/17 06:58 White Blood Count 9.4 Red Blood Count 3.13 L Hemoglobin 9.2 L Hematocrit 28.8 L Mean Corpuscular Volume 92.0 Mean Corpuscular Hemoglobin 29.4 Mean Corpuscular Hemoglobin Concent 31.9 L Red Cell Distribution Width 15.3 H Platelet Count 405 Mean Platelet Volume 11.1 H Neutrophils % 66.7 Lymphocytes % 18.7 Monocytes % 10.5 Eosinophils % 2.4 Basophils % 0.4 Nucleated Red Blood Cells % 0.0 Neutrophils # 6.2 Lymphocytes # 1.8 Monocytes # 1.0 H Eosinophils # 0.2 Basophils # 0.0 Nucleated Red Blood Cells # 0.0 Sodium Level 146 H Potassium Level 3.8 Chloride Level 113 H Carbon Dioxide Level 24 Anion Gap 13 Blood Urea Nitrogen 19 Creatinine 0.94 Glucose Level 126 Calcium Level 9.1 Medications Current Medications Ondansetron HCl (Zofran Inj) 4 mg Q6H PRN IV NAUSEA AND/OR VOMITING; Start 08/21/17 at 17:30 Acetaminophen/ Hydrocodone Bitart ([place] (5/325)) 1 tab Q6H PRN PO MODERATE PAIN LEVEL 4-6; Start 08/21/17 at 17:30 Morphine Sulfate (morphine) 2 mg Q4H PRN IV SEVERE PAIN LEVEL 7-10 Last administered on 09/01/17 02:45; Admin Dose 2 MG; Start 08/21/17 at 17:30 Docusate Sodium (Colace) 100 mg Q12H PRN PO CONSTIPATION; Start 08/21/17 at 17: 30 Magnesium Hydroxide (Milk Of Mag) 30 ml DAILY PRN PO CONSTIPATION; Start at 17:30 Sodium Biphosphate/ Sodium Phosphate (Fleet Enema) 133 ml DAILY PRN [place] CONSTIPATION; Start 08/21/17 at 17:30 Hydralazine HCl (Apresoline) 10 mg Q6H PRN IV ELEVATED BLOOD PRESSURE; Start 08/21/17 at 17:30 Nitroglycerin (Nitroglycerin (Sl Tab) 0.4 Mg) 1 tab Q5M PRN SL ANGINA; Start 08/21/17 at 17:30 Oxycodone/ Acetaminophen (Percocet (5/ 325)) 1 tab Q3H PRN PO PAIN LEVEL 1-5; Start 08/22/17 at 01:00 Atorvastatin Calcium (Lipitor) 80 mg HS PO Last administered on 09/07/17 21: 11; Admin Dose 80 MG; Start 08/22/17 at 21:00 Acetaminophen (Tylenol Liquid) 650 mg Q4H PRN PO PAIN AND OR ELEVATED TEMP Last administered on 08/28/17 22:16; Admin Dose 650 MG; Start 08/23/17 at 14: 30 Clopidogrel Bisulfate (plaVIX) 75 mg DAILY NGT Last administered on 09/06/17 08:28; Admin Dose 75 MG; Start 08/24/17 at 09:00; Status Future Hold IV Flush (NS 10 ml) 10 ml PRN PRN IV IV PROTOCOL; Start 08/24/17 at 12:00 Aspirin (Aspirin) 81 mg DAILY PO Last administered on 09/08/17 08:55; Admin Dose 81 MG; Start 08/25/17 at 09:00 Heparin Sodium (Porcine) (Heparin (5000 Units/0.5 ml)) 5,000 unit Q8 SC Last administered on 09/03/17 05:42; Admin Dose 5,000 UNIT; Start 08/25/17 at 22: 00; Status Future Hold Valsartan (Diovan) 40 mg DAILY PO Last administered on 09/08/17 08:55; Admin Dose 40 MG; Start 08/27/17 at 09:00 Spironolactone (Aldactone) 25 mg DAILY@06 NGT Last administered on 09/08/17 06:59; Admin Dose 25 MG; Start 08/28/17 at 11:30 Metoprolol Succinate (Toprol Xl) 50 mg DAILY PO Last administered on 08:55; Admin Dose 50 MG; Start 09/05/17 at 09:00 [place] Carbonate ([place] Carbonate (Sr)) 300 mg QHS PO Last administered on 09/07/17 21:11; Admin Dose 300 MG; Start 09/07/17 at 21:00 Chlorpromazine (Thorazine) 12.5 mg HS PO Last administered on 09/07/17 23:40 ; Admin Dose 12.5 MG; Start 09/07/17 at 22:00 Trihexyphenidyl HCl (Artane) 2.5 mg HS PO Last administered on 09/07/17 23:39 ; Admin Dose 2.5 MG; Start 09/07/17 at 22:00 Amantadine HCl (Symmetrel) 100 mg QHS PO ; Start 09/08/17 at 21:00 Assessment/Plan Chief Complaint/Hosp Course IMP: 1. s/p STEMI followed by LHC and CABG 2. Status post cardiogenic shock 3. Anemia with hematuria. 4. Hypernatremia likely free water deficit. 5. Acute CVA with resolving encephalopathy. 6. s/p resp faliure. possible aspiration, 7. Hematuria likely secondary to urethral trauma from catheter RECS: 1. Aspiration precautions, antibiotics per ID. 2. Cardiothoracic recommendations 3. Nocturnal librium and amantadine per family. 4. gentle diuresis. 5. Monitor urine output Discharge planning okay from primary standpoint Problems: CRISTI REY MD[facility] Sep 08, 2017 12:41
--- NOTE | 2017-09-08 14:04 | PN ---
Date/Time of Note Date/Time of Note DATE: 09/08/17 TIME: 13:58 Assessment/Plan VTE Prophylaxis VTE Prophylaxis Intervention: SCD's Lines/Catheters IV Catheter Type (from Nrsg): PICC Line Central line still needed: No Urinary Cath still in place: No Assessment/Plan Assessment/Plan 72 yo M presented with chest pain found to have STEMI. sp CABG. 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 Hospital course cb encephalopathy likely 2/2 CVAs sustained during procedures. Encephalopathy significantly improved. Hospitalization also c /b AUR warranting martinez placement, now resolved PLAN #STEMI/CAD sp CABG cont BP/antiplatelet/lipid lowering regimen as per cardiology resume plavix aas hematuria resolved #hematuria from pulling on martinez: RESOLVED #CVA: cont asa, cont PT, cont ST cont statin, BB, arb, asa #hx hypothyroid: TFTs wnl #anemia: hgb stable, outpatient follow up #chronic neuropsychiatric illness: home psych meds reviewed with son. pt takes thorazine, amantadine, artane, and lithium at home. regimen here updated in EMR to reflect home regimen Son requesting HH instead of SNF. CM consult placed Left messages with CT surgery and cardiology to let them know pt will likely be dc'ed tomorrow if they have any other recs Subjective 24 Hr Interval Summary Free Text/Dictation Sitting up in bed Exam/Review of Systems Vital Signs Vitals Vital Signs Date Time Temp Pulse Resp B/P Pulse Ox O2 Delivery O2 Flow Rate FiO2 09/08/17 12:30 100 09/08/17 11:15 98.0 17 94/55 97 09/08/17 05:36 2.0 09/06/17 18:00 Room Air 09/05/17 01:37 27 Intake and Output 09/07/17 09/07/17 09/08/17 15:00 23:00 07:00 Intake Total 500 ml Output Total 1700 ml Balance -1200 ml Exam nad no mrg lungs clear abd soft martinez out Results Result Diagram: 09/08/17 0654 09/08/17 0658 Results 24 hrs Laboratory Tests Test 09/08/17 06:54 09/08/17 06:58 White Blood Count 9.4 Red Blood Count 3.13 L Hemoglobin 9.2 L Hematocrit 28.8 L Mean Corpuscular Volume 92.0 Mean Corpuscular Hemoglobin 29.4 Mean Corpuscular Hemoglobin Concent 31.9 L Red Cell Distribution Width 15.3 H Platelet Count 405 Mean Platelet Volume 11.1 H Neutrophils % 66.7 Lymphocytes % 18.7 Monocytes % 10.5 Eosinophils % 2.4 Basophils % 0.4 Nucleated Red Blood Cells % 0.0 Neutrophils # 6.2 Lymphocytes # 1.8 Monocytes # 1.0 H Eosinophils # 0.2 Basophils # 0.0 Nucleated Red Blood Cells # 0.0 Sodium Level 146 H Potassium Level 3.8 Chloride Level 113 H Carbon Dioxide Level 24 Anion Gap 13 Blood Urea Nitrogen 19 Creatinine 0.94 Glucose Level 126 Calcium Level 9.1 Medications Medications Current Medications Ondansetron HCl (Zofran Inj) 4 mg Q6H PRN IV NAUSEA AND/OR VOMITING; Start 08/21/17 at 17:30 Acetaminophen/ Hydrocodone Bitart ([place] (5/325)) 1 tab Q6H PRN PO MODERATE PAIN LEVEL 4-6; Start 08/21/17 at 17:30 Morphine Sulfate (morphine) 2 mg Q4H PRN IV SEVERE PAIN LEVEL 7-10 Last administered on 09/01/17 02:45; Admin Dose 2 MG; Start 08/21/17 at 17:30 Docusate Sodium (Colace) 100 mg Q12H PRN PO CONSTIPATION; Start 08/21/17 at 17: 30 Magnesium Hydroxide (Milk Of Mag) 30 ml DAILY PRN PO CONSTIPATION; Start at 17:30 Sodium Biphosphate/ Sodium Phosphate (Fleet Enema) 133 ml DAILY PRN [place] CONSTIPATION; Start 08/21/17 at 17:30 Hydralazine HCl (Apresoline) 10 mg Q6H PRN IV ELEVATED BLOOD PRESSURE; Start 08/21/17 at 17:30 Nitroglycerin (Nitroglycerin (Sl Tab) 0.4 Mg) 1 tab Q5M PRN SL ANGINA; Start 08/21/17 at 17:30 Oxycodone/ Acetaminophen (Percocet (5/ 325)) 1 tab Q3H PRN PO PAIN LEVEL 1-5; Start 08/22/17 at 01:00 Atorvastatin Calcium (Lipitor) 80 mg HS PO Last administered on 09/07/17 21: 11; Admin Dose 80 MG; Start 08/22/17 at 21:00 Acetaminophen (Tylenol Liquid) 650 mg Q4H PRN PO PAIN AND OR ELEVATED TEMP Last administered on 08/28/17 22:16; Admin Dose 650 MG; Start 08/23/17 at 14: 30 Clopidogrel Bisulfate (plaVIX) 75 mg DAILY NGT Last administered on 09/06/17 08:28; Admin Dose 75 MG; Start 08/24/17 at 09:00; Status Future Hold IV Flush (NS 10 ml) 10 ml PRN PRN IV IV PROTOCOL; Start 08/24/17 at 12:00 Aspirin (Aspirin) 81 mg DAILY PO Last administered on 09/08/17 08:55; Admin Dose 81 MG; Start 08/25/17 at 09:00 Heparin Sodium (Porcine) (Heparin (5000 Units/0.5 ml)) 5,000 unit Q8 SC Last administered on 09/03/17 05:42; Admin Dose 5,000 UNIT; Start 08/25/17 at 22: 00; Status Future Hold Valsartan (Diovan) 40 mg DAILY PO Last administered on 09/08/17 08:55; Admin Dose 40 MG; Start 08/27/17 at 09:00 Spironolactone (Aldactone) 25 mg DAILY@06 NGT Last administered on 09/08/17 06:59; Admin Dose 25 MG; Start 08/28/17 at 11:30 Metoprolol Succinate (Toprol Xl) 50 mg DAILY PO Last administered on 08:55; Admin Dose 50 MG; Start 09/05/17 at 09:00 [place] Carbonate ([place] Carbonate (Sr)) 300 mg QHS PO Last administered on 09/07/17 21:11; Admin Dose 300 MG; Start 09/07/17 at 21:00 Chlorpromazine (Thorazine) 12.5 mg HS PO Last administered on 09/07/17 23:40 ; Admin Dose 12.5 MG; Start 09/07/17 at 22:00 Trihexyphenidyl HCl (Artane) 2.5 mg HS PO Last administered on 09/07/17 23:39 ; Admin Dose 2.5 MG; Start 09/07/17 at 22:00 Amantadine HCl (Symmetrel) 100 mg QHS PO ; Start 09/08/17 at 21:00 ZACHARY SHANNON MD Sep 08, 2017 14:04
[2017-09-08] MEDS ORDERED: CLOP75TA28 PO (16:06)
[2017-09-08] MEDS ORDERED: ASPI81TA3 PO (16:06)
[2017-09-08] MEDS ORDERED: SPIR25TA NGT (16:06)
[2017-09-08] MEDS ORDERED: VALS80TA2 PO (16:06)
[2017-09-08] MEDS ORDERED: ATOR80TA75 PO (16:06)
[2017-09-08] MEDS ORDERED: AMAN100C65 PO (16:06)
[2017-09-08] MEDS ORDERED: THO25 PO (16:06)
[2017-09-08] MEDS ORDERED: METO-319 PO (16:06)
--- NOTE | 2017-09-08 16:14 | PDOCDIS ---
Discharge Instructions CONDITION Patient Condition: Stable HOME CARE INSTRUCTIONS: Special Diet: pureed FOLLOW UP/APPOINTMENTS Follow-up Plan If you have any fevers, chest pain, opening of your chest wound, drainage or pus from your chest wound return to the ER immediately See your primary care physician before the end of the week for a blood pressure check and a chemistry profile Dr Vilchis Address: [address] [facility] [address], [place] [address] Follow up with either your charter boat operator (Dr Solis) or the charter boat operator who saw you here (Dr Lopez) within 1 week If you cannot reach Dr Solis, here is the info for Dr Lopez Office Address [address] [place] [address] Office Follow up with Dr Fenton, the heart surgeon, within 1 week Office Address [address] [facility] [address] [place] [address] Office ZACHARY SHANNON MD Sep 08, 2017 16:14
--- NOTE | 2017-09-08 16:20 | DS ---
Date/Time of Note Date/Time of Note DATE: 09/08/17 TIME: 16:14 Discharge Summary Admission/Discharge Info Admit Date/Time Aug 21, 2017 at 17:28 Discharge Date/Time Discharge Diagnosis STEMI, multi vessel CAD, cardiogenic shock (resolved), multiple acute CVAs, hypertension, hyperlipidemia, hematuria from martinez trauma (resolved), hypernatremia, normocytic anemia Patient Condition: Stable Consults cardiology, cardiothoracic surgery, pulmonology, urology Procedures 12.8 TTE Conclusions Limited study. Severely reduced left ventricular systolic function with global hypokinesis and akinesis of the apex, mid-distal anterior and septal camp. Mild-moderate mitral regurgitation. 12.8 Operation/Procedure Performed Coronary angiography Attempt at PCI of LAD, unsuccessful Balloon pump placement Postoperative Diagnosis STEMI anterior wall Three vessel coronary disease 12.9: CABGX3, [place]ST[place] TO LAD, SVG TO DISTAL RCA, SVG TO OM2 12.15 MRI brain IMPRESSION: 1. Punctate recent infarctions within the right cerebellar hemisphere and left frontal lobe. 2. Moderate ventriculomegaly which is slightly disproportionate to the degree of generalized cerebral volume loss. Please correlate for signs of normal- pressure hydrocephalus. 3. Acute sinus disease. Hx of Present Illness This is a 72 yo male with hx of DL, anxiety, ?hypothyroidism who presented with chest pain and found to have STEMI with elevated troponin. emergent cardiac cath revealed multivessel disease. Attempt at PCI of LAD, unsuccessful. 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 Balloon pump was placed. Patien was emergently taken to OR and underwent CABG. . Hospital Course 72 yo M presented with chest pain found to have STEMI. sp CABG 12.9. 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 Hospital course cb encephalopathy likely 2/2 CVAs sustained during procedures. Encephalopathy significantly improved over the course of pt's hospital stay. Hospitalization also c/b hematuria from pulling on martinez while in the ICU warranting martinez placement. Hematuria resolved and martinez was removed. Pt's home neuropsychiatric meds were continued. Pt's family requested HH at discharge over SNF. HH was arranged. copy of dc summary faxed to PCP. Also personally spoke to PCPs office on date of discharge Changes from admit meds pt started on DAPT (asa/plavix) given CABG/CAD Statin regimen intensified Aggressive BP regimen initiated (bb/arb/aldactone) Home Meds Active Scripts Aspirin (Aspirin) 81 Mg Chew, 81 MG PO DAILY for 30 Days, #30 TAB Prov:ZACHARY SHANNON MD 09/08/17 Valsartan* (Diovan*) 80 Mg Tablet, 40 MG PO DAILY for 30 Days, #30 TAB Prov:ZACHARY SHANNON MD 09/08/17 Spironolactone* (Aldactone*) 25 Mg Tablet, 25 MG NGT DAILY@06 for 30 Days, #30 TAB Prov:ZACHARY SHANNON MD 09/08/17 Metoprolol Succinate* (Toprol XL*) 50 Mg Tab.er.24h, 50 MG PO DAILY for 30 Days , #30 TAB Prov:ZACHARY SHANNON MD 09/08/17 Atorvastatin* (Atorvastatin*) 80 Mg Tablet, 80 MG PO HS for 30 Days, #30 TAB Prov:ZACHARY HSANNON MD 09/08/17 Clopidogrel Bisulfate (Clopidogrel) 75 Mg Tablet, 75 MG PO DAILY for 30 Days, # 30 TAB Prov:ZACHARY SHANNON MD 09/08/17 Reported Medications Alendronate Sodium* (Fosamax*) 70 Mg Tablet, 70 MG PO Q7D, #4 TAB 08/21/17 [place] Carbonate* ([place] Carbonate*) 300 Mg Tablet, 300 MG PO QHS, TAB 08/21/17 Simvastatin* (Zocor*) 20 Mg Tablet, 20 MG PO QHS, #30 TAB 08/21/17 Atorvastatin Calcium* (Atorvastatin Calcium*) 20 Mg Tablet, 20 MG PO QHS, #30 TAB 08/21/17 Follow-up Plan If you have any fevers, chest pain, opening of your chest wound, drainage or pus from your chest wound return to the ER immediately See your primary care physician before the end of the week for a blood pressure check and a chemistry profile Dr Vilchis Address: [address] [facility] [address], [place] [address] Follow up with either your bridge attacher (Dr Solis) or the bridge attacher who saw you here (Dr Lopez) within 1 week If you cannot reach Dr Solis, here is the info for Dr Lopez Office Address [address] [place] [address] [place] [address] Office Follow up with Dr Fenton, the heart surgeon, within 1 week Office Address [address] [facility] [address] [place] [address] Office Primary Care Provider Tucker Vilchis [address] [facility] [address] [place] [address] Phone number fax [phone] Time spent on discharge: > 30 minutes Pending Labs Laboratory Tests Test 09/08/17 06:54 09/08/17 06:58 White Blood Count 9.410^3/ul (4.8-10.8) Red Blood Count 3.1310^6/ul (4.70-6.10) Hemoglobin 9.2g/dl (14.0-18.0) Hematocrit 28.8% (42.0-52.0) Mean Corpuscular Volume 92.0fl (82.0-101.0) Mean Corpuscular Hemoglobin 29.4pg (29.0-33.0) Mean Corpuscular Hemoglobin Concent 31.9g/dl (32.0-37.0) Red Cell Distribution Width 15.3% (11.5-14.5) Platelet Count 83769^3/UL (140-415) Mean Platelet Volume 11.1fl (7.4-10.4) Neutrophils % 66.7% (39.0-77.0) Lymphocytes % 18.7% (15.0-51.0) Monocytes % 10.5% (0.0-11.0) Eosinophils % 2.4% (0.0-7.0) Basophils % 0.4% (0.0-2.0) Nucleated Red Blood Cells % 0.0/100WBC (0.0-0.0) Neutrophils # 6.210^3/ul (1.6-7.5) Lymphocytes # 1.810^3/ul (0.8-2.9) Monocytes # 1.010^3/ul (0.3-0.9) Eosinophils # 0.210^3/ul (0.0-0.5) Basophils # 0.010^3/ul (0.0-0.1) Nucleated Red Blood Cells # 0.010^3/ul (0.0-0.0) Sodium Level 146mmol/L (135-144) Potassium Level 3.8mmol/L (3.5-5.1) Chloride Level 113mmol/L (97-110) Carbon Dioxide Level 24mmol/L (21-31) Anion Gap 13 (8-16) Blood Urea Nitrogen 19mg/dl (7-20) Creatinine 0.94mg/dl (0.61-1.24) Glucose Level 126mg/dl (70-220) Calcium Level 9.1mg/dl (8.4-10.2) ZACHARY SHANNON MD Sep 08, 2017 16:20
[2017-09-08] MEDS ORDERED: AMANTADINE 100 MG CAP PO SCH (21:00)
== END 2017-09-08 17:40 | disposition home health service (06) | DRG 233 ==
LOC: E/R 11:23 → REC 17:28 → ICU 08-22 01:24 → TEL 09-06 18:08
PROVIDERS: ADMIT Hospitalist; ATTEND Hospitalist
PROC: 5A02210 Assistance with Cardiac Output using Balloon Pump, Continuous (ICD-10-PCS; 2017-08-21)
PROC: 5A1955Z Respiratory Ventilation, Greater than 96 Consecutive Hours (ICD-10-PCS; 2017-08-21)
PROC: 0210099 Bypass Coronary Artery, One Artery from Left Internal Mammary with Autologous Venous Tissue, Open Approach (ICD-10-PCS; 2017-08-21)
PROC: 06BP4ZZ Excision of Right Saphenous Vein, Percutaneous Endoscopic Approach (ICD-10-PCS; 2017-08-21)
PROC: 5A2204Z Restoration of Cardiac Rhythm, Single (ICD-10-PCS; 2017-08-21)
PROC: 0BH17EZ Insertion of Endotracheal Airway into Trachea, Via Natural or Artificial Opening (ICD-10-PCS; 2017-08-21)
PROC: 02HV33Z Insertion of Infusion Device into Superior Vena Cava, Percutaneous Approach (ICD-10-PCS; 2017-08-21)
PROC: 30233N1 Transfusion of Nonautologous Red Blood Cells into Peripheral Vein, Percutaneous Approach (ICD-10-PCS; 2017-08-21)
PROC: 5A1221Z Performance of Cardiac Output, Continuous (ICD-10-PCS; 2017-08-21)
PROC: 021109W Bypass Coronary Artery, Two Arteries from Aorta with Autologous Venous Tissue, Open Approach (ICD-10-PCS; principal; 2017-08-21 18:30)
PROC: B211YZZ Fluoroscopy of Multiple Coronary Arteries using Other Contrast (ICD-10-PCS; 2017-08-21 18:30)
PROC: 30233L1 Transfusion of Nonautologous Fresh Plasma into Peripheral Vein, Percutaneous Approach (ICD-10-PCS; 2017-08-22)
PROC: 30233R1 Transfusion of Nonautologous Platelets into Peripheral Vein, Percutaneous Approach (ICD-10-PCS; 2017-08-22)
DX: I21.09 ST elevation (STEMI) myocardial infarction involving other coronary artery of anterior wall (principal); I63.9 Cerebral infarction, unspecified; J96.00 Acute respiratory failure, unspecified whether with hypoxia or hypercapnia; K72.00 Acute and subacute hepatic failure without coma; G93.40 Encephalopathy, unspecified; I47.2 Ventricular tachycardia; S37.39XA Other injury of urethra, initial encounter; I46.2 Cardiac arrest due to underlying cardiac condition; I49.01 Ventricular fibrillation; I46.9 Cardiac arrest, cause unspecified; R65.10 Systemic inflammatory response syndrome (SIRS) of non-infectious origin without acute organ dysfunction; E87.2 Acidosis; E87.0 Hyperosmolality and hypernatremia; E87.1 Hypo-osmolality and hyponatremia; I25.10 Atherosclerotic heart disease of native coronary artery without angina pectoris; E78.5 Hyperlipidemia, unspecified; F41.9 Anxiety disorder, unspecified; E03.9 Hypothyroidism, unspecified; I10 Essential (primary) hypertension; D64.9 Anemia, unspecified; E87.6 Hypokalemia; I25.5 Ischemic cardiomyopathy; X58.XXXA Exposure to other specified factors, initial encounter; Y83.2 Surgical operation with anastomosis, bypass or graft as the cause of abnormal reaction of the patient, or of later complication, without mention of misadventure at the time of the procedure; Y92.238 Other place in hospital as the place of occurrence of the external cause; J44.9 Chronic obstructive pulmonary disease, unspecified; Z86.73 Personal history of transient ischemic attack (TIA), and cerebral infarction without residual deficits
CPT/HCPCS: 31500; 36415; 36430; 36569; 36592; 36600; 70450; 70553; 71010; 74230; 76705; 76937; 80048; 80053; 80061; 80069; 80076; 80202; 81001; 81003; 82550; 82553; 82803; 82962; 83036; 83605; 83735; 83880; 84100; 84132; 84439; 84443; 84484; 85014; 85018; 85025; 85610; 85730; 86644; 86850; 86900; 86901; 86920; 86945; 87040; 87070; 87081; 87086; 89220; 92526; 92610; 92611; 93005; 93306; 93454; 94002; 94003; 94640; 94664; 94770; 96374; 97110; 97116; 97162; 97530; J1940; C1769; C1887; J0171; J0360; J0690; J1170; J1265; J1644; J1650; J1815; J1956; J2001; J2060; J2250; J2260; J2270; J2370; J2440; J2543; J2720; J3010; J3370; J3475; J3480; J7030; J7040; J7042; J7050; J7070; P9016; P9035; P9045; P9047; P9059; Q9967